=== PATIENT | female | born 1960 | race Caucasian/White ===

== ENCOUNTER 2017-11-18 11:37 | Outpatient (CLI) | payer MEDICARE, MEDICAID, SELFPAY ==
[2017-11-18 13:19] LABS: ALT 25 U/L (12-78); AST 13 U/L (15-37); Albumin 3.6 g/dL (3.4-5.0); Alkaline Phosphatase 91 U/L (46-116); Anion Gap 9.3 mmol/L (3-11); BUN 14 mg/dL (7-18); Bilirubin, Total 0.3 mg/dL (0.2-1.0); CO2 26.7 mmol/L (21.0-32.0); CREATININE 0.57 mg/dL (0.55-1.02); Calcium 8.9 mg/dL (8.5-10.1); Chloride 106 mmol/L (98-107); Cholesterol 186 mg/dL (50-200); Glucose 93 mg/dL (70-100); HDL Cholesterol 36 mg/dL (40-60); LDL CHOLESTEROL 108 mg/dL (<100); Potassium 4.3 mmol/L (3.5-5.1); Sodium 142 mmol/L (136-145); Total Protein 7.2 g/dL (6.4-8.2); Triglyceride 292 mg/dL (30-150)
== END 2017-11-18 11:57 ==
DX: F31.12 Bipolar disorder, current episode manic without psychotic features, moderate (principal); G80.9 Cerebral palsy, unspecified; E78.5 Hyperlipidemia, unspecified
CPT/HCPCS: 36415; 80053; 80061; 83721; 83036

== ENCOUNTER 2018-06-11 08:40 | Outpatient (CLI) | payer MEDICARE, MEDICAID, SELFPAY ==
[2018-06-11 09:16] LABS: Abs Immature Grans 0.03 k/cumm (0.0-0.09); Absolute Basophil Count 0.02 k/cumm (0.0-0.2); Absolute Eosinophil Count 0.04 k/cumm (0.0-0.7); Absolute Monocyte Count 0.27 k/cumm (0.11-0.7); Absolute Neutrophil Count 3.02 k/cumm (1.2-6.7); Basophils % 0.4; Eosinophils % 0.8; HCT 40.2 % (36.0-46.0); HGB 12.8 g/dL (12.0-15.5); Immature Grans % 0.6; Lymphocytes % 30.7; Mean Corp. HGB Concentration 31.8 g/dL (32.0-36.0); Mean Corpuscular Hemoglobin 28.8 pg (27.0-33.0); Mean Corpuscular Volume 90.5 fL (80-95); Mean Platelet Volume 10.3 fL (8.0-11.0); Monocytes % 5.5; Platelet Count 195 x1000/uL (130-400); RBC 4.44 m/cumm (4.00-5.20); RBC Distribution Width 14.7 % (11.7-14.6); White Blood Cell Count 4.88 k/cumm (4.4-10.8)
[2018-06-11 09:32] LABS: Hemoglobin A1C 5.3 % (4.5-6.2)
[2018-06-11 10:21] LABS: ALT 20 U/L (12-78); AST 14 U/L (15-37); Alkaline Phosphatase 64 U/L (46-116); BUN 15 mg/dL (7-18); Bilirubin, Total 0.2 mg/dL (0.2-1.0); Calcium 9.5 mg/dL (8.5-10.1); Chloride 106 mmol/L (98-107); Glucose 98 mg/dL (70-100); Potassium 4.1 mmol/L (3.5-5.1); Sodium 143 mmol/L (136-145); Total Protein 7.7 g/dL (6.4-8.2)
== END 2018-06-11 09:00 ==
PROVIDERS: Family Medicine
DX: R73.9 Hyperglycemia, unspecified (principal); R39.89 Other symptoms and signs involving the genitourinary system
CPT/HCPCS: 36415; 80053; 81003; 83036; 85025

== ENCOUNTER 2018-06-23 12:35 | Emergency (ER) | payer MEDICARE, MEDICAID, SELFPAY ==
[2018-06-23 12:43] VITALS: BP 123/59; PULSE 99; RESP 18; TEMP 36.4; O2SAT 97
--- NOTE | 2018-06-23 12:49 | ED.GENADUL_ITS ---
Discharge Plan Disposition Patient Disposition: HOME Condition: Improving Discharge Details Chief Complaint: Orthopedic Clinical Impression: Cellulitis of great toe, left Primary Care Provider: Loan Pradhan ED Provider: Nain Murphy Home Meds and New Rx's Prescriptions: New cephalexin 500 mg tablet 500 mg PO TID 7 Days Qty: 21 RF: 0 Continued mirtazapine 15 mg tablet,disintegrating 30 mg PO HS RF: 0 trazodone 100 mg tablet 100 mg PO QHS Qty: 90 RF: 0 multivitamin 1 EACH capsule 1 cap AD DAILY Qty: 90 RF: 0 DEPEND 1 EACH EACH 1 ea Miscellaneous PRN RF: 0 divalproex [Depakote] 250 MG tablet,delayed release (DR/EC) 250 mg PO BID RF: 0 olanzapine 2.5 MG tablet 2.5 mg PO HS PRNRF: 0 ADULT DIAPERS 1 ea Miscellaneous 6X/DAY Qty: 300 RF: 11 acetaminophen 500 MG tablet 1,000 mg PO Q6H PRN RF: 0 melatonin 3 MG tablet 0.5 tab PO HS RF: 0 alprazolam [Xanax] 0.5 MG tablet 0.5 mg PO as directed Qty: 10 RF: 0 olanzapine 10 MG tablet 10 mg PO HS RF: 0 Citracal 1 tab PO DAILY RF: 0 polyethylene glycol 3350(bulk) 1 GM granules 17 gm PO DAILY PRNQty: 527 RF: 6 docusate sodium 100 MG capsule 1 - 2 cap PO BID PRNQty: 100 RF: 11 olanzapine 5 MG tablet 1 tab PO DAILY Qty: 90 RF: 3 simvastatin 40 MG tablet 40 mg PO DAILY Qty: 90 RF: 3 prazosin 2 MG capsule 2 mg PO DAILY RF: 0 Dexilant 30 mg capsule,biphase delayed releas 30 mg PO DAILY Qty: 30 RF: 11 betamethasone dipropionate 0.05 % cream 1 applic TP BID PRN (Reason: skin irritation) Qty: 45 RF: 3 L-Carnitine 500 mg tablet 500 mg PO BID Qty: 180 RF: 3 erythromycin 5 mg/gram (0.5 %) ointment 0.5 inch OP BID Qty: 1 RF: 0 Discontinued amoxicillin-pot clavulanate [Augmentin] 875-125 mg tablet 1 tab PO Q12H Qty: 14 RF: 0 Discharge Instructions Instructions: Cellulitis (ED) Additional Instructions: Continue warm, salt water soaks 3-4 times a day. Take antibiotics as prescribed Please follow-up with Loan Callaway for recheck if not improving in 3-5 days time. Return for any acute concerns. Continue all regular medications. Medical Decision Making 57-year-old female presents with her caregiver HPI General Mode of arrival: ambulatory . Date/Time Provider Initiated Documentation: 06/23/18 12:44 . Limitations to Documentation: no limitations . Information obtained by: patient . History of Present Illness 57 year old F presents to the emergency department with the chief complaint of Left great toe erythema, described as mild, Quality is described as constant, and is localized to the left and lower extremity. Patient reports no radiation. Patient started experiencing this hour(s) and it has been constant. No relieving factors improve symptom(s), No exacerbating factors reported . Patient notes no other symptoms.; denies fever/chills. Related Data Home Medications Medication Instructions Recorded Confirmed Depend 1 ea MISCELLANEOUS PRN ea 05/28/12 06/03/18 multivitamin 1 cap AD DAILY #90 05/28/12 06/03/18 divalproex [Depakote] 250 mg PO BID tab-cap 09/17/13 06/03/18 olanzapine 2.5 mg PO HS PRN 11/25/13 06/03/18 acetaminophen 1,000 mg PO Q6H PRN tab-cap 10/04/15 06/03/18 melatonin 0.5 tab PO HS 11/07/15 06/03/18 alprazolam [Xanax] 0.5 mg PO as directed #10 tab 06/10/16 06/03/18 Citracal 1 tab PO DAILY 10/14/16 06/03/18 olanzapine 10 mg PO HS 10/14/16 06/03/18 polyethylene glycol 3350(bulk) 17 gm PO DAILY PRN #527 gm 04/07/17 06/03/18 docusate sodium 1 - 2 cap PO BID PRN #100 tab-cap 05/06/17 06/03/18 olanzapine 1 tab PO DAILY #90 tab 06/25/17 06/03/18 simvastatin 40 mg PO DAILY #90 tab-cap 06/25/17 06/03/18 prazosin 2 mg PO DAILY 08/20/18 03/20/19 dexlansoprazole 30 mg 30 mg PO DAILY #30 tab-cap 01/15/18 06/03/18 capsule,biphase delayed release betamethasone dipropionate 0.05 % 1 applic TP BID PRN #45 gm 02/03/18 06/03/18 topical cream levocarnitine 500 mg tablet 500 mg PO BID #180 tab-cap 04/20/18 06/03/18 mirtazapine 15 mg disintegrating 30 mg PO HS tab-cap 05/24/18 06/03/18 tablet trazodone 100 mg tablet 100 mg PO QHS #90 tab 05/24/18 06/03/18 erythromycin 5 mg/gram (0.5 %) eye 0.5 inch OP BID #1 gm 05/27/18 06/03/18 ointment cephalexin 500 mg PO TID 7 Days #21 tab 06/23/18 Previous Rx's Medication Instructions Recorded olanzapine 1 tab PO DAILY #90 tab 06/25/17 simvastatin 40 mg PO DAILY #90 tab-cap 06/25/17 dexlansoprazole 30 mg 30 mg PO DAILY #30 tab-cap 01/15/18 capsule,biphase delayed release betamethasone dipropionate 0.05 % 1 applic TP BID PRN #45 gm 02/03/18 topical cream levocarnitine 500 mg tablet 500 mg PO BID #180 tab-cap 04/20/18 trazodone 100 mg tablet 100 mg PO QHS #90 tab 05/24/18 erythromycin 5 mg/gram (0.5 %) eye 0.5 inch OP BID #1 gm 05/27/18 ointment cephalexin 500 mg PO TID 7 Days #21 tab 06/23/18 Allergies Allergy/AdvReac Type Severity Reaction Status Date / Time No Known Allergies Allergy Verified 06/23/18 12:46 General Stated Complaint: Orthopedic ISRA[place]: 4 Review of Systems Review of Systems 6 systems reviewed and otherwise neg [facility] Medical History Abnormal weight gain (Acute 10/04/15) Abnormal weight loss (Acute 03/03/15) Bipolar affective disorder, current episode hypomanic (Chronic 03/03/15) Bipolar affective disorder, currently manic, moderate (Chronic 10/04/15) Cerebral palsy (Chronic 09/11/12) Constipation (Chronic) Hyperlipidemia (Chronic 09/11/12) Idiopathic scoliosis (Chronic) Osteopenia (Chronic) Pain (Chronic 10/04/15) Urine discoloration (Chronic 10/04/15) Surgical History Spinal Fusion Family History Father Heart disease Social History Smoking/Tobacco Use Status: Never Drug use: Never Exam Narrative Exam Narrative: GEN: awake, alert, Pleasant, well groomed, interactive. HEAD: Normocephalic, atraumatic ENT: Mucous membranes moist, oropharynx unremarkable, External ear exam unremarkable EYES: PERRL, EOMI NECK: Full ROM, no AP, no menigismus CHEST/RESP: Nontender, clear to auscultation bilateral, no wheeze/rhonchi/rales CARDIOVASCULAR: RRR, no murmur, rub maggie. 2+ Rad pulse bilateral EXT: Full ROM, no edema, left great toe with erythema proximal to the nailbed. No evidence of ingrown toenail there is some dried skin present. Neuro: Grossly normal neurologic exam, patient not verbal at baseline Course Vital Signs Temperature 36.4 C L 06/23/18 12:43 Pulse 99 H 06/23/18 12:43 Respiratory Rate 18 06/23/18 12:43 Blood Pressure 123/59 L 06/23/18 12:43 Pulse Oximetry 97 06/23/18 12:43 Temperature 36.4 C L 06/23/18 12:43 Pulse 99 H 06/23/18 12:43 Respiratory Rate 18 06/23/18 12:43 Blood Pressure 123/59 L 06/23/18 12:43 Pulse Oximetry 97 06/23/18 12:43 Oxygen Delivery Method Room Air 06/23/18 12:43 Oxygen Flow Rate 0 06/23/18 12:43 Pain Level 0 06/23/18 12:43 Comment 06/23/18 12:43
== END 2018-06-23 13:08 | disposition home or self-care (01) ==
LOC: ER 12:54
PROVIDERS: Emergency Provider Emergency Medicine
DX: L03.032 Cellulitis of left toe (principal)
CPT/HCPCS: 99283

== ENCOUNTER 2018-06-29 20:43 | Outpatient (REF) | payer MEDICARE, MEDICAID, SELFPAY | END 2018-06-29 21:03 | LOC: LBN 20:43 | DX: L03.032 Cellulitis of left toe (principal) | CPT/HCPCS: 87077; 87070; 87186; 87205 ==

== ENCOUNTER 2018-11-05 02:17 | Outpatient (CLI) | payer MEDICARE, MEDICAID, SELFPAY ==
[2018-11-05 11:10] LABS: Anion Gap 10.9 mmol/L (3-11); BUN 12 mg/dL (7-18); CO2 27.1 mmol/L (21.0-32.0); CREATININE 0.48 mg/dL (0.55-1.02); Calcium 9.2 mg/dL (8.5-10.1); Chloride 109 mmol/L (98-107); Glucose 98 mg/dL (70-100); Potassium 4.7 mmol/L (3.5-5.1); Sodium 147 mmol/L (136-145)
== END 2018-11-05 02:37 ==
DX: G80.9 Cerebral palsy, unspecified (principal); K59.00 Constipation, unspecified; R63.5 Abnormal weight gain
CPT/HCPCS: 36415; 80048

== ENCOUNTER 2018-12-04 15:05 | Outpatient (REF) | payer MEDICARE, MEDICAID, SELFPAY ==
[2018-12-04 16:19] LABS: Bilirubin Negative (Negative); Blood Negative (Negative); Glucose Negative (Negative); Ketones Negative (Negative); Leukocyte Esterase Negative (Negative); Nitrite Negative (Negative); Specific Gravity 1.025 (1.005-1.025); pH 6.5 (5-8)
[2018-12-04 16:20] LABS: Clarity Sl Cloudy (Clear)
== END 2018-12-04 15:25 ==
LOC: LBN 15:05
DX: R39.9 Unspecified symptoms and signs involving the genitourinary system (principal)
CPT/HCPCS: 81003

== ENCOUNTER 2019-01-06 17:09 | Emergency (ER) | payer MEDICARE, MEDICAID, SELFPAY ==
[2019-01-06 17:52] VITALS: TEMP 36.4
--- NOTE | 2019-01-06 17:58 | W.ED.GENAD ---
Discharge Plan Disposition Patient Disposition: HOME Condition: Good Discharge Details Chief Complaint: SutureRem Clinical Impression: Encounter for removal of dm Primary Care Provider: Loan Pradhan ED Provider: Priyanka Lee Home Meds and New Rx's Prescriptions: Continued mirtazapine 15 mg tablet,disintegrating 30 mg PO HS RF: 0 trazodone 100 mg tablet 100 mg PO QHS Qty: 90 RF: 0 multivitamin 1 EACH capsule 1 cap AD DAILY Qty: 90 RF: 0 DEPEND 1 EACH EACH 1 ea Miscellaneous PRN RF: 0 ADULT DIAPERS 1 ea Miscellaneous 6X/DAY Qty: 300 RF: 11 acetaminophen 500 MG tablet 1,000 mg PO Q6H PRN RF: 0 alprazolam [Xanax] 0.5 MG tablet 0.5 mg PO as directed Qty: 10 RF: 0 olanzapine 10 MG tablet 10 mg PO HS RF: 0 Citracal 1 tab PO DAILY RF: 0 polyethylene glycol 3350(bulk) 1 GM granules 17 gm PO DAILY PRNQty: 527 RF: 6 olanzapine 5 MG tablet 1 tab PO DAILY Qty: 90 RF: 3 prazosin 2 MG capsule 2 mg PO DAILY RF: 0 Dexilant 30 mg capsule,biphase delayed releas 30 mg PO DAILY Qty: 30 RF: 11 betamethasone dipropionate 0.05 % cream 1 applic TP BID PRN (Reason: skin irritation) Qty: 45 RF: 3 L-Carnitine 500 mg tablet 500 mg PO BID Qty: 180 RF: 3 docusate sodium 100 mg capsule 100 - 200 mg PO BID PRN (Reason: constipation) Qty: 100 RF: 3 simvastatin 40 mg tablet 40 mg PO DAILY Qty: 90 RF: 3 divalproex [Depakote] 250 mg tablet,delayed release (DR/EC) 500 mg PO BID RF: 0 melatonin 3 mg tablet 3 mg PO HS RF: 0 sulfamethoxazole-trimethoprim [Bactrim DS] 800-160 mg tablet 1 tab PO BID Qty: 6 RF: 0 Discharge Instructions Instructions: Laceration (ED) Additional Instructions: Dm removed today. He may wash normally would. Please allow the scab to come off naturally. Monitor for signs of infection including redness, warmth, drainage, increased pain, fever/chills. If she develops these or the new/worsening symptoms please seek care urgently once again. Otherwise, please follow-up with primary care as needed. Referrals: Loan Pradhan NP [Primary Care Provider] - Discharge Data Discharge Date/Time-TO BE ENTERED AT DEPARTURE: 01/06/19 18:40 Medical Decision Making Patient is a 58-year-old female, brought in by her primary home caregiver, with chief complaint of staple removal. She was seen at [facility] at which time for dm were placed to the posterior aspect of her scalp after the patient fell striking her head 10 days ago. They report that is been healing well, they have not noted signs of infection. Patient does have history of cerebral palsy and is fairly nonverbal on my exam. Wound appears to be healing well. #4 dm were easily removed by myself. She tolerated this well. Wound care was discussed in depth. We discussed signs symptoms of infection when to seek care urgently once again. Advise follow-up with primary care as needed. All the questions and concerns were addressed in agreement this plan. HPI General Mode of arrival: ambulatory. Date/Time Provider Initiated Documentation: 01/06/19 17:27. Limitations to Documentation: physical limitation (patient is nonverbal at baseline). Information obtained by: family (home care provider) and RN notes reviewed. History of Present Illness 58 year old F presents to the emergency department with the chief complaint of staple removal from scalp laceration, Patient started experiencing this day(s) (10) Patient notes denies fever/chills and rash. Related Data Home Medications Medication Instructions Recorded Confirmed Depend 1 ea MISCELLANEOUS PRN ea 05/28/12 06/29/18 multivitamin 1 cap AD DAILY #90 05/28/12 06/29/18 acetaminophen 1,000 mg PO Q6H PRN tab-cap 10/04/15 06/29/18 alprazolam [Xanax] 0.5 mg PO as directed #10 tab 06/10/16 06/29/18 Citracal 1 tab PO DAILY 10/14/16 06/29/18 olanzapine 10 mg PO HS 10/14/16 06/29/18 polyethylene glycol 3350(bulk) 17 gm PO DAILY PRN #527 gm 04/07/17 06/29/18 olanzapine 1 tab PO DAILY #90 tab 06/25/17 06/29/18 prazosin 2 mg PO DAILY 11/03/17 06/29/18 dexlansoprazole 30 mg 30 mg PO DAILY #30 tab-cap 01/15/18 06/29/18 capsule,biphase delayed release betamethasone dipropionate 0.05 % 1 applic TP BID PRN #45 gm 02/03/18 06/29/18 topical cream levocarnitine 500 mg tablet 500 mg PO BID #180 tab-cap 04/20/18 06/29/18 mirtazapine 15 mg disintegrating 30 mg PO HS tab-cap 05/24/18 06/29/18 tablet trazodone 100 mg tablet 100 mg PO QHS #90 tab 05/24/18 06/29/18 docusate sodium 100 mg capsule 100 - 200 mg PO BID PRN #100 07/01/18 tab-cap simvastatin 40 mg tablet 40 mg PO DAILY #90 tab-cap 07/01/18 divalproex 250 mg tablet,delayed 500 mg PO BID tab-cap 11/11/18 release melatonin 3 mg tablet 3 mg PO HS tab 11/11/18 sulfamethoxazole 800 1 tab PO BID #6 tab 12/03/18 mg-trimethoprim 160 mg tablet Previous Rx's Medication Instructions Recorded olanzapine 1 tab PO DAILY #90 tab 06/25/17 dexlansoprazole 30 mg 30 mg PO DAILY #30 tab-cap 01/15/18 capsule,biphase delayed release betamethasone dipropionate 0.05 % 1 applic TP BID PRN #45 gm 02/03/18 topical cream levocarnitine 500 mg tablet 500 mg PO BID #180 tab-cap 04/20/18 trazodone 100 mg tablet 100 mg PO QHS #90 tab 05/24/18 docusate sodium 100 mg capsule 100 - 200 mg PO BID PRN #100 07/01/18 tab-cap simvastatin 40 mg tablet 40 mg PO DAILY #90 tab-cap 07/01/18 sulfamethoxazole 800 1 tab PO BID #6 tab 12/03/18 mg-trimethoprim 160 mg tablet Allergies Allergy/AdvReac Type Severity Reaction Status Date / Time No Known Allergies Allergy Verified 11/11/18 14:33 General Stated Complaint: SutureRem ISRAEL: 4 Review of Systems Review of Systems ROS Unobtainable: Unobtainable due to mental condition [facility] Medical History Abnormal weight gain (Acute 10/04/15) Abnormal weight loss (Acute 03/03/15) Bipolar affective disorder, current episode hypomanic (Chronic 03/03/15) Bipolar affective disorder, currently manic, moderate (Chronic 10/04/15) Cerebral palsy (Chronic 09/11/12) developmental delay Constipation (Chronic) Hyperlipidemia (Chronic 09/11/12) Idiopathic scoliosis (Chronic) s/p Albarran rohini Osteopenia (Chronic) Pain (Chronic 10/04/15) Urine discoloration (Chronic 10/04/15) Surgical History Spinal Fusion Albarran rohini Social History Smoking/Tobacco Use Status: Never Alcohol Intake: never Drug use: Never Substance use type: does not use Do you feel safe at home: Yes Do you feel safe in your relationship?: Yes Exam Const General: cooperative, healthy appearing, comfortable, no acute distress and well developed Nutritional Appearance: average body habitus and well nourished Orientation: alert and awake [facility] Head images: 1. area of laceration with #4 dm placed. Scabbed over. No erythema, warmth, drainage, fluctuance or swelling. Face and sinus: normal facial exam Mouth: oral mucosae normal Resp Effort & Inspection: normal respiratory effort, able to speak in complete sentences and no respiratory distress Cardio Rate: regular rate Rhythm: regular rhythm Neuro General: alert and awake Gait: normal gait Course Vital Signs Vital signs: Vital Signs Temperature 36.4 C L 01/06/19 17:52 Temperature 36.4 C L 01/06/19 17:52 Temperature Source Temporal Artery Scan 01/06/19 17:52 Respiratory Effort 01/06/19 17:51
== END 2019-01-06 18:40 | disposition home or self-care (01) ==
PROVIDERS: Emergency Provider Physician Assistant
DX: S01.01XA Laceration without foreign body of scalp, initial encounter (principal); W19.XXXA Unspecified fall, initial encounter; Z48.02 Encounter for removal of sutures
CPT/HCPCS: 99282

== ENCOUNTER 2019-03-25 07:00 | Outpatient (CLI) | payer MEDICARE, MEDICAID, SELFPAY ==
[2019-03-25 12:52] LABS: Abs Immature Grans 0.12 k/cumm (0.0-0.09); Absolute Basophil Count 0.02 k/cumm (0.0-0.2); Absolute Eosinophil Count 0.01 k/cumm (0.0-0.7); Absolute Lymphocyte Count 1.12 k/cumm (1.2-3.4); Absolute Monocyte Count 0.61 k/cumm (0.11-0.7); Basophils % 0.2; Eosinophils % 0.1; HCT 25.8 % (36.0-46.0); HGB 7.8 g/dL (12.0-15.5); Immature Grans % 1.1 %; Lymphocytes % 9.9; Mean Corp. HGB Concentration 30.2 g/dL (32.0-36.0); Mean Corpuscular Hemoglobin 27.8 pg (27.0-33.0); Mean Corpuscular Volume 91.8 fL (80-95); Mean Platelet Volume 9.3 fL (8.0-11.0); Monocytes % 5.4; Neutrophils % 83.3; Platelet Count 465 x1000/uL (130-400); RBC 2.81 m/cumm (4.00-5.20); RBC Distribution Width 14.1 % (11.7-14.6); White Blood Cell Count 11.32 k/cumm (4.4-10.8)
[2019-03-25 13:00] LABS: Absolute Neutrophil Count 9.43 k/cumm (1.2-6.7)
[2019-03-25 13:48] LABS: ALT 76 U/L (14-59); AST 83 U/L (15-37); Albumin 2.4 g/dL (3.4-5.0); Alkaline Phosphatase 206 U/L (46-116); BUN 13 mg/dL (7-18); Bilirubin, Total 0.2 mg/dL (0.2-1.0); CREATININE 0.58 mg/dL (0.55-1.02); Calcium 9.6 mg/dL (8.5-10.1); Chloride 101 mmol/L (98-107); Glucose 155 mg/dL (74-106); Potassium 5.2 mmol/L (3.5-5.1); Sodium 141 mmol/L (136-145); Total Protein 7.4 g/dL (6.4-8.2)
[2019-03-25 14:21] LABS: Diff Comment RBC Morph Reviewed
[2019-03-25 14:22] LABS: Hypochromasia 1+; Microcytosis 1+; Polychromasia Present
== END 2019-03-25 07:20 ==
DX: R53.1 Weakness (principal); R53.83 Other fatigue; R63.4 Abnormal weight loss
CPT/HCPCS: 36415; 80053; 85025

== ENCOUNTER 2019-03-25 11:56 | Outpatient (REF) | payer MEDICARE, MEDICAID, SELFPAY ==
[2019-03-25 13:42] LABS: Bilirubin Negative (Negative); Blood Moderate (Negative); Clarity Cloudy (Clear); Glucose Negative (Negative); Ketones Trace mg/dL (Negative); Leukocyte Esterase Negative (Negative); Nitrite Negative (Negative); Specific Gravity >= 1.030 (1.005-1.025)
[2019-03-25 14:23] LABS: Bacteria Many HPF (Negative); C & S Indicated? Yes
[2019-03-25 14:25] LABS: Crystals Many Amorphous HPF (Negative)
== END 2019-03-25 12:16 ==
LOC: LBN 11:56
DX: R31.9 Hematuria, unspecified (principal)
CPT/HCPCS: 87077; 81003; 81015; 87086

== ENCOUNTER 2019-03-25 18:45 | Inpatient (IN) | payer MEDICARE, MEDICAID, SELFPAY ==
[2019-03-25] VITALS (33 sets, daily range): BP systolic 121–147; BP diastolic 60–81; PULSE 108–129; RESP 16–32; TEMP 36.6–36.8; O2SAT 92–97
--- NOTE | 2019-03-25 19:28 | ED.GENADUL_ITS ---
Discharge Plan Disposition Patient Disposition: [facility] INPATIENT Condition: Stable Discharge Details Chief Complaint: GenMedical Clinical Impression: Anemia, Elevated LFTs, Lesion of colon, Lower obstructive uropathy, Kidney stone, Acute UTI, Pneumonia Primary Care Provider: Loan Pradhan ED Provider: Jonn Collins Home Meds and New Rx's Prescriptions: No Action mirtazapine 15 mg tablet,disintegrating 30 mg PO HS RF: 0 trazodone 100 mg tablet 100 mg PO QHS Qty: 90 RF: 0 multivitamin 1 EACH capsule 1 cap AD DAILY Qty: 90 RF: 0 DEPEND 1 EACH EACH 1 ea Miscellaneous PRN RF: 0 ADULT DIAPERS 1 ea Miscellaneous 6X/DAY Qty: 300 RF: 11 acetaminophen 500 MG tablet 1,000 mg PO Q6H PRN RF: 0 alprazolam [Xanax] 0.5 MG tablet 0.5 mg PO as directed Qty: 10 RF: 0 olanzapine 10 MG tablet 10 mg PO HS RF: 0 Citracal 1 tab PO DAILY RF: 0 polyethylene glycol 3350(bulk) 1 GM granules 17 gm PO DAILY PRNQty: 527 RF: 6 olanzapine 5 MG tablet 1 tab PO DAILY Qty: 90 RF: 3 prazosin 2 MG capsule 2 mg PO DAILY RF: 0 betamethasone dipropionate 0.05 % cream 1 applic TP BID PRN (Reason: skin irritation) Qty: 45 RF: 3 L-Carnitine 500 mg tablet 500 mg PO BID Qty: 180 RF: 3 docusate sodium 100 mg capsule 100 - 200 mg PO BID PRN (Reason: constipation) Qty: 100 RF: 3 simvastatin 40 mg tablet 40 mg PO DAILY Qty: 90 RF: 3 divalproex [Depakote] 250 mg tablet,delayed release (DR/EC) 500 mg PO BID RF: 0 melatonin 3 mg tablet 3 mg PO HS RF: 0 Dexilant 30 mg capsule,biphase delayed releas 30 mg PO DAILY Qty: 30 RF: 11 Medical Decision Making <Marcos Merritt MD - Last Filed: 03/25/19 19:34> 58 yo female who is nonverbal due to cerbral palsy, hld, who comes in with worsening general weakness, not eating over the course of several months and had labs done by pcp today which showed new anemia of 7.8 and her lfts were elevated so she was sent here. She apparently had a fall down stairs in december and had shirley placed at [facility] and no CT was done per care takers. They feel her decline has been since then and saw pcp today who noticed significant decrease in functional status and palor so ordered labs and was referred here when they came back negative. No reported fevers, vomit, rashes, dark stools. She is in no distress on exam, seems to have mild upper abdominal discomfort on exam without guarding or rebound. She has brown guiac negative stool on exam so unlikely gi bleed. Given her decline from the fall in december will obtain ct head to eval for sdh. will also ct her abdomen/pelvis given anemia and lft elevation and monitor. pt will be signed out to oncoming provider pending results Differential Diagnosis Differential Diagnosis: gi bleed, sdh, cancer <Jonn Collins DO - Last Filed: 03/25/19 23:34> Case was signed out to me by my colleague Dr. Marcos Merritt. Please refer to his initial documentation, physical exam and assessment. Pending laboratory work-up and reassessment. As well as imaging. At time of transition of care. Laboratory and imaging work-up is returned. Multiple areas of concern. Regards to her labs patient's white count is slightly elevated at 12, platelets stable. Renal function stable. VBG stable. Lactate 1.8. Transaminases slightly elevated with an elevated alk phos at 212. Urinalysis shows evidence of infection with greater than 50 WBCs, moderate leuk esterase. This was a straight cath specimen. Depakote level normal. Imaging reveals a few different notable concerns. Chest x-ray shows evidence of infiltrate versus worsening compressive atelectasis on the left. Suspect pneumonia. CT scan of the abdomen and pelvis demonstrates a 1 cm obstructing stone on the left with hydroureter and hydronephrosis. In conjunction with an apple core lesion in the distal sigmoid. Certainly concerning for malignancy or cancer. Patient stool guaiac is negative, I do suspect that the reason for hemoglobin of 7.8 which seems to be stable today is secondary to suspected malignancy. With stable renal function I did contact Dr. Membreno discussed the case with him. Currently the patient does not appear to be in septic shock at all as there is only mild tachycardia but no fever, or hypotension. She is not tachypneic either. Oxygen saturations are stable. With the evidence of the large obstructing stone in conjunction with the evidence of infection there is certainly need for removal of the stone. Dr. Membreno agrees and will remove it tomorrow. We will start broad-spectrum antibiotics of vancomycin and Zosyn, for both the UTI and suspected pneumonia. With a hemoglobin of 7.8 being stable I see no indication for active blood transfusion at this time. I did discuss the case with the hospitalist Dr. Dubois, patient will be admitted for further management including expected surgical consult for colon lesion. I do suspect cancer and malignancy. I discussed all of this in depth with the family and caregiver and medical power of transactional attorney. I have extensively reviewed the treatment plan with the patient. I have addressed all patient concerns at this time. I have also discussed the plan with the admitting physician and they agree with the current assessment and plan and have agreed to assume responsibility for the patient. All parties demonstrate verbal understanding and agreement with our assessment and plan at this time. FINDINGS: Brain: No evidence for acute transcortical infarct. No mass effect or midline shift. No extra-axial collection. No acute intracranial hemorrhage. Basal cisterns are patent. Ventricles: Normal. No ventriculomegaly. Bones/joints: Unremarkable. No acute fracture. Sinuses: Visualized sinuses are unremarkable. No fluid levels. Mastoid air cells: Visualized mastoid air cells are well aerated. Soft tissues: Unremarkable. IMPRESSION: No hydrocephalus, acute intracranial hemorrhage, or mass effect. Thank you for allowing us to participate in the care of your patient. Dictated and Authenticated by: Ulices Campbell MD FINDINGS: Lungs: There is increased prominence of patchy left basilar airspace opacity. There is diffusely increased opacity of the pulmonary parenchyma suggestive for hypoventilatory change. There are patchy perihilar opacities with bronchovascular crowding. Pleural space: No pleural effusion. No pneumothorax. Heart/Mediastinum: Cardiac silhouette is partially obscured, appears within normal limits for size. Diaphragm: Persistent moderate to severe asymmetric elevation of the left hemidiaphragm. Bones/joints: Single spinal fixation rohini is partially visualized. No acute osseous finding. Soft tissues: No focal soft tissue abnormailty. Other findings: Diffuse nonfocal gaseous distention of the bowel. IMPRESSION: 1. Increased patchy left basilar opacity. Differential considerations include infectious infiltrate versus worsening compressive atelectasis secondary to moderate to severe asymmetric elevation of the left hemidiaphragm. Correlate clinically. 2. Hypoventilatory changes as discussed. Thank you for allowing us to participate in the care of your patient. Dictated and Authenticated by: Get Gold MD 03/25/2019 9:08 PM Eastern Time ([place] & [place]) FINDINGS: Lungs: There is subpleural atelectasis of the dependent portions of the lungs. The visualized portions of the lung bases demonstrate no acute disease. Diaphragm: There is elevation of the left hemidiaphragm. Liver: There is a diffuse decrease in hepatic parenchymal density, consistent with fatty infiltration. 8mm hypodense lesion in the left hepatic lobe on image 307 series 5 is too small to characterize but most probably benign. No acute liver pathology. Gallbladder and bile ducts: Normal. No calcified stones. No ductal dilation. Pancreas: Normal. No ductal dilation. Spleen: Normal. No splenomegaly. Adrenals: Normal. No mass. Kidneys and ureters: 1.1 cm right renal simple cyst is appreciated. No acute right renal findings. No right obstructive uropathy. There is moderate to severe left hydroureteronephrosis. There is a 1 cm x 9 mm stone impacted in the proximal left ureter. Mild left perirenal stranding. Stomach and bowel: There is a focal area of circumferential wall thickening at the distal sigmoid, on image 687 series 5 and image 49 series 6. This could be related to an area of focal peristalsis, however an apple core colonic neoplasm is also within the differential diagnosis. No other segmental bowel thickening is appreciated. No evidence of bowel obstruction. Appendix: No evidence of appendicitis. Intraperitoneal space: Trace free fluid in the cul-de-sac is nonspecific. Vasculature: The vasculature demonstrates diffuse mild atherosclerotic calcification. Lymph nodes: Unremarkable. No enlarged lymph nodes. Bladder: There is a small amount of intraluminal bladder gas consistent with instrumentation. The bladder appears otherwise unremarkable. Reproductive: Unremarkable as visualized. Bones/joints: Prior scoliosis surgery without acute complications. No acute abnormality or aggressive osseous lesion. Soft tissues: Unremarkable. IMPRESSION: 1. Moderate to severe left obstructive uropathy. 2. Findings at the distal sigmoid are concerning for either a focal segment of peristalsis versus a true apple core colonic neoplasm. Correlation with colonoscopy is recommended when clinically feasible. 3. Other chronic/incidental findings as detailed above. Thank you for allowing us to participate in the care of your patient. Dictated and Authenticated by: Rosendo Manriquez MD 03/25/2019 9:03 PM Eastern Time ([place] & [place]) HPI <Marcos Merritt MD - Last Filed: 03/25/19 19:34> General Mode of arrival: wheelchair . Date/Time Provider Initiated Documentation: 03/25/19 18:49 . Information obtained by: family (care takers) . History of Present Illness 58 year old F presents to the emergency department with the chief complaint of weakness, described as moderate, Patient started experiencing this month(s) (3) and it has been constant. No relieving factors improve symptom(s), No exacerbating factors reported . Patient did receive the following treatments prior to arrival, none Related Data Home Medications Medication Instructions Recorded Confirmed Depend 1 ea MISCELLANEOUS PRN ea 05/28/12 06/29/18 multivitamin 1 cap AD DAILY #90 05/28/12 06/29/18 acetaminophen 1,000 mg PO Q6H PRN tab-cap 10/04/15 06/29/18 alprazolam [Xanax] 0.5 mg PO as directed #10 tab 06/10/16 06/29/18 Citracal 1 tab PO DAILY 10/14/16 06/29/18 olanzapine 10 mg PO HS 10/14/16 06/29/18 polyethylene glycol 3350(bulk) 17 gm PO DAILY PRN #527 gm 04/07/17 06/29/18 olanzapine 1 tab PO DAILY #90 tab 06/25/17 06/29/18 prazosin 2 mg PO DAILY 11/03/17 06/29/18 betamethasone dipropionate 0.05 % 1 applic TP BID PRN #45 gm 02/03/18 06/29/18 topical cream levocarnitine 500 mg tablet 500 mg PO BID #180 tab-cap 04/20/18 06/29/18 mirtazapine 15 mg disintegrating 30 mg PO HS tab-cap 05/24/18 06/29/18 tablet trazodone 100 mg tablet 100 mg PO QHS #90 tab 05/24/18 06/29/18 docusate sodium 100 mg capsule 100 - 200 mg PO BID PRN #100 07/01/18 tab-cap simvastatin 40 mg tablet 40 mg PO DAILY #90 tab-cap 07/01/18 divalproex 250 mg tablet,delayed 500 mg PO BID tab-cap 11/11/18 release melatonin 3 mg tablet 3 mg PO HS tab 11/11/18 dexlansoprazole 30 mg 30 mg PO DAILY #30 tab-cap 02/19/19 capsule,biphase delayed release Previous Rx's Medication Instructions Recorded olanzapine 1 tab PO DAILY #90 tab 06/25/17 betamethasone dipropionate 0.05 % 1 applic TP BID PRN #45 gm 02/03/18 topical cream levocarnitine 500 mg tablet 500 mg PO BID #180 tab-cap 04/20/18 trazodone 100 mg tablet 100 mg PO QHS #90 tab 05/24/18 docusate sodium 100 mg capsule 100 - 200 mg PO BID PRN #100 07/01/18 tab-cap simvastatin 40 mg tablet 40 mg PO DAILY #90 tab-cap 07/01/18 dexlansoprazole 30 mg 30 mg PO DAILY #30 tab-cap 02/19/19 capsule,biphase delayed release Allergies Allergy/AdvReac Type Severity Reaction Status Date / Time No Known Allergies Allergy Verified 03/25/19 19:08 General Stated Complaint: GenMedical [place]: 3 Review of Systems <Marcos Merritt MD - Last Filed: 03/25/19 19:34> All systems reviewed & are unremarkable except as noted in HPI and below Constitutional Constitutional: Denies fever(s) Cardiovascular Cardiovascular: Denies dyspnea Respiratory Respiratory: Denies cough and Denies dyspnea Gastrointestinal Gastrointestinal: Denies vomiting Integumentary/Breasts Skin/Breast: Denies rash PFSH <Marcos Merritt MD - Last Filed: 03/25/19 19:34> Social History Smoking/Tobacco Use Status: Never Alcohol Intake: never Drug use: Never Substance use type: does not use Do you feel safe at home: Yes Do you feel safe in your relationship?: Yes Exam <Marcos Merritt MD - Last Filed: 03/25/19 19:34> Const General: no acute distress Orientation: alert HENCA Head: normal to inspection Ears: external ears normal General nose exam: external nose normal Mouth: moist mucous membranes Eyes General: appearance normal, both eyes and all related structures Neck Neck: normal visual inspection Resp Effort & Inspection: normal respiratory effort Cardio Rate: regular rate Skin General skin exam: no rashes or lesions noted Neuro General: alert Extrem General: normal to inspection Psych Mental Status: mental status grossly normal Course <Marcos Merritt MD - Last Filed: 03/25/19 19:34> Vital Signs Vital signs: Vital Signs Temperature 36.8 C 03/25/19 19:02 Pulse 129 H 03/25/19 19:02 Respiratory Rate 22 03/25/19 19:02 Blood Pressure 122/76 03/25/19 19:02 Pulse Oximetry 96 03/25/19 19:02 Temperature 36.8 C 03/25/19 19:02 Temperature Source Skin 03/25/19 19:02 Pulse 129 H 03/25/19 19:02 Respiratory Rate 22 03/25/19 19:02 Respiratory Effort Non-Labored 03/25/19 19:07 Blood Pressure 122/76 03/25/19 19:02 Blood Pressure Position Sitting 03/25/19 19:02 Pulse Oximetry 96 03/25/19 19:02 Oxygen Delivery Method Room Air 03/25/19 19:02 Oxygen Flow Rate 0 03/25/19 19:02 Sign Out <Marcos Merritt MD - Last Filed: 03/25/19 19:34> Sign Out Data: Sign Out Comment: follow up on labs in [facility], and imaging Last updated by Marcos Merritt MD at 03/25/19 19:56
[2019-03-25] MEDS: Normal Saline 1,000 ML 500 ML IV (19:30)
[2019-03-25 19:52] LABS: BE (Venous) 2.9 mmol/L (-3-3); HCO3 (Venous) 28 mmol/L (22-28); O2 Sat (Venous) 59 % (70-80); TCO2 (Venous) 27 mmol/L (22-29); pCO2 (Venous) 44 mm/Hg (34-47); pO2 (Venous) 33 mm/Hg (28-44)
[2019-03-25 19:53] LABS: Lactate 1.8 mmol/L (0.6-1.4)
[2019-03-25 19:55] LABS: Absolute Basophil Count 0.02 k/cumm (0.0-0.2); Absolute Eosinophil Count 0.05 k/cumm (0.0-0.7); Absolute Lymphocyte Count 1.28 k/cumm (1.2-3.4); Absolute Monocyte Count 0.87 k/cumm (0.11-0.7); Absolute Neutrophil Count 9.87 k/cumm (1.2-6.7); Basophils % 0.2; Eosinophils % 0.4; HCT 25.6 % (36.0-46.0); HGB 7.8 g/dL (12.0-15.5); Immature Grans % 0.8 %; Lymphocytes % 10.5; Mean Corp. HGB Concentration 30.5 g/dL (32.0-36.0); Mean Corpuscular Hemoglobin 27.9 pg (27.0-33.0); Mean Corpuscular Volume 91.4 fL (80-95); Monocytes % 7.1; Platelet Count 468 x1000/uL (130-400); RBC Distribution Width 14.4 % (11.7-14.6); White Blood Cell Count 12.19 k/cumm (4.4-10.8)
[2019-03-25 20:08] LABS: INR 1.1 (0.9-1.1); PTT Activated 24.3 sec (21.0-31.4); Prothrombin Time 10.8 sec (9.3-11.0)
[2019-03-25] MEDS: Omnipaque 350 MG/ML 100 ML BTL IJ (20:13)
[2019-03-25 20:14] LABS: ALT 73 U/L (14-59); AST 90 U/L (15-37); Albumin 2.4 g/dL (3.4-5.0); Alkaline Phosphatase 212 U/L (46-116); Anion Gap 10.5 mmol/L (3-11); BUN 14 mg/dL (7-18); Bilirubin, Direct 0.13 mg/dL (0.00-0.20); Bilirubin, Total 0.3 mg/dL (0.2-1.0); CO2 27.5 mmol/L (21.0-32.0); CREATININE 0.64 mg/dL (0.55-1.02); Calcium 9.8 mg/dL (8.5-10.1); Chloride 99 mmol/L (98-107); Glucose 112 mg/dL (74-106); Lipase 287 U/L (73-393); Potassium 4.4 mmol/L (3.5-5.1); Sodium 137 mmol/L (136-145); Total Protein 8.1 g/dL (6.4-8.2)
--- NOTE | 2019-03-25 20:14 | DI.CT_ITS ---
EXAM: CT HEAD WO CLINICAL HISTORY: headpain s/p fall 2 months ago TECHNIQUE: COMPARISON: No exams were available for comparison FINDINGS: Noncontrast cranial CT was performed. There is marked motion artifact which limits interpretation. No calvarial fracture. Paranasal sinuses and mastoid air cells well aerated. Orbital and temporal b one structures appear intact as visualized. Possible right temporal lobe atrophy, no gross intracran ial hemorrhage, mass effect, or midline shift. IMPRESSION: Limited scan. No gross acute abnormality.
[2019-03-25 20:25] LABS: VALPROIC ACID 75.5 ug/mL (50-100)
--- NOTE | 2019-03-25 20:25 | DI.CT_ITS ---
EXAM: CT ABDOMEN PELVIS W CLINICAL HISTORY: anemia, elevated lfts, abdominal pain TECHNIQUE:: Examination is limited by patient motion. Examination was performed with intravenous inf usion of 74 cc of Omnipaque 350 COMPARISON: No exams were available for comparison FINDINGS: Diaphragm is elevated on the left. Probable mild left lower lobe atelectasis. Visualized portions of mediastinum including portions of pulmonary arterial circulation appear unremarkable. No pleural effusion. There may be mild hepatic steatosis. Low-attenuation left hepatic lobe lesion, less than 1 cm in lissett meter, too small to characterize but probably benign. Spleen is unremarkable. Pancreas grossly unre markable. Abdominal aorta is of normal diameter and no major vascular abnormality is seen. Adrenals are unremarkable. Right kidney unremarkable. There is left hydronephrosis and hydroureter to mid u reteral level where there is an obstructing 10 millimeter in diameter stone. No significant abdominal wall hernia. No significant abdominal or pelvic adenopathy. There is moderate stool burden. There is an area of focal wall thickening of the distal sigmoid, per istalsis versus circumferential mass. Another area of questionable peristalsis versus circumferentia l mass also noted in mid sigmoid. Colonoscopic correlation requested. IMPRESSION: 1. Left hydronephrosis and hydroureter to mid ureteral level secondary to obstructing 10 millimeter i n diameter stone. 2. Small quantity of gas in urinary bladder, nonspecific. 3. Question sigmoid lesions, neoplastic disease not excluded, correlation with colonoscopy recommend ed when clinically feasible.
--- NOTE | 2019-03-25 20:28 | DI.VRAD_ITS ---
PROCEDURE INFORMATION: Exam: CT Head Without Contrast Exam date and time: 03/25/2019 8:11 PM Age: 58 years old Clinical indication: Headache not specified; Patient HX: Head pain, S/P fall in care 2 months ago. Patient not able to communicate verbally. TECHNIQUE: Imaging protocol: Computed tomography of the head without contrast. Radiation optimization: All CT scans at this facility use at least one of these dose optimization techniques: automated exposure control; mA and/or kV adjustment per patient size (includes targeted exams where dose is matched to clinical indication); or iterative reconstruction. COMPARISON: No relevant prior studies available. FINDINGS: Brain: No evidence for acute transcortical infarct. No mass effect or midline shift. No extra-axial collection. No acute intracranial hemorrhage. Basal cisterns are patent. Ventricles: Normal. No ventriculomegaly. Bones/joints: Unremarkable. No acute fracture. Sinuses: Visualized sinuses are unremarkable. No fluid levels. Mastoid air cells: Visualized mastoid air cells are well aerated. Soft tissues: Unremarkable. IMPRESSION: No hydrocephalus, acute intracranial hemorrhage, or mass effect. Dictated and Authenticated by: Ulices Campbell MD. Ordering:AYSHA Rodríguez MD
--- NOTE | 2019-03-25 20:35 | DI.RAD_ITS ---
EXAM: XR CHEST 2V PA LATERAL CLINICAL HISTORY: weakness TECHNIQUE: COMPARISON: ABD FLAT UPRIGHT PA CHEST from 10/24/2015 FINDINGS: Albarran rohini noted in position in the thoracolumbar region. Left diaphragmatic elevation noted. P robable areas of atelectasis in left lung base. No gross pleural effusion. No gross consolidation. Please see accompanying CT report. IMPRESSION:
--- NOTE | 2019-03-25 21:04 | DI.VRAD_ITS ---
PROCEDURE INFORMATION: Exam: CT Abdomen And Pelvis With Contrast Exam date and time: 03/25/2019 8:15 PM Age: 58 years old Clinical indication: Generalized; Patient HX: Anemia, elevated lfts, abdominal pain. Patient unable to communicate verbally. TECHNIQUE: Imaging protocol: Computed tomography of the abdomen and pelvis with intravenous contrast. Radiation optimization: All CT scans at this facility use at least one of these dose optimization techniques: automated exposure control; mA and/or kV adjustment per patient size (includes targeted exams where dose is matched to clinical indication); or iterative reconstruction. Contrast material: OMNIPAQUE 350; Contrast volume: 78 ml; Contrast route: IV; COMPARISON: No relevant prior studies available. FINDINGS: Lungs: There is subpleural atelectasis of the dependent portions of the lungs. The visualized portions of the lung bases demonstrate no acute disease. Diaphragm: There is elevation of the left hemidiaphragm. Liver: There is a diffuse decrease in hepatic parenchymal density, consistent with fatty infiltration. 8mm hypodense lesion in the left hepatic lobe on image 307 series 5 is too small to characterize but most probably benign. No acute liver pathology. Gallbladder and bile ducts: Normal. No calcified stones. No ductal dilation. Pancreas: Normal. No ductal dilation. Spleen: Normal. No splenomegaly. Adrenals: Normal. No mass. Kidneys and ureters: 1.1 cm right renal simple cyst is appreciated. No acute right renal findings. No right obstructive uropathy. There is moderate to severe left hydroureteronephrosis. There is a 1 cm x 9 mm stone impacted in the proximal left ureter. Mild left perirenal stranding. Stomach and bowel: There is a focal area of circumferential wall thickening at the distal sigmoid, on image 687 series 5 and image 49 series 6. This could be related to an area of focal peristalsis, however an apple core colonic neoplasm is also within the differential diagnosis. No other segmental bowel thickening is appreciated. No evidence of bowel obstruction. Appendix: No evidence of appendicitis. Intraperitoneal space: Trace free fluid in the cul-de-sac is nonspecific. Vasculature: The vasculature demonstrates diffuse mild atherosclerotic calcification. Lymph nodes: Unremarkable. No enlarged lymph nodes. Bladder: There is a small amount of intraluminal bladder gas consistent with instrumentation. The bladder appears otherwise unremarkable. Reproductive: Unremarkable as visualized. Bones/joints: Prior scoliosis surgery without acute complications. No acute abnormality or aggressive osseous lesion. Soft tissues: Unremarkable. IMPRESSION: 1. Moderate to severe left obstructive uropathy. 2. Findings at the distal sigmoid are concerning for either a focal segment of peristalsis versus a true apple core colonic neoplasm. Correlation with colonoscopy is recommended when clinically feasible. 3. Other chronic/incidental findings as detailed above. Dictated and Authenticated by: Rosendo Cronin MD. Ordering:AYSHA Rodríguez MD
--- NOTE | 2019-03-25 21:09 | DI.VRAD_ITS ---
PROCEDURE INFORMATION: Exam: XR Chest, 2 Views Exam date and time: 03/25/2019 8:28 PM Age: 58 years old Clinical indication: Other: Weakness TECHNIQUE: Imaging protocol: XR of the chest Views: 2 views. COMPARISON: CR ABD FLAT UPRIGHT PA CHEST 10/24/2015 10:04 AM FINDINGS: Lungs: There is increased prominence of patchy left basilar airspace opacity. There is diffusely increased opacity of the pulmonary parenchyma suggestive for hypoventilatory change. There are patchy perihilar opacities with bronchovascular crowding. Pleural space: No pleural effusion. No pneumothorax. Heart/Mediastinum: Cardiac silhouette is partially obscured, appears within normal limits for size. Diaphragm: Persistent moderate to severe asymmetric elevation of the left hemidiaphragm. Bones/joints: Single spinal fixation rohini is partially visualized. No acute osseous finding. Soft tissues: No focal soft tissue abnormailty. Other findings: Diffuse nonfocal gaseous distention of the bowel. IMPRESSION: 1. Increased patchy left basilar opacity. Differential considerations include infectious infiltrate versus worsening compressive atelectasis secondary to moderate to severe asymmetric elevation of the left hemidiaphragm. Correlate clinically. 2. Hypoventilatory changes as discussed. Dictated and Authenticated by: Get Gold MD. Ordering:AYSHA Rodríguez MD
--- NOTE | 2019-03-25 21:34 | W.ED.GENAD ---
Discharge Plan Disposition Patient Disposition: [facility] INPATIENT Condition: Stable Discharge Details Chief Complaint: GenMedical Clinical Impression: Anemia, Elevated LFTs, Lesion of colon, Lower obstructive uropathy, Kidney stone, Acute UTI, Pneumonia Admit Date/Time: 03/25/19 21:40 Admit Provider: Dusty Dubois Attending Provider: Tung Jones Primary Care Provider: Loan Pradhan ED Provider: Jonn Collins Hospital Course Hospital Course: 58-year-old female with history of cerebral palsy and intellectual disability requiring home care who has been suffering with worsening generalized weakness and poor appetite over the last few months. Labs at her primary care office showed a new anemia with hemoglobin of 7.8 and elevated liver function tests. She also reported a fall in December. CT of the head showed no new findings, but CT of the abdomen pelvis showed severe left obstructive uropathy with 1 cm x 9 mm impacted kidney stone. Lactate was elevated to 1.8 and hemoglobin got as low as 6.3 g/dL. Patient was treated with Zosyn and vancomycin and monitored in the ICU. On the second day of admission, Dr. Membreno performed a cystoscopy and placed a stent. He was able to dislodge the large stone by pushed it back into the renal pelvis and copious purulent drainage was noted. Dr. Membreno plans to repeat cystoscopy after the infection is cleared and break up and remove the stone, which he described as a infected struvite stone. Patient was transfused 2 units of packed red blood cells with the hemoglobin rising to 10.2, then remained stable at 9.0-9.2 on March 27 and , respectively. Her overall level of energy and responsiveness improved significantly after her procedure and transfusion. She continued to improve and remained stable on the floor on antibiotics for 2 days prior to discharge. Cultures grew pansensitive E. coli and her antibiotics were narrowed to cefazolin the day prior to discharge. She was discharged with 7 more days of oral cephalexin. 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 Given some chronic GI distress and anemia, celiac was considered. Serologies were sent and are pending at the time of discharge. Dr. Angelo was consulted as initial CT of the abdomen and pelvis suggested possible sigmoid colon mass. Colonoscopy was performed on March 27 and showed only edema and no sigmoid mass. Dr. Landa plan to do a endoscopy to assess for possible ulcers and for duodenal biopsies to rule out celiac disease. Given the patient's need for general anesthesia and the risk associated with this, plan was to do the stone removal and endoscopy at the same time 1 to 2 weeks after discharge. Elevated liver enzymes improved somewhat during admission. CT of the abdomen showed fatty liver, but not other pathology. Should be followed as outpatient. Celiac disease could explain this. Interestingly, initial iron studies showed a decrease transferrin saturation, but repeat levels on day of discharge showed a transferrin saturation above 20%, which was normal. This in combination with very low TIBC strongly suggest anemia of chronic disease, likely related to inflammation from chronically impacted stone. Low reticulocyte count is also consistent with this. Given these results, iron was stopped prior to discharge. This is less suggestive of celiac. Given history of ulcers, patient was continued on PPI therapy. Plan to retest for H. pylori via endoscopy on follow-up as above. Thrush was noted at time of discharge, nystatin swish and swallow prescribed. Discharge Instructions Instructions: Kidney Stones (DC), Anemia (DC) Additional Instructions: finish oral antibiotics. Plan to repeat blood tests in 3 days or so (by Friday). This is to check the anemia, signs of infection, kidneys, and liver function. You will need 2 additional procedures: One by Dr. Membreno to break up and remove the kidney stone and another endoscopy by Dr. Angelo to look into the stomach for signs of bleeding and test for ulcers and celiac disease. I would not recommend changing your diet for now. Celiac disease blood tests are pending Forms: Nursing Discharge Form Referrals: Loan Pradhan NP [Primary Care Provider] - 04/01/19 9:00 am Discharge Data Discharge Date/Time-TO BE ENTERED AT DEPARTURE: 03/25/19 23:30 HPI General Mode of arrival: wheelchair. Date/Time Provider Initiated Documentation: 03/25/19 18:49. Information obtained by: family (care takers). History of Present Illness No relieving factors improve symptom(s), No exacerbating factors reported . Patient did receive the following treatments prior to arrival, none Related Data Home Medications Medication Instructions Recorded Confirmed multivitamin 1 cap AD DAILY #90 05/28/12 04/08/19 olanzapine 10 mg PO HS 10/14/16 04/08/19 polyethylene glycol 3350(bulk) 17 gm PO DAILY PRN #527 gm 04/07/17 04/08/19 olanzapine 1 tab PO DAILY #90 tab 06/25/17 04/08/19 prazosin 2 mg PO DAILY 11/03/17 04/08/19 mirtazapine 15 mg disintegrating 30 mg PO HS tab-cap 05/24/18 04/08/19 tablet trazodone 100 mg tablet 100 mg PO QHS #90 tab 05/24/18 04/08/19 divalproex 250 mg tablet,delayed 500 mg PO BID tab-cap 11/11/18 04/08/19 release melatonin 3 mg tablet 10 mg PO HS tab 11/11/18 04/08/19 dexlansoprazole 30 mg 30 mg PO DAILY #30 tab-cap 02/19/19 04/08/19 capsule,biphase delayed release L-Carnitine 250 mg PO BID 03/25/19 04/08/19 acetaminophen 500 mg tablet 500 mg PO QID tab-cap 05/12/19 docusate sodium 100 mg capsule 100 - 200 mg PO BID PRN #100 08/10/19 tab-cap simvastatin 40 mg tablet 40 mg PO DAILY #90 tab-cap 08/19/19 Previous Rx's Medication Instructions Recorded olanzapine 1 tab PO DAILY #90 tab 06/25/17 trazodone 100 mg tablet 100 mg PO QHS #90 tab 05/24/18 dexlansoprazole 30 mg 30 mg PO DAILY #30 tab-cap 02/19/19 capsule,biphase delayed release docusate sodium 100 mg capsule 100 - 200 mg PO BID PRN #100 08/10/19 tab-cap simvastatin 40 mg tablet 40 mg PO DAILY #90 tab-cap 08/19/19 Allergies Allergy/AdvReac Type Severity Reaction Status Date / Time No Known Allergies Allergy Verified 04/19/19 11:10 General Stated Complaint: GenMedical [place]: [facility] Medical History Abnormal weight gain (Acute 10/04/15) Abnormal weight loss (Acute 03/03/15) Abrasion hip/leg (Acute) Anorexia (Acute) Refuses to chew solids - spits food out Bipolar affective disorder, current episode hypomanic (Chronic 03/03/15) Bipolar affective disorder, currently manic, moderate (Chronic 10/04/15) Cerebral palsy (Chronic 09/11/12) developmental delay Constipation (Chronic) Contusion of head (Acute) Dec. 13 - required sutures. No imaging done. Start of changes per care provider Hyperlipidemia (Chronic 09/11/12) Idiopathic scoliosis (Chronic) s/p Albarran rohini Multiple falls (Acute) Osteopenia (Chronic) Pain (Chronic 10/04/15) Urine discoloration (Chronic 10/04/15) Weakness generalized (Acute) Surgical History Spinal Fusion Albarran rohini Family History Father Heart disease Social History Smoking/Tobacco Use Status: Never Alcohol Intake: never Drug use: Never Substance use type: does not use Additional Social history: History provided by adult care provider Leeanne Kim, unable to assess pt. Pt. has limited understanding, unable to answer for herself, caregiver answers for pt. Course Vital Signs Vital signs: Vital Signs Temperature 36.8 C 03/25/19 19:02 Pulse 129 H 03/25/19 19:02 Respiratory Rate 22 03/25/19 19:02 Blood Pressure 122/76 03/25/19 19:02 Pulse Oximetry 96 03/25/19 19:02 Temperature 36.8 C 03/25/19 19:02 Temperature Source Skin 03/25/19 19:02 Pulse 129 H 03/25/19 19:02 Respiratory Rate 22 03/25/19 19:02 Respiratory Effort Non-Labored 03/25/19 19:07 Blood Pressure 122/76 03/25/19 19:02 Blood Pressure Position Sitting 03/25/19 19:02 Pulse Oximetry 96 03/25/19 19:02 Oxygen Delivery Method Room Air 03/25/19 19:02 Oxygen Flow Rate 0 03/25/19 19:02 Lab/Test Results Lab/Test Results: Laboratory Tests Range/Units 03/25/19 03/25/19 03/25/19 19:40 19:40 19:40 WBC (4.4-10.8) k/cumm RBC (4.00-5.20) m/cumm Hgb (12.0-15.5) g/dL Hct (36.0-46.0) % MCV (80-95) fL MCH (27.0-33.0) pg MCHC (32.0-36.0) g/dL RDW (11.7-14.6) % Plt Count (130-400) x1000/uL MPV (8.0-11.0) fL Immature Gran % % Neutrophils % Lymphocytes % Monocytes % Eosinophils % Basophils % Absolute Neutrophils (1.2-6.7) k/cumm Absolute Lymphocytes (1.2-3.4) k/cumm Absolute Monocytes (0.11-0.7) k/cumm Absolute Eosinophils (0.0-0.7) k/cumm Absolute Basophils (0.0-0.2) k/cumm PT (9.3-11.0) sec INR (0.9-1.1) APTT (21.0-31.4) sec VBG pH (7.35-7.45) 7.40 VBG pCO2 (34-47) mm/Hg 44 VBG pO2 (28-44) mm/Hg 33 VBG HCO3 (22-28) mmol/L 28 VBG Total CO2 (22-29) mmol/L 27 VBG O2 Saturation (70-80) % 59 L VBG Base Excess (-3-3) mmol/L 2.9 Sodium (136-145) mmol/L 137 Potassium (3.5-5.1) mmol/L 4.4 Chloride (98-107) mmol/L 99 Carbon Dioxide (21.0-32.0) mmol/L 27.5 Anion Gap (3-11) mmol/L 10.5 BUN (7-18) mg/dL 14 Creatinine (0.55-1.02) mg/dL 0.64 Estimated GFR/1.73 m2 (mL/min/1.73m2) >= 60.00 Glucose (74-106) mg/dL 112 H Lactate (0.6-1.4) mmol/L Calcium (8.5-10.1) mg/dL 9.8 Magnesium (1.8-2.4) mg/dL 2.0 Total Bilirubin (0.2-1.0) mg/dL 0.3 0.3 Conjugated Bilirubin (0.00-0.20) mg/dL 0.13 AST (15-37) U/L 90 H ALT (14-59) U/L 73 H Alkaline Phosphatase (46-116) U/L 212 H Total Protein (6.4-8.2) g/dL 8.1 Albumin (3.4-5.0) g/dL 2.4 L Lipase (73-393) U/L 287 Total Valproic Acid (50-100) ug/mL Patient ABO/Rh Antibody Screen Range/Units 03/25/19 03/25/19 03/25/19 19:40 19:40 19:40 WBC (4.4-10.8) k/cumm 12.19 H RBC (4.00-5.20) m/cumm 2.80 L Hgb (12.0-15.5) g/dL 7.8 L Hct (36.0-46.0) % 25.6 L MCV (80-95) fL 91.4 MCH (27.0-33.0) pg 27.9 MCHC (32.0-36.0) g/dL 30.5 L RDW (11.7-14.6) % 14.4 Plt Count (130-400) x1000/uL 468 H MPV (8.0-11.0) fL 9.0 Immature Gran % % 0.8 Neutrophils % 81.0 Lymphocytes % 10.5 Monocytes % 7.1 Eosinophils % 0.4 Basophils % 0.2 Absolute Neutrophils (1.2-6.7) k/cumm 9.87 H Absolute Lymphocytes (1.2-3.4) k/cumm 1.28 Absolute Monocytes (0.11-0.7) k/cumm 0.87 H Absolute Eosinophils (0.0-0.7) k/cumm 0.05 Absolute Basophils (0.0-0.2) k/cumm 0.02 PT (9.3-11.0) sec 10.8 INR (0.9-1.1) 1.1 APTT (21.0-31.4) sec 24.3 VBG pH (7.35-7.45) VBG pCO2 (34-47) mm/Hg VBG pO2 (28-44) mm/Hg VBG HCO3 (22-28) mmol/L VBG Total CO2 (22-29) mmol/L VBG O2 Saturation (70-80) % VBG Base Excess (-3-3) mmol/L Sodium (136-145) mmol/L Potassium (3.5-5.1) mmol/L Chloride (98-107) mmol/L Carbon Dioxide (21.0-32.0) mmol/L Anion Gap (3-11) mmol/L BUN (7-18) mg/dL Creatinine (0.55-1.02) mg/dL Estimated GFR/1.73 m2 (mL/min/1.73m2) Glucose (74-106) mg/dL Lactate (0.6-1.4) mmol/L 1.8 H Calcium (8.5-10.1) mg/dL Magnesium (1.8-2.4) mg/dL Total Bilirubin (0.2-1.0) mg/dL Conjugated Bilirubin (0.00-0.20) mg/dL AST (15-37) U/L ALT (14-59) U/L Alkaline Phosphatase (46-116) U/L Total Protein (6.4-8.2) g/dL Albumin (3.4-5.0) g/dL Lipase (73-393) U/L Total Valproic Acid (50-100) ug/mL Patient ABO/Rh Antibody Screen Range/Units 03/25/19 03/25/19 19:40 19:40 WBC (4.4-10.8) k/cumm RBC (4.00-5.20) m/cumm Hgb (12.0-15.5) g/dL Hct (36.0-46.0) % MCV (80-95) fL MCH (27.0-33.0) pg MCHC (32.0-36.0) g/dL RDW (11.7-14.6) % Plt Count (130-400) x1000/uL MPV (8.0-11.0) fL Immature Gran % % Neutrophils % Lymphocytes % Monocytes % Eosinophils % Basophils % Absolute Neutrophils (1.2-6.7) k/cumm Absolute Lymphocytes (1.2-3.4) k/cumm Absolute Monocytes (0.11-0.7) k/cumm Absolute Eosinophils (0.0-0.7) k/cumm Absolute Basophils (0.0-0.2) k/cumm PT (9.3-11.0) sec INR (0.9-1.1) APTT (21.0-31.4) sec VBG pH (7.35-7.45) VBG pCO2 (34-47) mm/Hg VBG pO2 (28-44) mm/Hg VBG HCO3 (22-28) mmol/L VBG Total CO2 (22-29) mmol/L VBG O2 Saturation (70-80) % VBG Base Excess (-3-3) mmol/L Sodium (136-145) mmol/L Potassium (3.5-5.1) mmol/L Chloride (98-107) mmol/L Carbon Dioxide (21.0-32.0) mmol/L Anion Gap (3-11) mmol/L BUN (7-18) mg/dL Creatinine (0.55-1.02) mg/dL Estimated GFR/1.73 m2 (mL/min/1.73m2) Glucose (74-106) mg/dL Lactate (0.6-1.4) mmol/L Calcium (8.5-10.1) mg/dL Magnesium (1.8-2.4) mg/dL Total Bilirubin (0.2-1.0) mg/dL Conjugated Bilirubin (0.00-0.20) mg/dL AST (15-37) U/L ALT (14-59) U/L Alkaline Phosphatase (46-116) U/L Total Protein (6.4-8.2) g/dL Albumin (3.4-5.0) g/dL Lipase (73-393) U/L Total Valproic Acid (50-100) ug/mL 75.5 Patient ABO/Rh A Positive Antibody Screen Negative Sign Out Sign Out Data: Sign Out Comment: follow up on labs in new anemia, and imaging Last updated by Marcos Merritt MD at 03/25/19 19:56
[2019-03-25] MEDS: Normal Saline 500 ML IV (21:58)
[2019-03-25 21:59] LABS: Bilirubin Negative (Negative); Blood Moderate (Negative); Clarity Cloudy (Clear); Glucose Negative (Negative); Ketones Trace mg/dL (Negative); Leukocyte Esterase Trace (Negative); Nitrite Negative (Negative); Specific Gravity 1.015 (1.005-1.025); Urobilinogen 0.2 EU/dL (Up TO 0.2)
[2019-03-25 22:18] LABS: Bacteria Packed HPF (Negative); C & S Indicated? Yes; Crystals Negative HPF (Negative); Epithelial Cells Negative HPF (Negative); Mucus Negative (Negative); RBC 0-2 HPF (0-2); WBC >50 HPF (0-5)
[2019-03-25] MEDS: PIPERACILLIN/TAZO 4.5 GM in Normal Saline 100 ML IVPB (23:04)
[2019-03-26] VITALS (94 sets, daily range): BP systolic 83–145; BP diastolic 38–110; PULSE 61–123; RESP 15–29; TEMP 36–37.4; O2SAT 89–100
--- NOTE | 2019-03-26 00:04 | HPE_ITS ---
Date of service: 03/26/19 Time of Service: 00:05 Assessment and Plan Assessment and plan (1) Complicated UTI (urinary tract infection): Status: Acute Assessment and plan: Continue IV fluids and broad-spectrum IV antibiotics (Zosyn), consult with urology for definitive treatment of her ureterolithiasis And hydronephrosis (2) Hydronephrosis, left: Status: Acute Assessment and plan: As above (3) Ureterolithiasis: Status: Acute Assessment and plan: Urology consultation as above (4) Compressive atelectasis: Status: Acute Assessment and plan: Incentive spirometer and as needed albuterol aerosol treatments (5) Neoplasm of sigmoid colon: Status: Acute Assessment and plan: Will need Consult with general surgery to arrange outpatient colonoscopy (6) Elevated levels of transaminase & lactic acid dehydrogenase: Status: Acute Assessment and plan: 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 Stool was negative for occult blood per ER physician. Will check serum iron, TIBC and ferritin and reticulocyte count in the morning with her a.m. labs. History of Present Illness History of Present Illness Chief Complaint: Fatigue, weakness, decreased appetite, anemia Narrative: 58-year-old female with a history of cerebral palsy who presents with worsening generalized weakness and poor appetite over the last few months. She was seen by her primary care provider who performed labs today demonstrating a new anemia of 7.8 g as well as elevated liver function tests. Patient reportedly had a fall down some stairs in December for which she had been evaluated at [facility] and had sutures placed but no CT scan was ordered of her head. Her ER provider ordered a CT scan of her head to rule out a subdural hemorrhage given her progressive lethargy and weakness. She also underwent a CT scan of her abdomen pelvis because of the anemia and decreased appetite. Noncontrast CT scan of the head showed no hydrocephalus and no acute intracranial hemorrhage or mass-effect. CT scan of the abdomen and pelvis with contrast demonstrated moderate to severe left obstructive uropathy with a 1 cm x 9 mm stone impacted in the proximal left ureter along with mild left perirenal stranding. Also was found an area in the distal sigmoid colon concerning for either a focal segment of peristalsis versus an apple core colonic neoplasm. And her chest x-ray demonstrated patchy left basilar opacity for which radiologist include differential of infectious infiltrate versus compressive ate lectasis due to his severe asymmetric elevation of her left hemidiaphragm. Of note her left hemidiaphragm is been chronically elevated and was noted on prior chest x-ray from 10/24/2015. Patient was seen and evaluated emergency department by both Dr. Marcos Merritt as well as Dr. Jonn Collins. Dr. Joesph Membreno, urologist was consulted regarding the left hydronephrosis and nephrolithiasis. He agreed that he would see her in the morning for cystoscopy and removal of the ureterolithiasis. Patient had evidence of acute infection with elevated white count of 12,000 with leftward shift and elevated blood lactate of 1.8 and a urinalysis that demonstrated cloudy yellow urine with moderate amount of blood trace of leukocyte esterase and greater than 50 white cells and packed with bacteria. Patient is being admitted to the hospital for treatment of complicated UTI with left hydronephrosis and left ureterolithiasis. Clinically she does not appear to have a pneumonia and I suspect that the left basilar infiltrate is on the basis of compressive atelectasis. Patient was started on broad-spectrum antibiotics in the emergency department including vancomycin, Zosyn, doxycycline. She has not been hospitalized or institutionalized recently therefore she is not at high risk for MRSA. I will keep her on Zosyn but withhold vancomycin and doxycycline at this point. She will eventually need a general surgery consult regarding the apple core lesion of her sigmoid colon. She likely has colorectal cancer. Review of Systems Unobtainable due to mental condition [facility] Medical History Abnormal weight gain (Acute 10/04/15) Abnormal weight loss (Acute 03/03/15) Abrasion hip/leg (Acute) Anorexia (Acute) Refuses to chew solids - spits food out Bipolar affective disorder, current episode hypomanic (Chronic 03/03/15) Bipolar affective disorder, currently manic, moderate (Chronic 10/04/15) Cerebral palsy (Chronic 09/11/12) developmental delay Constipation (Chronic) Contusion of head (Acute) - required sutures. No imaging done. Start of changes per care provider Hyperlipidemia (Chronic 09/11/12) Idiopathic scoliosis (Chronic) s/p Albarran rohini Multiple falls (Acute) Osteopenia (Chronic) Pain (Chronic 10/04/15) Urine discoloration (Chronic 10/04/15) Weakness generalized (Acute) Surgical History Spinal Fusion Albarran rohini Family History Father Heart disease Social History Smoking/Tobacco Use Status: Never Alcohol Intake: never Drug use: Never Substance use type: does not use Do you feel safe at home: Yes Do you feel safe in your relationship?: Yes Meds Home Medications and Allergies Home Medications Medication Instructions Recorded Confirmed Type multivitamin 1 cap AD DAILY #90 05/28/12 03/26/19 History Adult Diapers 1 ea MISCELLANEOUS 6X/DAY #300 ea 09/22/14 06/29/18 Clinic acetaminophen 1,000 mg PO Q6H PRN tab-cap 10/04/15 06/29/18 History olanzapine 10 mg PO HS 10/14/16 03/26/19 History polyethylene glycol 3350(bulk) 17 gm PO DAILY PRN #527 gm 04/07/17 03/26/19 History olanzapine 1 tab PO DAILY #90 tab 06/25/17 03/26/19 Rx prazosin 2 mg PO DAILY 11/03/17 03/26/19 History mirtazapine 15 mg disintegrating 30 mg PO HS tab-cap 05/24/18 03/26/19 History tablet trazodone 100 mg tablet 100 mg PO QHS #90 tab 05/24/18 03/26/19 Rx docusate sodium 100 mg capsule 100 - 200 mg PO BID PRN #100 07/01/18 03/26/19 Rx tab-cap simvastatin 40 mg tablet 40 mg PO DAILY #90 tab-cap 07/01/18 03/26/19 Rx divalproex 250 mg tablet,delayed 500 mg PO BID tab-cap 11/11/18 03/26/19 History release melatonin 3 mg tablet 3 mg PO HS tab 11/11/18 03/26/19 History dexlansoprazole 30 mg 30 mg PO DAILY #30 tab-cap 02/19/19 03/26/19 Rx capsule,biphase delayed release levocarnitine [L-Carnitine] 250 mg PO DAILY 03/25/19 03/26/19 History olanzapine 5 mg PO DAILY 03/25/19 03/26/19 History olanzapine 5 mg PO DAILY PRN 03/25/19 03/26/19 History Allergies Allergy/AdvReac Type Severity Reaction Status Date / Time No Known Allergies Allergy Verified 03/25/19 19:08 Exam Narrative Exam Narrative: Middle-age female who appears to be in no acute distress. She is verbalizing but not able to carry a coherent conversation with me. HEENT is unremarkable. Neck is supple nontender without JVD thyromegaly or lymphadenopathy. Lungs are clear to auscultation anteriorly and posteriorly with the exception of the left lung base which has diminished breath sounds at the lung base. No rhonchi rales or wheezes are heard. Heart is regular but tachycardic without audible murmur rub or gallop. Abdomen is distended but soft and nontender without guarding or rebound tenderness. She has audible bowel sounds. Left flank is somewhat tender to palpation. Lower extremities reveal 1+ pitting edema over the pretibial surfaces of both legs. This also involves her ankles. She has no peripheral cyanosis. Skin is warm and dry. Neurologically she does not appear to have any focal motor deficits she is alert but unable to assess her orientation due to lack of communication skills secondary to her cerebral palsy. I do not appreciate a focal cranial nerve deficits or motor or sensory deficits. Rectal exam was performed in the emergency room by the ER attending and stool was negative for occult blood. Results Labs Result diagrams: 03/25/19 19:40 03/25/19 19:40 Labs: Laboratory Results - last 24 hr 03/25/19 03/25/19 03/25/19 19:40 19:40 19:40 WBC RBC Hgb Hct MCV MCH MCHC RDW Plt Count MPV Immature Gran % Neutrophils % Lymphocytes % Monocytes % Eosinophils % Basophils % Absolute Neutrophils Absolute Lymphocytes Absolute Monocytes Absolute Eosinophils Absolute Basophils PT INR APTT VBG pH 7.40 VBG pCO2 44 VBG pO2 33 VBG HCO3 28 VBG Total CO2 27 VBG O2 Saturation 59 L VBG Base Excess 2.9 Sodium 137 Potassium 4.4 Chloride 99 Carbon Dioxide 27.5 Anion Gap 10.5 BUN 14 Creatinine 0.64 Estimated GFR/1.73 m2 >= 60.00 Glucose 112 H Lactate Calcium 9.8 Magnesium 2.0 Total Bilirubin 0.3 0.3 Conjugated Bilirubin 0.13 AST 90 H ALT 73 H Alkaline Phosphatase 212 H Total Protein 8.1 Albumin 2.4 L Lipase 287 Urine Color Urine Clarity Urine pH Ur Specific [place] Urine Protein Urine Ketones Urine Blood Urine Nitrite Urine Bilirubin Urine Urobilinogen Ur Leukocyte Esterase Urine RBC Urine WBC Ur Epithelial Cells Urine Crystals Urine Bacteria Urine Mucus Ur Culture Indicated? Urine Glucose Total Valproic Acid Patient ABO/Rh Antibody Screen 03/25/19 03/25/19 03/25/19 19:40 19:40 19:40 WBC 12.19 H RBC 2.80 L Hgb 7.8 L Hct 25.6 L MCV 91.4 MCH 27.9 MCHC 30.5 L RDW 14.4 Plt Count 468 H MPV 9.0 Immature Gran % 0.8 Neutrophils % 81.0 Lymphocytes % 10.5 Monocytes % 7.1 Eosinophils % 0.4 Basophils % 0.2 Absolute Neutrophils 9.87 H Absolute Lymphocytes 1.28 Absolute Monocytes 0.87 H Absolute Eosinophils 0.05 Absolute Basophils 0.02 PT 10.8 INR 1.1 APTT 24.3 VBG pH VBG pCO2 VBG pO2 VBG HCO3 VBG Total CO2 VBG O2 Saturation VBG Base Excess Sodium Potassium Chloride Carbon Dioxide Anion Gap BUN Creatinine Estimated GFR/1.73 m2 Glucose Lactate 1.8 H Calcium Magnesium Total Bilirubin Conjugated Bilirubin AST ALT Alkaline Phosphatase Total Protein Albumin Lipase Urine Color Urine Clarity Urine pH Ur Specific [place] Urine Protein Urine Ketones Urine Blood Urine Nitrite Urine Bilirubin Urine Urobilinogen Ur Leukocyte Esterase Urine RBC Urine WBC Ur Epithelial Cells Urine Crystals Urine Bacteria Urine Mucus Ur Culture Indicated? Urine Glucose Total Valproic Acid Patient ABO/Rh Antibody Screen 03/25/19 03/25/19 03/25/19 19:40 19:40 21:52 WBC RBC Hgb Hct MCV MCH MCHC RDW Plt Count MPV Immature Gran % Neutrophils % Lymphocytes % Monocytes % Eosinophils % Basophils % Absolute Neutrophils Absolute Lymphocytes Absolute Monocytes Absolute Eosinophils Absolute Basophils PT INR APTT VBG pH VBG pCO2 VBG pO2 VBG HCO3 VBG Total CO2 VBG O2 Saturation VBG Base Excess Sodium Potassium Chloride Carbon Dioxide Anion Gap BUN Creatinine Estimated GFR/1.73 m2 Glucose Lactate Calcium Magnesium Total Bilirubin Conjugated Bilirubin AST ALT Alkaline Phosphatase Total Protein Albumin Lipase Urine Color Yellow Urine Clarity Cloudy Urine pH 6.0 Ur Specific [place] 1.015 Urine Protein 100 H Urine Ketones Trace H Urine Blood Moderate H Urine Nitrite Negative Urine Bilirubin Negative Urine Urobilinogen 0.2 Ur Leukocyte Esterase Trace H Urine RBC 0-2 Urine WBC >50 H Ur Epithelial Cells Negative Urine Crystals Negative Urine Bacteria Packed Urine Mucus Negative Ur Culture Indicated? Yes Urine Glucose Negative Total Valproic Acid 75.5 Patient ABO/Rh A Positive Antibody Screen Negative 03/25/19 22:02 WBC RBC Hgb Hct MCV MCH MCHC RDW Plt Count MPV Immature Gran % Neutrophils % Lymphocytes % Monocytes % Eosinophils % Basophils % Absolute Neutrophils Absolute Lymphocytes Absolute Monocytes Absolute Eosinophils Absolute Basophils PT INR APTT VBG pH VBG pCO2 VBG pO2 VBG HCO3 VBG Total CO2 VBG O2 Saturation VBG Base Excess Sodium Potassium Chloride Carbon Dioxide Anion Gap BUN Creatinine Estimated GFR/1.73 m2 Glucose Lactate Calcium Magnesium Total Bilirubin Conjugated Bilirubin AST ALT Alkaline Phosphatase Total Protein Albumin Lipase Urine Color Urine Clarity Urine pH Ur Specific [place] Urine Protein Urine Ketones Urine Blood Urine Nitrite Urine Bilirubin Urine Urobilinogen Ur Leukocyte Esterase Urine RBC Urine WBC Ur Epithelial Cells Urine Crystals Urine Bacteria Urine Mucus Ur Culture Indicated? Urine Glucose Total Valproic Acid Patient ABO/Rh Cancelled Antibody Screen Last Vital Signs Temp 36.8 C 03/25/19 19:02 Pulse 115 H 03/25/19 23:51 Resp 30 H 03/25/19 23:51 BP 122/60 03/25/19 23:51 Pulse Ox 93 L 03/25/19 23:51
[2019-03-26] MEDS: Normal Saline 1,000 ML 150 ML IV (01:31)
[2019-03-26] MEDS: Mirtazapine 15 MG TAB 30 MG PO ×2 (01:31→22:12)
[2019-03-26] MEDS: traZODone 100 MG TAB PO ×2 (01:32→22:12)
[2019-03-26] MEDS: Melatonin 3 MG TAB PO ×2 (01:32→22:12)
[2019-03-26] MEDS: PIPERACILLIN/TAZO 4.5 GM in Normal Saline 100 ML IVPB ×3 (02:49→18:20)
[2019-03-26] MEDS: Normal Saline 100 ML 25 ML (03:43)
[2019-03-26 07:03] LABS: Lactate 0.6 mmol/L (0.6-1.4)
[2019-03-26 07:04] LABS: Abs Immature Grans 0.11 k/cumm (0.0-0.09); Absolute Basophil Count 0.01 k/cumm (0.0-0.2); Absolute Lymphocyte Count 0.96 k/cumm (1.2-3.4); Absolute Monocyte Count 0.97 k/cumm (0.11-0.7); Absolute Neutrophil Count 9.35 k/cumm (1.2-6.7); Basophils % 0.1; Eosinophils % 0.3; Lymphocytes % 8.4; Mean Corp. HGB Concentration 30.6 g/dL (32.0-36.0); Mean Corpuscular Volume 91.6 fL (80-95); Mean Platelet Volume 9.1 fL (8.0-11.0); Monocytes % 8.5; Neutrophils % 81.7; Platelet Count 416 x1000/uL (130-400); RBC 2.25 m/cumm (4.00-5.20); RBC Distribution Width 14.5 % (11.7-14.6); White Blood Cell Count 11.44 k/cumm (4.4-10.8)
[2019-03-26 07:17] LABS: Anion Gap 10.2 mmol/L (3-11); BUN 11 mg/dL (7-18); CO2 25.8 mmol/L (21.0-32.0); CREATININE 0.56 mg/dL (0.55-1.02); Calcium 8.2 mg/dL (8.5-10.1); Chloride 104 mmol/L (98-107); Glucose 111 mg/dL (74-106); Potassium 4.2 mmol/L (3.5-5.1); Sodium 140 mmol/L (136-145)
[2019-03-26 07:29] LABS: Absolute Eosinophil Count 0.03 k/cumm (0.0-0.7)
[2019-03-26 07:31] LABS: HCT 20.6 % (36.0-46.0); HGB 6.3 g/dL (12.0-15.5)
[2019-03-26 07:32] LABS: Anisocytosis 1+; Diff Comment RBC Morph Reviewed; Hypochromasia 2+; Polychromasia Present
[2019-03-26 07:33] LABS: Poikilocytes 1+
[2019-03-26 07:47] LABS: Procalcitonin 0.6 ng/mL
[2019-03-26 08:08] LABS: Reticulocyte 1.6 % (0.5-2.4)
[2019-03-26 08:18] LABS: Iron 17 ug/dL (50-170); Total Iron Binding Capacity 228 ug/dL (250-450)
[2019-03-26 08:20] LABS: LDH 323 U/L (81-234)
[2019-03-26 08:32] LABS: Ferritin 513 ng/mL (8-252)
--- NOTE | 2019-03-26 08:43 | INITIAL_ITS ---
- If Service Date Differs Date of service: 03/26/19 Time of Service: 08:44 Care Management Initial Assess REASON FOR HOSPITALIZATION:: Complicated UTI PAST MEDICAL HISTORY/PAST SURGICAL HISTORY:: Medical History : Abnormal weight gain (Acute 10/04/15). Abnormal weight loss (Acute 03/03/15). Abrasion hip/leg (Acute). Anorexia (Acute). Refuses to chew solids - spits food out. Bipolar affective disorder, current episode hypomanic (Chronic 03/03/15). Bipolar affective disorder, currently manic, moderate (Chronic 10/04/15). Cerebral palsy (Chronic 09/11/12). developmental delay. Constipation (Chronic). Contusion of head (Acute). - required sutures. No imaging done. Start of changes per care provider. Hyperlipidemia (Chronic 09/11/12). Idiopathic scoliosis (Chronic). s/p Albarran rohini. Multiple falls (Acute). Osteopenia (Chronic). Pain (Chronic 10/04/15). Urine discoloration (Chronic 10/04/15). Weakness generalized (Acute). Surgical History: Spinal Fusion. Albarran rohini PREVIOUS FUNCTIONAL STATUS/SOCIAL/FAMILY SUPPORTS:: Elvia has been living with a private caregiver, Leeanneaddy Kim, in [place], [place] for the past 3 years. Leeanne's son also lives in the home.Elvia has cerebral palsy and requires total care. She is able to talk some but tends to talk in repetitive phrases and occasionally can get agitated and use foul language. Elvia is able to ambulate but requires assistance (contact guarding), especiall when on uneven surfaces. CURRENT FUNCTIONAL STATUS:: Elvia was sleeping when CM came to meet with her. Her caregiver Leeanne and guardian Sofi Panda were with her as well as her case management social worker. They shared the information about Elvia's abilities and limitations and stated that she really enjoys it when someone sings to her. They also shared that her biological family does not have any contact with her. ADVANCE DIRECTIVES:: none on file Has patient been provided with information about the portal?: No Did the patient sign up for the portal?: No CODE STATUS:: Full Code INSURANCE COVERAGE / FINANCIAL ISSUES:: Medicare. Medicaid CURRENT HOME/COMMUNITY SERVICES/EQUIPMENT:: Lives with private caregiver. PRIMARY CARE PHYSICIAN:: Loan Pradhan POTENTIAL DISCHARGE NEEDS:: Follow up with PCP and discharge plan of care PATIENT/FAMILY EDUCATION NEEDS:: Discharge plan, limitations, follow up plan and Ask Me Three. ANTICIPATED BARRIERS TO DISCHARGE:: none TRANSPORTATION:: private vehicle with caregiver PLAN:: Elvia will return to her home with her caregiver when medically stable. She will follow up with her PCP and discharge plan of care. CM will continue to support patient and care team and discharge planning needs.
--- NOTE | 2019-03-26 08:50 | PGE_ITS ---
Date of Service Date of service: 03/26/19 Time of Service: 13:51 Assessment and Plan Assessment and plan (1) Anemia: Status: Acute Assessment and plan: Receiving transfusion of 2 units of pRBCs. Etiology unclear - ruling out colon cancer with endoscopy today; need to consider celiac disease. (2) Complicated UTI (urinary tract infection): Status: Acute Assessment and plan: Present on admission. Complicated by nephrolithiasis/obstructive uropathy. Continue vancomycin/zosyn day 2. Planned for cystoscopy later today. (3) Hydronephrosis, left: Status: Acute Assessment and plan: As above (4) Ureterolithiasis: Status: Acute Assessment and plan: As above (5) Compressive atelectasis: Status: Acute Assessment and plan: If patient is able to cooperate with IS, would certainly encourage it. (6) Neoplasm of sigmoid colon: Status: Acute Assessment and plan: For endoscopy on the same trip to [place] as cystoscopy (7) Elevated levels of transaminase & lactic acid dehydrogenase: Status: Acute Assessment and plan: Evidence of hepatic steatosis on CT. Only 1 lesion was seen in left hepatic lobe, felt to be benign by radiology based on appearance. Will monitor. (8) Dermatitis herpetiformis: Status: Suspected Assessment and plan: MO. Will need to see outpatient dermatology, but my clinical suspicion is high. If so, the patient should be ruled out for celiac disease. She does have chronic diarrhea. Would also explain anemia in absence of bleeding. (9) DVT prophylaxis: Status: Acute Assessment and plan: TEDs/SCDs (10) Discharge planning issues: Status: Acute Assessment and plan: Full code Keep in the ICU, but may be a candidate for transfer to the floor post-op Total Critical Care Time 45 minutes. Subjective Subjective Interval history since last seen: Patient was asleep during my exam and information was obtained collaterally via her derrick engineer and her guardian. No bleeding reported. Getting blood transfusion with consent of her guardian Sofi. Planned for cystoscopy and flex sigmoidoscopy later today. 96% on room air. HR low 100's - sinus. Skin scratches on L post fall several days ago. Digital Computer Systems Analyst reports L AC fossa lesion that has been there for years. It has not been evaluated by dermatology. Reports diarrhea. Exam Narrative Exam Narrative: General: Middle-aged female, pale, asleep in bed HEENT: eyes closed, lips pink Heart: RRR, no m/r/g Lungs: CTAB Abdomen: soft, nondistended Extremities: +1 BLE edema Objective Objective Clinical Data: Abnormal lab results 03/25/19 03/25/19 03/25/19 Range/Units 11:40 11:40 19:40 WBC (4.4-10.8) k/cumm RBC (4.00-5.20) m/cumm Hgb (12.0-15.5) g/dL Hct (36.0-46.0) % MCHC (32.0-36.0) g/dL Plt Count (130-400) x1000/uL Absolute Neutrophils (1.2-6.7) k/cumm Absolute Lymphocytes (1.2-3.4) k/cumm Absolute Monocytes (0.11-0.7) k/cumm VBG O2 Saturation (70-80) % Glucose 112 H (74-106) mg/dL Lactate (0.6-1.4) mmol/L Calcium (8.5-10.1) mg/dL Iron 17 L (50-170) ug/dL TIBC 228 L (250-450) ug/dL Ferritin 513 H (8-252) ng/mL AST 90 H (15-37) U/L ALT 73 H (14-59) U/L Alkaline Phosphatase 212 H (46-116) U/L Lactate Dehydrogenase (81-234) U/L Albumin 2.4 L (3.4-5.0) g/dL Urine Protein (Negative) mg/dL Urine Ketones (Negative) mg/dL Urine Blood (Negative) Ur Leukocyte Esterase (Negative) Urine WBC (0-5) HPF Crossmatch 03/25/19 03/25/19 03/25/19 Range/Units 19:40 19:40 19:40 WBC 12.19 H (4.4-10.8) k/cumm RBC 2.80 L (4.00-5.20) m/cumm Hgb 7.8 L (12.0-15.5) g/dL Hct 25.6 L (36.0-46.0) % MCHC 30.5 L (32.0-36.0) g/dL Plt Count 468 H (130-400) x1000/uL Absolute Neutrophils 9.87 H (1.2-6.7) k/cumm Absolute Lymphocytes (1.2-3.4) k/cumm Absolute Monocytes 0.87 H (0.11-0.7) k/cumm VBG O2 Saturation 59 L (70-80) % Glucose (74-106) mg/dL Lactate 1.8 H (0.6-1.4) mmol/L Calcium (8.5-10.1) mg/dL Iron (50-170) ug/dL TIBC (250-450) ug/dL Ferritin (8-252) ng/mL AST (15-37) U/L ALT (14-59) U/L Alkaline Phosphatase (46-116) U/L Lactate Dehydrogenase (81-234) U/L Albumin (3.4-5.0) g/dL Urine Protein (Negative) mg/dL Urine Ketones (Negative) mg/dL Urine Blood (Negative) Ur Leukocyte Esterase (Negative) Urine WBC (0-5) HPF Crossmatch 03/25/19 03/25/19 03/26/19 Range/Units 19:40 21:52 06:35 WBC (4.4-10.8) k/cumm RBC (4.00-5.20) m/cumm Hgb (12.0-15.5) g/dL Hct (36.0-46.0) % MCHC (32.0-36.0) g/dL Plt Count (130-400) x1000/uL Absolute Neutrophils (1.2-6.7) k/cumm Absolute Lymphocytes (1.2-3.4) k/cumm Absolute Monocytes (0.11-0.7) k/cumm VBG O2 Saturation (70-80) % Glucose 111 H (74-106) mg/dL Lactate (0.6-1.4) mmol/L Calcium 8.2 L (8.5-10.1) mg/dL Iron (50-170) ug/dL TIBC (250-450) ug/dL Ferritin (8-252) ng/mL AST (15-37) U/L ALT (14-59) U/L Alkaline Phosphatase (46-116) U/L Lactate Dehydrogenase (81-234) U/L Albumin (3.4-5.0) g/dL Urine Protein 100 H (Negative) mg/dL Urine Ketones Trace H (Negative) mg/dL Urine Blood Moderate H (Negative) Ur Leukocyte Esterase Trace H (Negative) Urine WBC >50 H (0-5) HPF Crossmatch See Detail 03/26/19 03/26/19 Range/Units 06:35 06:35 WBC 11.44 H (4.4-10.8) k/cumm RBC 2.25 L (4.00-5.20) m/cumm Hgb 6.3 L* (12.0-15.5) g/dL Hct 20.6 L* (36.0-46.0) % MCHC 30.6 L (32.0-36.0) g/dL Plt Count 416 H (130-400) x1000/uL Absolute Neutrophils 9.35 H (1.2-6.7) k/cumm Absolute Lymphocytes 0.96 L (1.2-3.4) k/cumm Absolute Monocytes 0.97 H (0.11-0.7) k/cumm VBG O2 Saturation (70-80) % Glucose (74-106) mg/dL Lactate (0.6-1.4) mmol/L Calcium (8.5-10.1) mg/dL Iron (50-170) ug/dL TIBC (250-450) ug/dL Ferritin (8-252) ng/mL AST (15-37) U/L ALT (14-59) U/L Alkaline Phosphatase (46-116) U/L Lactate Dehydrogenase 323 H (81-234) U/L Albumin (3.4-5.0) g/dL Urine Protein (Negative) mg/dL Urine Ketones (Negative) mg/dL Urine Blood (Negative) Ur Leukocyte Esterase (Negative) Urine WBC (0-5) HPF Crossmatch Vital Signs Temperature 36.7 C 03/26/19 03:44 Temperature Source Temporal Artery Scan 03/26/19 03:44 Pulse 122 H 03/26/19 01:45 Pulse 123 H 03/26/19 01:45 Respiratory Rate 19 03/26/19 03:44 Respiratory Effort Non-Labored 03/26/19 03:44 Respiratory Depth Normal 03/26/19 03:44 Respiratory Pattern Normal 03/26/19 03:44 Blood Pressure 100/62 03/26/19 01:45 Blood Pressure Mean 71 03/26/19 01:45 Blood Pressure Position Supine 03/26/19 03:44 Pulse Oximetry 94 L 03/26/19 03:44 Oxygen Delivery Method Room Air 03/26/19 03:44 Oxygen Flow Rate 0 03/26/19 03:44 Intake & Output 03/25/19 03/25/19 03/26/19 11:59 23:59 11:59 Intake Total 1500 / 1500 250 / 250 Balance 1500 / 1500 250 / 250 Weight 52.571 kg 52.6 kg Intake: IV 1500 / 1500 100 / 100 Oral 150 / 150 Laboratory Results WBC 11.44 k/cumm (4.4-10.8) H 03/26/19 06:35 RBC 2.25 m/cumm (4.00-5.20) L 03/26/19 06:35 Hgb 6.3 g/dL (12.0-15.5) L* 03/26/19 06:35 Hct 20.6 % (36.0-46.0) L* 03/26/19 06:35 MCV 91.6 fL (80-95) 03/26/19 06:35 MCH 28.0 pg (27.0-33.0) 03/26/19 06:35 MCHC 30.6 g/dL (32.0-36.0) L 03/26/19 06:35 RDW 14.5 % (11.7-14.6) 03/26/19 06:35 Plt Count 416 x1000/uL (130-400) H 03/26/19 06:35 MPV 9.1 fL (8.0-11.0) 03/26/19 06:35 Immature Gran % 1.0 % 03/26/19 06:35 Neutrophils % 81.7 03/26/19 06:35 Lymphocytes % 8.4 03/26/19 06:35 Monocytes % 8.5 03/26/19 06:35 Eosinophils % 0.3 03/26/19 06:35 Basophils % 0.1 03/26/19 06:35 Absolute Neutrophils 9.35 k/cumm (1.2-6.7) H 03/26/19 06:35 Absolute Lymphocytes 0.96 k/cumm (1.2-3.4) L 03/26/19 06:35 Absolute Monocytes 0.97 k/cumm (0.11-0.7) H 03/26/19 06:35 Absolute Eosinophils 0.03 k/cumm (0.0-0.7) 03/26/19 06:35 Absolute Basophils 0.01 k/cumm (0.0-0.2) 03/26/19 06:35 Differential Comment Rbc morph reviewed 03/26/19 06:35 RBC Morphology See below 03/26/19 06:35 Polychromasia Present 03/26/19 06:35 Hypochromasia 2+ 03/26/19 06:35 Poikilocytosis 1+ 03/26/19 06:35 Anisocytosis 1+ 03/26/19 06:35 Retic Count 1.6 % (0.5-2.4) 03/26/19 06:35 PT 10.8 sec (9.3-11.0) 03/25/19 19:40 INR 1.1 (0.9-1.1) 03/25/19 19:40 APTT 24.3 sec (21.0-31.4) 03/25/19 19:40 VBG pH 7.40 (7.35-7.45) 03/25/19 19:40 VBG pCO2 44 mm/Hg (34-47) 03/25/19 19:40 VBG pO2 33 mm/Hg (28-44) 03/25/19 19:40 VBG HCO3 28 mmol/L (22-28) 03/25/19 19:40 VBG Total CO2 27 mmol/L (22-29) 03/25/19 19:40 VBG O2 Saturation 59 % (70-80) L 03/25/19 19:40 VBG Base Excess 2.9 mmol/L (-3-3) 03/25/19 19:40 Sodium 140 mmol/L (136-145) 03/26/19 06:35 Potassium 4.2 mmol/L (3.5-5.1) 03/26/19 06:35 Chloride 104 mmol/L (98-107) 03/26/19 06:35 Carbon Dioxide 25.8 mmol/L (21.0-32.0) 03/26/19 06:35 Anion Gap 10.2 mmol/L (3-11) 03/26/19 06:35 BUN 11 mg/dL (7-18) 03/26/19 06:35 Creatinine 0.56 mg/dL (0.55-1.02) 03/26/19 06:35 Estimated GFR/1.73 m2 >= 60.00 (mL/min/1.73m2) 03/26/19 06:35 Glucose 111 mg/dL (74-106) H 03/26/19 06:35 Lactate 0.6 mmol/L (0.6-1.4) 03/26/19 06:35 Calcium 8.2 mg/dL (8.5-10.1) L 03/26/19 06:35 Magnesium 2.0 mg/dL (1.8-2.4) 03/25/19 19:40 Iron 17 ug/dL (50-170) L 03/25/19 11:40 TIBC 228 ug/dL (250-450) L 03/25/19 11:40 Ferritin 513 ng/mL (8-252) H 03/25/19 11:40 Total Bilirubin 0.3 mg/dL (0.2-1.0) 03/25/19 19:40 Total Bilirubin 0.3 mg/dL (0.2-1.0) 03/25/19 19:40 Conjugated Bilirubin 0.13 mg/dL (0.00-0.20) 03/25/19 19:40 AST 90 U/L (15-37) H 03/25/19 19:40 ALT 73 U/L (14-59) H 03/25/19 19:40 Alkaline Phosphatase 212 U/L (46-116) H 03/25/19 19:40 Lactate Dehydrogenase 323 U/L (81-234) H 03/26/19 06:35 Total Protein 8.1 g/dL (6.4-8.2) 03/25/19 19:40 Albumin 2.4 g/dL (3.4-5.0) L 03/25/19 19:40 Lipase 287 U/L (73-393) 03/25/19 19:40 Procalcitonin 0.6 ng/mL 03/26/19 06:35 Urine Color Yellow (Yellow) 03/25/19 21:52 Urine Clarity Cloudy (Clear) 03/25/19 21:52 Urine pH 6.0 (5-8) 03/25/19 21:52 Ur Specific [place] 1.015 (1.005-1.025) 03/25/19 21:52 Urine Protein 100 mg/dL (Negative) H 03/25/19 21:52 Urine Ketones Trace mg/dL (Negative) H 03/25/19 21:52 Urine Blood Moderate (Negative) H 03/25/19 21:52 Urine Nitrite Negative (Negative) 03/25/19 21:52 Urine Bilirubin Negative (Negative) 03/25/19 21:52 Urine Urobilinogen 0.2 EU/dL (Up TO 0.2) 03/25/19 21:52 Ur Leukocyte Esterase Trace (Negative) H 03/25/19 21:52 Urine RBC 0-2 HPF (0-2) 03/25/19 21:52 Urine WBC >50 HPF (0-5) H 03/25/19 21:52 Ur Epithelial Cells Negative HPF (Negative) 03/25/19 21:52 Urine Crystals Negative HPF (Negative) 03/25/19 21:52 Urine Bacteria Packed HPF (Negative) 03/25/19 21:52 Urine Mucus Negative (Negative) 03/25/19 21:52 Ur Culture Indicated? Yes 03/25/19 21:52 Urine Glucose Negative mg/dL (Negative) 03/25/19 21:52 Total Valproic Acid 75.5 ug/mL (50-100) 03/25/19 19:40 Patient ABO/Rh Cancelled 03/25/19 22:02 Antibody Screen Negative 03/25/19 19:40 Crossmatch See Detail 03/25/19 19:40
[2019-03-26] MEDS: Acetaminophen Solution 650 MG/20.3 ML CUP PO (09:46)
[2019-03-26] MEDS: Pantoprazole 40 MG VIAL IVP ×2 (09:55→20:38)
--- NOTE | 2019-03-26 10:01 | W.UROLOGYCON ---
Date of service: 03/26/19 Time of Service: 07:01 Assessment and Plan Assessment and plan (1) Ureterolithiasis: Status: Acute Assessment and plan: Being unable to obtain a history from this patient, I can really tell how symptomatic she feels from her stone. With her lab work findings however, I think we need to make the assumption that she is at very high risk for sepsis related to her stone. I think the wisest move would be to place a ureteral stent. I would have no intention of doing a definitive surgery on the stone today. There would need to be a lot of discussion with her guardians regarding how aggressive we would need or want to be with subsequent treatments. To place a stent, we could get by with monitored anesthesia care and proceed very quickly once her hemoglobin is back up. (2) Hydronephrosis, left: Status: Acute History of Present Illness History of Present Illness Chief Complaint: Left hydronephrosis Narrative: This is a 58-year-old woman who has a history of cerebral palsy. She is unable to provide history, but from what I can piece together, she was identified as being anemic. The finding prompted a visit to the emergency room which then prompted lab work and imaging studies. From a urologic standpoint, the concerning findings include left hydronephrosis with a proximal left ureteral stone. Her urinalysis is concerning for infection. Her lactate level is elevated. Her white blood count level is elevated and there is a left shift. I am unable to find any prior history of kidney stones or urologic surgery. She does have a recent finding of a sigmoid lesion which is concerning for malignancy. She also has elevated transaminases. She has not had any type of tissue diagnosis from the bowel. Since her admission, she is received broad-spectrum antibiotics. She has not required pressors but has remained tachycardic. Her hemoglobin and hematocrit have been monitored. She has had a significant drop in her hemoglobin as of this morning and is receiving blood product Review of Systems Unobtainable due to mental status [facility] Medical History Abnormal weight gain (Acute 10/04/15) Abnormal weight loss (Acute 03/03/15) Abrasion hip/leg (Acute) Anorexia (Acute) Refuses to chew solids - spits food out Bipolar affective disorder, current episode hypomanic (Chronic 03/03/15) Bipolar affective disorder, currently manic, moderate (Chronic 10/04/15) Cerebral palsy (Chronic 09/11/12) developmental delay Constipation (Chronic) Contusion of head (Acute) - required sutures. No imaging done. Start of changes per care provider Hyperlipidemia (Chronic 09/11/12) Idiopathic scoliosis (Chronic) s/p Albarran rohini Multiple falls (Acute) Osteopenia (Chronic) Pain (Chronic 10/04/15) Urine discoloration (Chronic 10/04/15) Weakness generalized (Acute) Surgical History Spinal Fusion Albarran rohini Family History Father Heart disease Social History Smoking/Tobacco Use Status: Never Alcohol Intake: never Drug use: Never Substance use type: does not use Do you feel safe at home: Yes Do you feel safe in your relationship?: Yes Exam Narrative Exam Narrative: She does not appear flushed or septic. Her vital signs are documented elsewhere Her abdomen is soft with no guarding or rebound tenderness She is awake and alert. I reviewed her CT scan. She has a large left proximal ureteral stone with hydronephrosis. Results Last Vital Signs Temp 36.7 C 03/26/19 03:44 Pulse 122 H 03/26/19 01:45 Resp 19 03/26/19 03:44 BP 100/62 03/26/19 01:45 Pulse Ox 94 L 03/26/19 03:44 Labs Result diagrams: 03/27/19 06:20 03/27/19 06:20 Labs: Laboratory Results - last 24 hr 03/25/19 03/25/19 03/25/19 11:40 11:40 19:40 WBC RBC Hgb Hct MCV MCH MCHC RDW Plt Count MPV Immature Gran % Neutrophils % Lymphocytes % Monocytes % Eosinophils % Basophils % Absolute Neutrophils Absolute Lymphocytes Absolute Monocytes Absolute Eosinophils Absolute Basophils Differential Comment RBC Morphology Polychromasia Hypochromasia Poikilocytosis Anisocytosis Retic Count PT INR APTT VBG pH VBG pCO2 VBG pO2 VBG HCO3 VBG Total CO2 VBG O2 Saturation VBG Base Excess Sodium 137 Potassium 4.4 Chloride 99 Carbon Dioxide 27.5 Anion Gap 10.5 BUN 14 Creatinine 0.64 Estimated GFR/1.73 m2 >= 60.00 Glucose 112 H Lactate Calcium 9.8 Magnesium Iron 17 L TIBC 228 L Ferritin 513 H Total Bilirubin 0.3 Conjugated Bilirubin 0.13 AST 90 H ALT 73 H Alkaline Phosphatase 212 H Lactate Dehydrogenase Total Protein 8.1 Albumin 2.4 L Lipase Procalcitonin Urine Color Urine Clarity Urine pH Ur Specific [place] Urine Protein Urine Ketones Urine Blood Urine Nitrite Urine Bilirubin Urine Urobilinogen Ur Leukocyte Esterase Urine RBC Urine WBC Ur Epithelial Cells Urine Crystals Urine Bacteria Urine Mucus Ur Culture Indicated? Urine Glucose Total Valproic Acid Patient ABO/Rh Antibody Screen Crossmatch 03/25/19 03/25/19 03/25/19 19:40 19:40 19:40 WBC RBC Hgb Hct MCV MCH MCHC RDW Plt Count MPV Immature Gran % Neutrophils % Lymphocytes % Monocytes % Eosinophils % Basophils % Absolute Neutrophils Absolute Lymphocytes Absolute Monocytes Absolute Eosinophils Absolute Basophils Differential Comment RBC Morphology Polychromasia Hypochromasia Poikilocytosis Anisocytosis Retic Count PT INR APTT VBG pH 7.40 VBG pCO2 44 VBG pO2 33 VBG HCO3 28 VBG Total CO2 27 VBG O2 Saturation 59 L VBG Base Excess 2.9 Sodium Potassium Chloride Carbon Dioxide Anion Gap BUN Creatinine Estimated GFR/1.73 m2 Glucose Lactate 1.8 H Calcium Magnesium 2.0 Iron TIBC Ferritin Total Bilirubin 0.3 Conjugated Bilirubin AST ALT Alkaline Phosphatase Lactate Dehydrogenase Total Protein Albumin Lipase 287 Procalcitonin Urine Color Urine Clarity Urine pH Ur Specific [place] Urine Protein Urine Ketones Urine Blood Urine Nitrite Urine Bilirubin Urine Urobilinogen Ur Leukocyte Esterase Urine RBC Urine WBC Ur Epithelial Cells Urine Crystals Urine Bacteria Urine Mucus Ur Culture Indicated? Urine Glucose Total Valproic Acid Patient ABO/Rh Antibody Screen Crossmatch 03/25/19 03/25/19 03/25/19 19:40 19:40 19:40 WBC 12.19 H RBC 2.80 L Hgb 7.8 L Hct 25.6 L MCV 91.4 MCH 27.9 MCHC 30.5 L RDW 14.4 Plt Count 468 H MPV 9.0 Immature Gran % 0.8 Neutrophils % 81.0 Lymphocytes % 10.5 Monocytes % 7.1 Eosinophils % 0.4 Basophils % 0.2 Absolute Neutrophils 9.87 H Absolute Lymphocytes 1.28 Absolute Monocytes 0.87 H Absolute Eosinophils 0.05 Absolute Basophils 0.02 Differential Comment RBC Morphology Polychromasia Hypochromasia Poikilocytosis Anisocytosis Retic Count PT 10.8 INR 1.1 APTT 24.3 VBG pH VBG pCO2 VBG pO2 VBG HCO3 VBG Total CO2 VBG O2 Saturation VBG Base Excess Sodium Potassium Chloride Carbon Dioxide Anion Gap BUN Creatinine Estimated GFR/1.73 m2 Glucose Lactate Calcium Magnesium Iron TIBC Ferritin Total Bilirubin Conjugated Bilirubin AST ALT Alkaline Phosphatase Lactate Dehydrogenase Total Protein Albumin Lipase Procalcitonin Urine Color Urine Clarity Urine pH Ur Specific [place] Urine Protein Urine Ketones Urine Blood Urine Nitrite Urine Bilirubin Urine Urobilinogen Ur Leukocyte Esterase Urine RBC Urine WBC Ur Epithelial Cells Urine Crystals Urine Bacteria Urine Mucus Ur Culture Indicated? Urine Glucose Total Valproic Acid Patient ABO/Rh A Positive Antibody Screen Negative Crossmatch See Detail 03/25/19 03/25/19 03/25/19 19:40 21:52 22:02 WBC RBC Hgb Hct MCV MCH MCHC RDW Plt Count MPV Immature Gran % Neutrophils % Lymphocytes % Monocytes % Eosinophils % Basophils % Absolute Neutrophils Absolute Lymphocytes Absolute Monocytes Absolute Eosinophils Absolute Basophils Differential Comment RBC Morphology Polychromasia Hypochromasia Poikilocytosis Anisocytosis Retic Count PT INR APTT VBG pH VBG pCO2 VBG pO2 VBG HCO3 VBG Total CO2 VBG O2 Saturation VBG Base Excess Sodium Potassium Chloride Carbon Dioxide Anion Gap BUN Creatinine Estimated GFR/1.73 m2 Glucose Lactate Calcium Magnesium Iron TIBC Ferritin Total Bilirubin Conjugated Bilirubin AST ALT Alkaline Phosphatase Lactate Dehydrogenase Total Protein Albumin Lipase Procalcitonin Urine Color Yellow Urine Clarity Cloudy Urine pH 6.0 Ur Specific [place] 1.015 Urine Protein 100 H Urine Ketones Trace H Urine Blood Moderate H Urine Nitrite Negative Urine Bilirubin Negative Urine Urobilinogen 0.2 Ur Leukocyte Esterase Trace H Urine RBC 0-2 Urine WBC >50 H Ur Epithelial Cells Negative Urine Crystals Negative Urine Bacteria Packed Urine Mucus Negative Ur Culture Indicated? Yes Urine Glucose Negative Total Valproic Acid 75.5 Patient ABO/Rh Cancelled Antibody Screen Crossmatch 03/26/19 03/26/19 03/26/19 06:35 06:35 06:35 WBC 11.44 H RBC 2.25 L Hgb 6.3 L* Hct 20.6 L* MCV 91.6 MCH 28.0 MCHC 30.6 L RDW 14.5 Plt Count 416 H MPV 9.1 Immature Gran % 1.0 Neutrophils % 81.7 Lymphocytes % 8.4 Monocytes % 8.5 Eosinophils % 0.3 Basophils % 0.1 Absolute Neutrophils 9.35 H Absolute Lymphocytes 0.96 L Absolute Monocytes 0.97 H Absolute Eosinophils 0.03 Absolute Basophils 0.01 Differential Comment Rbc morph reviewed RBC Morphology See below Polychromasia Present Hypochromasia 2+ Poikilocytosis 1+ Anisocytosis 1+ Retic Count PT INR APTT VBG pH VBG pCO2 VBG pO2 VBG HCO3 VBG Total CO2 VBG O2 Saturation VBG Base Excess Sodium 140 Potassium 4.2 Chloride 104 Carbon Dioxide 25.8 Anion Gap 10.2 BUN 11 Creatinine 0.56 Estimated GFR/1.73 m2 >= 60.00 Glucose 111 H Lactate 0.6 Calcium 8.2 L Magnesium Iron TIBC Ferritin Total Bilirubin Conjugated Bilirubin AST ALT Alkaline Phosphatase Lactate Dehydrogenase Total Protein Albumin Lipase Procalcitonin Urine Color Urine Clarity Urine pH Ur Specific [place] Urine Protein Urine Ketones Urine Blood Urine Nitrite Urine Bilirubin Urine Urobilinogen Ur Leukocyte Esterase Urine RBC Urine WBC Ur Epithelial Cells Urine Crystals Urine Bacteria Urine Mucus Ur Culture Indicated? Urine Glucose Total Valproic Acid Patient ABO/Rh Antibody Screen Crossmatch 03/26/19 03/26/19 03/26/19 06:35 06:35 06:35 WBC RBC Hgb Hct MCV MCH MCHC RDW Plt Count MPV Immature Gran % Neutrophils % Lymphocytes % Monocytes % Eosinophils % Basophils % Absolute Neutrophils Absolute Lymphocytes Absolute Monocytes Absolute Eosinophils Absolute Basophils Differential Comment RBC Morphology Polychromasia Hypochromasia Poikilocytosis Anisocytosis Retic Count 1.6 PT INR APTT VBG pH VBG pCO2 VBG pO2 VBG HCO3 VBG Total CO2 VBG O2 Saturation VBG Base Excess Sodium Potassium Chloride Carbon Dioxide Anion Gap BUN Creatinine Estimated GFR/1.73 m2 Glucose Lactate Calcium Magnesium Iron TIBC Ferritin Total Bilirubin Conjugated Bilirubin AST ALT Alkaline Phosphatase Lactate Dehydrogenase 323 H Total Protein Albumin Lipase Procalcitonin 0.6 Urine Color Urine Clarity Urine pH Ur Specific [place] Urine Protein Urine Ketones Urine Blood Urine Nitrite Urine Bilirubin Urine Urobilinogen Ur Leukocyte Esterase Urine RBC Urine WBC Ur Epithelial Cells Urine Crystals Urine Bacteria Urine Mucus Ur Culture Indicated? Urine Glucose Total Valproic Acid Patient ABO/Rh Antibody Screen Crossmatch
[2019-03-26] MEDS: Normal Saline 1,000 ML 100 ML IV ×2 (10:50→22:14)
--- NOTE | 2019-03-26 11:33 | W.NUTCONSULT ---
Date of service: 03/26/19 Time of Service: 11:34 Nutritional Consult ASSESSMENT: 58 year old female admitted with UTI, kidney stones requiring stenting. PMH: cerebral palsy, anemia, anorexia. Elvia was asleep when I visited and spoke to siri. She repors Elvia has had poor po intake x 3-4 months, spitting out food. reports 20 lbs weight loss in last 90 days. Currently NPO. BMI wnl for age. Appears well nourished. At high nutritional risk. estimated needs: [id number] kcal, 50-60 g protein, 1600 ml fluid NUTRITIONAL DIAGNOSIS: significant weight loss spitting out food, decreased appetite INTERVENTION: Provided siir with my contact information for outpatient nutritional counseling if poor appetite, weight loss continues. MONITORING AND EVALUATION: po intake, weight trends Time Spent in Nutritional Counseling and Treatment: 10 min spent face to face
--- NOTE | 2019-03-26 13:34 | SCONE_ITS ---
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 She has been started on IV proton pump inhibitors. (3) Neoplasm of sigmoid colon: Status: Acute (4) Ureterolithiasis: Status: Acute Assessment and plan: She is going to be having a stent placed today to drain her hydronephrosis and obstruction from a kidney stone. She is also septic from urinary tract infection. She will be having anesthesia for this. It does appear that she has a partially obstructing colon cancer. She is on prep. She is not a great candidate for surgery while she is under anesthesia today we will plan on doing an unprepped colon to look at this area of the bowel and see if there is any signs of neoplasm. Biopsies will be taken. Informed consent is obtained from the guardian. With the understanding that given that this is looking for a large gross tumor. Any small lesions less than 5 mm may be missed because this is unprepped bowel. Further recommendations to follow based on results of the colonoscopy. Continue with fluid resuscitation and antibiotics and supportive care. 1 hour spent doing consultation today (5) Complicated UTI (urinary tract infection): Status: Acute (6) Anorexia: Status: Acute (7) Weakness generalized: Status: Acute (8) Abnormal weight loss: Status: Acute History of Present Illness Narrative: From H & P Chief Complaint: Fatigue, weakness, decreased appetite, anemia Narrative: 58-year-old female with a history of cerebral palsy who presents with worsening generalized weakness and poor appetite over the last few months. She was seen by her primary care provider who performed labs today demonstrating a new anemia of 7.8 g as well as elevated liver function tests. Patient reportedly had a fall down some stairs in December for which she had been evaluated at [facility] and had sutures placed but no CT scan was ordered of her head. Her ER provider ordered a CT scan of her head to rule out a subdural hemorrhage given her progressive lethargy and weakness. She also underwent a CT scan of her abdomen pelvis because of the anemia and decreased appetite. Noncontrast CT scan of the head showed no hydrocephalus and no acute intracranial hemorrhage or mass-effect. CT scan of the abdomen and pelvis with contrast demonstrated moderate to severe left obstructive uropathy with a 1 cm x 9 mm stone impacted in the proximal left ureter along with mild left perirenal stranding. Also was found an area in the distal sigmoid colon concerning for either a focal segment of peristalsis versus an apple core colonic neoplasm. And her chest x-ray demonstrated patchy left basilar opacity for which radiologist include differential of infectious infiltrate versus compressive atelectasis due to his severe asymmetric elevation of her left hemidiaphragm. Of note her left hemidiaphragm is been chronically elevated and was noted on prior chest x-ray from 10/24/2015. Pt is non verbal adn cannot give any hx. Info is taken from her guardians. The last few weeks she has not been eating well. She has been having quite a bit of diarrhea. There has been no black tarry stools or grossly bloody stool. She does have a hx of gastric ulcer/reflux adn is on dexilant. She has a hx of a remote EGD. She has not been vomiting or vomiting blood. She has been stooling regularly and no signs of obstipation. Again, the pt csannot give us any information. The pt is normally ambulatory adn does eat a regular diet. She is non verbal. She doesn't have a hx of anemia or urinary problems. I did review her CT w/ Dr. Lombardo. She defn has a thickening in the distal sigmoid that is highly susipicous for malig. She also has a region neat the R flexure- skye tis suspicious for hardik as well. It does appear to look outside the bowel wall or that there are any enlarged nodes. She defn does need to have direct visualization. She does have an unprepped colon. Although she has not eaten in the past 48 hrs. She is a fragile pt and is going to be having an esthesia today- so rather than prep her and bring her back for another anesthesia event- I think we will go ahead and take a look- with the understanding that small lesions <5mm . may be missed. However we are looking for lg cancers/masses,etc, She has been adequately fluid resuscitated and is starting on her 2nd unit of blood. CE today consent obtained from guardian Informed consent is obtained for the procedural (explained in simple layman's terms that the pt and/or family could understand) explaining risks vs benefits and alternatives to the procedure and consequences if we do not do the procedure and need/rational for the procedure. Risks include but are not limited to: bleeding, infection, perforation of esophagus, stomach, colon, small intestines, bronchus or trachea, or PTX. This would necessitate emergency surgery to repair the damage w/ possible ostomy; and other associated complications w/ the required surgery. Also complications of anesthesia including aspiration, DC/CVA/. Consults Consult date: 03/26/19 Requesting physician: Jackie Jerez [facility] Medical History Abnormal weight gain (Acute 10/04/15) Abnormal weight loss (Acute 03/03/15) Abrasion hip/leg (Acute) Anorexia (Acute) Refuses to chew solids - spits food out Bipolar affective disorder, current episode hypomanic (Chronic 03/03/15) Bipolar affective disorder, currently manic, moderate (Chronic 10/04/15) Cerebral palsy (Chronic 09/11/12) developmental delay Constipation (Chronic) Contusion of head (Acute) - required sutures. No imaging done. Start of changes per care provider Hyperlipidemia (Chronic 09/11/12) Idiopathic scoliosis (Chronic) s/p Albarran rohini Multiple falls (Acute) Osteopenia (Chronic) Pain (Chronic 10/04/15) Urine discoloration (Chronic 10/04/15) Weakness generalized (Acute) Surgical History Spinal Fusion Albarran rohini Family History Father Heart disease Social History Smoking/Tobacco Use Status: Never Alcohol Intake: never Drug use: Never Substance use type: does not use Do you feel safe at home: Yes Do you feel safe in your relationship?: Yes Exam Const Other: Patient cannot give any information. Patient cannot cooperate to give exam. [facility] Head: normal to inspection and no palpable skull fracture General nose exam: external nose normal Face and sinus: face symmetric Mouth: other (Patient will not open her mouth to do neuro exam. Patient has longstanding) Teeth and gingiva: other (Longstanding history of excessive forceful bruxism) Other: Unable to evaluate Eyes Other: Patient is unable to cooperate for exam Chest Chest: normal inspection of the chest Other: Clinical breast exam is not performed Resp Effort & Inspection: normal respiratory effort Auscultation: clear to auscultation bilaterally Cardio Rate: regular rate Rhythm: regular rhythm GI Inspection: normal to inspection Other: Soft and nontender with no organomegaly. No surgical incisions Neuro General: alert Cognition: abnormal cognition Speech: expressive aphasia Gait: shuffling and staggering Other: Patient does not cooperate for exam Extrem General: normal to inspection and no clubbing, cyanosis or edema Other: Patient is able to move all extremities independently. Patient is not able to cooperate for full exam Psych Appearance: grossly normal and well kempt Mental Status: other Mood: other Other: Patient does not cooperate for exam Results Last Vital Signs Temp 36.1 C L 03/26/19 13:15 Pulse 81 03/26/19 13:15 Resp 21 03/26/19 13:15 BP 104/59 L 03/26/19 13:15 Pulse Ox 96 03/26/19 13:15 Labs Result diagrams: 03/27/19 06:20 03/27/19 06:20 Labs: Laboratory Results - last 24 hr 03/25/19 03/25/19 03/25/19 11:40 11:40 19:40 WBC RBC Hgb Hct MCV MCH MCHC RDW Plt Count MPV Immature Gran % Neutrophils % Lymphocytes % Monocytes % Eosinophils % Basophils % Absolute Neutrophils Absolute Lymphocytes Absolute Monocytes Absolute Eosinophils Absolute Basophils Differential Comment RBC Morphology Polychromasia Hypochromasia Poikilocytosis Anisocytosis Retic Count PT INR APTT VBG pH VBG pCO2 VBG pO2 VBG HCO3 VBG Total CO2 VBG O2 Saturation VBG Base Excess Sodium 137 Potassium 4.4 Chloride 99 Carbon Dioxide 27.5 Anion Gap 10.5 BUN 14 Creatinine 0.64 Estimated GFR/1.73 m2 >= 60.00 Glucose 112 H Lactate Calcium 9.8 Magnesium Iron 17 L TIBC 228 L Ferritin 513 H Total Bilirubin 0.3 Conjugated Bilirubin 0.13 AST 90 H ALT 73 H Alkaline Phosphatase 212 H Lactate Dehydrogenase Total Protein 8.1 Albumin 2.4 L Lipase Procalcitonin Urine Color Urine Clarity Urine pH Ur Specific [place] Urine Protein Urine Ketones Urine Blood Urine Nitrite Urine Bilirubin Urine Urobilinogen Ur Leukocyte Esterase Urine RBC Urine WBC Ur Epithelial Cells Urine Crystals Urine Bacteria Urine Mucus Ur Culture Indicated? Urine Glucose Total Valproic Acid Patient ABO/Rh Antibody Screen Crossmatch 03/25/19 03/25/19 03/25/19 19:40 19:40 19:40 WBC RBC Hgb Hct MCV MCH MCHC RDW Plt Count MPV Immature Gran % Neutrophils % Lymphocytes % Monocytes % Eosinophils % Basophils % Absolute Neutrophils Absolute Lymphocytes Absolute Monocytes Absolute Eosinophils Absolute Basophils Differential Comment RBC Morphology Polychromasia Hypochromasia Poikilocytosis Anisocytosis Retic Count PT INR APTT VBG pH 7.40 VBG pCO2 44 VBG pO2 33 VBG HCO3 28 VBG Total CO2 27 VBG O2 Saturation 59 L VBG Base Excess 2.9 Sodium Potassium Chloride Carbon Dioxide Anion Gap BUN Creatinine Estimated GFR/1.73 m2 Glucose Lactate 1.8 H Calcium Magnesium 2.0 Iron TIBC Ferritin Total Bilirubin 0.3 Conjugated Bilirubin AST ALT Alkaline Phosphatase Lactate Dehydrogenase Total Protein Albumin Lipase 287 Procalcitonin Urine Color Urine Clarity Urine pH Ur Specific [place] Urine Protein Urine Ketones Urine Blood Urine Nitrite Urine Bilirubin Urine Urobilinogen Ur Leukocyte Esterase Urine RBC Urine WBC Ur Epithelial Cells Urine Crystals Urine Bacteria Urine Mucus Ur Culture Indicated? Urine Glucose Total Valproic Acid Patient ABO/Rh Antibody Screen Crossmatch 03/25/19 03/25/19 03/25/19 19:40 19:40 19:40 WBC 12.19 H RBC 2.80 L Hgb 7.8 L Hct 25.6 L MCV 91.4 MCH 27.9 MCHC 30.5 L RDW 14.4 Plt Count 468 H MPV 9.0 Immature Gran % 0.8 Neutrophils % 81.0 Lymphocytes % 10.5 Monocytes % 7.1 Eosinophils % 0.4 Basophils % 0.2 Absolute Neutrophils 9.87 H Absolute Lymphocytes 1.28 Absolute Monocytes 0.87 H Absolute Eosinophils 0.05 Absolute Basophils 0.02 Differential Comment RBC Morphology Polychromasia Hypochromasia Poikilocytosis Anisocytosis Retic Count PT 10.8 INR 1.1 APTT 24.3 VBG pH VBG pCO2 VBG pO2 VBG HCO3 VBG Total CO2 VBG O2 Saturation VBG Base Excess Sodium Potassium Chloride Carbon Dioxide Anion Gap BUN Creatinine Estimated GFR/1.73 m2 Glucose Lactate Calcium Magnesium Iron TIBC Ferritin Total Bilirubin Conjugated Bilirubin AST ALT Alkaline Phosphatase Lactate Dehydrogenase Total Protein Albumin Lipase Procalcitonin Urine Color Urine Clarity Urine pH Ur Specific [place] Urine Protein Urine Ketones Urine Blood Urine Nitrite Urine Bilirubin Urine Urobilinogen Ur Leukocyte Esterase Urine RBC Urine WBC Ur Epithelial Cells Urine Crystals Urine Bacteria Urine Mucus Ur Culture Indicated? Urine Glucose Total Valproic Acid Patient ABO/Rh A Positive Antibody Screen Negative Crossmatch See Detail 03/25/19 03/25/19 03/25/19 19:40 21:52 22:02 WBC RBC Hgb Hct MCV MCH MCHC RDW Plt Count MPV Immature Gran % Neutrophils % Lymphocytes % Monocytes % Eosinophils % Basophils % Absolute Neutrophils Absolute Lymphocytes Absolute Monocytes Absolute Eosinophils Absolute Basophils Differential Comment RBC Morphology Polychromasia Hypochromasia Poikilocytosis Anisocytosis Retic Count PT INR APTT VBG pH VBG pCO2 VBG pO2 VBG HCO3 VBG Total CO2 VBG O2 Saturation VBG Base Excess Sodium Potassium Chloride Carbon Dioxide Anion Gap BUN Creatinine Estimated GFR/1.73 m2 Glucose Lactate Calcium Magnesium Iron TIBC Ferritin Total Bilirubin Conjugated Bilirubin AST ALT Alkaline Phosphatase Lactate Dehydrogenase Total Protein Albumin Lipase Procalcitonin Urine Color Yellow Urine Clarity Cloudy Urine pH 6.0 Ur Specific [place] 1.015 Urine Protein 100 H Urine Ketones Trace H Urine Blood Moderate H Urine Nitrite Negative Urine Bilirubin Negative Urine Urobilinogen 0.2 Ur Leukocyte Esterase Trace H Urine RBC 0-2 Urine WBC >50 H Ur Epithelial Cells Negative Urine Crystals Negative Urine Bacteria Packed Urine Mucus Negative Ur Culture Indicated? Yes Urine Glucose Negative Total Valproic Acid 75.5 Patient ABO/Rh Cancelled Antibody Screen Crossmatch 03/26/19 03/26/19 03/26/19 06:35 06:35 06:35 WBC 11.44 H RBC 2.25 L Hgb 6.3 L* Hct 20.6 L* MCV 91.6 MCH 28.0 MCHC 30.6 L RDW 14.5 Plt Count 416 H MPV 9.1 Immature Gran % 1.0 Neutrophils % 81.7 Lymphocytes % 8.4 Monocytes % 8.5 Eosinophils % 0.3 Basophils % 0.1 Absolute Neutrophils 9.35 H Absolute Lymphocytes 0.96 L Absolute Monocytes 0.97 H Absolute Eosinophils 0.03 Absolute Basophils 0.01 Differential Comment Rbc morph reviewed RBC Morphology See below Polychromasia Present Hypochromasia 2+ Poikilocytosis 1+ Anisocytosis 1+ Retic Count PT INR APTT VBG pH VBG pCO2 VBG pO2 VBG HCO3 VBG Total CO2 VBG O2 Saturation VBG Base Excess Sodium 140 Potassium 4.2 Chloride 104 Carbon Dioxide 25.8 Anion Gap 10.2 BUN 11 Creatinine 0.56 Estimated GFR/1.73 m2 >= 60.00 Glucose 111 H Lactate 0.6 Calcium 8.2 L Magnesium Iron TIBC Ferritin Total Bilirubin Conjugated Bilirubin AST ALT Alkaline Phosphatase Lactate Dehydrogenase Total Protein Albumin Lipase Procalcitonin Urine Color Urine Clarity Urine pH Ur Specific [place] Urine Protein Urine Ketones Urine Blood Urine Nitrite Urine Bilirubin Urine Urobilinogen Ur Leukocyte Esterase Urine RBC Urine WBC Ur Epithelial Cells Urine Crystals Urine Bacteria Urine Mucus Ur Culture Indicated? Urine Glucose Total Valproic Acid Patient ABO/Rh Antibody Screen Crossmatch 03/26/19 03/26/19 03/26/19 06:35 06:35 06:35 WBC RBC Hgb Hct MCV MCH MCHC RDW Plt Count MPV Immature Gran % Neutrophils % Lymphocytes % Monocytes % Eosinophils % Basophils % Absolute Neutrophils Absolute Lymphocytes Absolute Monocytes Absolute Eosinophils Absolute Basophils Differential Comment RBC Morphology Polychromasia Hypochromasia Poikilocytosis Anisocytosis Retic Count 1.6 PT INR APTT VBG pH VBG pCO2 VBG pO2 VBG HCO3 VBG Total CO2 VBG O2 Saturation VBG Base Excess Sodium Potassium Chloride Carbon Dioxide Anion Gap BUN Creatinine Estimated GFR/1.73 m2 Glucose Lactate Calcium Magnesium Iron TIBC Ferritin Total Bilirubin Conjugated Bilirubin AST ALT Alkaline Phosphatase Lactate Dehydrogenase 323 H Total Protein Albumin Lipase Procalcitonin 0.6 Urine Color Urine Clarity Urine pH Ur Specific [place] Urine Protein Urine Ketones Urine Blood Urine Nitrite Urine Bilirubin Urine Urobilinogen Ur Leukocyte Esterase Urine RBC Urine WBC Ur Epithelial Cells Urine Crystals Urine Bacteria Urine Mucus Ur Culture Indicated? Urine Glucose Total Valproic Acid Patient ABO/Rh Antibody Screen Crossmatch 03/26/19 14:00 WBC RBC Hgb Cancelled Hct Cancelled MCV MCH MCHC RDW Plt Count MPV Immature Gran % Neutrophils % Lymphocytes % Monocytes % Eosinophils % Basophils % Absolute Neutrophils Absolute Lymphocytes Absolute Monocytes Absolute Eosinophils Absolute Basophils Differential Comment RBC Morphology Polychromasia Hypochromasia Poikilocytosis Anisocytosis Retic Count PT INR APTT VBG pH VBG pCO2 VBG pO2 VBG HCO3 VBG Total CO2 VBG O2 Saturation VBG Base Excess Sodium Potassium Chloride Carbon Dioxide Anion Gap BUN Creatinine Estimated GFR/1.73 m2 Glucose Lactate Calcium Magnesium Iron TIBC Ferritin Total Bilirubin Conjugated Bilirubin AST ALT Alkaline Phosphatase Lactate Dehydrogenase Total Protein Albumin Lipase Procalcitonin Urine Color Urine Clarity Urine pH Ur Specific [place] Urine Protein Urine Ketones Urine Blood Urine Nitrite Urine Bilirubin Urine Urobilinogen Ur Leukocyte Esterase Urine RBC Urine WBC Ur Epithelial Cells Urine Crystals Urine Bacteria Urine Mucus Ur Culture Indicated? Urine Glucose Total Valproic Acid Patient ABO/Rh Antibody Screen Crossmatch
[2019-03-26] MEDS: Lidocaine 2% Jelly 6 ML SYR (14:02)
[2019-03-26] MEDS: Omnipaque 300 MG/ML 50 ML BTL (14:04)
--- NOTE | 2019-03-26 14:44 | BOWEL_PTH ---
PATIENT: Elvia Kenney LOC: [facility]#:[id number] AGE/SX: 58/F ROOM: RE03/25/[address]: Tung Jones : 1960 BED: A DIS: 03/29/2019 SPEC #: [id number] RECD: 03/26/19 17:49 STATUS: EMILY REQ #: [id number] GLADYS: 03/26/19 14:[address]: Dusty Dubois DEPT: Surgical Specimen RECD BY: Lois Henson ENTERED: 03/26/19 17:51 SP TYPE: Bowel OTHR DR: ALMAS Malhotra MD Stoiber, Laura M Tissues: 1 - BIOPSY BOWEL 2 - BIOPSY BOWEL Procedures: GROSS AND MICRO LEVEL 4 Comments: [id number]
--- NOTE | 2019-03-26 14:47 | DI.RAD_ITS ---
EXAM: XR RETROGRADE IN OR INDICATION: HYDRONEPHROSIS LEFT, URETEROLITHIASIS. COMPARISON: No exams were available for comparison TECHNIQUE: 2D digital imaging was performed. C-arm fluoroscopy was utilized by Dr. Membreno during ret rograde ureterography. FINDINGS: Hard copy shows placement of left ureteral catheter with moderate left hydronephrosis noted. Fluoro time: 19.0 seconds
--- NOTE | 2019-03-26 15:03 | W.COLOREPORT ---
Date of service: 03/26/19 Time of Service: 15:03 Colonoscopy Report Date of procedure: 03/26/19 Pre-op diagnosis general: anemia/abnl ct suggestive of sigmoid CRC Post-op diagnosis procedure note: other Procedure: unprepped CE Surgeon: Lashae Angelo Anesthesia proc note operative: GETA Estimated blood loss (mL): 0 Pathology: other Disposition: PACU Prep: Other Retraction Time: 15 mins Procedure Description: .dic
[2019-03-26] MEDS: MORPHine 2 MG/ML SYR IVP ×2 (15:34→23:58)
--- NOTE | 2019-03-26 15:48 | PHARADMIT ---
Addendum entered by Kirk Serrano III 03/27/19 12:00: Pharmacy Note Subjective To receive transfusion. (2 units pRBCs). Stent placed yesterday to relieve obstruction. Objective VS-OK K+3.3. WBC, H&H,Plts-Down slightly) Assessment Vancomycin DC'd, Zosyn continues Plan Surgery for stone when patient is stable. Awaiting blood culture results, [id number] Original Note: Admission Pharmacy Clinical Review Impacted kidney stone, UTI , pneumonia, colon cancer Code Status Full Code Current Weight 52.6 kg Renally Cleared and Narrow Therapeutic Index Meds CrCl ~55.72ml/min QTc Value / Action Taken BP Control, Fever BP 98/46,, afebrile Electrolytes reviewed Na 140, K+ 4.2, Mag 2 DVT Prophylaxis Opiate Usage / Scheduled Bowel Regimen Ordered Plt/SCr for Heparin / Enoxaparin Plt 416, Scr 0.56 INR for Warfarin H/H stable, WBC/Bands H/H 6.3/20.6 (7.8 in ED) -- transfused w 2u this AM Antibiotic appropriateness Zosyn + Vanco (complicated UTI) Cultures and Sensitivities Urine: gram negative rods; blood: gram negative rods Surgical ABX d/c within 24 hr DM control / Insulin Dosing Heart Failure (Check EF%) (KALEB's, B-Block, Diuretics) IV to PO Switch Home Meds Reviewed Yes Home Meds Not Ordered alprazolam, dexilant (alternatives for both ordered) Comments Low hemaglobin secondary to suspected malignancy, possibly celiac's disease
--- NOTE | 2019-03-26 16:36 | COLE_ITS ---
DATE OF PROCEDURE: March 26, 2019 PREOPERATIVE DIAGNOSIS: Anemia and CT scan suggestive of colon mass in the sigmoid colon. POSTOPERATIVE DIAGNOSIS: Same. PROCEDURE: Unprepped colonoscopy with biopsies. SURGEON: Lashae Angelo D.O. ANESTHESIA: General. ESTIMATED BLOOD LOSS: 0 CONDITION: The patient tolerated the procedure well without complication. HISTORY: Ms. Kenney is a 58-year-old female who presented to the hospital with anemia and urosepsis. She has an obstructing stone and is being taken to the OR for stent placement. She also has a severe anemia and a questionable mass on the CT scan, so we are attempting to do a flex sig on an unprepped colon. Consent was obtained from her guardian. She is a [place] [facility] [place] Risks include, but not limited to, bleeding, infection, perforation, pneumonia, complications from anesthesia, including but not limited to MT, aspiration, CVA and . Guardian does give consent. PROCEDURE: The patient is brought to the operative suite and placed on the urology table in stirrups. Dr. Membreno does complete his portion of the procedure. Please see his dictation. All the urology equipment is removed. The patient is left in stirrups. She is given a soapsuds enema and a tap water enema prior to beginning the procedure. A large amount of hard stool is removed. A time-out is done. Digital rectal exam was done prior to being procedure. This shows no internal or external hemorrhoids, fissures, masses, or other abnormalities. She is currently on paralytics. A previously-lubricated Olympus scope was inserted in the rectum and insufflation is begun. The scope is maneuvered up past multiple solid pieces of stool. I believe I did make it all the way up to the cecum. Again, this is an unprepped colon, so any small lesions would be missed. However I did not visualize any large tumors from all the way down at 30-40 cm in the sigmoid colon. The mucosa appears to be healthy and there are no signs of any abnormalities. Once we do get to about 30 cm at the sigmoid colon and in the rectum, there is definitely edema present in the tissues, but there is no redness, there is no inflammation. There are no signs of infection. But there is definitely a significant amount of edema in the tissues-that I do not have an explanation for. Biopsies are taken at 30 cm and in the rectum. I don't have a good explanation for the edema. It appears to be acute. It does not appear to be longstanding in nature. And again there are no signs of acute infection or other pathology. I do not feel this is an ischemic process. The scope is then withdrawn. The patient tolerated the procedure well without complication and is taken to PACU to recover.
--- NOTE | 2019-03-26 16:50 | ROE_ITS ---
DATE OF PROCEDURE: March 26, 2019 PREOPERATIVE DIAGNOSIS: Left hydronephrosis due to left proximal ureteral stone. POSTOPERATIVE DIAGNOSIS: Same. PROCEDURE: Cystoscopy; left retrograde pyelogram; insert left ureteral stent. SURGEON: Joesph Membreno M.D. ANESTHESIA: General. COMPLICATIONS: None. ESTIMATED BLOOD LOSS: Minimal. HISTORY: This is a 58-year-old woman who presented to the Emergency Room last evening with anemia an d clinical symptoms suspicious for sepsis. She was evaluated with a CT scan which demonstrated left hydronephrosis and a large left proximal ureteral stone. She was also identified as having a colon m ass. We were suspicious that her sepsis was associated with the hydronephrosis and an infected collecting system. She presents now for stent placement. OPERATIVE REPORT: The patient was brought to the operating room on 03/26/2019. She was given general anesthesia and placed in the dorsal lithotomy position. Her genitalia was prepped and draped. A 22 Argentine rigid cystoscope was passed through the urethra and into the bladder. The bladder was in spected and the left ureteral orifice was identified. The orifice was cannulated with a 6 Argentine acc ess catheter and a retrograde film was obtained by injecting Omnipaque through the access catheter un margaret fluoroscopic guidance. A filling defect was seen in the proximal ureter, and during the retrogra de we were able to maneuver the filling defect back up into the collecting system. I was then able to pass a Glidewire through the access catheter and maneuver the wire up to the upper pole calyx. Once the wire was placed, purulent-appearing fluid was seen coming down the left ureter . I then passed a 7 Argentine variable-length stent over the wire. The proximal end of the stent was seen in the upper pole calyx and the distal end was seen within the bladder. A Brown catheter was then p laced and purulent urine was collected. The patient tolerated this portion of the procedure well. A colonoscopy was then planned by Dr. Misael headley.
[2019-03-26 17:41] LABS: HCT 31.8 % (36.0-46.0); HGB 10.2 g/dL (12.0-15.5)
[2019-03-26] MEDS: Normal Saline Flush 10 ML SYR IVP (20:44)
[2019-03-26] MEDS: Divalproex 250 MG TABEC 500 MG PO (20:45)
[2019-03-26] MEDS: Simvastatin 40 MG TAB PO (20:45)
[2019-03-26] MEDS: OLANZapine 10 MG TAB PO (22:12)
[2019-03-27] VITALS (20 sets, daily range): BP systolic 98–144; BP diastolic 54–80; PULSE 85–110; RESP 17–18; TEMP 36.2–37.2; O2SAT 84–96
[2019-03-27] MEDS: PIPERACILLIN/TAZO 4.5 GM in Normal Saline 100 ML IVPB ×3 (01:43→17:51)
[2019-03-27] MEDS: MORPHine 2 MG/ML SYR IVP (05:11)
[2019-03-27] MEDS: VANCOMYCIN 750 MG in Normal Saline 250 ML 250 MG IV (05:45)
[2019-03-27 07:21] LABS: Abs Immature Grans 0.17 k/cumm (0.0-0.09); Absolute Basophil Count 0.02 k/cumm (0.0-0.2); Absolute Eosinophil Count 0.24 k/cumm (0.0-0.7); Absolute Lymphocyte Count 1.53 k/cumm (1.2-3.4); Absolute Monocyte Count 0.96 k/cumm (0.11-0.7); Absolute Neutrophil Count 7.81 k/cumm (1.2-6.7); Basophils % 0.2; Eosinophils % 2.2; HCT 29.3 % (36.0-46.0); Immature Grans % 1.6 %; Lymphocytes % 14.3; Mean Corp. HGB Concentration 30.7 g/dL (32.0-36.0); Mean Corpuscular Hemoglobin 27.4 pg (27.0-33.0); Mean Corpuscular Volume 89.1 fL (80-95); Mean Platelet Volume 9.3 fL (8.0-11.0); Monocytes % 8.9; Neutrophils % 72.8; Platelet Count 390 x1000/uL (130-400); RBC 3.29 m/cumm (4.00-5.20); RBC Distribution Width 15.9 % (11.7-14.6); White Blood Cell Count 10.73 k/cumm (4.4-10.8)
[2019-03-27 07:33] LABS: Anion Gap 10.8 mmol/L (3-11); BUN 8 mg/dL (7-18); CO2 22.2 mmol/L (21.0-32.0); CREATININE 0.65 mg/dL (0.55-1.02); Calcium 7.6 mg/dL (8.5-10.1); Chloride 109 mmol/L (98-107); Glucose 138 mg/dL (74-106); Magnesium 1.8 mg/dL (1.8-2.4); Potassium 3.3 mmol/L (3.5-5.1); Sodium 142 mmol/L (136-145)
[2019-03-27 07:53] LABS: Procalcitonin 0.3 ng/mL
[2019-03-27] MEDS: Prazosin 1 MG CAP 2 MG PO (09:08)
[2019-03-27] MEDS: Divalproex 250 MG TABEC 500 MG PO ×2 (09:08→20:55)
[2019-03-27] MEDS: Multivitamin TAB 1 TAB PO (09:09)
[2019-03-27] MEDS: Pantoprazole 40 MG VIAL IVP ×2 (09:09→20:55)
[2019-03-27] MEDS: OLANZapine 5 MG TAB PO (09:09)
[2019-03-27] MEDS: Normal Saline Flush 10 ML SYR IVP ×4 (09:10→17:00)
--- NOTE | 2019-03-27 09:31 | PDOC.CMPRO ---
Care Management Progress Note S/O: Elvia remains in the ICU, she has cerebral palsy and requires total care. CM continues to follow. A: 58 year old female admitted to ICU 03/25/19 with impacted kidney stone, UTI, Pneumonia, colon cancer P: Elvia will return to her home with her caregiver when medically stable. She will follow up with her PCP and discharge plan of care. CM will continue to support patient and care team and discharge planning needs.
--- NOTE | 2019-03-27 10:22 | W.PM.PROGNOT ---
Date of Service Date of service: 03/27/19 Time of Service: 10:22 Assessment and Plan Assessment and plan (1) Ureterolithiasis: Status: Acute Assessment and plan: Clinically, she is responding dramatically to stent placement and antibiotics. Her stone is still present (bumped back up into her renal pelvis at the time of surgery), so it will need to be addressed at some point, but that procedure can be done electively after her antibiotics are completed and her medical condition has been optimized. She tolerated anesthesia better than expected yesterday. i will double check with our anesthesia providers to make sure they are comfortable with a longer anesthesia time for this patient in the future. Otherwise, her next procedure may need to be done at a larger facility. (2) Hydronephrosis, left: Status: Acute Subjective Subjective Interval history since last seen: Has required several dose of analgesic for pain Exam Narrative Exam Narrative: She is much more active and engaged today Her vital signs are documented elsewhere - her HR and BP seem to have improved since her stent placement Her urine is more clear this AM compared to the purulence seen yesterday Objective Objective Clinical Data: Abnormal lab results 03/25/19 03/26/19 03/27/19 Range/Units 19:40 17:30 06:20 RBC (4.00-5.20) m/cumm Hgb 10.2 L D (12.0-15.5) g/dL Hct 31.8 L D (36.0-46.0) % MCHC (32.0-36.0) g/dL RDW (11.7-14.6) % Absolute Neutrophils (1.2-6.7) k/cumm Absolute Monocytes (0.11-0.7) k/cumm Potassium 3.3 L (3.5-5.1) mmol/L Chloride 109 H (98-107) mmol/L Glucose 138 H (74-106) mg/dL Calcium 7.6 L (8.5-10.1) mg/dL Crossmatch See Detail 03/27/19 Range/Units 06:20 RBC 3.29 L (4.00-5.20) m/cumm Hgb 9.0 L (12.0-15.5) g/dL Hct 29.3 L (36.0-46.0) % MCHC 30.7 L (32.0-36.0) g/dL RDW 15.9 H (11.7-14.6) % Absolute Neutrophils 7.81 H (1.2-6.7) k/cumm Absolute Monocytes 0.96 H (0.11-0.7) k/cumm Potassium (3.5-5.1) mmol/L Chloride (98-107) mmol/L Glucose (74-106) mg/dL Calcium (8.5-10.1) mg/dL Crossmatch Vital Signs Temperature 37.2 C 03/27/19 07:49 Temperature Source Temporal Artery Scan 03/27/19 07:49 Pulse 89 03/27/19 07:49 Pulse Rhythm Regular 03/27/19 07:38 Pulse 91 H 03/26/19 23:00 Respiratory Rate 20 03/26/19 23:00 Respiratory Effort 03/27/19 07:38 Respiratory Depth Shallow 03/27/19 07:38 Respiratory Pattern Normal 03/27/19 07:38 Blood Pressure 103/57 L 03/27/19 07:00 Blood Pressure Mean 68 03/27/19 07:00 Blood Pressure Position Supine 03/27/19 03:20 Pulse Oximetry 92 L 03/27/19 07:49 Oxygen Delivery Method Room Air 03/27/19 07:49 Oxygen Flow Rate 0 03/27/19 07:49 Pain Level 0 03/27/19 03:20 Intake & Output 03/26/19 03/26/19 03/27/19 11:59 23:59 11:59 Intake Total 1410 / 3790 2380 / 3790 300 / 300 Output Total 260 / 260 200 / 200 Balance 1410 / 3530 2120 / 3530 100 / 100 Weight 52.6 kg 54.8 kg Intake: IV 1200 / 2800 1600 / 2800 100 / 100 Oral 210 / 340 130 / 340 200 / 200 Blood Product 600 / 600 Rbc Leuko Reduced Unit 300 / 300 [id number] Rbc Leuko Reduced Unit 300 / 300 [id number] Other 50 / 50 Rbc Leuko Reduced Unit 50 / 50 [id number] Output: Urine 260 / 260 200 / 200 Other: Urine Color Yellow Dark Becki Urine Appearance Cloudy Clear Comment Wearing a diaper which is dry at this time. 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 Laboratory Results WBC 10.73 k/cumm (4.4-10.8) 03/27/19 06:20 RBC 3.29 m/cumm (4.00-5.20) L 03/27/19 06:20 Hgb 9.0 g/dL (12.0-15.5) L 03/27/19 06:20 Hct 29.3 % (36.0-46.0) L 03/27/19 06:20 MCV 89.1 fL (80-95) 03/27/19 06:20 MCH 27.4 pg (27.0-33.0) 03/27/19 06:20 MCHC 30.7 g/dL (32.0-36.0) L 03/27/19 06:20 RDW 15.9 % (11.7-14.6) H 03/27/19 06:20 Plt Count 390 x1000/uL (130-400) 03/27/19 06:20 MPV 9.3 fL (8.0-11.0) 03/27/19 06:20 Immature Gran % 1.6 % 03/27/19 06:20 Neutrophils % 72.8 03/27/19 06:20 Lymphocytes % 14.3 03/27/19 06:20 Monocytes % 8.9 03/27/19 06:20 Eosinophils % 2.2 03/27/19 06:20 Basophils % 0.2 03/27/19 06:20 Absolute Neutrophils 7.81 k/cumm (1.2-6.7) H 03/27/19 06:20 Absolute Lymphocytes 1.53 k/cumm (1.2-3.4) 03/27/19 06:20 Absolute Monocytes 0.96 k/cumm (0.11-0.7) H 03/27/19 06:20 Absolute Eosinophils 0.24 k/cumm (0.0-0.7) 03/27/19 06:20 Absolute Basophils 0.02 k/cumm (0.0-0.2) 03/27/19 06:20 Differential Comment Rbc morph reviewed 03/26/19 06:35 RBC Morphology See below 03/26/19 06:35 Polychromasia Present 03/26/19 06:35 Hypochromasia 2+ 03/26/19 06:35 Poikilocytosis 1+ 03/26/19 06:35 Anisocytosis 1+ 03/26/19 06:35 Retic Count 1.6 % (0.5-2.4) 03/26/19 06:35 PT 10.8 sec (9.3-11.0) 03/25/19 19:40 INR 1.1 (0.9-1.1) 03/25/19 19:40 APTT 24.3 sec (21.0-31.4) 03/25/19 19:40 VBG pH 7.40 (7.35-7.45) 03/25/19 19:40 VBG pCO2 44 mm/Hg (34-47) 03/25/19 19:40 VBG pO2 33 mm/Hg (28-44) 03/25/19 19:40 VBG HCO3 28 mmol/L (22-28) 03/25/19 19:40 VBG Total CO2 27 mmol/L (22-29) 03/25/19 19:40 VBG O2 Saturation 59 % (70-80) L 03/25/19 19:40 VBG Base Excess 2.9 mmol/L (-3-3) 03/25/19 19:40 Sodium 142 mmol/L (136-145) 03/27/19 06:20 Potassium 3.3 mmol/L (3.5-5.1) L 03/27/19 06:20 Chloride 109 mmol/L (98-107) H 03/27/19 06:20 Carbon Dioxide 22.2 mmol/L (21.0-32.0) 03/27/19 06:20 Anion Gap 10.8 mmol/L (3-11) 03/27/19 06:20 BUN 8 mg/dL (7-18) 03/27/19 06:20 Creatinine 0.65 mg/dL (0.55-1.02) 03/27/19 06:20 Estimated GFR/1.73 m2 >= 60.00 (mL/min/1.73m2) 03/27/19 06:20 Glucose 138 mg/dL (74-106) H 03/27/19 06:20 Lactate 0.6 mmol/L (0.6-1.4) 03/26/19 06:35 Calcium 7.6 mg/dL (8.5-10.1) L 03/27/19 06:20 Magnesium 1.8 mg/dL (1.8-2.4) 03/27/19 06:20 Iron 17 ug/dL (50-170) L 03/25/19 11:40 TIBC 228 ug/dL (250-450) L 03/25/19 11:40 Ferritin 513 ng/mL (8-252) H 03/25/19 11:40 Total Bilirubin 0.3 mg/dL (0.2-1.0) 03/25/19 19:40 Total Bilirubin 0.3 mg/dL (0.2-1.0) 03/25/19 19:40 Conjugated Bilirubin 0.13 mg/dL (0.00-0.20) 03/25/19 19:40 AST 90 U/L (15-37) H 03/25/19 19:40 ALT 73 U/L (14-59) H 03/25/19 19:40 Alkaline Phosphatase 212 U/L (46-116) H 03/25/19 19:40 Lactate Dehydrogenase 323 U/L (81-234) H 03/26/19 06:35 Total Protein 8.1 g/dL (6.4-8.2) 03/25/19 19:40 Albumin 2.4 g/dL (3.4-5.0) L 03/25/19 19:40 Lipase 287 U/L (73-393) 03/25/19 19:40 Procalcitonin 0.3 ng/mL 03/27/19 06:20 Urine Color Yellow (Yellow) 03/25/19 21:52 Urine Clarity Cloudy (Clear) 03/25/19 21:52 Urine pH 6.0 (5-8) 03/25/19 21:52 Ur Specific [place] 1.015 (1.005-1.025) 03/25/19 21:52 Urine Protein 100 mg/dL (Negative) H 03/25/19 21:52 Urine Ketones Trace mg/dL (Negative) H 03/25/19 21:52 Urine Blood Moderate (Negative) H 03/25/19 21:52 Urine Nitrite Negative (Negative) 03/25/19 21:52 Urine Bilirubin Negative (Negative) 03/25/19 21:52 Urine Urobilinogen 0.2 EU/dL (Up TO 0.2) 03/25/19 21:52 Ur Leukocyte Esterase Trace (Negative) H 03/25/19 21:52 Urine RBC 0-2 HPF (0-2) 03/25/19 21:52 Urine WBC >50 HPF (0-5) H 03/25/19 21:52 Ur Epithelial Cells Negative HPF (Negative) 03/25/19 21:52 Urine Crystals Negative HPF (Negative) 03/25/19 21:52 Urine Bacteria Packed HPF (Negative) 03/25/19 21:52 Urine Mucus Negative (Negative) 03/25/19 21:52 Ur Culture Indicated? Yes 03/25/19 21:52 Urine Glucose Negative mg/dL (Negative) 03/25/19 21:52 Total Valproic Acid 75.5 ug/mL (50-100) 03/25/19 19:40 Patient ABO/Rh Cancelled 03/25/19 22:02 Antibody Screen Negative 03/25/19 19:40 Crossmatch See Detail 03/25/19 19:40
--- NOTE | 2019-03-27 11:18 | W.PM.PROGNOT ---
Date of Service Date of service: 03/27/19 Time of Service: 09:48 Assessment and Plan Assessment and plan (1) Anemia: Status: Acute Assessment and plan: Status post transfusion of 2 units of pRBCs. Soft and appropriate bump in her hemoglobin, and there is no sign of active bleed. It appears that the anemia is subacute. Colonoscopy did not show clear cancer or other cause of bleeding. celiac serologies pending, and patient should likely have endoscopy when she is stable. She is iron deficient with a transferrin saturation well below 10%. This is consistent with possible celiac. We will start her on oral iron when she is taking food well. Given stability, follow hemoglobin in the morning. (2) Complicated UTI (urinary tract infection): Status: Acute Assessment and plan: Present on admission, growing 2 strains of E. coli I will stop the vancomycin and further narrow after the culture is back. Complicated by nephrolithiasis/obstructive uropathy, which was relieved yesterday with a stent placed by Dr. Membreno. I talked to Dr. Membreno and reviewed the plan of surgical procedure to remove stone when the patient is stable, either here or at a tertiary care center. (3) Ureterolithiasis: Status: Acute Assessment and plan: As above (4) Compressive atelectasis: Status: Acute Assessment and plan: If patient is able to cooperate with IS, would certainly encourage it. Morphine does seem to be effective for relieving pain and allowing her to breathe, but I decreased the dose to avoid oversedation (5) Neoplasm of sigmoid colon: Status: Acute Assessment and plan: Colonoscopy not consistent with a neoplasm in the colon, but rather simple edema. Biopsies are pending. (6) Elevated levels of transaminase & lactic acid dehydrogenase: Status: Acute Assessment and plan: This is likely related to the acute illness. I will repeat labs tomorrow. 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 Will need to see outpatient dermatology versus biopsy, but my clinical suspicion is high. If so, the patient should be ruled out for celiac disease. She does have chronic diarrhea. Would also explain anemia in absence of bleeding. serology pending as above. (8) Hypokalemia: Status: Acute Assessment and plan: Replete IV given she is still acutely ill and she started to take fluids and food again. Magnesium is okay. Follow. (9) DVT prophylaxis: Status: Acute Assessment and plan: TEDs/SCDs (10) Discharge planning issues: Status: Acute Assessment and plan: Full code If continues stable can likely transfer to [facility] status this afternoon. Subjective Subjective Patient reports: denies diarrhea, blood in stool, vomiting and fever Interval history since last seen: 24 hr: Ureteral stent placed by Dr. Membreno, drained purulent fluid. Stone pushed into renal pelvis Patient appeared in pain this morning, per RN appeared to be splinting and oxygen levels dropped. Oxygen saturation normalized after 2 mg morphine, but patient was quite sedated for an hour or 2 after that. Medicated with 2 mg of morphine and was subsequently. When I evaluated her, patient was again alert, and was indicating she was hungry. She was drinking juice out of her bottle on her own. Exam Narrative Exam Narrative: General: Middle-aged female, pale. Alert and vocalizes deliberately but not verbal. Appears comfortable and drinking fluids out of bottle. HEENT: Conjunctive are clear, no icterus. Mucous membranes moist with no oropharyngeal lesion. Heart: RRR, no m/r/g Lungs: CTAB, though diminished bilaterally at the bases. No rales or wheezes. Abdomen: soft, highly active bowel sounds. Mild distention Extremities: Trace BLE edema, does not appear to be tender. Objective Objective Clinical Data: Abnormal lab results 03/25/19 03/26/19 03/27/19 Range/Units 19:40 17:30 06:20 RBC (4.00-5.20) m/cumm Hgb 10.2 L D (12.0-15.5) g/dL Hct 31.8 L D (36.0-46.0) % MCHC (32.0-36.0) g/dL RDW (11.7-14.6) % Absolute Neutrophils (1.2-6.7) k/cumm Absolute Monocytes (0.11-0.7) k/cumm Potassium 3.3 L (3.5-5.1) mmol/L Chloride 109 H (98-107) mmol/L Glucose 138 H (74-106) mg/dL Calcium 7.6 L (8.5-10.1) mg/dL Crossmatch See Detail 03/27/19 Range/Units 06:20 RBC 3.29 L (4.00-5.20) m/cumm Hgb 9.0 L (12.0-15.5) g/dL Hct 29.3 L (36.0-46.0) % MCHC 30.7 L (32.0-36.0) g/dL RDW 15.9 H (11.7-14.6) % Absolute Neutrophils 7.81 H (1.2-6.7) k/cumm Absolute Monocytes 0.96 H (0.11-0.7) k/cumm Potassium (3.5-5.1) mmol/L Chloride (98-107) mmol/L Glucose (74-106) mg/dL Calcium (8.5-10.1) mg/dL Crossmatch Vital Signs Temperature 37.2 C 03/27/19 07:49 Temperature Source Temporal Artery Scan 03/27/19 07:49 Pulse 88 03/27/19 09:00 Pulse Rhythm Regular 03/27/19 07:38 Pulse 91 H 03/26/19 23:00 Respiratory Rate 20 03/26/19 23:00 Respiratory Effort 03/27/19 07:38 Respiratory Depth Shallow 03/27/19 07:38 Respiratory Pattern Normal 03/27/19 07:38 Blood Pressure 104/56 L 03/27/19 09:00 Blood Pressure Mean 68 03/27/19 09:00 Blood Pressure Position Supine 03/27/19 03:20 Pulse Oximetry 92 L 03/27/19 09:00 Oxygen Delivery Method Room Air 03/27/19 07:49 Oxygen Flow Rate 0 03/27/19 07:49 Pain Level 0 03/27/19 03:20 Intake & Output 03/26/19 03/26/19 03/27/19 11:59 23:59 11:59 Intake Total 1410 / 3790 2380 / 3790 700 / 700 Output Total 260 / 260 200 / 200 Balance 1410 / 3530 2120 / 3530 500 / 500 Weight 52.6 kg 54.8 kg Intake: IV 1200 / 2800 1600 / 2800 100 / 100 Oral 210 / 340 130 / 340 600 / 600 Blood Product 600 / 600 Rbc Leuko Reduced Unit 300 / 300 [id number] Rbc Leuko Reduced Unit 300 / 300 [id number] Other 50 / 50 Rbc Leuko Reduced Unit 50 / 50 [id number] Output: Urine 260 / 260 200 / 200 Other: Urine Color Yellow Dark Becki Urine Appearance Cloudy Clear Comment Wearing a diaper which is dry at this time. 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 Stool Size Smear Stool Characteristics Soft Laboratory Results WBC 10.73 k/cumm (4.4-10.8) 03/27/19 06:20 RBC 3.29 m/cumm (4.00-5.20) L 03/27/19 06:20 Hgb 9.0 g/dL (12.0-15.5) L 03/27/19 06:20 Hct 29.3 % (36.0-46.0) L 03/27/19 06:20 MCV 89.1 fL (80-95) 03/27/19 06:20 MCH 27.4 pg (27.0-33.0) 03/27/19 06:20 MCHC 30.7 g/dL (32.0-36.0) L 03/27/19 06:20 RDW 15.9 % (11.7-14.6) H 03/27/19 06:20 Plt Count 390 x1000/uL (130-400) 03/27/19 06:20 MPV 9.3 fL (8.0-11.0) 03/27/19 06:20 Immature Gran % 1.6 % 03/27/19 06:20 Neutrophils % 72.8 03/27/19 06:20 Lymphocytes % 14.3 03/27/19 06:20 Monocytes % 8.9 03/27/19 06:20 Eosinophils % 2.2 03/27/19 06:20 Basophils % 0.2 03/27/19 06:20 Absolute Neutrophils 7.81 k/cumm (1.2-6.7) H 03/27/19 06:20 Absolute Lymphocytes 1.53 k/cumm (1.2-3.4) 03/27/19 06:20 Absolute Monocytes 0.96 k/cumm (0.11-0.7) H 03/27/19 06:20 Absolute Eosinophils 0.24 k/cumm (0.0-0.7) 03/27/19 06:20 Absolute Basophils 0.02 k/cumm (0.0-0.2) 03/27/19 06:20 Differential Comment Rbc morph reviewed 03/26/19 06:35 RBC Morphology See below 03/26/19 06:35 Polychromasia Present 03/26/19 06:35 Hypochromasia 2+ 03/26/19 06:35 Poikilocytosis 1+ 03/26/19 06:35 Anisocytosis 1+ 03/26/19 06:35 Retic Count 1.6 % (0.5-2.4) 03/26/19 06:35 PT 10.8 sec (9.3-11.0) 03/25/19 19:40 INR 1.1 (0.9-1.1) 03/25/19 19:40 APTT 24.3 sec (21.0-31.4) 03/25/19 19:40 VBG pH 7.40 (7.35-7.45) 03/25/19 19:40 VBG pCO2 44 mm/Hg (34-47) 03/25/19 19:40 VBG pO2 33 mm/Hg (28-44) 03/25/19 19:40 VBG HCO3 28 mmol/L (22-28) 03/25/19 19:40 VBG Total CO2 27 mmol/L (22-29) 03/25/19 19:40 VBG O2 Saturation 59 % (70-80) L 03/25/19 19:40 VBG Base Excess 2.9 mmol/L (-3-3) 03/25/19 19:40 Sodium 142 mmol/L (136-145) 03/27/19 06:20 Potassium 3.3 mmol/L (3.5-5.1) L 03/27/19 06:20 Chloride 109 mmol/L (98-107) H 03/27/19 06:20 Carbon Dioxide 22.2 mmol/L (21.0-32.0) 03/27/19 06:20 Anion Gap 10.8 mmol/L (3-11) 03/27/19 06:20 BUN 8 mg/dL (7-18) 03/27/19 06:20 Creatinine 0.65 mg/dL (0.55-1.02) 03/27/19 06:20 Estimated GFR/1.73 m2 >= 60.00 (mL/min/1.73m2) 01/11/20 06:20 Glucose 138 mg/dL (74-106) H 03/27/19 06:20 Lactate 0.6 mmol/L (0.6-1.4) 03/26/19 06:35 Calcium 7.6 mg/dL (8.5-10.1) L 03/27/19 06:20 Magnesium 1.8 mg/dL (1.8-2.4) 03/27/19 06:20 Iron 17 ug/dL (50-170) L 03/25/19 11:40 TIBC 228 ug/dL (250-450) L 03/25/19 11:40 Ferritin 513 ng/mL (8-252) H 03/25/19 11:40 Total Bilirubin 0.3 mg/dL (0.2-1.0) 03/25/19 19:40 Total Bilirubin 0.3 mg/dL (0.2-1.0) 03/25/19 19:40 Conjugated Bilirubin 0.13 mg/dL (0.00-0.20) 03/25/19 19:40 AST 90 U/L (15-37) H 03/25/19 19:40 ALT 73 U/L (14-59) H 03/25/19 19:40 Alkaline Phosphatase 212 U/L (46-116) H 03/25/19 19:40 Lactate Dehydrogenase 323 U/L (81-234) H 03/26/19 06:35 Total Protein 8.1 g/dL (6.4-8.2) 03/25/19 19:40 Albumin 2.4 g/dL (3.4-5.0) L 03/25/19 19:40 Lipase 287 U/L (73-393) 03/25/19 19:40 Procalcitonin 0.3 ng/mL 03/27/19 06:20 Urine Color Yellow (Yellow) 03/25/19 21:52 Urine Clarity Cloudy (Clear) 03/25/19 21:52 Urine pH 6.0 (5-8) 03/25/19 21:52 Ur Specific [place] 1.015 (1.005-1.025) 03/25/19 21:52 Urine Protein 100 mg/dL (Negative) H 03/25/19 21:52 Urine Ketones Trace mg/dL (Negative) H 03/25/19 21:52 Urine Blood Moderate (Negative) H 03/25/19 21:52 Urine Nitrite Negative (Negative) 03/25/19 21:52 Urine Bilirubin Negative (Negative) 03/25/19 21:52 Urine Urobilinogen 0.2 EU/dL (Up TO 0.2) 03/25/19 21:52 Ur Leukocyte Esterase Trace (Negative) H 03/25/19 21:52 Urine RBC 0-2 HPF (0-2) 03/25/19 21:52 Urine WBC >50 HPF (0-5) H 03/25/19 21:52 Ur Epithelial Cells Negative HPF (Negative) 03/25/19 21:52 Urine Crystals Negative HPF (Negative) 03/25/19 21:52 Urine Bacteria Packed HPF (Negative) 03/25/19 21:52 Urine Mucus Negative (Negative) 03/25/19 21:52 Ur Culture Indicated? Yes 03/25/19 21:52 Urine Glucose Negative mg/dL (Negative) 03/25/19 21:52 Total Valproic Acid 75.5 ug/mL (50-100) 03/25/19 19:40 Patient ABO/Rh Cancelled 03/25/19 22:02 Antibody Screen Negative 03/25/19 19:40 Crossmatch See Detail 03/25/19 19:40
[2019-03-27] MEDS: POTASSIUM CHLORIDE 10 MEQ/100 ML BAG 100 MEQ IVPB ×3 (13:04→16:10)
[2019-03-27] MEDS: Normal Saline 1,000 ML 100 ML IV (14:53)
--- NOTE | 2019-03-27 15:14 | W.PM.PROGNOT ---
Date of Service Date of service: 03/27/19 Time of Service: 15:14 Subjective Subjective Interval history since last seen: pt going better after drainage of urine from kidney and treating infection w/ abx. no signs of active bleeding or need for acute sx intervention cont w/ iron replacement CE-essentialy neg. edema of the bowel wall- ? of clinical signif. bx taken but won't be sent until Friday. Results will not be available until at least Friday Hx of GERD nad other stomach issues. No signs of acute blood loss. Will plan EGD prior to d/c or in conjunction w/ next anesthetic event. However, I don't feel that this is the etiology of the blood loss. I'm not sure that she could have been this ill for such a long standing period that the anemia is a production problem? And not acute blood loss. Will give her time for abx to work and kidney to drain to any more anesthetic events, and cont to treat medically. I will continue to follow her progress. No acute surgical interventions at this time Objective Objective Clinical Data: Abnormal lab results 03/25/19 03/26/19 03/27/19 Range/Units 19:40 17:30 06:20 RBC (4.00-5.20) m/cumm Hgb 10.2 L D (12.0-15.5) g/dL Hct 31.8 L D (36.0-46.0) % MCHC (32.0-36.0) g/dL RDW (11.7-14.6) % Absolute Neutrophils (1.2-6.7) k/cumm Absolute Monocytes (0.11-0.7) k/cumm Potassium 3.3 L (3.5-5.1) mmol/L Chloride 109 H (98-107) mmol/L Glucose 138 H (74-106) mg/dL Calcium 7.6 L (8.5-10.1) mg/dL Crossmatch See Detail 03/27/19 Range/Units 06:20 RBC 3.29 L (4.00-5.20) m/cumm Hgb 9.0 L (12.0-15.5) g/dL Hct 29.3 L (36.0-46.0) % MCHC 30.7 L (32.0-36.0) g/dL RDW 15.9 H (11.7-14.6) % Absolute Neutrophils 7.81 H (1.2-6.7) k/cumm Absolute Monocytes 0.96 H (0.11-0.7) k/cumm Potassium (3.5-5.1) mmol/L Chloride (98-107) mmol/L Glucose (74-106) mg/dL Calcium (8.5-10.1) mg/dL Crossmatch Vital Signs Temperature 37.2 C 03/27/19 07:49 Temperature Source Temporal Artery Scan 03/27/19 07:49 Pulse 108 H 03/27/19 12:14 Pulse Rhythm Regular 03/27/19 07:38 Pulse 91 H 03/26/19 23:00 Respiratory Rate 20 03/26/19 23:00 Respiratory Effort 03/27/19 07:38 Respiratory Depth Shallow 03/27/19 07:38 Respiratory Pattern Normal 03/27/19 07:38 Blood Pressure 144/80 H 03/27/19 12:14 Blood Pressure Mean 94 03/27/19 12:14 Blood Pressure Position Supine 03/27/19 03:20 Pulse Oximetry 92 L 03/27/19 09:00 Oxygen Delivery Method Room Air 03/27/19 07:49 Oxygen Flow Rate 0 03/27/19 07:49 Pain Level 0 03/27/19 03:20 Intake & Output 03/26/19 03/27/19 03/27/19 23:59 11:59 23:59 Intake Total 2380 / 3790 1700 / 2200 500 / 2200 Output Total 260 / 260 200 / 200 Balance 2120 / 3530 1500 / 2000 500 / 2000 Weight 54.8 kg Intake: IV 1600 / 2800 1100 / 1200 100 / 1200 Oral 130 / 340 600 / 1000 400 / 1000 Blood Product 600 / 600 Rbc Leuko Reduced Unit 300 / 300 [id number] Rbc Leuko Reduced Unit 300 / 300 [id number] Other 50 / 50 Rbc Leuko Reduced Unit 50 / 50 [id number] Output: Urine 260 / 260 200 / 200 Other: Urine Color Yellow Dark Becki Urine 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 Stool Size Smear Stool Characteristics Soft Laboratory Results WBC 10.73 k/cumm (4.4-10.8) 03/27/19 06:20 RBC 3.29 m/cumm (4.00-5.20) L 03/27/19 06:20 Hgb 9.0 g/dL (12.0-15.5) L 03/27/19 06:20 Hct 29.3 % (36.0-46.0) L 03/27/19 06:20 MCV 89.1 fL (80-95) 03/27/19 06:20 MCH 27.4 pg (27.0-33.0) 03/27/19 06:20 MCHC 30.7 g/dL (32.0-36.0) L 03/27/19 06:20 RDW 15.9 % (11.7-14.6) H 03/27/19 06:20 Plt Count 390 x1000/uL (130-400) 03/27/19 06:20 MPV 9.3 fL (8.0-11.0) 03/27/19 06:20 Immature Gran % 1.6 % 03/27/19 06:20 Neutrophils % 72.8 03/27/19 06:20 Lymphocytes % 14.3 03/27/19 06:20 Monocytes % 8.9 03/27/19 06:20 Eosinophils % 2.2 03/27/19 06:20 Basophils % 0.2 03/27/19 06:20 Absolute Neutrophils 7.81 k/cumm (1.2-6.7) H 03/27/19 06:20 Absolute Lymphocytes 1.53 k/cumm (1.2-3.4) 03/27/19 06:20 Absolute Monocytes 0.96 k/cumm (0.11-0.7) H 03/27/19 06:20 Absolute Eosinophils 0.24 k/cumm (0.0-0.7) 03/27/19 06:20 Absolute Basophils 0.02 k/cumm (0.0-0.2) 03/27/19 06:20 Differential Comment Rbc morph reviewed 03/26/19 06:35 RBC Morphology See below 03/26/19 06:35 Polychromasia Present 03/26/19 06:35 Hypochromasia 2+ 03/26/19 06:35 Poikilocytosis 1+ 03/26/19 06:35 Anisocytosis 1+ 01/10/20 06:35 Retic Count 1.6 % (0.5-2.4) 03/26/19 06:35 PT 10.8 sec (9.3-11.0) 03/25/19 19:40 INR 1.1 (0.9-1.1) 03/25/19 19:40 APTT 24.3 sec (21.0-31.4) 03/25/19 19:40 VBG pH 7.40 (7.35-7.45) 03/25/19 19:40 VBG pCO2 44 mm/Hg (34-47) 03/25/19 19:40 VBG pO2 33 mm/Hg (28-44) 03/25/19 19:40 VBG HCO3 28 mmol/L (22-28) 03/25/19 19:40 VBG Total CO2 27 mmol/L (22-29) 03/25/19 19:40 VBG O2 Saturation 59 % (70-80) L 03/25/19 19:40 VBG Base Excess 2.9 mmol/L (-3-3) 03/25/19 19:40 Sodium 142 mmol/L (136-145) 03/27/19 06:20 Potassium 3.3 mmol/L (3.5-5.1) L 03/27/19 06:20 Chloride 109 mmol/L (98-107) H 03/27/19 06:20 Carbon Dioxide 22.2 mmol/L (21.0-32.0) 03/27/19 06:20 Anion Gap 10.8 mmol/L (3-11) 03/27/19 06:20 BUN 8 mg/dL (7-18) 03/27/19 06:20 Creatinine 0.65 mg/dL (0.55-1.02) 03/27/19 06:20 Estimated GFR/1.73 m2 >= 60.00 (mL/min/1.73m2) 03/27/19 06:20 Glucose 138 mg/dL (74-106) H 03/27/19 06:20 Lactate 0.6 mmol/L (0.6-1.4) 03/26/19 06:35 Calcium 7.6 mg/dL (8.5-10.1) L 03/27/19 06:20 Magnesium 1.8 mg/dL (1.8-2.4) 03/27/19 06:20 Iron 17 ug/dL (50-170) L 03/25/19 11:40 TIBC 228 ug/dL (250-450) L 03/25/19 11:40 Ferritin 513 ng/mL (8-252) H 03/25/19 11:40 Total Bilirubin 0.3 mg/dL (0.2-1.0) 03/25/19 19:40 Total Bilirubin 0.3 mg/dL (0.2-1.0) 03/25/19 19:40 Conjugated Bilirubin 0.13 mg/dL (0.00-0.20) 03/25/19 19:40 AST 90 U/L (15-37) H 03/25/19 19:40 ALT 73 U/L (14-59) H 03/25/19 19:40 Alkaline Phosphatase 212 U/L (46-116) H 03/25/19 19:40 Lactate Dehydrogenase 323 U/L (81-234) H 03/26/19 06:35 Total Protein 8.1 g/dL (6.4-8.2) 03/25/19 19:40 Albumin 2.4 g/dL (3.4-5.0) L 03/25/19 19:40 Lipase 287 U/L (73-393) 03/25/19 19:40 Procalcitonin 0.3 ng/mL 03/27/19 06:20 Urine Color Yellow (Yellow) 03/25/19 21:52 Urine Clarity Cloudy (Clear) 03/25/19 21:52 Urine pH 6.0 (5-8) 03/25/19 21:52 Ur Specific [place] 1.015 (1.005-1.025) 03/25/19 21:52 Urine Protein 100 mg/dL (Negative) H 03/25/19 21:52 Urine Ketones Trace mg/dL (Negative) H 03/25/19 21:52 Urine Blood Moderate (Negative) H 03/25/19 21:52 Urine Nitrite Negative (Negative) 03/25/19 21:52 Urine Bilirubin Negative (Negative) 03/25/19 21:52 Urine Urobilinogen 0.2 EU/dL (Up TO 0.2) 03/25/19 21:52 Ur Leukocyte Esterase Trace (Negative) H 03/25/19 21:52 Urine RBC 0-2 HPF (0-2) 03/25/19 21:52 Urine WBC >50 HPF (0-5) H 03/25/19 21:52 Ur Epithelial Cells Negative HPF (Negative) 03/25/19 21:52 Urine Crystals Negative HPF (Negative) 03/25/19 21:52 Urine Bacteria Packed HPF (Negative) 03/25/19 21:52 Urine Mucus Negative (Negative) 03/25/19 21:52 Ur Culture Indicated? Yes 03/25/19 21:52 Urine Glucose Negative mg/dL (Negative) 03/25/19 21:52 Total Valproic Acid 75.5 ug/mL (50-100) 03/25/19 19:40 Patient ABO/Rh Cancelled 03/25/19 22:02 Antibody Screen Negative 03/25/19 19:40 Crossmatch See Detail 03/25/19 19:40
[2019-03-27] MEDS: IRON SUCROSE COMPLEX 200 MG in Normal Saline 100 ML 400 MG IVPB (16:04)
--- NOTE | 2019-03-27 16:38 | NUR.NOTE ---
Nursing Note: Patient transferred out of unit around 1400. Patient alert to self. Developmental delay and cerebral palsy in history. Patient able to express a few words with limited comprehension. Brown in place draining dark yousuf urine. Two 20G IV sites with arm board and wrap in place on right AC and right hand. Generalized edema noted. VSS. HR tachy at 108 apically. positive pedal and radial pulses bilaterally. Lungs clear and diminished posteriorly. Patient had ureteral stent placed 03/26/19 on left kidney to help drain impacted kidney stone. Active bowel sounds in all quadrants. Brief on. Patient incontinent of bowel. Takes pills one at a time whole in pudding. Will reassess as appropriate. Caregiver Leeanne reports patient able to ambulate with assist at home. Inquires about making sure patient doesn't physically decondition.
[2019-03-27] MEDS: Docusate Sodium 100 MG CAP PO (16:59)
[2019-03-27] MEDS: traZODone 100 MG TAB PO (20:50)
[2019-03-27] MEDS: OLANZapine 10 MG TAB PO (20:55)
[2019-03-27] MEDS: Melatonin 3 MG TAB PO (20:55)
[2019-03-27] MEDS: Mirtazapine 15 MG TAB 30 MG PO (20:55)
[2019-03-27] MEDS: Simvastatin 40 MG TAB PO (20:55)
[2019-03-28] MEDS: PIPERACILLIN/TAZO 4.5 GM in Normal Saline 100 ML IVPB ×2 (01:22→10:01)
[2019-03-28] MEDS: Normal Saline Flush 10 ML SYR IVP ×5 (01:23→21:34)
[2019-03-28 03:06] VITALS: BP 150/71; PULSE 110; RESP 20; TEMP 36.9; O2SAT 94
[2019-03-28 07:00] VITALS: BP 119/53; PULSE 111; RESP 18; TEMP 36.8; O2SAT 93
[2019-03-28 07:16] LABS: Abs Immature Grans 0.37 k/cumm (0.0-0.09); Absolute Monocyte Count 1.08 k/cumm (0.11-0.7); Basophils % 0.4; Eosinophils % 2.8; HGB 9.2 g/dL (12.0-15.5); Immature Grans % 3.3 %; Lymphocytes % 16.9; Mean Corp. HGB Concentration 30.7 g/dL (32.0-36.0); Mean Corpuscular Hemoglobin 27.5 pg (27.0-33.0); Mean Corpuscular Volume 89.8 fL (80-95); Mean Platelet Volume 9.1 fL (8.0-11.0); Monocytes % 9.6; Platelet Count 412 x1000/uL (130-400); RBC 3.34 m/cumm (4.00-5.20); RBC Distribution Width 15.8 % (11.7-14.6); Reticulocyte 1.5 % (0.5-2.4); White Blood Cell Count 11.27 k/cumm (4.4-10.8)
[2019-03-28 07:25] LABS: Absolute Basophil Count 0.05 k/cumm (0.0-0.2); Absolute Eosinophil Count 0.32 k/cumm (0.0-0.7); Absolute Neutrophil Count 7.55 k/cumm (1.2-6.7)
[2019-03-28 07:32] LABS: ALT 48 U/L (14-59); AST 52 U/L (15-37); Albumin 1.4 g/dL (3.4-5.0); Alkaline Phosphatase 118 U/L (46-116); Anion Gap 9.9 mmol/L (3-11); BUN 5 mg/dL (7-18); Bilirubin, Total 0.2 mg/dL (0.2-1.0); C-Reactive Protein 3.25 mg/dL (0.0-0.3); CO2 25.1 mmol/L (21.0-32.0); CREATININE 0.57 mg/dL (0.55-1.02); Calcium 8.1 mg/dL (8.5-10.1); Chloride 111 mmol/L (98-107); Glucose 90 mg/dL (74-106); Potassium 4.1 mmol/L (3.5-5.1); Sodium 146 mmol/L (136-145); Total Protein 5.6 g/dL (6.4-8.2)
--- NOTE | 2019-03-28 08:24 | PDOC.CMPRO ---
Care Management Progress Note S/O: Elvia transitioned to M/S floor. She also had a surgical consult due to ongoing hemodynamic instability. Elvia has cerebral palsy and requires total care. CM spoke with Sofi, Guardian who requested Celiac testing and upper endoscopy. CM agreed to notify of request and transferred Sofi to [facility] for medical status update. CM continues to follow. A: 58 year old female admitted to ICU 03/25/19 with impacted kidney stone, UTI, Pneumonia, colon cancer P: Elvia will return to her home with her caregiver Leeanne, when medically stable. She will follow up with her PCP and discharge plan of care. CM will continue to support patient and care team and discharge planning needs.
[2019-03-28] MEDS: OLANZapine 5 MG TAB PO (08:55)
[2019-03-28] MEDS: Prazosin 1 MG CAP 2 MG PO (08:56)
[2019-03-28] MEDS: Pantoprazole 40 MG VIAL IVP (08:56)
[2019-03-28] MEDS: Multivitamin TAB 1 TAB PO (08:56)
[2019-03-28] MEDS: Divalproex 250 MG TABEC 500 MG PO ×2 (08:56→20:55)
[2019-03-28] MEDS: MORPHine 2 MG/ML SYR 1 MG IVP (09:42)
[2019-03-28 11:05] VITALS: BP 107/68; PULSE 105; RESP 18; TEMP 36.6; O2SAT 94
--- NOTE | 2019-03-28 12:15 | IN_ITS ---
Date of service: 03/28/19 Time of Service: 12:15 PT Notes Visit Reasons: IMPACTED KIDNEY STONE,UTI,PNEUMONIA,COLON CANCER Inpatient Physical Therapy Evaluation Date: 03/28/2019 Referring Doctor: Tung Jones MD PT Orders: PT CONSULT: Evaluate Precautions: Falls Patient Profile/Admitting Diagnosis: 58-year-old female with CP recent admitted with an impacted kidney stones, UTI, pneumonia and colon cancer. She underwent resection of the kidney stones postop day #2 PMHX: Hydronephrosis, CP, UTI, pneumonia, colon cancer, atelectasis, anemia Social History/Home Situation: Lives with a motor equipment lieutenant Current Functional Limitations: Requires assistance with all ADLs including dressing, personal hygiene, meals, etc. She does walk short distances with contact guarding, and is able to get in and out of car with assistance. She required assistance getting out of bed. Equipment Owned/DME: Commendation shower tub with grab bars and flexible shower hose. She has a bedside commode but also uses the bathroom toilet. She has a small ramp into the house and does not generally use the railing, just contact guarding with the motor equipment lieutenant. Subjective: Follow simple commands according to her motor equipment lieutenant, such as re questing food/drink, need to go the bathroom, etc. but is inconsistent. Objective: [] General Observation: Patient is resting comfortably in bed and into the room. Her motor equipment lieutenant is present, and she educates me in patient's home social situation. Mental Status: Alert, but does not answer any questions Pain: Does not appear to have discomfort ROM: She sits with her elbows flexed and tucked into her side, and when passively attempting to lift her arms overhead, she resists. Her motor equipment lieutenant is able to eventually convince her to reach overhead but her shoulder is not exceed an 80 degree angle of flexion, with elbow extension to minus 45 degrees and flexion at 135 degrees. Unable to assess her forearm wrist movements. Her passive lower extremity motion: Hip flexion 90 degrees, and rotation at 30 degrees. Knee motion is 0 to 125 degrees, and her talocrural, subtalar midtarsal movements are hypomobile but nonpainful Strength: She did not comprehend strength testing but she has motor control throughout and of lower extremity strength to ambulate short distances Neuro: Not tested Bed Mobility/Transfers: Requires moderate assistance with assuming the supine to sitting and sitting to standing positions. Gait: Ambulate approximately 20 feet while holding onto her caretakers hands and minimal contact guarding by myself. Her gait was characterized by short shuffling steps, anterior flexed posture but stable Balance: [] Static Sitting: Fair Dynamic Sitting: fair [] Static Standing: Fair Dynamic Standing: Fair Special Tests: Mobility Limitations Standardized Measure [facility] AM-PAC 6 clicks Basic Mobility Inpatient Short Form: Raw Score: 18 standardized Score: 43.63 CMS Score: 46.58% CMS Modifier: CK Informed Consent/Education: Patient instructed in purpose of PT consult and plan of care. Assessment: Patient is a 58 year old female referred to physical therapy services with the diagnosis of CP, UTI, impacted kidney stone, pneumonia, and colon cancer. Patient presents with clinical signs and symptoms consistent with this diagnosis , as demonstrated by the following impairment level findings: Assistance with all bed mobility activities, ambulation, etc. Impairments are contributing to the following functional limitation listed above. AMPAC score. Patient is assessed as a High 21931 complexity based on the following: History: See comorbidities and social history Examination: See above for functional limitations impairments Presentation: Unstable Decision Making: High complexity based on her clinical findings and problem list Goals: Goals X1 week Ambulation contact guarding for 50 feet with a stable gait, and minimal assistance with bed mobility activities. Prevent flexion contractures of her extremities Plan of Care/Treatment Plan: 1-2x/day, 7 days/week x 1 week. Plan of care has been reviewed with the DOOR TO DOOR SELLING DISTRIBUTOR providing the service under Physical Therapy direction. Initiate Physical Therapy intervention for strengthening, bed mobility, transfers, gait, stairs, balance training, range of motion exercises to the extremities, etc. DISCHARGE RECOMMENDATIONS: Home TREATMENT CODE/TIME: 9716 3/45 minutes
[2019-03-28 15:57] VITALS: BP 119/70; PULSE 111; RESP 20; TEMP 36.7; O2SAT 95
--- NOTE | 2019-03-28 15:58 | PGE_ITS ---
Date of Service Date of service: 03/28/19 Time of Service: 13:58 Assessment and Plan Assessment and plan (1) Anemia: Status: Acute Assessment and plan: Status post transfusion of 2 units of pRBCs 03/27/19. Soft and appropriate bump in her hemoglobin, there is no sign of active bleed, and hemoglobin has been stable since then. It appears that the anemia is subacute. Colonoscopy did not show clear cancer or other cause of bleeding. celiac serologies pending, and patient should likely have endoscopy when she is stable. She is iron deficient with a transferrin saturation well below 10%. This is consistent with possible celiac. We will start her on oral iron. (2) Complicated UTI (urinary tract infection): Status: Acute Assessment and plan: Present on admission, culture growing pansensitive E. coli. I will narrow antibiotics to cefazolin, which will I will transition to cephalexin orally upon discharge. Complicated by nephrolithiasis/obstructive uropathy, which was relieved 03/27/19 with a stent placed by Dr. Membreno. Dr. Membreno plans of surgical procedure to remove stone when the patient is stable in a few weeks, either here or at a tertiary care center. (3) Ureterolithiasis: Status: Acute Assessment and plan: As above (4) Compressive atelectasis: Status: Acute Assessment and plan: Much improved with improved mobilization now that she is on the floor. (5) Elevated levels of transaminase & lactic acid dehydrogenase: Status: Acute Assessment and plan: This is likely related to the acute illness. Levels are improving. Celiac may also cause some mild elevation. 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 Consider dermatology or biopsy as outpatient. Serology pending as above. (7) DVT prophylaxis: Status: Acute Assessment and plan: TEDs/SCDs (8) Discharge planning issues: Status: Acute Assessment and plan: Full code May be able to discharge tomorrow on oral antibiotics if continues to improve. Subjective Subjective Patient reports: tolerating liquids well and tolerating a regular diet; denies diarrhea, vomiting, shortness of breath and fever Interval history since last seen: 24hr: Transferred from ICU to floor. Elvia seen today with visiting friend. She is unable to communicate, but her friend states that she looks much better than she has previously in hospitalization, she sitting up in a chair and interacting. She had eaten some food from her lunch tray and was drinking fluids. No bleeding. Exam Narrative Exam Narrative: General: alert and vocalizes deliberately but not verbal. Appears comfortable. HEENT: Conjunctive are clear, no icterus. Mucous membranes moist. Heart: RRR, no m/r/g Lungs: CTAB, No rales or wheezes. Abdomen: soft, highly active bowel sounds. Mild distention. no CVAT Extremities: Trace BLE edema, does not appear to be tender. Objective Objective Clinical Data: Abnormal lab results 03/28/19 03/28/19 Range/Units 06:30 06:30 WBC 11.27 H (4.4-10.8) k/cumm RBC 3.34 L (4.00-5.20) m/cumm Hgb 9.2 L (12.0-15.5) g/dL Hct 30.0 L (36.0-46.0) % MCHC 30.7 L (32.0-36.0) g/dL RDW 15.8 H (11.7-14.6) % Plt Count 412 H (130-400) x1000/uL Absolute Neutrophils 7.55 H (1.2-6.7) k/cumm Absolute Monocytes 1.08 H (0.11-0.7) k/cumm Sodium 146 H (136-145) mmol/L Chloride 111 H (98-107) mmol/L BUN 5 L (7-18) mg/dL Calcium 8.1 L (8.5-10.1) mg/dL AST 52 H (15-37) U/L Alkaline Phosphatase 118 H (46-116) U/L C-Reactive Protein 3.25 H (0.0-0.3) mg/dL Total Protein 5.6 L (6.4-8.2) g/dL Albumin 1.4 L (3.4-5.0) g/dL Vital Signs Temperature 36.7 C 03/28/19 15:57 Temperature Source Tympanic 03/28/19 15:57 Pulse 111 H 03/28/19 15:57 Pulse Rhythm Regular 03/28/19 15:20 Pulse 91 H 03/26/19 23:00 Respiratory Rate 20 03/28/19 15:57 Respiratory Effort 01/12/20 15:20 Respiratory Depth Normal 03/28/19 15:20 Respiratory Pattern Normal 03/28/19 15:20 Blood Pressure 119/70 03/28/19 15:57 Blood Pressure Mean 94 03/27/19 12:14 Blood Pressure Position Supine 03/27/19 03:20 Pulse Oximetry 95 03/28/19 15:57 Oxygen Delivery Method Room Air 03/28/19 15:57 Oxygen Flow Rate 0 03/28/19 15:57 Pain Level 0 03/28/19 11:05 Comment 03/27/19 15:15 Intake & Output 03/27/19 03/28/19 03/28/19 23:59 11:59 23:59 Intake Total 1820 / 3520 1560 / 1910 350 / 1910 Output Total 500 / 700 1200 / 1850 650 / 1850 Balance 1320 / 2820 360 / 60 -300 / 60 Intake: IV 1180 / 2280 780 / 880 100 / 880 Oral 640 / 1240 780 / 1030 250 / 1030 Output: Urine 500 / 700 1200 / 1850 650 / 1850 Other: Urine Color Dark Becki Yellow Dark Becki Light Becki Urine Appearance Hematuria Clear Clear Clots Comment some urinary incontinence noted to brief with pierce in. Stool Size Small Large Stool Characteristics Soft Soft Brown Brown Voiding Methods Diaper Indwelling Catheter Laboratory Results WBC 11.27 k/cumm (4.4-10.8) H 03/28/19 06:30 RBC 3.34 m/cumm (4.00-5.20) L 03/28/19 06:30 Hgb 9.2 g/dL (12.0-15.5) L 03/28/19 06:30 Hct 30.0 % (36.0-46.0) L 03/28/19 06:30 MCV 89.8 fL (80-95) 03/28/19 06:30 MCH 27.5 pg (27.0-33.0) 03/28/19 06:30 MCHC 30.7 g/dL (32.0-36.0) L 03/28/19 06:30 RDW 15.8 % (11.7-14.6) H 03/28/19 06:30 Plt Count 412 x1000/uL (130-400) H 03/28/19 06:30 MPV 9.1 fL (8.0-11.0) 03/28/19 06:30 Immature Gran % 3.3 % 03/28/19 06:30 Neutrophils % 67.0 03/28/19 06:30 Lymphocytes % 16.9 03/28/19 06:30 Monocytes % 9.6 03/28/19 06:30 Eosinophils % 2.8 03/28/19 06:30 Basophils % 0.4 03/28/19 06:30 Absolute Neutrophils 7.55 k/cumm (1.2-6.7) H 03/28/19 06:30 Absolute Lymphocytes 1.90 k/cumm (1.2-3.4) 03/28/19 06:30 Absolute Monocytes 1.08 k/cumm (0.11-0.7) H 03/28/19 06:30 Absolute Eosinophils 0.32 k/cumm (0.0-0.7) 03/28/19 06:30 Absolute Basophils 0.05 k/cumm (0.0-0.2) 03/28/19 06:30 Differential Comment Rbc morph reviewed 03/26/19 06:35 RBC Morphology See below 03/26/19 06:35 Polychromasia Present 03/26/19 06:35 Hypochromasia 2+ 03/26/19 06:35 Poikilocytosis 1+ 03/26/19 06:35 Anisocytosis 1+ 03/26/19 06:35 Retic Count 1.5 % (0.5-2.4) 03/28/19 06:30 PT 10.8 sec (9.3-11.0) 03/25/19 19:40 INR 1.1 (0.9-1.1) 03/25/19 19:40 APTT 24.3 sec (21.0-31.4) 03/25/19 19:40 VBG pH 7.40 (7.35-7.45) 03/25/19 19:40 VBG pCO2 44 mm/Hg (34-47) 03/25/19 19:40 VBG pO2 33 mm/Hg (28-44) 03/25/19 19:40 VBG HCO3 28 mmol/L (22-28) 03/25/19 19:40 VBG Total CO2 27 mmol/L (22-29) 03/25/19 19:40 VBG O2 Saturation 59 % (70-80) L 03/25/19 19:40 VBG Base Excess 2.9 mmol/L (-3-3) 03/25/19 19:40 Sodium 146 mmol/L (136-145) H 03/28/19 06:30 Potassium 4.1 mmol/L (3.5-5.1) D 03/28/19 06:30 Chloride 111 mmol/L (98-107) H 03/28/19 06:30 Carbon Dioxide 25.1 mmol/L (21.0-32.0) 03/28/19 06:30 Anion Gap 9.9 mmol/L (3-11) 03/28/19 06:30 BUN 5 mg/dL (7-18) L 03/28/19 06:30 Creatinine 0.57 mg/dL (0.55-1.02) 03/28/19 06:30 Estimated GFR/1.73 m2 >= 60.00 (mL/min/1.73m2) 03/28/19 06:30 Glucose 90 mg/dL (74-106) 03/28/19 06:30 Lactate 0.6 mmol/L (0.6-1.4) 03/26/19 06:35 Calcium 8.1 mg/dL (8.5-10.1) L 03/28/19 06:30 Magnesium 1.8 mg/dL (1.8-2.4) 03/27/19 06:20 Iron 17 ug/dL (50-170) L 03/25/19 11:40 TIBC 228 ug/dL (250-450) L 03/25/19 11:40 Ferritin 513 ng/mL (8-252) H 03/25/19 11:40 Total Bilirubin 0.2 mg/dL (0.2-1.0) 03/28/19 06:30 Conjugated Bilirubin 0.13 mg/dL (0.00-0.20) 03/25/19 19:40 AST 52 U/L (15-37) H 03/28/19 06:30 ALT 48 U/L (14-59) 03/28/19 06:30 Alkaline Phosphatase 118 U/L (46-116) H 03/28/19 06:30 Lactate Dehydrogenase 323 U/L (81-234) H 03/26/19 06:35 C-Reactive Protein 3.25 mg/dL (0.0-0.3) H 03/28/19 06:30 Total Protein 5.6 g/dL (6.4-8.2) L 03/28/19 06:30 Albumin 1.4 g/dL (3.4-5.0) L 03/28/19 06:30 Lipase 287 U/L (73-393) 03/25/19 19:40 Procalcitonin 0.3 ng/mL 03/27/19 06:20 Urine Color Yellow (Yellow) 03/25/19 21:52 Urine Clarity Cloudy (Clear) 03/25/19 21:52 Urine pH 6.0 (5-8) 03/25/19 21:52 Ur Specific [place] 1.015 (1.005-1.025) 03/25/19 21:52 Urine Protein 100 mg/dL (Negative) H 03/25/19 21:52 Urine Ketones Trace mg/dL (Negative) H 03/25/19 21:52 Urine Blood Moderate (Negative) H 03/25/19 21:52 Urine Nitrite Negative (Negative) 03/25/19 21:52 Urine Bilirubin Negative (Negative) 03/25/19 21:52 Urine Urobilinogen 0.2 EU/dL (Up TO 0.2) 03/25/19 21:52 Ur Leukocyte Esterase Trace (Negative) H 03/25/19 21:52 Urine RBC 0-2 HPF (0-2) 03/25/19 21:52 Urine WBC >50 HPF (0-5) H 03/25/19 21:52 Ur Epithelial Cells Negative HPF (Negative) 03/25/19 21:52 Urine Crystals Negative HPF (Negative) 03/25/19 21:52 Urine Bacteria Packed HPF (Negative) 03/25/19 21:52 Urine Mucus Negative (Negative) 03/25/19 21:52 Ur Culture Indicated? Yes 03/25/19 21:52 Urine Glucose Negative mg/dL (Negative) 03/25/19 21:52 Total Valproic Acid 75.5 ug/mL (50-100) 03/25/19 19:40 Patient ABO/Rh Cancelled 03/25/19 22:02 Antibody Screen Negative 03/25/19 19:40 Crossmatch See Detail 03/25/19 19:40
[2019-03-28] MEDS: ceFAZolin 1 GM/50 ML BAG IVPB (17:40)
[2019-03-28 18:56] VITALS: BP 110/70; PULSE 114; RESP 18; TEMP 36.7; O2SAT 95
[2019-03-28] MEDS: Mirtazapine 15 MG TAB 30 MG PO (20:55)
[2019-03-28] MEDS: OLANZapine 10 MG TAB PO (20:55)
[2019-03-28] MEDS: Melatonin 3 MG TAB PO (20:56)
[2019-03-28] MEDS: traZODone 100 MG TAB PO (20:56)
[2019-03-28] MEDS: Simvastatin 40 MG TAB PO (20:56)
[2019-03-28 23:57] VITALS: BP 122/76; PULSE 112; RESP 18; TEMP 36.5; O2SAT 95
[2019-03-29] MEDS: Normal Saline Flush 10 ML SYR IVP ×2 (02:37→08:46)
[2019-03-29] MEDS: ceFAZolin 1 GM/50 ML BAG IVPB ×2 (02:37→10:07)
[2019-03-29 03:57] VITALS: BP 99/58; PULSE 84; RESP 16; TEMP 37.1; O2SAT 94
[2019-03-29 07:30] VITALS: BP 121/63; PULSE 91; RESP 20; TEMP 37.2; O2SAT 92
[2019-03-29 07:46] LABS: Iron 31 ug/dL (50-170)
[2019-03-29 08:41] LABS: Total Iron Binding Capacity 149 ug/dL (250-450); Transferrin Sat 21 % (15-50)
[2019-03-29] MEDS: Pantoprazole 40 MG VIAL IVP (08:46)
[2019-03-29] MEDS: Prazosin 1 MG CAP 2 MG PO (08:52)
[2019-03-29] MEDS: OLANZapine 5 MG TAB PO (08:52)
[2019-03-29] MEDS: Multivitamin TAB 1 TAB PO (08:52)
[2019-03-29] MEDS: Ferrous Gluconate 324 MG TAB PO (08:52)
[2019-03-29] MEDS: Divalproex 250 MG TABEC 500 MG PO (08:52)
[2019-03-29 10:12] VITALS: O2SAT 93
[2019-03-29 11:55] VITALS: BP 101/62; PULSE 83; RESP 18; TEMP 37.3; O2SAT 93
--- NOTE | 2019-03-29 16:09 | PDOC.CMDIS ---
- If Service Date Differs Date of service: 03/29/19 Time of Service: 16:09 LACE Index Scoring Tool - Questions: Length of Stay (in days): 4 - 6 Acuity (Admit via E.D.?): Yes E.D. Visits: 3 - Answers: Total Score: 10 Risk of Readmission: High Risk Care Management Discharge Reason for Hospitalization: Complicated UTI Discharge Plan: Elvia is being discharged home with her care providers. CM provided education related to follow up plan. and will coordinate procedure for the same day to remove the stone and EGD. Elvia's prescriptions will be filled at the local [facility] in [facility], CM contacted pharmacy and requested medicaitons be transfered due to distance or travel and pharmacy hours. Guardian and Caregiver states they have a better understanding of follow up plan and patients status after meeting with CM. Elvia is scheduled for a provider visit on 04/01/2019 which CM reviewed with caregiver. CM will send a message to [facility] to request follow up with specility services and ensure coordination. Elvia will transport home with caregiver at time of discharge. Patient/Family Education Needs: Education r/t illness, acute care and transition to outpatient follow up. Discharge education, limitations and follow up plan of care including ask me three and self management.
--- NOTE | 2019-03-29 16:33 | W.PM.DS.N ---
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 (7) DVT prophylaxis: Status: Acute (8) Discharge planning issues: Status: Acute Discharge Plan Disposition Patient Disposition: HOME W/HOME HEALTH SERVICE Condition: Stable Discharge Details Chief Complaint: GenMedical Clinical Impression: Anemia, Elevated LFTs, Lesion of colon, Lower obstructive uropathy, Kidney stone, Acute UTI, Pneumonia Reason For Visit: IMPACTED KIDNEY STONE,UTI,PNEUMONIA,COLON CANCER Admit Date/Time: 03/25/19 21:40 Admit Provider: Dusty Dubois Attending Provider: Dusty Dubois Primary Care Provider: Loan Pradhan ED Provider: Jonn Collins Hospital Course Hospital Course: 58-year-old female with history of cerebral palsy and intellectual disability requiring home care who has been suffering with worsening generalized weakness and poor appetite over the last few months. Labs at her primary care office showed a new anemia with hemoglobin of 7.8 and elevated liver function tests. She also reported a fall in December. CT of the head showed no new findings, but CT of the abdomen pelvis showed severe left obstructive uropathy with 1 cm x 9 mm impacted kidney stone. Lactate was elevated to 1.8 and hemoglobin got as low as 6.3 g/dL. Patient was treated with Zosyn and vancomycin and monitored in the ICU. On the second day of admission, Dr. Membreno performed a cystoscopy and placed a stent. He was able to dislodge the large stone by pushed it back into the renal pelvis and copious purulent drainage was noted. Dr. Membreno plans to repeat cystoscopy after the infection is cleared and break up and remove the stone, which he described as a infected struvite stone. Patient was transfused 2 units of packed red blood cells with the hemoglobin rising to 10.2, then remained stable at 9.0-9.2 on March 27 and , respectively. Her overall level of energy and responsiveness improved significantly after her procedure and transfusion. She continued to improve and remained stable on the floor on antibiotics for 2 days prior to discharge. Cultures grew pansensitive E. coli and her antibiotics were narrowed to cefazolin the day prior to discharge. She was discharged with 7 more days of oral cephalexin. 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 Given some chronic GI distress and anemia, celiac was considered. Serologies were sent and are pending at the time of discharge. Dr. Angelo was consulted as initial CT of the abdomen and pelvis suggested possible sigmoid colon mass. Colonoscopy was performed on March 27 and showed only edema and no sigmoid mass. Dr. Landa plan to do a endoscopy to assess for possible ulcers and for duodenal biopsies to rule out celiac disease. Given the patient's need for general anesthesia and the risk associated with this, plan was to do the stone removal and endoscopy at the same time 1 to 2 weeks after discharge. Elevated liver enzymes improved somewhat during admission. CT of the abdomen showed fatty liver, but not other pathology. Should be followed as outpatient. Celiac disease could explain this. Interestingly, initial iron studies showed a decrease transferrin saturation, but repeat levels on day of discharge showed a transferrin saturation above 20%, which was normal. This in combination with very low TIBC strongly suggest anemia of chronic disease, likely related to inflammation from chronically impacted stone. Low reticulocyte count is also consistent with this. Given these results, iron was stopped prior to discharge. This is less suggestive of celiac. Given history of ulcers, patient was continued on PPI therapy. Plan to retest for H. pylori via endoscopy on follow-up as above. Home Meds and New Rx's Prescriptions: New cephalexin 750 mg capsule 750 mg PO TID Qty: 20 RF: 0 nystatin 100,000 unit/mL suspension 500,000 unit BC QID Qty: 140 RF: 0 cephalexin 750 mg capsule 750 mg PO TID Qty: 20 RF: 0 nystatin 100,000 unit/mL suspension 5 ml PO QID Qty: 140 RF: 0 Continued mirtazapine 15 mg tablet,disintegrating 30 mg PO HS RF: 0 trazodone 100 mg tablet 100 mg PO QHS Qty: 90 RF: 0 multivitamin 1 EACH capsule 1 cap AD DAILY Qty: 90 RF: 0 ADULT DIAPERS 1 ea Miscellaneous 6X/DAY Qty: 300 RF: 11 acetaminophen 500 MG tablet 1,000 mg PO Q6H PRN RF: 0 olanzapine 10 MG tablet 10 mg PO HS RF: 0 polyethylene glycol 3350(bulk) 1 GM granules 17 gm PO DAILY PRNQty: 527 RF: 6 olanzapine 5 MG tablet 1 tab PO DAILY Qty: 90 RF: 3 prazosin 2 MG capsule 2 mg PO DAILY RF: 0 docusate sodium 100 mg capsule 100 - 200 mg PO BID PRN (Reason: constipation) Qty: 100 RF: 3 simvastatin 40 mg tablet 40 mg PO DAILY Qty: 90 RF: 3 divalproex [Depakote] 250 mg tablet,delayed release (DR/EC) 500 mg PO BID RF: 0 melatonin 3 mg tablet 3 mg PO HS RF: 0 Dexilant 30 mg capsule,biphase delayed releas 30 mg PO DAILY Qty: 30 RF: 11 olanzapine 5 mg Tablet 5 mg PO DAILY PRNRF: 0 olanzapine 5 mg Tablet 5 mg PO DAILY RF: 0 L-Carnitine 500 mg Tablet 250 mg PO DAILY RF: 0 Discharge Instructions Instructions: Kidney Stones (DC), Anemia (DC) Additional Instructions: finish oral antibiotics. Plan to repeat blood tests in 3 days or so (by Friday). This is to check the anemia, signs of infection, kidneys, and liver function. You will need 2 additional procedures: One by Dr. Membreno to break up and remove the kidney stone and another endoscopy by Dr. Angelo to look into the stomach for signs of bleeding and test for ulcers and celiac disease. I would not recommend changing your diet for now. Celiac disease blood tests are pending Stand Alone Forms: Nursing Discharge Form Referrals: Loan Pradhan NP [Primary Care Provider] - 04/01/19 9:00 am Activity:: Activity as Tolerated Equipment/Supplies:: No Equipment Needed Diet:: As Tolerated Discharge Orders Discharge Orders: Discharge Order (Routine); Ordered 03/29/19 Ordered By: Tung Jones Other Ambulatory Orders: Complete Blood Count w/Diff (Routine) Location: None Selected Ordered By: Tung Jones Comprehensive Metabolic Panel (Routine) Location: None Selected Ordered By: Tung Jones DS: Summary Status at Discharge Functional status at discharge: independent ambulation (moves with help of caretakers) Overall status at discharge: patient is back to baseline Mental Status: other (chronic cognitive imparement, alert and interactive) Speech and Movement: other (cerebral palsey, normal for patient) Mood: congruent mood and other (chronic cognitive imparement, alert and interactive) Affect: normal affect Exam Narrative Exam Narrative: General: alert and vocalizes deliberately but not verbal. Appears comfortable. HEENT: Conjunctive are clear, no icterus. Mucous membranes moist. Heart: RRR, no m/r/g Lungs: CTAB, No rales or wheezes. Abdomen: soft, highly active bowel sounds. Extremities: Trace BLE edema, does not appear to be tender. Psych Mental Status: other (chronic cognitive imparement, alert and interactive) Speech and Movement: other (cerebral palsey, normal for patient) Mood: congruent mood and other (chronic cognitive imparement, alert and interactive) Affect: normal affect DS: Data Vitals/I&O Vitals and I&O: Vital Signs Temperature 37.3 C 03/29/19 11:55 Temperature Source Tympanic 03/29/19 11:55 Pulse 83 03/29/19 11:55 Pulse Rhythm Regular 03/29/19 07:45 Pulse 91 H 03/26/19 23:00 Respiratory Rate 18 03/29/19 11:55 Respiratory Effort 03/29/19 07:45 Respiratory Depth Normal 03/29/19 07:45 Respiratory Pattern Normal 03/29/19 07:45 Blood Pressure 101/62 03/29/19 11:55 Blood Pressure Mean 94 03/27/19 12:14 Blood Pressure Position Supine 03/27/19 03:20 Pulse Oximetry 93 L 03/29/19 11:55 Oxygen Delivery Method Room Air 03/29/19 11:55 Oxygen Flow Rate 0 03/29/19 11:55 Pain Level 0 03/29/19 11:55 Comment 03/29/19 07:30 Intake & Output 03/28/19 03/29/19 03/29/19 23:59 11:59 23:59 Intake Total 640 / 2200 910 / 1160 250 / 1160 Output Total 1450 / 2650 1350 / 1500 150 / 1500 Balance -810 / -450 -440 / -340 100 / -340 Weight 54.2 kg Intake: IV 150 / 930 70 / 80 10 / 80 Oral 490 / 1270 840 / 1080 240 / 1080 Output: Urine 1450 / 2650 1350 / 1500 150 / 1500 Other: Urine Color Dark Becki Yellow Yellow Urine Appearance Sediment Clear Clear Comment urine in brief Stool Size Small Stool Characteristics Soft Liquid Voiding Methods Incontinent Toilet Data Completed and Pending Labs on day of discharge: Labs from last 24 hours 03/29/19 03/25/19 07:10 19:40 Iron 31 L TIBC 149 L Transferrin % Sat 21 Patient ABO/Rh A Positive Preliminary micro results at discharge 03/25/19 22:15 Blood Culture - Preliminary Blood NO GROWTH 72 HOURS PFSH Medical History Abnormal weight gain (Acute 10/04/15) Abnormal weight loss (Acute 03/03/15) Abrasion hip/leg (Acute) Anorexia (Acute) Refuses to chew solids - spits food out Bipolar affective disorder, current episode hypomanic (Chronic 03/03/15) Bipolar affective disorder, currently manic, moderate (Chronic 10/04/15) Cerebral palsy (Chronic 09/11/12) developmental delay Constipation (Chronic) Contusion of head (Acute) Dec. 13 - required sutures. No imaging done. Start of changes per care provider Hyperlipidemia (Chronic 09/11/12) Idiopathic scoliosis (Chronic) s/p Albarran rohini Multiple falls (Acute) Osteopenia (Chronic) Pain (Chronic 10/04/15) Urine discoloration (Chronic 10/04/15) Weakness generalized (Acute) Surgical History Spinal Fusion Albarran rohini Family History Father Heart disease Social History Smoking/Tobacco Use Status: Never Alcohol Intake: never Drug use: Never Substance use type: does not use Do you feel safe at home: Yes Do you feel safe in your relationship?: Yes
--- NOTE | 2019-03-30 12:49 | PTTR_ITS ---
Date of service: 03/29/19 Time of Service: 12:49 PT Notes Visit Reasons: IMPACTED KIDNEY STONE,UTI,PNEUMONIA,COLON CANCER Inpatient Physical Therapy Treatment Note [facility] Date: 03/29/2019 PRECAUTIONS: Fall SUBJECTIVE: Elvia is responsive with one or two-word answers. She indicates that she is agreeable to participating in PT. OBJECTIVE: PAIN: No c/o pain BED MOBILITY/TRANSFERS Supine-sit: Mod A x2 in a.m.; Mod A x1 in p.m. Sit-supine: Max A x2 Sit-stand: Min A in a.m.; CGA in p.m. Stand-sit: Min A in a.m.; CGA in p.m. 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 Distance: 50' in a.m.; 100' in p.m. TOILETING: Patient toileted with Max A ASSESSMENT: Patient tolerated session well. She requires moderate to maximal cueing for all activities. PLAN: As per primary PT TREATMENT CODE/TIME: Session 1: 20 minutes; 99382 Session 2: 25 minutes; 15251 x2
[2019-03-30 14:02] LABS: Gliadin (Deamidated) Ab, IgA <10.0 U
[2019-03-30 14:23] LABS: Gliadin (Deamidated) Ab, IgG <10.0 U
[2019-03-30 19:17] LABS: Tissue Transglutaminase Ab IgA <1.2 U/mL; Tissue Transglutaminase Ab IgG <1.2 U/mL
== END 2019-03-29 16:35 | disposition home health service (06) | DRG 660 ==
LOC: ER 23:34 → ICU 03-26 08:13 → MS 03-29 14:51 → ICU 04-01 12:59
PROVIDERS: Emergency Medicine; Internal Medicine; Surgery; Urology; Admitting Provider Internal Medicine; Emergency Provider Student in an Organized Health Care Education/Training Program; Visit Provider Family Medicine
PROC: 0T778DZ Dilation of Left Ureter with Intraluminal Device, Via Natural or Artificial Opening Endoscopic (ICD-10-PCS; CPT 52332; principal; 2019-03-26 11:45)
PROC: 0DJD8ZZ Inspection of Lower Intestinal Tract, Via Natural or Artificial Opening Endoscopic (ICD-10-PCS; CPT 45378; 2019-03-26 11:45)
DX: N13.6 Pyonephrosis (principal); J98.11 Atelectasis; K63.89 Other specified diseases of intestine; B96.20 Unspecified Escherichia coli [E. coli] as the cause of diseases classified elsewhere; D63.8 Anemia in other chronic diseases classified elsewhere; R94.5 Abnormal results of liver function studies; R93.3 Abnormal findings on diagnostic imaging of other parts of digestive tract; L13.0 Dermatitis herpetiformis; G80.9 Cerebral palsy, unspecified; K76.0 Fatty (change of) liver, not elsewhere classified; Z91.81 History of falling; E78.5 Hyperlipidemia, unspecified; K21.9 Gastro-esophageal reflux disease without esophagitis
CPT/HCPCS: 52332; 52005; 45380; 36415; 51701; 80048; 80053; 82805; 83516; 83690; 84145; 86850; 86900; 86901; 86920; 87040; 87077; 88305; 96361; 96365; 96366; 97163; 97530; 99222; 99223; 99231; 99232; 99233; 99239; 99253; 99254; 99285; 99291; NC; 70450; 71046; 74177; 74420; 80164; 81003; 81015; 82247; 82248; 82728; 83540; 83550; 83605; 83615; 83735; 85014; 85018; 85025; 85045; 85610; 85730; 86140; 86255; 87086; 87186; J0690; J1756; J2270; J2543; J2704; J3480; J3490; P9016; Q9967

== ENCOUNTER 2019-04-01 16:47 | Outpatient (CLI) | payer MEDICARE, MEDICAID, SELFPAY ==
[2019-04-01 17:23] LABS: Abs Immature Grans 0.13 k/cumm (0.0-0.09); Absolute Basophil Count 0.05 k/cumm (0.0-0.2); Absolute Eosinophil Count 0.12 k/cumm (0.0-0.7); Absolute Lymphocyte Count 2.15 k/cumm (1.2-3.4); Absolute Neutrophil Count 8.81 k/cumm (1.2-6.7); Basophils % 0.4; HCT 36.3 % (36.0-46.0); HGB 11.2 g/dL (12.0-15.5); Immature Grans % 1.1 %; Lymphocytes % 17.7; Mean Corp. HGB Concentration 30.9 g/dL (32.0-36.0); Mean Corpuscular Hemoglobin 27.9 pg (27.0-33.0); Mean Corpuscular Volume 90.5 fL (80-95); Mean Platelet Volume 8.7 fL (8.0-11.0); Monocytes % 7.2; Neutrophils % 72.6; Platelet Count 480 x1000/uL (130-400); RBC 4.01 m/cumm (4.00-5.20); RBC Distribution Width 15.7 % (11.7-14.6); White Blood Cell Count 12.14 k/cumm (4.4-10.8)
[2019-04-01 17:24] LABS: Absolute Monocyte Count 0.87 k/cumm (0.11-0.7)
[2019-04-01 18:28] LABS: ALT 36 U/L (14-59); AST 27 U/L (15-37); Albumin 2.4 g/dL (3.4-5.0); Alkaline Phosphatase 97 U/L (46-116); Anion Gap 8.4 mmol/L (3-11); BUN 11 mg/dL (7-18); Bilirubin, Total 0.2 mg/dL (0.2-1.0); CO2 29.6 mmol/L (21.0-32.0); CREATININE 0.58 mg/dL (0.55-1.02); Calcium 9.6 mg/dL (8.5-10.1); Chloride 103 mmol/L (98-107); Glucose 106 mg/dL (74-106); Potassium 4.1 mmol/L (3.5-5.1); Sodium 141 mmol/L (136-145); Total Protein 6.9 g/dL (6.4-8.2)
== END 2019-04-01 17:07 ==
DX: D50.9 Iron deficiency anemia, unspecified (principal); D64.9 Anemia, unspecified; J98.11 Atelectasis; N39.0 Urinary tract infection, site not specified; E03.9 Hypothyroidism, unspecified
CPT/HCPCS: 36415; 80053; 85025

== ENCOUNTER 2019-04-06 14:57 | Outpatient (CLI) | payer MEDICARE, MEDICAID, SELFPAY ==
[2019-04-06 15:57] LABS: Abs Immature Grans 0.03 k/cumm (0.0-0.09); Absolute Basophil Count 0.04 k/cumm (0.0-0.2); Absolute Eosinophil Count 0.12 k/cumm (0.0-0.7); Absolute Lymphocyte Count 1.86 k/cumm (1.2-3.4); Absolute Monocyte Count 0.63 k/cumm (0.11-0.7); Absolute Neutrophil Count 5.42 k/cumm (1.2-6.7); Basophils % 0.5; Eosinophils % 1.5; HCT 36.8 % (36.0-46.0); HGB 11.2 g/dL (12.0-15.5); Immature Grans % 0.4 %; Mean Corp. HGB Concentration 30.4 g/dL (32.0-36.0); Mean Corpuscular Hemoglobin 27.5 pg (27.0-33.0); Mean Corpuscular Volume 90.2 fL (80-95); Mean Platelet Volume 9.6 fL (8.0-11.0); Monocytes % 7.8; Neutrophils % 66.8; Platelet Count 290 x1000/uL (130-400); RBC 4.08 m/cumm (4.00-5.20); RBC Distribution Width 15.3 % (11.7-14.6)
[2019-04-06 16:29] LABS: Anion Gap 10.8 mmol/L (3-11); BUN 15 mg/dL (7-18); CO2 27.2 mmol/L (21.0-32.0); CREATININE 0.56 mg/dL (0.55-1.02); Calcium 9.5 mg/dL (8.5-10.1); Chloride 104 mmol/L (98-107); Glucose 120 mg/dL (74-106); Sodium 142 mmol/L (136-145)
== END 2019-04-06 15:17 ==
DX: D64.9 Anemia, unspecified (principal); R19.7 Diarrhea, unspecified; N39.0 Urinary tract infection, site not specified; N20.1 Calculus of ureter
CPT/HCPCS: 36415; 80048; 85025

== ENCOUNTER 2019-04-08 09:33 | Day surgery (SDC) | payer MEDICARE, MEDICAID, SELFPAY ==
[2019-04-08] VITALS (8 sets, daily range): BP systolic 103–152; BP diastolic 52–101; PULSE 92–127; RESP 12–23; TEMP 36.2–36.5; O2SAT 94–100
--- NOTE | 2019-04-08 12:16 | W.PM.HP.N ---
Date of service: 04/08/19 Time of Service: 12:17 Assessment and Plan Assessment and plan (1) Hydronephrosis, left: Status: Acute Assessment and plan: We will plan on doing cystoscopy, remove left ureteral stent, left flexible ureteroscopy with holmium laser lithotripsy and stone evacuation. Given her history of sepsis, there is a chance that she may have a struvite based stone (although this type of stone is more associated with Proteus infections). Based on her clinical response to the surgery, we may choose to hospitalize her overnight for IV antibiotics and to monitor for sepsis. History of Present Illness History of Present Illness Chief Complaint: Left kidney stone Narrative: This is a 58-year-old woman who was initially seen while she was hospitalized with sepsis and anemia. She was found to have left-sided hydronephrosis due to a large left proximal ureteral stone. We placed a ureteral stent and used culture specific antibiotics. Clinically, her sepsis has cleared. Her urine has cleared as well. She presents now for ureteroscopy, holmium laser lithotripsy of the stone and stone extraction. While hospitalized, there was some concern that she had a colon lesion (at least by CT scan). She underwent sigmoidoscopy and biopsy which showed no malignancy. She is also consented for gastroscopy to rule out an upper GI source of her severe anemia. (1) Anemia: (2) Ureterolithiasis: (3) Complicated UTI (urinary tract infection): (4) Anorexia: (5) Weakness generalized: (6) Compressive atelectasis: (7) S/P cystoscopy with ureteral stent placement: (8) Diarrhea: ASSESSMENT & PLAN 1. Anemia Most likely related to kidney stone. Hgb. low was 6.3: improved after 2 units PRBC - 10.2, then stabilized 9.0-9.2 on 03/27 & 03/28. Will recheck today. No active bleeding noted in either stool or urine by care provider. Skin color has greatly improved, as well as her energy. 2. Ureterolithiasis 3. S/P Cystoscopy w/ureteral stent placement (left) 4. Complicated UTI Per oil field caser: plan is for repeat cystoscopy on 04/08/19 (to remove stone) by Dr. Membreno. My nurse validated this was scheduled and that anesthesia is comfortable doing at [facility]. Care provider does not think Lucio is having pain but difficult to evaluate. Voiding clear urine, no blood, no odor noted. Taking Keflex tid. Taking fluids well. Afebrile. 5. Anorexia Resolved. Back to her baseline eating 100% of meals & snacks offered. Weight up 4lbs since last OV. 6. Weakness generalized Much improved but Lucio continues to refuse to ambulate without care-provider holding her hands. Discharge note states Home Health ordered. They have not been in yet but care-provider does not want at this time. She knows to call if she feels HH and/or PT would be helpful. Will re-evaluate in 2 weeks after next procedure, sooner if concerns. 7. Compressive atelectasis LCTA with slightly diminished breath sounds in bilateral bases. Afebrile. 8. Diarrhea With history of bouts of constipation and large fluctuation in weight, both up and down. Celiac disease is a possibility. Serum screening negative. EGD planned to be done by Dr. Gomez at same time of cystoscopy. Assume duodenal biopsies will be performed at that time. Current diarrhea seems to be slowing over the last several days. None today so far. Antibiotics may also be contributing to loose stools. F/U in 2 weeks, after EGD. Prepped colonoscopy will also need to be done after patient has had a chance to recover. CMP will be repeated today. Disclaimer: This note was created using [employer] voice recognition software. It was reviewed for major content. However, there may be multiple small discrepancies and errors due to the voice recognition aspects of the software. Orders: Comprehensive Metabolic Panel Today D64.9, N39.0, J98.11 Complete Blood Count w/Diff Today D64.9, N39.0, J98.11 Patient Instructions: Get blood drawn today. Will decide when she needs repeat based on results. Will cancel CT cervical spine and neurology consult. Avoid anything that could feed into loose stools. Continue Keflex. Encourage fluids to stay hydrated in light of loose stools. Make sure to plan for procedure 04/08 (EGD and stone removal). Call for any concerns. F/U in 2 weeks. Plan Detail Orders: Comprehensive Metabolic Panel Today E03.9 Complete Blood Count w/Diff Today D50.9 Follow Up: 2 Weeks (f/u anemia & procedures. ) HPI 58 y.o. female with cerebral palsy presents for f/u after hospital discharge on 03/29/19. She is accompanied by her care provider (Leeanne) as well as her case workers. Leeanne states that her energy is close to baseline. She is eating 100% of her meals/snacks, sleeping at her baseline. She has noticed a decrease in her teeth grinding. She states that she had several loose/watery stools on 03/29, 2 each day on 03/30/ & 03/31, none yet today. She states her urine is much clearer and without odor. She has not yet had her blood drawn since discharge (had orders but did not realize when to get done). Case-worker states that a combination procedure is scheduled for 04/08/19 for EGD and cystoscopy to remove renal stone (Dr. Membreno and Dr. Gomez). Leeanne states she is back to her pre-hospital medications with the addition of Cephalexan TID and she is holding stool softener and Mirilax. Imaging done as an inpatient: 1) CT of the head without new findings 2) CT of the abd/pelvis showed severe left obstructive kidney stone & question of sigmoid lesions with neoplastic disease not excluded, & mild hepatic steatosis. Subpleural atelectasis of dependent portions of the lungs; no acute disease. Elevation of left hemidiaphragm 3) similar increased patchy left basilar opacity on CXR. Review of Systems Const: other (HPI per caregiver) Reports as per HPI, daytime sleepiness, fatigue (but much improved), weakness (improving) and weight gain (since prior to hospital stay); Denies anorexia, chills, fever(s), frequent falls (no falls since discharge) or poor appetite (back to her normal - eating 100% of meals and snacks) Eyes: Reports as per HPI and no additional complaints ENT: Reports no additional complaints; Denies dysphagia Details: Refusing to chew food-spits it out. Sometimes will take puddings. Will take liquids well. Has not noticed any choking on liquids. Card: Reports pedal edema (mild); Denies chest pain, dyspnea or dyspnea on exertion Resp: Reports as per HPI; Denies cough, dyspnea or dyspnea on exertion GI: Reports as per HPI and diarrhea (improving); Denies abdominal pain (does not seem to be in any pain), dysphagia or vomiting Details: Holding stool softener : Reports as per HPI, urinary incontinence and other (urine without odor, denies blood); Denies hematuria Musc: Reports as per HPI, abnormal gait (From her baseline-only will walk with assistance, previously independent) and muscle weakness (improving) Skin/Breast: Reports as per HPI; Denies new lesions Details: denies diaphoresis Neuro: Reports as per HPI, abnormal gait (From her baseline-only will walk with assistance, previously independent) and weakness (improving); Denies behavioral changes (back to her most recent baseline) or frequent falls (no falls since discharge) Psych: Reports as per HPI, abnormal sleep pattern (back to her baseline with usual medications) and other (Developmentally delayed); Denies behavioral changes (back to her most recent baseline) Endo: Reports fatigue (but much improved) Cholo/Lymph: Denies easy bleeding or easy bruising Exam Const General: cooperative, no acute distress, well groomed, not lethargic and other (VS reviewed: 97.3-P132(repeat 94)-18 110/64 96%) Nutritional Appearance: other (BMI 26.7 (119 lbs) - up 4 lbs from prior to hospital stay.) Orientation: alert, awake, oriented to person, not oriented to place and not oriented to time Limitations: altered mental status and behavioral limitations HENMT Head: normal to inspection, signs of trauma and no scalp tenderness Ears: hearing grossly normal bilaterally (as far as I can tell) Nose: external nose normal Face and sinus: normal facial exam (her baseline) and no sinus tenderness Mouth: oral mucosae normal (? unable to view) and no drooling Throat: other (unable to evaluate oropharynx) Eyes Eyelids: eyelids normal Conjunctivae: conjunctivae normal Sclera: sclerae normal Neck Neck: normal visual inspection, supple and nontender Lymphatic: lymphadenopathy not noted Resp Effort & Inspection: normal respiratory effort Auscultation: clear to auscultation bilaterally, diminished lung sounds (mildly decreased in bilateral bases), no rales, no rhonchi and no wheezes Cardio Rate: tachycardic (initially 132 by nurse, 94 later in the visit by me) Rhythm: regular rhythm Heart Sounds: S1 normal and S2 normal GI Inspection: normal to inspection Palpation: soft, no hepatosplenomegaly and nontender Auscultation: normal bowel sounds General: other (not examined ) Musc Cervical Spine: no cervical spinal tenderness Other: Strength and tone improved compared to 03/25/19; continues to only ambulate with assistance from careprovider Skin General: pallor (improved - almost back to her baseline) Lesions: no lesions noted Neuro General: alert, awake, oriented (person) and moves all extremities Gait: gait assisted (with care provider - previously independent) Pupils: Normal pupillary reactivity/response: bilateral Extrem General: pedal edema (trace) bilaterally Psych Appearance: grossly normal and well kempt Mental Status: mental status grossly abnormal Speech and Movement: speech and movement abnormal Mood: expansive Affect: animated (at her baseline) Attitude: cooperative Insight: poor Judgment: poor Vital Signs 04/01/19 14:55 Height 4 ft 8 in Weight 119 lb 4 oz BMI 26.7 BP 110/64 Blood Pressure Location Lt brachial Position Sitting Pulse 132 H Pulse Source Palpation Temp 97.3 F L Temp Source Tympanic Pulse Oximetry (%) 96 Oxygen Delivery Method room air Supplemental Info RUN DATE: 04/01/19 [facility] [address] [facility] RUN TIME: [id number] RUN USER: [place] [address] DARREN WATERS MD PATIENT REPORT PATIENT: LUCIO FRANCO LOC: U #: [id number] /SX: 1960 F ROOM: MS.215 RE03/25/[address]: DIEUDONNE URENA MD STATUS: DIS IN BED: A DIS: 03/29/19 SPEC #: [id number] GLADYS: 03/27/19 STATUS: COMP REQ #: [id number] RECD: [birth year][address]: MEAGHAN MURRAY MD ENTERED: 03/27/19-[address]: DOM HOUSTON,SHAUNNA MEMBRENO MD,MARK GOMEZ DO,MERCEDES MCCONNELL MD, DARIEL FAX #: ORDERED: Gliadin Ab, IgA, Gliadin Ab, IgG, TIS TRANS PANEL, Endomysial Ab Test Result Flag Reference Verified Gliadin (Deamidated) Ab, IgA <10.0 U 03/30/19-1545 REFERENCE VALUE <20.0 (Negative) Test Performed by: [facility] [place] [address] Technical Operator: Breezy Bailey M.D. Ph.D.; CLIA# [id number] Gliadin (Deamidated) Ab, IgG <10.0 U 03/30/19-1545 REFERENCE VALUE <20.0 (Negative) Test Performed by: [facility] [place] [address] Technical Operator: Breezy Bailey M.D. Ph.D.; CLIA# [id number] Tissue Transglutaminase Panel Tissue Transglutaminase Ab IgA <1.2 U/mL 03/31/1949 REFERENCE VALUE <4.0 (Negative) Tissue Transglutaminase Ab IgG <1.2 U/mL [birth year]/1950 REFERENCE VALUE <6.0 (Negative) Test Performed by: [facility] [place] [address] Technical Operator: Breezy Bailey M.D. Ph.D.; CLIA# [id number] Endomysial Antibodies Negative Negative 04/01/19 A negative serum IgA endomysial antibody is usually seen in normal individuals, however a diagnosis of celiac disease, dermatitis herpetiformis and other gluten sensitive disorders cannot be completely excluded, as this test may be negative in a subset of individuals with these disorders. If the clinical suspicion for one of these disorders is high, recommend further testing for gluten sensitivity as indicated by the Celiac Disease Comprehensive [place] ([facility] Test [facility] Code CDCOM). In addition serum IgA endomysial antibody may also be negative in gluten-sensitive patients (with celiac disease, dermatitis herpetiformis or other gluten-sensitive disorders), who adhere to a strict gluten-free diet. ADDITIONAL INFORMATION This test has been modified from the casino slot supervisor's instructions. Its performance characteristics were determined by [facility] in a manner consistent with CLIA requirements. This test has not been cleared or approved by the U.S. Food and Drug Administration. Test Performed by: [place] [address] Technical Operator: Breezy Bailey M.D. Ph.D.; CLIA# [id number] [facility] Medical History Abnormal weight gain (Chronic 10/04/15) Fluctuates with abnormal weight losses Abnormal weight loss (Chronic 03/03/15) fluctuates with abnormal weight gains Abrasion hip/leg (Acute) Anorexia (Acute) Refuses to chew solids - spits food out Bipolar affective disorder, current episode hypomanic (Chronic 03/03/15) Bipolar affective disorder, currently manic, moderate (Chronic 10/04/15) Cerebral palsy (Chronic 09/11/12) developmental delay Constipation (Chronic) Contusion of head (Acute) - required sutures. No imaging done. Start of changes per care provider Diarrhea (Acute) Hyperlipidemia (Chronic 09/11/12) Idiopathic scoliosis (Chronic) s/p Albarran rohini Multiple falls (Acute) Osteopenia (Chronic) Pain (Chronic 10/04/15) Urine discoloration (Chronic 10/04/15) Weakness generalized (Acute) Surgical History (Updated 04/08/19 @ 10:15 by Tamela Briggs RN) History of colonoscopy (Chronic) 03/26/19 (unprepped) with negative biopsies. History of esophagogastroduodenoscopy (EGD) (Chronic) [facility] [place] 2016 S/P cystoscopy with ureteral stent placement (Acute) 03/26/19 Spinal Fusion Albarran rohini Social History Smoking/Tobacco Use Status: Never Alcohol Intake: never Drug use: Never Substance use type: does not use Additional Social history: History provided by childcare aide Leeanne Kim, unable to assess pt. Pt. has limited understanding, unable to answer for herself, caregiver answers for pt. Meds Home Medications and Allergies Home Medications Medication Instructions Recorded Confirmed Type multivitamin 1 cap AD DAILY #90 05/28/12 04/08/19 History Adult Diapers 1 ea MISCELLANEOUS 6X/DAY #300 ea 09/22/14 04/08/19 Clinic acetaminophen 500 mg PO Q6H PRN tab-cap 10/04/15 04/08/19 History olanzapine 10 mg PO HS 10/14/16 04/08/19 History polyethylene glycol 3350(bulk) 17 gm PO DAILY PRN #527 gm 04/07/17 04/08/19 History olanzapine 1 tab PO DAILY #90 tab 06/25/17 04/08/19 Rx prazosin 2 mg PO DAILY 11/03/17 04/08/19 History mirtazapine 15 mg disintegrating 30 mg PO HS tab-cap 05/24/18 04/08/19 History tablet trazodone 100 mg tablet 100 mg PO QHS #90 tab 05/24/18 04/08/19 Rx docusate sodium 100 mg capsule 100 - 200 mg PO BID PRN #100 07/01/18 04/08/19 Rx tab-cap simvastatin 40 mg tablet 40 mg PO DAILY #90 tab-cap 07/01/18 04/08/19 Rx divalproex 250 mg tablet,delayed 500 mg PO BID tab-cap 11/11/18 04/08/19 History release melatonin 3 mg tablet 10 mg PO HS tab 11/11/18 04/08/19 History dexlansoprazole 30 mg 30 mg PO DAILY #30 tab-cap 02/19/19 04/08/19 Rx capsule,biphase delayed release L-Carnitine 250 mg PO BID 03/25/19 04/08/19 History cephalexin 750 mg PO TID #20 cap 03/29/19 04/08/19 Rx nystatin 500,000 unit BC QID #140 ml 03/29/19 04/08/19 Rx Allergies Allergy/AdvReac Type Severity Reaction Status Date / Time No Known Allergies Allergy Verified 04/08/19 10:15 Exam Resp Effort & Inspection: normal respiratory effort Auscultation: diminished lung sounds Cardio Rate: regular rate Rhythm: regular rhythm Results Last Vital Signs Temp 36.3 C L 04/08/19 10:00 Pulse 127 H 04/08/19 10:00 Resp 18 04/08/19 10:00 BP 128/81 04/08/19 10:00 Pulse Ox 98 04/08/19 10:00
[2019-04-08] MEDS: Lactated Ringers 1,000 ML 100 ML IV ×2 (12:55→14:46)
[2019-04-08] MEDS: ceFAZolin 1 GM/50 ML BAG IVPB (12:58)
[2019-04-08] MEDS: Lidocaine 2% Jelly 6 ML SYR (13:17)
--- NOTE | 2019-04-08 14:19 | DI.RAD_ITS ---
EXAM: XR RETROGRADE IN OR CLINICAL HISTORY: LEFT KIDNEY STONE. TECHNIQUE: 2D and realtime digital imaging was performed. Fluoroscopy was utilized by Dr. Haseeb conroy ing the retrograde evaluation of the left renal collecting system. CONTRAST MATERIAL: Oral barium Oral water soluble contrast was administered. COMPARISON: No exams were available for comparison FINDINGS: Please refer to the procedure report for complete details. Fluoro Time: 46.5 seconds
--- NOTE | 2019-04-08 14:24 | W.PM.DSUDISC ---
Discharge Plan Disposition Patient Disposition: HOME Condition: Stable Discharge Details Reason For Visit: (L) RENAL STONE Attending Provider: Joesph Membreno Primary Care Provider: Loan Pradhan Home Meds and New Rx's Prescriptions: No Action mirtazapine 15 mg tablet,disintegrating 30 mg PO HS RF: 0 trazodone 100 mg tablet 100 mg PO QHS Qty: 90 RF: 0 multivitamin 1 EACH capsule 1 cap AD DAILY Qty: 90 RF: 0 ADULT DIAPERS 1 ea Miscellaneous 6X/DAY Qty: 300 RF: 11 acetaminophen 500 MG tablet 500 mg PO Q6H PRN RF: 0 olanzapine 10 MG tablet 10 mg PO HS RF: 0 polyethylene glycol 3350(bulk) 1 GM granules 17 gm PO DAILY PRNQty: 527 RF: 6 olanzapine 5 MG tablet 1 tab PO DAILY Qty: 90 RF: 3 prazosin 2 MG capsule 2 mg PO DAILY RF: 0 docusate sodium 100 mg capsule 100 - 200 mg PO BID PRN (Reason: constipation) Qty: 100 RF: 3 simvastatin 40 mg tablet 40 mg PO DAILY Qty: 90 RF: 3 divalproex [Depakote] 250 mg tablet,delayed release (DR/EC) 500 mg PO BID RF: 0 melatonin 3 mg tablet 10 mg PO HS RF: 0 Dexilant 30 mg capsule,biphase delayed releas 30 mg PO DAILY Qty: 30 RF: 11 L-Carnitine 500 mg Tablet 250 mg PO BID RF: 0 cephalexin 750 mg capsule 750 mg PO TID Qty: 20 RF: 0 nystatin 100,000 unit/mL suspension 500,000 unit BC QID Qty: 140 RF: 0 Discharge Instructions Additional Instructions: No need to strain urine Pt has stent with string - please let my office know that pt will need to have her stent removed in @ 5 days F/U appt with me in 4 to 6 weeks with renal ultrasound Activity:: Activity as Tolerated Shower/Bathe:: 24 hours Diet:: As Tolerated Discharge Orders Discharge Orders: Discharge Order (Routine); Ordered 04/08/19 Ordered By: Joesph Membreno DS: Diagnosis Discharge Diagnosis (1) Hydronephrosis, left: Status: Acute (2) Ureterolithiasis: Status: Acute
--- NOTE | 2019-04-08 14:35 | STOM_PTH ---
PATIENT: Elvia Kenney LOC: [facility] U#:[id number] AGE/SX: 58/F ROOM: RE04/08/[address]: Joesph Membreno MD : 1960 BED: DIS: 04/08/2019 SPEC #: [id number] RECD: 04/08/19 18:00 STATUS: EMILY REAbigail #: [id number] GLADYS: 04/08/19 14:[address]: Joesph Membreno DEPT: Surgical Specimen RECD BY: Lois Henson ENTERED: 04/08/19 18:01 SP TYPE: STOMACH OTHR DR: Loan Pradhan APRN Tissues: 1 - BIOPSY BOWEL 2 - STOMACH BIOPSY 3 - STOMACH BIOPSY 4 - ESOPHAGUS BIOPSY 5 - ESOPHAGUS BIOPSY Procedures: GROSS AND MICRO LEVEL 4 Comments: [id number]
[2019-04-08] MEDS: Omnipaque 300 MG/ML 50 ML BTL (14:40)
--- NOTE | 2019-04-08 14:44 | ENDO_ITS ---
Date of service: 04/08/19 Time of Service: 14:44 Endoscopy Report DATE OF PROCEDURE: 04/08/19 PRE-OP DIAGNOSIS: anemia/gerd/hx of h. pylori POST-OP DIAGNOSIS: other (appears grossly nl ) PROCEDURE: EGD and Bx SURGEON: Lashae Angelo ANESTHESIA: GETA ESTIMATED BLOOD LOSS: 1 PATHOLOGY: other COMPLICATIONS: None DISPOSITION: same day PROCEDURE DESCRIPTION: The pt had GETA for a previous urology procedure. After informed consent was obtained the patient was take to the procedure room and placed in a supine position. Monitors were applied and a time out was done. The patients name, date of , procedure type, allergies to medications and metal in their body was reviewed. A bite block was placed. the gastroscope was advanced through the oropharynx which was grossly normal into the esophagus. The proximal and mid-esophagus were nl. In the distal esophagus there was noted to be nl. The scope was advanced into the stomach and through the pylorus into the 3rd portion of the duodenum. The duodenum was noted to be nl. Biopsies were done -all specimens are retrieved and no bleeding is noted.. The scope was retracted back into the stomach and biopsies were done to rule out H. pylori. There were no ulcers. The scope was retroflexed. The cardia and fundus were noted to be normal. There no hiatal hernia noted. The scope was retracted back into the esophagus and biopsies were done of the GE junction to rule out Douglass's. The Z line was regular. The GE junction was at 35 cm. The scope was removed and the patient was woken up and taken back to [facility] in stable condition. Follow up: as needed
[2019-04-08] MEDS: Phenazopyridine 200 MG TAB PO (15:54)
--- NOTE | 2019-04-09 09:50 | ROE_ITS ---
DATE OF PROCEDURE: April 08, 2019 PREOPERATIVE DIAGNOSIS: Left kidney stone. POSTOPERATIVE DIAGNOSIS: Same. PROCEDURE: Cystoscopy; remove left ureteral stent; left flexible ureteroscopy; holmium laser lithotr ipsy of left lower pole stone; basket extraction of multiple stone fragments; left retrograde pyelogr am; insert left ureteral stent. SURGEON: Joesph Membreno M.D. ANESTHESIA: General. COMPLICATIONS: None. HISTORY: This is a 58-year-old woman who initially presented to our institution with severe anemia, as well as sepsis. She was found to have a large proximal left ureteral stone and hydronephrosis. W e placed a left ureteral stent and treated her positive blood and urine cultures with antibiotics. Now that her sepsis has cleared, she presents back to our institution for ureteroscopic treatment of her stones. OPERATIVE REPORT: The patient was brought to the operating room on 04/08/2019. After successful higinio ction of general anesthesia, she was placed in the dorsal lithotomy position. Her genitalia was prep ped and draped sterilely. 2% Xylocaine jelly was instilled into the urethra to act as a local anesthetic. A 22 Thai rigid cy stoscope was passed through the urethra into the bladder. The bladder was inspected with a 30-degree lens. The left ureteral stent could be seen protruding from the orifice. The stent was grasped with alliga tor forceps and brought out to the level of the urethral meatus. A Glidewire was then advanced through the lumen of the stent. The stent was removed, leaving the wir e in place. A dual-lumen catheter was advanced over the wire and a second wire was positioned. We chose one of t he wires as a working wire and the other as a safety wire. A ureteral access sheath was passed over the working wire and the sheath was positioned with its tip visible radiographically in the upper ureter. We then advanced the flexible ureteroscope through the access sheath and up the remainder of the uret er. The stone could be visualized in the lower pole calyx. We treated the stone in situ initially using a 200 micron holmium laser fiber. We fractured the ston e into multiple pieces and removed the fragments using a Zero Tip stone basket. The largest fragment was then brought to the upper ureter, where it was released. We then retreated t he largest fragment using the 272 micron holmium laser fiber. Where we initially used a setting of 8 00 with a rate of 8, when we treated the stone in the lower pole calyx we used dusting settings of 20 0 and a rate of 8 once the stone was maneuvered into the proximal ureter. Again any significant sized fragments were evacuated using the Zero Tip stone basket. All extracted stones were sent to pathology for permanent section. A retrograde pyelogram was then performed by injecting Omnipaque through the ureteroscope under fluor oscopic guidance. No extravasation was seen, but there did appear to be blood clot present within th e ureter and collecting system. We elected to replace her ureteral stent. This time we chose a 4.8 Thai variable-length stent and advanced the stent over the safety wire. The proximal end was curle d within the renal pelvis and the distal end was curled within the bladder. The safety string was le ft in place and was brought through the patient's urethra. The end of the string was tucked into the patient's vaginal cavity. We should be able to remove the stent in approximately five days. The patient tolerated this procedure well with no complications. cc: Loan Pradhan N.P.
[2019-04-15 00:11] LABS: Source: Left Kidney
== END 2019-04-08 16:46 | disposition home or self-care (01) ==
PROVIDERS: Surgery; Visit Provider Urology
PROC: (CPT 52356; principal; 2019-04-08 11:00)
PROC: 0DJ68ZZ Inspection of Stomach, Via Natural or Artificial Opening Endoscopic (ICD-10-PCS; CPT 43235; 2019-04-08 11:00)
DX: N20.1 Calculus of ureter (principal); Z96.0 Presence of urogenital implants; K22.719 Barrett's esophagus with dysplasia, unspecified; D64.9 Anemia, unspecified; K21.9 Gastro-esophageal reflux disease without esophagitis; Z87.19 Personal history of other diseases of the digestive system; G80.9 Cerebral palsy, unspecified
CPT/HCPCS: 52356; 43239; 88305; NC; 74420; 82365; J0690; J1100; J2001; J2405; J2704; Q9967

== ENCOUNTER 2019-05-07 02:28 | Outpatient (CLI) | payer MEDICARE, MEDICAID, SELFPAY ==
--- NOTE | 2019-05-07 06:15 | DI.US_ITS ---
EXAM: US RENAL CLINICAL HISTORY: CALCULUS OF URETER,N20.1,N13.30,? HYDRONEPHROSIS AFTER URETEROSCOPY TECHNIQUE: Ultrasound performed using standard protocol. COMPARISON: CT ABDOMEN PELVIS W from 03/25/2019 XR CHEST 2V PA LATERAL from 03/25/2019 XR RETROGRADE IN OR from 04/08/2019 FINDINGS: The exam is somewhat limited due to patient inability to breath hold. The right kidney measures 10 cm in length and shows normal parenchymal thickness and echogenicity. No stones or hydronephrosis i s seen. The left kidney measures 9.3 cm in length and shows normal parenchymal thickness. No hydron ephrosis is visible. Is no perinephric collection. The bladder was empty. IMPRESSION: No evidence of hydronephrosis. DATA REPOSITORY:
== END 2019-05-07 02:48 ==
PROVIDERS: Visit Provider Urology
DX: N20.1 Calculus of ureter; Z98.890 Other specified postprocedural states; R26.89 Other abnormalities of gait and mobility; R29.6 Repeated falls; R53.83 Other fatigue; M51.16 Intervertebral disc disorders with radiculopathy, lumbar region; M51.17 Intervertebral disc disorders with radiculopathy, lumbosacral region; M16.0 Bilateral primary osteoarthritis of hip
CPT/HCPCS: 76770; 99213

== ENCOUNTER 2019-05-07 02:46 | Outpatient (CLI) | payer MEDICARE, MEDICAID, SELFPAY ==
--- NOTE | 2019-05-07 06:15 | DI.RAD_ITS ---
EXAM: XR HIP PELVIS ADULT BL INDICATION: Significant decrease in ambulatory status,MULTIPLE FALLS,R29.6,WEAKNESS,R53. COMPARISON: No exams were available for comparison TECHNIQUE: 2D digital imaging was performed. FINDINGS: A rohini is seen in the lower lumbar spine. There are severe degenerative disc changes at L4-5. The hi p joint spaces show mild narrowing and mild periarticular spurring. There is no evidence of fracture or dislocation. There are mild degenerative changes of the SI joints. IMPRESSION: No acute abnormality. DATA REPOSITORY: RADIATION DOSE DELIVERED:
== END 2019-05-07 03:06 ==
DX: R53.1 Weakness (principal); R26.89 Other abnormalities of gait and mobility; R29.6 Repeated falls; M51.36 Other intervertebral disc degeneration, lumbar region; M53.3 Sacrococcygeal disorders, not elsewhere classified; M16.0 Bilateral primary osteoarthritis of hip; Z74.09 Other reduced mobility; G80.9 Cerebral palsy, unspecified
CPT/HCPCS: 73521; 76770; 99213

== ENCOUNTER 2019-11-18 03:58 | Outpatient (CLI) | payer MEDICARE, MEDICAID, SELFPAY ==
[2019-11-18 11:30] LABS: Iron 53 ug/dL (50-170)
[2019-11-18 11:31] LABS: ALT 18 U/L (14-59); AST 13 U/L (15-37); Albumin 3.7 g/dL (3.4-5.0); Alkaline Phosphatase 65 U/L (46-116); Anion Gap 7.7 mmol/L (3-11); BUN 15 mg/dL (7-18); Bilirubin, Total 0.3 mg/dL (0.2-1.0); CO2 27.3 mmol/L (21.0-32.0); CREATININE 0.39 mg/dL (0.55-1.02); Calcium 9.1 mg/dL (8.5-10.1); Calculated LDL 94 mg/dL (<100); Chloride 106 mmol/L (98-107); Cholesterol 159 mg/dL (<200); Glucose 84 mg/dL (74-106); HDL Cholesterol 40 mg/dL (40-60); Potassium 4.3 mmol/L (3.5-5.1); Sodium 141 mmol/L (136-145); Total Protein 7.2 g/dL (6.4-8.2); Triglyceride 129 mg/dL (<150)
== END 2019-11-18 04:18 ==
DX: D64.9 Anemia, unspecified (principal); E78.5 Hyperlipidemia, unspecified
CPT/HCPCS: 36415; 80053; 80061; 83540; 85014; 85018; 85025

== ENCOUNTER 2019-12-13 10:08 | Outpatient (CLI) | payer MEDICARE, MEDICAID, SELFPAY ==
[2019-12-13 10:50] LABS: HCT 35.6 % (36.0-46.0); HGB 11.7 g/dL (11.2-15.7)
== END 2019-12-13 10:28 ==
DX: D64.9 Anemia, unspecified (principal)
CPT/HCPCS: 36415; 85014; 85018

== ENCOUNTER 2020-02-01 20:56 | Outpatient (CLI) | payer MEDICARE, MEDICAID, SELFPAY ==
--- NOTE | 2020-02-01 13:00 | DI.US_ITS ---
EXAM: US RENAL CLINICAL HISTORY: monitor for stones,. TECHNIQUE: Gonzalez scale, color and spectral Doppler were used. COMPARISON: US US RENAL from 05/07/2019 FINDINGS: Renal size in cm: Right: 10.2. Left: 9.3. Echogenicity: Normal. Hydronephrosis: No. Cyst or mass: No. Nephrolithiasis: No. Other findings: None. Bladder:Normal. Ureteral jets: Right: Visualized and unremarkable. Left: Visualized and unremarkable. Prevoid vol:26.5 cc Renal color flow: Symmetric and within normal limits. IMPRESSION: No evidence of nephrolithiasis or hydronephrosis. DATA REPOSITORY:
== END 2020-02-01 21:16 ==
PROVIDERS: Visit Provider Urology
DX: Z87.448 Personal history of other diseases of urinary system (principal)
CPT/HCPCS: 76770

== ENCOUNTER → 2020-04-21 14:08 | Outpatient (BNVA) | payer MEDICARE, MEDICAID, SELFPAY | PROVIDERS: PCP Nurse Practitioner Adult Health; Visit Provider Urology | DX: N20.1 Calculus of ureter (principal) | CPT/HCPCS: 99213; 99443 ==

== ENCOUNTER 2020-05-17 04:04 | Outpatient (CLI) | payer MEDICARE, MEDICAID, SELFPAY ==
[2020-05-17 08:01] LABS: HCT 34.4 % (36.0-46.0); HGB 11.1 g/dL (11.2-15.7); MCH 31.2 pg (27.0-33.0); MCHC 32.3 % (32.0-36.0); MCV 96.6 fL (80-95); Platelet Count 156 10^3/uL (130-400); RBC 3.56 10^6/uL (3.93-5.22); RDW 12.9 % (11.7-14.6); RDW-SD 46.1 fL; WBC 4.22 10^3/uL (4.4-10.8)
[2020-05-17 09:35] LABS: ALT 23 U/L (14-59); AST 12 U/L (15-37); Albumin 3.9 g/dL (3.4-5.0); Alkaline Phosphatase 57 U/L (46-116); Anion Gap 8.9 mmol/L (3-11); BUN 22 mg/dL (7-18); Bilirubin, Total 0.2 mg/dL (0.2-1.0); CO2 27.1 mmol/L (21.0-32.0); CREATININE 0.5 mg/dL (0.55-1.02); Calcium 9.3 mg/dL (8.5-10.1); Calculated LDL 97 mg/dL (<100); Chloride 110 mmol/L (98-107); Cholesterol 181 mg/dL (<200); Glucose 93 mg/dL (74-106); HDL Cholesterol 56 mg/dL (40-60); Potassium 4.2 mmol/L (3.5-5.1); Sodium 146 mmol/L (136-145); TSH (W/Ref FT4) 3.19 uIU/mL (0.36-3.74); Total Protein 7.2 g/dL (6.4-8.2); Triglyceride 144 mg/dL (<150)
[2020-05-18 05:05] LABS: Vitamin D 25 Total 54.4 ng/ml (30-100)
[2020-05-18 09:32] LABS: Prealbumin 38 mg/dL (20-40)
[2020-05-18 09:53] LABS: Hepatitis C Ab w Rflx HCV PCR Negative (Negative)
[2020-05-18 10:16] LABS: HIV-1/2 Ag & Ab Screen Negative (Negative)
== END 2020-05-17 04:05 | disposition home or self-care (01) ==
LOC: LBO 04:04
PROVIDERS: PCP Nurse Practitioner Adult Health; Visit Provider Nurse Practitioner Adult Health
DX: E78.5 Hyperlipidemia, unspecified (principal); K21.00 Gastro-esophageal reflux disease with esophagitis, without bleeding; M85.80 Other specified disorders of bone density and structure, unspecified site; Z11.4 Encounter for screening for human immunodeficiency virus [HIV]; Z11.59 Encounter for screening for other viral diseases; Z86.2 Personal history of diseases of the blood and blood-forming organs and certain disorders involving the immune mechanism
CPT/HCPCS: 36415; 80053; 80061; 82306; 85027; 86803; 87389; 84134; 84443

== ENCOUNTER 2020-06-22 11:00 | Outpatient (REF) | payer MEDICARE, MEDICAID, SELFPAY ==
[2020-06-22 11:27] LABS: Bilirubin Negative (Negative); Blood Trace-intact (Negative); Clarity Sl Cloudy (Clear); Glucose Negative (Negative); Ketones Negative (Negative); Leukocyte Esterase Trace (Negative); Nitrite Positive (Negative); Specific Gravity >= 1.030 (1.005-1.025); Urobilinogen 0.2 EU/dL (Up TO 0.2)
[2020-06-22 11:49] LABS: Bacteria Many HPF (Negative); C & S Indicated? Yes; Casts Negative LPF (Negative); Crystals Negative HPF (Negative); Epithelial Cells Few HPF (Negative); Mucus Negative (Negative)
== END 2020-06-22 11:01 | disposition home or self-care (01) ==
LOC: NCHCN 11:00
PROVIDERS: PCP Nurse Practitioner Adult Health; Visit Provider Nurse Practitioner Adult Health
DX: R39.198 Other difficulties with micturition (principal)
CPT/HCPCS: 81003; 81015; 87086

== ENCOUNTER 2021-03-05 16:03 | Outpatient (REF) | payer MEDICARE, MEDICAID, SELFPAY ==
[2021-03-07 11:37] LABS: COVID-19 RT-PCR UVMMC Result Negative (Negative)
== END 2021-03-05 16:04 | disposition home or self-care (01) ==
LOC: LBN 16:03
PROVIDERS: Nurse Practitioner; PCP Nurse Practitioner Adult Health; Visit Provider Nurse Practitioner Adult Health
DX: Z20.822 Contact with and (suspected) exposure to COVID-19 (principal); R06.09 Other forms of dyspnea
CPT/HCPCS: U0003; U0005

== ENCOUNTER 2021-03-06 10:13 | Outpatient (CLI) | payer MEDICARE, MEDICAID, SELFPAY ==
--- NOTE | 2021-03-06 11:03 | DI.RAD_ITS ---
Exam(s) XR CHEST 2V PA LATERAL EXAM: XR CHEST 2V PA LATERAL CLINICAL HISTORY: COLLINS, R06.00 TECHNIQUE: 2D digital imaging was performed of the chest. Three images were obtained. PA and later al views were obtained. COMPARISON: CR,XR XR CHEST 2V PA LATERAL from 03/25/2019 FINDINGS: Low lung volumes. MEDIASTINUM: Normal. HEART: Within normal limits. PULMONARY VASCULATURE: Normal. LUNGS: Clear. PLEURAL SPACE: No pleural effusion or pneumothorax. BONE:Within normal limits for the patient's age. There is again seen an orthopedic rohini. Scoliosis o f the thoracic spine is noted. OTHER FINDINGS:There is again seen elevation of the left hemidiaphragm. IMPRESSION: No acute pulmonary findings. DATA REPOSITORY: RADIATION DOSE DELIVERED:
== END 2021-03-06 10:33 ==
PROVIDERS: PCP Nurse Practitioner Adult Health; Visit Provider Nurse Practitioner
DX: R06.09 Other forms of dyspnea (principal)
CPT/HCPCS: 71046

== ENCOUNTER 2021-06-19 04:34 | Outpatient (CLI) | payer MEDICARE, MEDICAID, SELFPAY ==
[2021-06-19 09:34] LABS: HCT 37.9 % (36.0-46.0); HGB 11.7 g/dL (11.2-15.7); MCH 28.3 pg (27.0-33.0); MCHC 30.9 % (32.0-36.0); MCV 91.8 fL (80-95); MPV 9.7 fL (8.0-11.0); Platelet Count 175 10^3/uL (130-400); RBC 4.13 10^6/uL (3.93-5.22); RDW 14.8 % (11.7-14.6); WBC 5.73 10^3/uL (4.4-10.8)
[2021-06-19 10:55] LABS: ALT 21 U/L (14-59); AST 14 U/L (15-37); Albumin 3.9 g/dL (3.4-5.0); Alkaline Phosphatase 72 U/L (46-116); Anion Gap 11.2 mmol/L (3-11); BUN 16 mg/dL (7-18); Bilirubin, Total 0.3 mg/dL (0.2-1.0); CO2 25.8 mmol/L (21.0-32.0); CREATININE 0.6 mg/dL (0.55-1.02); Calcium 9.3 mg/dL (8.5-10.1); Calculated LDL 114 mg/dL (<100); Chloride 104 mmol/L (98-107); Cholesterol 223 mg/dL (<200); Glucose 99 mg/dL (74-106); HDL Cholesterol 46 mg/dL (40-60); Potassium 4.3 mmol/L (3.5-5.1); Sodium 141 mmol/L (136-145); TSH (W/Ref FT4) 1.91 uIU/mL (0.36-3.74); Total Protein 7.6 g/dL (6.4-8.2); Triglyceride 319 mg/dL (<150); Vitamin B12 1092 pg/mL (193-986)
[2021-06-21 05:35] LABS: Vitamin D 25 Total 45.3 ng/mL (30-100)
== END 2021-06-19 04:35 | disposition home or self-care (01) ==
LOC: LBO 04:34
PROVIDERS: PCP Nurse Practitioner Adult Health; Visit Provider Nurse Practitioner Adult Health
DX: E78.5 Hyperlipidemia, unspecified (principal); K21.00 Gastro-esophageal reflux disease with esophagitis, without bleeding; M85.88 Other specified disorders of bone density and structure, other site; R63.5 Abnormal weight gain; Z86.2 Personal history of diseases of the blood and blood-forming organs and certain disorders involving the immune mechanism; Z91.89 Other specified personal risk factors, not elsewhere classified
CPT/HCPCS: 36415; 80053; 80061; 82306; 85027; 82607; 84443

== ENCOUNTER 2022-09-18 02:42 | Outpatient (CLI) | payer MEDICARE, MEDICAID, SELFPAY ==
[2022-09-18 11:27] LABS: ALT 23 U/L (14-59); AST 14 U/L (15-37); Albumin 3.5 g/dL (3.4-5.0); Alkaline Phosphatase 74 U/L (46-116); Anion Gap 9.9 mmol/L (3-11); BUN 15 mg/dL (7-18); Bilirubin, Total 0.4 mg/dL (0.2-1.0); CO2 27.1 mmol/L (21.0-32.0); CREATININE 0.5 mg/dL (0.55-1.02); Calcium 9.2 mg/dL (8.5-10.1); Calculated LDL 92 mg/dL (<100); Chloride 105 mmol/L (98-107); Cholesterol 177 mg/dL (<200); Estimated GFR 107.31 (mL/min/1.73m2); Glucose 95 mg/dL (74-106); HDL Cholesterol 43 mg/dL (40-60); Potassium 4.3 mmol/L (3.5-5.1); Sodium 142 mmol/L (136-145); TSH (W/Ref FT4) 1.68 uIU/mL (0.36-3.74); Total Protein 7.9 g/dL (6.4-8.2); Triglyceride 212 mg/dL (<150)
== END 2022-09-18 02:43 | disposition home or self-care (01) ==
LOC: LBO 02:43
PROVIDERS: PCP Nurse Practitioner Adult Health; Visit Provider Nurse Practitioner Adult Health
DX: E78.5 Hyperlipidemia, unspecified (principal); R63.5 Abnormal weight gain; Z13.1 Encounter for screening for diabetes mellitus
CPT/HCPCS: 36415; 80053; 80061; 84443

== ENCOUNTER 2023-01-28 13:01 | Emergency (ER) | payer MEDICARE, MEDICAID, SELFPAY ==
[2023-01-28 13:20] VITALS: BP 118/87; PULSE 115; RESP 18; TEMP 36.4; O2SAT 98
--- NOTE | 2023-01-28 13:30 | DI.RAD_ITS ---
Exam(s) XR ANKLE RT COMPLETE XR FOOT RT COMPLETE EXAM: XR ANKLE RT COMPLETE CLINICAL HISTORY: injury. TECHNIQUE: 2D digital imaging was performed. Three views of the ankle. Three views of the foot.. COMPARISON: CR XR FOOT RT COMPLETE from 01/28/2023 FINDINGS: BONES: No acute fracture is present. No bony destructive lesion is seen. JOINTS: The ankle mortise is normally aligned. Severe hammertoe deformities. SOFT TISSUE: Swelling around malleoli. Swelling of at dorsum of foot. IMPRESSION: No acute abnormality. DATA REPOSITORY: RADIATION DOSE DELIVERED:
--- NOTE | 2023-01-28 14:17 | ED.GENADUL_ITS ---
Discharge Plan Disposition Patient Disposition: Home Condition: Stable Discharge Details Clinical Impression: Contusion of foot, Contusion of face, Head injury Primary Care Provider: Jeny Levy ED Provider: Dayami Aponte Home Meds and New Rx's Prescriptions: No Action mirtazapine 15 mg tablet,disintegrating 30 mg PO HS Patient Comments: 04/16/17 takes 30mg HS. DL Rx Instructions: rx by GEOFF betamethasone valerate 0.1 % ointment 1 applic topical BID PRN (Reason: skin irritation) Qty: 45 0RF L-Carnitine 500 mg tablet See Rx Instructions PO BID Rx Instructions: 330mg (2 tabs) PO twice a day; psyllium husk [Daily Fiber] 0.4 gram capsule 0.4 g PO DAILY nystatin 100,000 unit/gram powder 1 applic topical TID Qty: 60 1RF Rx Instructions: apply liberally to rash in armpits & abd fold until resolved olanzapine 5 mg tablet See Rx Instructions PO DAILY Rx Instructions: 5mg am 5 mg prn PO, pt has rx for 10 mg tab as well to take at hs. cgc mupirocin 2 % ointment 1 applic topical BID-TID Qty: 15 0RF Rx Instructions: May substitute with cream if less expensive; apply thin layer until area/lesion resolved alprazolam [Xanax] 0.5 mg tablet See Rx Instructions PO as directed Qty: 10 0RF Rx Instructions: For use prior to dentist or medical procedure: Take 1 tab with breakfast, then may repeat x1, an hour prior to appointment. PO as directed; multivitamin 1 EACH capsule 1 cap AD DAILY Qty: 90 ADULT DIAPERS 1 ea Miscellaneous 6X/DAY Qty: 300 11RF Rx Instructions: DX: 780.40, URINARY INCONTINENCE olanzapine 10 MG tablet 10 mg PO HS polyethylene glycol 3350(bulk) 1 GM granules 17 gm PO DAILY PRNQty: 527 prazosin 2 MG capsule 2 mg PO DAILY divalproex [Depakote] 250 mg tablet,delayed release (DR/EC) 500 mg PO BID Patient Comments: 11/11/18 managed by GEOFF. AQUILES melatonin 3 mg tablet 10 mg PO HS Patient Comments: 11/11/18 takes 10mg at HS. DL acetaminophen 500 mg tablet 500 mg PO QID Rx Instructions: Take 500mg 4x per day, regular schedule docusate sodium 100 mg capsule 100 - 200 mg PO BID PRN (Reason: constipation) Qty: 100 3RF clotrimazole 1 % cream 1 applic topical BID Qty: 30 0RF Rx Instructions: Apply liberally to affected area (groin, axilla) until rash resolved. Keep area dry & clean, otherwise. trazodone 100 mg tablet 100 mg PO QHS Qty: 90 3RF pantoprazole 40 mg tablet,delayed release (DR/EC) 40 mg PO DAILY Qty: 90 3RF Rx Instructions: Take in AM on an empty stomach for heartburn simvastatin 40 mg tablet See Rx Instructions .ROUTE .COMPLEX Qty: 90 3RF Dose Instruction: TAKE 1 TABLET BY MOUTH DAILY Rx Instructions: TAKE 1 TABLET BY MOUTH DAILY Discharge Instructions Instructions: Head Injury (ED), Contusion in Adults (ED), Foot Contusion (ED) Additional Instructions: Continue to monitor for signs of head injury. Patient develops vomiting please return for reevaluation. Discharge Data Discharge Date/Time-TO BE ENTERED AT DEPARTURE: 01/28/23 14:15 Discharge Physician: Dayami Aponte Medical Decision Making 62-year-old female with developmental delay to presents for evaluation of bruising. At time my evaluation patient is at baseline according to caregiver. She appears to be neurologically intact. She is not on any blood thinners. She is eating without any vomiting. She is ambulating. Did check x-ray of right foot and ankle which were negative for fracture. We discussed the possibility of head, neck, and facial CT. Unfortunately patient does not stay still baseline and would not be able to complete these evaluations without sedation. Discussed signs and symptoms to monitor for. Given that the bruising appears old shared decision making was used and we decided to hold on CT at this time. Caregiver understands indications to return. HPI General Date/Time Provider Initiated Documentation: 01/28/23 13:32 . HPI Narrative: 62-year-old female presents for evaluation of right facial bruising and right ankle bruising. Patient was in respite care over the weekend. Her primary caregiver picked her up today and noticed some bruising to her face as well as her foot. Patient has a high threshold for pain and does not often complain. She has been ambulating without any significant difficulty. Caregiver would like her evaluated for injuries. She is not on any blood thinners. She is tolerating normal p.o. Has not had any vomiting. Related Data Home Medications Medication Instructions Recorded Confirmed multivitamin 1 cap AD DAILY ##90 05/28/12 01/28/23 olanzapine 10 mg tablet 10 mg PO HS 10/14/16 01/28/23 polyethylene glycol 3350(bulk) 17 gm PO DAILY PRN #527 grams 04/07/17 01/28/23 prazosin 2 mg capsule 2 mg PO DAILY 11/03/17 01/28/23 mirtazapine 15 mg disintegrating 30 mg PO HS Rx by [facility] 05/24/18 01/28/23 tablet divalproex 250 mg tablet,delayed 500 mg PO BID 11/11/18 01/28/23 release (Depakote) melatonin 3 mg tablet 10 mg PO HS 11/11/18 01/28/23 acetaminophen 500 mg tablet 500 mg PO QID pain 05/12/19 01/28/23 betamethasone valerate 0.1 % 1 applic topical BID PRN skin 02/07/20 01/28/23 topical ointment irritation #45 grams levocarnitine 500 mg tablet See Rx Instructions PO BID 05/10/20 01/28/23 (L-Carnitine) psyllium husk 0.4 gram capsule 0.4 g PO DAILY 05/10/20 01/28/23 (Daily Fiber) docusate sodium 100 mg capsule 100 - 200 mg (1 - 2 x 100 mg) PO 05/31/20 01/28/23 BID PRN constipation #100 tab-caps nystatin 100,000 unit/gram topical 1 applic topical TID #60 grams 11/27/20 01/28/23 powder clotrimazole 1 % topical cream 1 applic topical BID #30 grams 01/05/21 01/28/23 trazodone 100 mg tablet 100 mg PO QHS #90 tabs 01/26/21 01/28/23 olanzapine 5 mg tablet See Rx Instructions PO DAILY 06/25/21 01/28/23 pantoprazole 40 mg tablet,delayed 40 mg PO DAILY #90 tabs 04/17/22 01/28/23 release mupirocin 2 % topical ointment 1 applic topical BID-TID #15 grams 05/31/22 01/28/23 simvastatin 40 mg tablet See Rx Instructions .Route 11/25/22 01/28/23 .COMPLEX #90 tabs alprazolam 0.5 mg tablet (Xanax) See Rx Instructions PO as directed 12/30/22 01/28/23 #10 tabs Previous Rx's Medication Instructions Recorded betamethasone valerate 0.1 % 1 applic topical BID PRN skin 02/07/20 topical ointment irritation #45 grams docusate sodium 100 mg capsule 100 - 200 mg (1 - 2 x 100 mg) PO 05/31/20 BID PRN constipation #100 tab-caps nystatin 100,000 unit/gram topical 1 applic topical TID #60 grams 11/27/20 powder clotrimazole 1 % topical cream 1 applic topical BID #30 grams 01/05/21 trazodone 100 mg tablet 100 mg PO QHS #90 tabs 01/26/21 pantoprazole 40 mg tablet,delayed 40 mg PO DAILY #90 tabs 04/17/22 release mupirocin 2 % topical ointment 1 applic topical BID-TID #15 grams 05/31/22 simvastatin 40 mg tablet See Rx Instructions .Route 11/25/22 .COMPLEX #90 tabs alprazolam 0.5 mg tablet (Xanax) See Rx Instructions PO as directed 12/30/22 #10 tabs Allergies Allergy/AdvReac Type Severity Reaction Status Date / Time No Known Allergies Allergy Verified 01/28/23 13:26 General Stated Complaint: Fall/Non TraumaCriteria [place]RA[place]: 4 Review of Systems Narrative: Remainder of review of symptoms otherwise unobtainable due to patient's baseline mental status. PFSH All Active Problems Head injury (Acute) Contusion of face (Acute) Contusion of foot (Acute) Anxiety due to invasive procedure (Acute) Pre-dental visits & medical procedures (U/S); low-dose Xanax PRN; palliative & may call Sessile colonic polyp (Acute ~01/2021) 01/2021 [facility] [place] colonoscopy (7y recall) Bowel and bladder incontinence (Chronic) L-T; uses incont briefs [facility] Speech abnormality (Chronic) CP, developmental disability Legal guardianship (Chronic) Sofi Ortiz (see summary sheet for contact info) Impaired functional mobility, balance, gait, and endurance (Chronic) related to CP History of weight change (Chronic) Increase and decrease over time GERD with esophagitis (Chronic) Upper endoscopy 03/2019 on PPI Developmental disorder (Chronic) Probably autism; legal guardian Sofi Ortiz Psoriasis (Chronic) Bipolar affective disorder, current episode hypomanic (Chronic 03/03/15) [facility] psychiatry Cerebral palsy (Chronic 09/11/12) Hyperlipidemia (Chronic 09/11/12) triglyceridemia Osteopenia (Chronic) Cannot tolerate DEXA Medical History Thoracic scoliosis Tello (seen on imaging--CXR 02/2021) Weight gain Abnormal CT of the abdomen 03/2019 distal & mid sigmoid mass vs. peristalsis; s/p normal colonoscopy (without prep); repeat colonoscopy 01/2021 [facility] [place] [facility]--> sessile polyp (path pending with F/U?) Conjunctivitis Intermittent - responds to erythromycin ointment Hypokalemia Anemia Elevated levels of transaminase & lactic acid dehydrogenase Ureterolithiasis Hydronephrosis, left Abrasion hip/leg Contusion of head - required sutures. No imaging done. Start of changes per care provider Anorexia Refuses to chew solids - spits food out Idiopathic scoliosis s/p Albarran tello Urine discoloration (10/04/15) Surgical History H/O tooth extraction (~08/2021) History of esophagogastroduodenoscopy (EGD) (~03/2019) [facility] [place] 2016 03/2019 chronic reflux S/P cystoscopy with ureteral stent placement 03/26/19 History of colonoscopy (~03/2019) 03/26/19 (unprepped) with negative biopsies. Spinal Fusion Albarran tello Family History Father Heart disease Brother No problems noted. Social History Smoking/Tobacco Use Status: Never Smoking risk assessment performed?: Yes Alcohol Intake: never Drug use: Never Substance use type: does not use Adopted: No Caregiver/Support person: Yes (Shared Living - Lives with Home Care Provider) Foster care: No Household members: caregiver Housing: house Number of Children: 0 Communication Needs: Language Barriers Do you need help understanding health information?: Always current occupation: disabled Pets and animals: Yes (3 dogs, 2 cats) Pets and animals: cat(s) and dog(s) Sexually active: No Current gender identity: female How often do you talk on the phone with friends or family?: never How often do you get together with friends or relatives?: never How often do you attend religion or orthodox services?: decline to answer Do you belong to any clubs or organized social groups?: no Panel score (0-1 are the most socially isolated patients): 0 What type of physical activity do you participate in: walking Duration: 15-30 minutes/day Frequency: daily Seatbelt use: always Helmet use: Yes (Doesn't have a reason to use one--) Helmet use: never Drive intox or ride w/intox 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 Pt. has limited understanding, unable to answer for herself, caregiver answers for pt. Exam Narrative Exam Narrative: General: non-toxic, no respiratory distress, comfortable HEENT: normocephalic, bruising to left cheek, no orbital wall crepitus, lids and lashes normal, PERRL, EOMI, anicteric sclera, no conjunctival injection, moist oral mucosa Neck: No vertebral tenderness Card: regular rate and rhythm, S1S2, no murmurs, rubs, or gallops Lungs: good air entry, clear to auscultation bilaterally. no wheezes, rales, rhonchi, or retractions Abd: soft, non-tender, non-distended, normal bowel sounds, no rebound or guarding, no peritoneal signs Musculoskeletal: No vertebral tenderness, bruising noted to right foot and ankle, no pain to palpation, Achilles intact, 2+ dorsal pedal pulses, otherwise full range of motion of arms and legs, no tenderness to palpation. no clubbing, cyanosis, or edema Neurologic: Behaving as baseline according to caregiver, strength normal Psych: alert and oriented Skin: As above, otherwise no petechiae, no lesions, warm and dry Course Vital Signs Vital signs: Vital Signs Temperature 36.4 C L 01/28/23 13:20 Pulse 115 H 01/28/23 13:20 Respiratory Rate 18 01/28/23 13:20 Blood Pressure 118/87 01/28/23 13:20 Pulse Oximetry 98 01/28/23 13:20 Temperature 36.4 C L 01/28/23 13:20 Temperature Source Skin 01/28/23 13:20 Pulse 115 H 01/28/23 13:20 Respiratory Rate 18 01/28/23 13:20 Blood Pressure 118/87 01/28/23 13:20 Blood Pressure Position Sitting 01/28/23 13:20 Pulse Oximetry 98 01/28/23 13:20 Oxygen Delivery Method Room Air 01/28/23 13:20 Oxygen Flow Rate 0 01/28/23 13:20
== END 2023-01-28 14:26 | disposition home or self-care (01) ==
LOC: ER 13:24
PROVIDERS: Emergency Provider Emergency Medicine Emergency Medical Services; PCP Nurse Practitioner Adult Health
DX: S00.11XA Contusion of right eyelid and periocular area, initial encounter (principal); S90.31XA Contusion of right foot, initial encounter; R62.50 Unspecified lack of expected normal physiological development in childhood; X58.XXXA Exposure to other specified factors, initial encounter
CPT/HCPCS: 99283; 73610; 73630

== ENCOUNTER 2023-04-03 04:16 | Outpatient (CLI) | payer MEDICARE, MEDICAID, SELFPAY ==
[2023-04-03 09:31] LABS: HCT 37.9 % (36.0-46.0); HGB 11.7 g/dL (11.2-15.7); MCH 27.8 pg (27.0-33.0); MCHC 30.9 % (32.0-36.0); MCV 90 fL (80-95); MPV 9.8 fL (8.0-11.0); Platelet Count 195 10^3/uL (130-400); RBC 4.21 10^6/uL (3.93-5.22); RDW 14.5 % (11.7-14.6); RDW-SD 47.8 fL; WBC 4.26 10^3/uL (4.4-10.8)
[2023-04-03 09:40] LABS: ALT 25 U/L (14-59); AST 14 U/L (15-37); Albumin 3.6 g/dL (3.4-5.0); Alkaline Phosphatase 73 U/L (46-116); Bilirubin, Direct 0.1 mg/dL (0.0-0.2); Bilirubin, Total 0.3 mg/dL (0.2-1.0); Total Protein 7.5 g/dL (6.4-8.2)
== END 2023-04-03 04:17 | disposition home or self-care (01) ==
LOC: LBO 04:16
PROVIDERS: PCP Nurse Practitioner Adult Health; Visit Provider Nurse Practitioner Adult Health
DX: S05.11XA Contusion of eyeball and orbital tissues, right eye, initial encounter; S09.90XA Unspecified injury of head, initial encounter; X58.XXXA Exposure to other specified factors, initial encounter
CPT/HCPCS: 36415; 80076; 85027

== ENCOUNTER 2023-04-23 14:56 | Outpatient (REF) | payer MEDICARE, MEDICAID, SELFPAY ==
--- NOTE | 2023-04-23 14:00 | PAPFT_PTH ---
PATIENT: Elvia Kenney LOC: N U#:[id number] AGE/SX: 62/F ROOM: RE04/23/[address]: Jeny Levy APRN : 1960 BED: DIS: 04/23/2023 SPEC #: [id number] RECD: 04/24/23 12:51 STATUS: EMILY PENA #: [id number] GLADYS: 04/23/23 14:[address]: Jeny Levy DEPT: REPLACED BY [facility] Cytology RECD BY: Lois Henson Tissues: 1 - CX/ENDOCX FOR PAP SMEARS Procedures: PAP THIN PREP/UVM Screening HPV DNA PROBE Comments: [id number]
== END 2023-04-23 14:57 | disposition home or self-care (01) ==
LOC: LBN 14:56
PROVIDERS: PCP Nurse Practitioner Adult Health; Referring Provider Nurse Practitioner Adult Health; Visit Provider Nurse Practitioner Adult Health
DX: Z11.51 Encounter for screening for human papillomavirus (HPV); Z01.419 Encounter for gynecological examination (general) (routine) without abnormal findings
CPT/HCPCS: 88142; 87624

== ENCOUNTER 2024-02-13 01:33 | Outpatient (CLI) | payer MEDICARE, MEDICAID, SELFPAY ==
--- OUTSIDE RECORDS SUMMARY | 2024-02-13 01:35 | XMS_ITS | Encounter Summary ---
Author Organization [facility] Address [facility] [place] [address] Care Team Providers Care Bike Mechanic Name Role Phone Jeny Levy APRN Primary Care Provider Encounter Details Date Type Department Care Team (Late st Contact Info) Description 01/17/2021 3:10 PM EDT - 01/17/2021 3:55 PM EDT [place] [address] Susy Sparks MD [facility] [place] [address] COLONOSCOPY, POLYPECTOMY, REMOVAL LESION BY SNARE (WRVU 4.57) Social History Tobacco Use Types Packs/Day Years Used Date Smoking Tobacco: Never Smokeless Tobacco: Never Alcohol Use Standard Drinks/Week Comments No 0 (1 standard drink = 0.6 oz pur e alcohol) Sex and Gender Information Value Date Recorded Sex Assigned at Not on file Gender Identity Not on file Sexual Orientation Not on file documented as of this encounter Last Filed Vital Signs Vital Sign Reading Time Taken Comments Blood Pressure 151/91 01/17/2021 12:45 PM EDT Pulse 113 01/17/2021 12:45 PM EDT Temperature 37.1 ??C (98.8 ??F) 01/17/2021 12:45 PM E DT Respiratory Rate 20 01/17/2021 12:45 PM EDT Oxygen Saturation 95% 01/17/2021 12:45 PM EDT Inhaled Oxygen Concentration - - Weight 68.9 kg (152 lb) 01/17/2021 12:45 PM EDT Height - - Body Mass Index 32.89 01/17/2017 9:24 AM EDT documented in this encounter Discharge Instructions * Discharge Instructions* Kerry Prado RN - 01/17/2021 4:28 PM EDT Colonoscopy: What to Expect at Home Your Recovery Your doctor will talk to you about when you will need your next colonoscopy. Your doctor can help you decide how often you need to be checked. This will depend on the results of your test and your risk for colorectal cancer. After the test, you may be bloated or have gas pains. You may need to pass gas. If a biopsy was done or a polyp was removed, you may have streaks of blood in your stool (feces) for a few days. Problems such as heavy rectal bleeding may not occur until several weeks after the test. This isn't common. But it can happen after polyps are removed. This care sheet gives you a general idea about how long it will take for you to recover. But each person recovers at a different pace. Follow the steps below to get better as quickly as possible. How can you care for yourself at home? Activity Rest when you feel tired. ?? You can do your normal activities when it feels okay to do so. Diet ?? Follow your doctor's directions for eating. ?? Unless your doctor has told you not to, drink plenty of fluids. This helps to replace the fluidsthat were lost during the colon prep. ?? Do not drink alcohol. Medicines ?? Your doctor will tell you if and when you can restart your medicines. He or she will also give you instructions about taking any new medicines. ?? If you take blood thinners, such as warfarin (Coumadin), clopidogrel (Plavix), or aspirin, be sure to talk to your doctor. He or she will tell you if and when to start taking those medicines again. Make sure that you understand exactly what your doctor wants you to do. ?? If polyps were removed or a biopsy was done during the test, your doctor may tell you not to take aspirin or other anti-inflammatory medicines for a few days. These include ibuprofen (Advil, Motrin) and naproxen (Aleve). Other instructions ?? For your safety, do not drive or operate machinery until the medicine wears off and you can think clearly. Your doctor may tell you not to drive or operate machinery until the day after your test. ?? Do not sign legal documents or make major decisions until the medicine wears off and you can think clearly. The anesthesia can make it hard for you to fully understand what you are agreeing to. Additional Information for Sedation Patients For patients who received sedation: ?? You may have received medications before and/or during your procedure which effects your judgement and reaction time. ?? Do not drive, operate machinery, drink alcoholic beverages or make important decisions for 24 hours. ?? Be careful on stairs as you may be unsteady on your feet. ?? You may eat a regular diet as tolerated. ?? Do not smoke if you are alone. ?? IV site: Slight redness or tenderness is normal, you can use a warm compress if you would like. If tenderness and/or redness increase or if foul drainage occurs, please contact your Doctor. Please call [phone] before 8pm Mon-Fri with problems, questions or concerns. If you call after 8pm or on weekends, call the Hospital at [phone] and ask to speak to the Time Lock Expert instrumentation designer and the vertical boring mill operator will contact that person for you. When should you call for help? Call 541 anytime you think you may need emergency care. For example, call if: ?? You passed out (lost consciousness). ?? You pass maroon or bloody stools. ?? You have trouble breathing. Call your doctor now or seek immediate medical care if: ?? You have pain that does not get better after you take pain medicine. ?? You are sick to your stomach or cannot drink fluids. ?? You have new or worse belly pain. ?? You have blood in your stools. ?? You have a fever. ?? You cannot pass stools or gas. Watch closely for changes in your health, and be sure to contact your doctor if you have any problems. Where can you learn more? [facility] View your After Visit Summary and more online at [email or web address] If you would like to provide feedback about your hospital experience, please call the Office of Patient and Family Relations at . If you have received this After Visit Summary in error, please immediately return it in person to the department, or notify the [facility] Privacy Office by calling toll free at between the hours of 8AM and 5PM to arrange for our retrieval of the documents at no cost to you. Content Version: 12.2 ?? [id number] [facility], [email or web address]. Care instructions adapted under license by [facility]. If you have questions about a medical condition or this instruction, always ask your healthcare professional. [email or web address] disclaims any warranty or liability for your use of this information. documented in this encounter Medications at Time of Discharge Medication Sig Dispensed Refills Start Date End Date dexlansoprazole (DEXILANT) 30 mg Cap, Delayed Rel., Multiphasic Take 30 mg by mouth daily. OLANZapine (ZYPREXA) 7.5 mg Tablet Take 10 mg by mouth nightly. mirtazapine (REMERON HEMANT-TAB) 15 mg Tablet, Rapid Dissolve Bedtime 05/13/2015 levOCARNitine tartrate (L-CARNITINE, TARTRATE,) 250 mg Capsule Take by mouth 2 times daily. traZODone (DESYREL) 50 mg Tablet 100 mg 0 12/02/2015 omeprazole (PRILOSEC) 20 mg Capsule, Delayed Release(E.C.) take 1 capsule ON AN EMPTY STOMACH by mouth 1 hour before dinner 0 12/05/2015 OLANZapine (ZYPREXA) 2.5 mg Tablet Bedtime 11/25/2013 melatonin 3 mg Tablet Take by mouth as needed. multivitamin Capsule Take 1 capsule by mouth daily. OLANZapine (ZYPREXA) 2.5 mg tablet 10/11/2005 divalproex (DEPAKOTE) 250 mg EC tablet 10/11/2005 docusate sodium (COLACE) 100 mg capsule 10/11/2005 documented as of this encounter H&P Notes * Dedrick Strange MD - 01/17/2021 1:09 PM EDT Procedure: Colonoscopy Indication: screeening History of Present Illness: Elvia Kenney is a 60 y.o. woman here for screening colonoscopy Patient Active Problem List Diagnosis Code ??? Chronic abdominal pain R10.9, G89.29 Medications: Reviewed in EDH No Known Allergies Social History/Family History: Reviewed in EDH. No changes Exam: Patient Vitals for the past 24 hrs: Temp Pulse Resp BP SpO2 O2 Device 01/17/21 1245 37.1 ??C (98.8 ??F) (!) 113 20 (!) 151/91 95 % RA Axox3, nad Anicteric, MMM CTAB RRR, no m/r/g abd soft nt nd +bs Assessment and Plan: Proceed with Colonoscopy: ASA Grade: ASA 3 - Patient with moderate systemic disease with functional limitations Mallampati score:II (soft palate, uvula, fauces visible) Sedation plan: MAC Risks and benefits of the procedure were discussed with the patient. Consent has been signed. Dedrick Strange MD documented in this encounter Plan of Treatment Not on file documented as of this encounter Procedures Procedure Name Priority Date/Time Associated Diagnosis Comments SURGICAL PATHOLOGY REPORT Routine 01/17/2021 4:13 PM EDT SPECIMEN TO PATHOLOGY Routine 01/17/2021 4:13 PM EDT Colonoscopy, Jesús Tillman ([id number]) 01/17/2021 3:00 PM EDT Abnormal findings on diagnostic imaging of other abdominal regions, including retroperitoneum Constipation, unspecified Encounter for screening for malignant neoplasm of colon Encounter for screening for malignant neoplasm of rectum COLONOSCOPY Routine 01/17/2021 12:47 PM EDT documented in this encounter Results * Surgical Pathology Report (01/17/2021 4:13 PM EDT) Final Diagnosis [id number] ? Location: 4T; 06; A The signing pathologist has (i) examined the relevant preparation(s) for the specimen(s) and (ii) rendered or confirmed the diagnosis(es). . ?Surgical Pathology DIAGNOSIS A - Sigmoid colon polyp ??3mm, excision: - ??Tubular adenoma. CR-PX Electronically signed by: ?Juventino Galloway MD Verified: ??01/23/2021 15:22 ??Pathologist Performed at: ??-[facility] Dept. of Pathology, [place], [place] SPECIMEN(S) SUBMITTED A - Sigmoid colon polyp ??3mm, excision (1) CLINICAL INFORMATION 60-year-old female screening SPECIMEN PROCESSING A - Labeled/Fixativ e: Sigmoid colon polyp 3 mm, formalin. Quantity/Size: Single, 0.3 cm. Tissue Description: Soft, vargas-pink tissue. Sections/Proces sing: Submitted en toto ??in 1 cassette labeled A1. ??MLL 01/23/2021 3:22 PM EST [facility] GI Biopsy 01/17/2021 4:13 PM EDT 01/17/2021 4:13 PM EDT L Reese Sparks MD PATHOLOGY/CYTOLOGY O DENIA Performing Organization Address [facility]/ZIP Co de Phone Number [facility] [place] [address] * Specimen to Pathology (01/17/2021 4:13 PM EDT) AP Specimen 01/17/2021 4:13 PM EDT 01/17/2021 4:13 PM EDT Narrative [facility] - 01/17/2021 4:13 PM EDT Specimen requisition ordered. ??Separate Pathology report to follow L Reese Sparks MD PATHOLOGY/CYTOLOGY O DENIA Performing Organization Address City/[facility]/ZIP Co de Phone Number [facility] [place] [address] * COLONOSCOPY (01/17/2021 12:47 PM EDT) COLONOSCOPY [facility] Endoscopy Procedure Date: 01/17/2021 12:47 PM ? Patient Name: Elvia Kenney ? Date of : 1960 ? Age: 60 ? Order #: [id number] ? Instrument Name: [facility]-[id number] ? Procedure: ? Colonoscopy Indications: ? Screening for colorectal malignant ? neoplasm Providers: ? Daryn Smith, ? Yee Sparks MD Referring MD: ?Jeny Levy MD Medicines: ? Monitored Anesthesia Care Complications: ? No immediate complications. Procedure: ? Pre-Anesthesia Assessment: ? - Prior to the procedure, a History ? and Physical was performed, and ? patient medications and allergies ? were reviewed. The patient is unable ? to give consent secondary to the ? patient being legally incompetent to ? consent. The risks and benefits of ? the procedure and the sedation ? options and risks were discussed with ? the patient's guardian. All questions ? were answered and informed consent ? was obtained. Patient identification ? and proposed procedure were verified ? by the physician in the pre-procedure ? area in the endoscopy suite. Mental ? Status Examination: alert but ? confused. Airway Examination: normal ? oropharyngeal airway and neck ? mobility. Respiratory Examination: ? clear to auscultation. CV ? Examination: normal. ASA Grade ? Assessment: III - A patient with ? severe systemic disease. After ? reviewing the risks and benefits, the ? patient was deemed in satisfactory ? condition to undergo the procedure. ? The anesthesia plan was to use ? monitored anesthesia care (MAC). ? Immediately prior to administration ? of medications, the patient was ? re-assessed for adequacy to receive ? sedatives. The heart rate, ? respiratory rate, oxygen saturations, ? blood pressure, adequacy of pulmonary ? ventilation, and response to care ? were monitored throughout the ? procedure. The physical status of the ? patient was re-assessed after the ? procedure. ? The procedure, indications, benefits, ? risks and alternatives were explained ? to the patient. Specifically ? discussed were potential ? complications including, but not ? limited to, bleeding, perforation, ? infection, missing a cancer, and ? adverse medication reactions. The ? patient was placed in the left ? lateral decubitus position, and a ? digital rectal exam was performed. ? The Colonoscope was inserted in the ? anus and under direct visualization, ? advanced to the terminal ileum, with ? identification of the appendiceal ? orifice and IC valve. Careful ? inspection was made as the ? colonoscope was withdrawn. The ? colonoscopy was technically difficult ? and complex due to a redundant colon ? and significant looping. Successful ? completion of the procedure was aided ? by changing the patient to a supine ? position, changing the patient to a ? prone position, using manual ? pressure, withdrawing the scope and ? replacing with the adult colonoscope ? and applying abdominal pressure. The ? quality of the bowel preparation was ? evaluated using the BBPS ([place] ? Bowel Preparation Scale) with scores ? of: Right Colon = 2 (minor amount of ? residual staining, small fragments of ? stool and/or opaque liquid, but ? mucosa seen well), Transverse Colon = ? 3 (entire mucosa seen well with no ? residual staining, small fragments of ? stool or opaque liquid) and Left ? Colon = 3 (entire mucosa seen well ? with no residual staining, small ? fragments of stool or opaque liquid). ? The total BBPS score equals 8. ? Findings: ? The colon (entire examined portion) revealed ? significantly excessive looping. ? A 3 mm polyp was found in the sigmoid colon. The ? polyp was sessile. The polyp was removed with a cold ? snare. Resection and retrieval were complete. ? The terminal ileum appeared normal. ? Moderate Sedation: ? Not applicable - See Anesthesia documentation Impression: ?- There was significant looping of ? the colon. ? - One 3 mm polyp in the sigmoid ? colon, removed with a cold snare. ? Resected and retrieved. ? - The examined portion of the ileum ? was normal. Recommendation: ?- Await pathology results. Pending ? results, consider repeat exam in 7 ? years. ? - Need monitored anesthesia, adult ? colonoscope, and recommend starting ? next exam in the prone position. ? Attending Participation: ? I personally performed the entire procedure. ? __ L. Reese Sparks MD 01/17/2021 4:27:00 PM Number of Addenda: 0 Note Initiated On: 01/17/2021 12:47 PM PROVATION 01/17/2021 12:4 7 PM EDT Jeny Levy APRN GENERAL SURGICAL [facility]ERABLES PROVATION documented in this encounter Visit Diagnoses Not on filedocumented in this encounter Care Teams Bike Mechanic Relationship Specialty Start Date End Date Jeny Levy APRN [address] [place] [address] PCP - General Geriatric Medicine 06/26/20 documented as of this encounter
--- OUTSIDE RECORDS SUMMARY | 2024-02-13 01:35 | XMS_ITS | Clinical Summary ---
Author Organization [facility] Address [facility] [place] [address] Care Team Providers Care Lighting Engineering Technician Name Role Phone Jeny Levy APRN Primary Care Provider Allergies No known active allergies Medications Medication Sig Dispensed Refills Start Date End Date Status OLANZapine (ZYPREXA) 2.5 mg tablet 10/11/2005 Active divalproex (DEPAKOTE) 250 mg EC tablet 10/11/2005 Active docusate sodium (COLACE) 100 mg capsule 10/11/2005 Active OLANZapine (ZYPREXA) 7.5 mg Tablet Take 10 mg by mouth nightly. Active mirtazapine (REMERON HEMANT-TAB) 15 mg Tablet, Rapid Dissolve Bedtime 05/13/2015 Active levOCARNitine tartrate (L-CARNITINE, TARTRATE,) 250 mg Capsule Take by mouth 2 times daily. Active traZODone (DESYREL) 50 mg Tablet 100 mg 0 12/02/2015 Active omeprazole (PRILOSEC) 20 mg Capsule, Delayed Release(E.C.) take 1 capsule ON AN EMPTY STOMACH by mouth 1 hour before dinner 0 12/05/2015 Active OLANZapine (ZYPREXA) 2.5 mg Tablet Bedtime 11/25/2013 Active melatonin 3 mg Tablet Take by mouth as needed. Active multivitamin Capsule Take 1 capsule by mouth daily. Active dexlansoprazole (DEXILANT) 30 mg Cap, Delayed Rel., Multiphasic Take 30 mg by mouth daily. Active Active Problems Problem Noted Date Diagnosed Date Chronic abdominal pain 12/11/2015 Immunizations Name Administration Dates Next Due Influenza Vaccine, Whole 01/03/2006,01/29/2005 Td Adult (not absorbed) 01/16/2004 Family History Medical History Relation Comments Heart Disease Father Relation Status Comments Father Social History Tobacco Use Types Packs/Day Years Used Date Smoking Tobacco: Never Smokeless Tobacco: Never Alcohol Use Standard Drinks/Week Comments No 0 (1 standard drink = 0.6 oz pur e alcohol) Sex and Gender Information Value Date Recorded Sex Assigned at Not on file Gender Identity Not on file Sexual Orientation Not on file Last Filed Vital Signs Vital Sign Reading Time Taken Comments Blood Pressure 139/99 01/17/2021 4:30 PM EDT Pulse 113 01/17/2021 12:45 PM EDT Temperature 37.1 ??C (98.8 ??F) 01/17/2021 12:45 PM E DT Respiratory Rate 20 01/17/2021 4:30 PM EDT Oxygen Saturation 100% 01/17/2021 4:45 PM EDT Inhaled Oxygen Concentration - - Weight 68.9 kg (152 lb) 01/17/2021 12:45 PM EDT Height 144.8 cm (4' 9) 01/17/2017 9:24 AM EDT Body Mass Index 32.89 01/17/2017 9:24 AM EDT Plan of Treatment Health Maintenance Due Date Last Done Comments CT Colonography 1960 FIT DNA 1960 FIT 1960 Sigmoidoscopy 1960 HIV screen 11/08/1979 Hepatitis C Screening 11/08/1979 HPV test 11/08/1991 PAP Smear 11/08/1991 Breast Cancer Share Decision Needed 2001 Breast Cancer screening 2001 Tetanus/Diphtheria/Pertussis Vaccines (1 - Tdap) 01/17/2004 01/16/2004 Zoster vaccine (1 of 2) 11/08/2011 Advance Directive 2016 Covid-19 Vaccine ( - season) 2023 Influenza (Flu) vaccine (1 o f 1 - Influenza standard series) 11/16/2023 01/03/2006, 01/29/2005 Colonoscopy 01/18/2028 01/17/2021, 01/17/2021 Colorectal Cancer Screening 01/18/2028 Sigmoidoscopy (10 year) with FIT yearly 01/17/2031 1 03/19/2020, 01/17/2021 Procedures Procedure Name Priority Date/Time Associated Diagnosis Comments COLONOSCOPY Routine 01/17/2021 12:47 PM EDT from Last 3 Months or Most Recently Relevant to Health Maintenance Results * COLONOSCOPY (01/17/2021 12:47 PM EDT) [facility] Signature COLONOSCOPY [facility] Endoscopy Procedure Date: 01/17/2021 12:47 PM ? Patient Name: Elvia Kenney ? Date of : 1960 ? Age: 60 ? Order #: [id number] ? Instrument Name: [id number] ? Procedure: ? Colonoscopy Indications: ? Screening for colorectal malignant ? neoplasm Providers: ? Daryn Smith, ? Yee Sparks MD Referring : ?Jeny Levy MD Medicines: ? Monitored Anesthesia [...] preparation was ? evaluated using the BBPS ([place] ? Bowel Preparation Scale) with scores ? [...] 01/17/2021 12:4 7 PM EDT Jeny Levy PECAN SHELLER GENERAL SURGICAL OR DERABLES PROVATION from Last 3 Months or Most Recently Relevant to Health Maintenance Care Teams Lighting Engineering Technician Relationship Specialty Start Date End Date Jeny Levy APRN [address] [place] [address] PCP - General Geriatric Medicine 06/26/20
--- OUTSIDE RECORDS SUMMARY | 2024-02-13 01:35 | XMS_ITS | Encounter Summary ---
Author Organization [facility] Address [facility] [place] [address] Care Team Providers Care Retail Sales Teammate Name Role Phone Jeny Levy APRN Primary Care Provider [phone] Encounter Details Date Type Department Care Team (Late st Contact Info) Description 01/17/2021 2:57 PM EDT Anesthesia [place] [address] Dorothy Young MD [facility] [place] [address] Christine Thomas MD [facility] [place] [address] Anesthesia Record Procedure Summary Procedure Name Responsible Anesthesiologist Anesthesia Start Time Anesthesia Stop Time COLONOSCOPY, POLYPECTOMY, REMOVAL LESION BY SNARE (WRVU 4.57) (Trunk) Dorothy Young MD 01/17/21 1457 01/17/21 1625 Events Date Time Event Comment 01/17/2021 1457 1457 Start 1459 AN Verify 1459 An Start Data 1506 An Induction 1508 Anesthesia Ready 1620 an stop data 1623 Recovery or ICU Handoff Isi ent care was transferred to the destination unit staff after review of the patient's medical history, current anesthetic/surgical status and plan, according to the Provider Handoff Checklist. 1625 Stop Meds Name Total Propofol 100 mg Propofol INF 595.99 mg Lactated Ringers 0 mL * Agents Name O2 Air N2O O2 Auxiliary Flowmeter 1 * Blood No blood administrations on file. Lines, Drains, and Airways Type Details Placement Removal (RETIRED) Peripheral IV Line - Single Lumen 01/17/21; 1304; metacarpal vein (top of hand), right; euzb-[id number] catheter system; 24 gauge; Manisha Veras RN; intradermal injection; 1; 01/17/21; 1704 01/17/21 1304 by Sloane Veras RN 01/17/21 1704 by Kerry Prado RN documented in this encounter Social History Tobacco Use Types Packs/Day Years Used Date Smoking Tobacco: Never Smokeless Tobacco: Never Alcohol Use Standard Drinks/Week Comments No 0 (1 standard drink = 0.6 oz pur e alcohol) Sex and Gender Information Value Date Recorded Sex Assigned at Not on file Gender Identity Not on file Sexual Orientation Not on file documented as of this encounter OR Notes * Anesthesia Postprocedure Evaluation - Dorothy Young MD - 01/17/2021 4:53 PM EDT Department of Anesthesiology Post-procedure Note Patient: Elvia Kenney Procedure Summary Date: 01/17/21 Room / Location: [facility] ENDO 3 / [facility] ENDOSCOPY Anesthesia Start: 1457 Anesthesia Stop: 1625 Procedure: COLONOSCOPY, POLYPECTOMY, REMOVAL LESION BY SNARE (WRVU 4.67) (N/A Trunk) Diagnosis: (Abnormal findings on diagnostic imaging of other abdominal regions, including retroperitoneum) ( Constipation, unspecified) ( Encounter for screening for malignant neoplasm of colon) (Encounter for screening for malignant neoplasm of rectum) Surgeons: Susy Sparks MD Responsible Provider: Dorothy Young MD Anesthesia Type: MAC ASA Status: 3 All Anesthesia Providers: Anesthesiologist: Dorothy Young MD BARTACKER: Bart Galaviz CRNA Vitals Value Taken Time BP 139/99 01/17/21 1630 Temp Pulse Resp 20 01/17/21 1630 SpO2 98 % 01/17/21 1646 Pain Level 0 01/17/21 1630 Vitals shown include unvalidated device data. Patient Location: PACU/[facility] Level of Consciousness: Awake and Alert Pain Management: Satisfactory Analgesia PONV: None Cardiovascular Status: At Baseline Respiratory Status: At Baseline Postoperative Fluid Status: Intravascular EUvolemia Possible Anesthetic Complications: NONE apparent at time of evaluation Final Primary Anesthesia Type: MAC (The anesthetic type performed was the same as planned.) Comments: Back to baseline mental status * Anesthesia Preprocedure Evaluation - Dorothy Young MD - 01/17/2021 3:14 PM EDT Pre-Anesthesia Evaluation for: Elvia Kenney a 60 y.o. female. Procedure(s): COLONOSCOPY, DIAGNOSTIC Patient Active Problem List Diagnosis ??? Chronic abdominal pain Past Medical History: Diagnosis Date ??? Cerebral palsy ??? Hyperlipidemia Past Surgical History: Procedure Laterality Date ??? PRO UPPER GI ENDOSCOPY, BIOPSY N/A 01/16/2016 UPPER GASTROINTESTINAL ENDOSCOPY,WITH BIOPSY SINGLE OR MULTIPLE performed by Melani Cee MD at [facility] ENDOSCOPY ??? SPINAL FIXATION SURGERY WITH IMPLANT Social History Tobacco Use ??? Smoking status: Never Smoker ??? Smokeless tobacco: Never Used Substance Use Topics ??? Alcohol use: No Social History Substance and Sexual Activity Drug Use No No Known Allergies Medications: MAR and/or home medications have been reviewed. Physical Exam: Preprocedure Vitals Current as of 01/17/21 1457 BP: 151/91 Pulse: 113 Resp: 20 SpO2: 95 Temp: 37.1 ??C (98.8 ??F) Height: Weight: 68.9 kg (152 lb) (01/17/21) BMI: IBW: 35.6 kg (78 lb 6.6 oz) Last edited 01/17/21 1245 by Airway Assessment: Mallampati: (Unable to Assess) TM distance: >3 FB Neck ROM: full Cardiovascular Assessment: Rhythm: regular Rate: normal Pulmonary Assessment: unlabored breathing Dental Assessment: Comment: No known loose teeth Misc Assessment: IV access: Peripheral line Last Filed Perioperative Cognitive Screening None Anesthesia Plan: ASA 3 MAC, with a(n) intravenous induction 60 y.o. female with a history of HLD, CP and bipolar disorder, and abdominal pain scheduled for: Procedure(s): COLONOSCOPY, DIAGNOSTIC Previous anesthetics without issues- no airway records at Tobacco exposure: no URI: no Plan propofol sedation with routine monitors. Plans and risks discussed with caregiver. Consent obtain by proceduralist from legal guardian includes anesthesia. Questions answered. Region - Other Informed Consent: Anesthetic plan and risks discussed with patient and legal guardian. Plan discussed with BARTACKER and attending. Anesthesia Screening documented in this encounter Plan of Treatment Not on file documented as of this encounter Visit Diagnoses Not on filedocumented in this encounter Administered Medications Inactive Administered Medications - up to 3 most recent administrations Medication Order MAR Action Action Date Dose Rate Site lactated ringers infusion Intravenous, CONTINUOUS PRN, Starting on Fri01/17/21 at 1457, Until Fri01/17/21 at 1625, Anesthesia Intra-op New Bag 01/17/2021 2:57 PM EDT propofoL (Diprivan) 10 mg/mL bolus injection (Anesthesia) Intravenous, PRN, Starting on Fri01/17/21 at 1506, Until Fri01/17/21 at 1625, Anesthesia Intra-op Given 01/17/2021 3:07 PM EDT 50 mg Given 01/17/2021 3:06 PM EDT 50 mg propofoL (Diprivan) infusion Intravenous, CONTINUOUS PRN, Starting on Fri01/17/21 at 1507, Until Fri01/17/21 at 1625, Anesthesia Intra-op, Routine Rate/Dose Change 01/17/2021 3:28 PM EDT 125 mcg/kg/min 51.675 mL/hr New Bag 01/17/2021 3:07 PM EDT 150 mcg/kg/min 62.01 mL/ hr documented in this encounter Care Teams Retail Sales Teammate Relationship Specialty Start Date End Date Jeny Levy APRN [address] [place] [address] PCP - General Geriatric Medicine 06/26/20 documented as of this encounter
--- OUTSIDE RECORDS SUMMARY | 2024-02-13 01:36 | XMS_ITS | Encounter Summary ---
Author Organization [facility] [place] [address] Care Team Providers Care Software Configuration Specialist Name Role Phone Jeny Levy APRN Primary Care Provider Encounter Details Date Type Department Care Team (Late st Contact Info) Description 12/26/2020 Telephone Gastroenterology at [facility] [place] [address] Gaby Krueger Social History Tobacco Use Types Packs/Day Years Used Date Smoking Tobacco: Never Smokeless Tobacco: Never Alcohol Use Standard Drinks/Week Comments No 0 (1 standard drink = 0.6 oz pur e alcohol) Sex and Gender Information Value Date Recorded Sex Assigned at Not on file Gender Identity Not on file Sexual Orientation Not on file documented as of this encounter Plan of Treatment Not on file documented as of this encounter Visit Diagnoses Not on filedocumented in this encounter Care Teams Software Configuration Specialist Relationship Specialty Start Date End Date Jeny Levy APRN [address] [place], [place] [address] PCP - General Geriatric Medicine 06/26/20 documented as of this encounter
--- OUTSIDE RECORDS SUMMARY | 2024-02-13 01:36 | XMS_ITS | Encounter Summary ---
Author Organization [facility] Address [address] [place] [address] Care Team Providers Care Size Tester Name Role Phone Stephanie Little MD Primary Care Provider [phone] Encounter Details Date Type Department Care Team (Late st Contact Info) Description 07/15/2001 Results Only [facility] [address] [place] [address] Andrei Bolivar FNP [address] [place], [place] [id number] Social History Tobacco Use Types Packs/Day Years Used Date Smoking Tobacco: Never Assessed Comments Unknown Sex and Gender Information Value Date Recorded Sex Assigned at Not on file Legal Sex Female 17:40 EST Gender Identity Female 08/17/2021 6:19 EDT Sexual Orientation Not on file documented as of this encounter Plan of Treatment Not on file documented as of this encounter Procedures Procedure Name Priority Date/Time Associated Diagnosis Comments CYTOPATHOLOGY Routine 07/15/2001 0:00 EDT documented in this encounter Results * CYTOPATHOLOGY (07/15/2001 0:00 EDT) Pathology Report: CYTOPATHOLOGY REPORT Reports generated via electronic interface contain original data; however they are lacking the format of the original report. Caution should be taken when reading/interpreti ng unformatted reports. Name: ? LUCIO KENNEY ? Accession #: ? [id number] : ? 1960 (Age: 40) ??F ?Collect Date: ? 07/15/2001 Location: ? [facility] ? Receive Date: ? 07/17/2001 Provider: ?ANDREI BOLIVAR SECURITY PATROL DRIVER Copy to: ? Specimen/Source: ?Conventional Pap Test, Source Not Provided Last Menstrual Period: ? Other: ? Additional clinical information: Blind pap ? SPECIMEN ADEQUACY ? Satisfactory for Evaluation - transformation zone component present GENERAL CATEGORIZATION ? Negative for Intraepithelial Lesion or Malignancy INTERPRETATION ? Fungal organisms present morphologically consistent with Jennifer species. ? Document reviewed and electronically signed by: ? Stephanie Holman, [facility](ASCP) ? Report Date: ??07/22/2001 11:04 End of Report [facility] 07/15/2001 07/17/2001 us Andrei Bolivar SECURITY PATROL DRIVER PATHOLOGY ORDERABLES Final Resul t [facility] [address] [place] [address] documented in this encounter Visit Diagnoses Not on filedocumented in this encounter Care Teams Size Tester Relationship Specialty Start Date End Date Stephanie Little MD [address] [place] [address] [place] [address] PCP - General 02/08/09 12/11/22 documented as of this encounter
--- OUTSIDE RECORDS SUMMARY | 2024-02-13 01:36 | XMS_ITS | Encounter Summary ---
Author Organization [facility] Address [address] [place] [address] Care Team Providers Care Manager Forms Name Role Phone Unavailable Primary Care Provider Unavailabl e Encounter Details Date Type Department Care Team (Latest Contact Info) Description 07/20/2001 10:17 EDT - 07/20/2001 11:59 EDT Hospital Encounter [address] [address] Bruno Zamora, DMD [address] [place] [address] Discharge Disposition: Auto Discharge Social History Tobacco Use Types Packs/Day Years Used Date Smoking Tobacco: Never Assessed Comments Unknown Sex and Gender Information Value Date Recorded Sex Assigned at Not on file Legal Sex Female 17:40 EST Gender Identity Female 08/17/2021 6:19 EDT Sexual Orientation Not on file documented as of this encounter Discharge Disposition Disposition Code Departure Means Destination Auto Discharge documented in this encounter Plan of Treatment Not on file documented as of this encounter Visit Diagnoses Not on filedocumented in this encounter
--- OUTSIDE RECORDS SUMMARY | 2024-02-13 01:36 | XMS_ITS | Encounter Summary ---
Author Organization [facility] Address [address] [place] [address] Care Team Providers Care Construction Technician Name Role Phone Stephanie Little MD Primary Care Provider [phone] Reason for Visit * Reason Onset Date Comments Appointment Related 08/28/2022 Encounter Details Date Type Department Care Team (Late st Contact Info) Description 08/28/2022 Telephone [facility] Breast Imaging Mammography - [address] [address] Lianne Jeong Appointment Related Social History Tobacco Use Types Packs/Day Years Used Date Smoking Tobacco: Never Smokeless Tobacco: Never Alcohol Use Standard Drinks/Week Comments Never 0 (1 standard drink = 0.6 oz pur e alcohol) Interpersonal Safety Answer Date Record ed Physically Hurt Never 10/17/2019 Verbally Threaten Not on file 10/17/2019 Comments Unknown Sex and Gender Information Value Date Recorded Sex Assigned at Not on file Legal Sex Female 17:40 EST Gender Identity Female 08/17/2021 6:19 EDT Sexual Orientation Not on file documented as of this encounter Miscellaneous Notes * Telephone Encounter - Lianne Jeong - 08/28/2022 1123 EDT Spoke with patient and she is now scheduled for breast imaging on 12/12/22 documented in this encounter Plan of Treatment Not on file documented as of this encounter Visit Diagnoses Not on filedocumented in this encounter Care Teams Construction Technician Relationship Specialty Start Date End Date Stephanie Little MD [facility] [facility] [place] [address] PCP - General 02/08/09 12/11/22 documented as of this encounter
--- OUTSIDE RECORDS SUMMARY | 2024-02-13 01:36 | XMS_ITS | Encounter Summary ---
Author Organization [facility] Address [address] [place] [address] Care Team Providers Care Cardiac Cath Lab Manager Name Role Phone Stephanie Little MD Primary Care Provider Jeny Levy APRN Primary Care Provider [phone] Encounter Details Date Type Department Care Team (Late st Contact Info) Description 03/26/2019 Lab Requisition [facility] Pathology & Laboratory Medicine - [facility] [address] [place] [address] Lashae Angelo, DO [address] [place] [address] Encounter for other general examination Social History Tobacco Use Types Packs/Day Years [...] Priority Date/Time Associated Diagnosis Comments SURGICAL PATHOLOGY Today 03/26/2019 14 :44 EST Encounter for other general examination documented in this encounter Results * SURGICAL PATHOLOGY (03/26/2019 14:44 EST) Final Diagnosis A. COLON, 40CM, BIOPSY: - Colonic mucosa with no significant diagnostic abnormality. - Deeper sections x3 examined. B. COLON, RECTUM, BIOPSY: - Colonic mucosa with no significant diagnostic abnormality. - Deeper sections x3 examined. 03/30/2019 9:10 [facility] at 0910 Clinical History Colon mass 03/30/2019 9:10 [facility] Attestation By the signature below, the attending physician certifies that they have personally conducted a gross and/or microscopic examination of the described specimens and rendered or confirmed the above diagnosis. 03/30/2019 9:10 [facility] at 0910 Gross Description A. Received in formalin labelled with proper patient identification (initials K, K) and Bx at 40 cm is an aggregate of soft pale vargas tissue fragments (0.5 x 0.4 x 0.2 cm). Entirely submitted in A1. B. Received in formalin labelled with proper patient identification (initials K, K) and rectal Bx are two pink-vargas tissues (0.4 x 0.3 x 0.2 cm and 0.4 x 0.2 x 0.2 cm). Entirely submitted in B1. Becki José 03/27/2019 08:51 03/30/2019 9:10 [facility] Scanned Images 03/30/2019 9:10 [facility] Tissue SPECIMEN FROM RECTUM / Unknown 03/26/2019 14:44 EST 03/26/2019 22:53 EST Tissue specimen (specimen) SPECIMEN FROM RECTUM / Unknown 03/26/2019 14:44 EST 03/26/2019 22:53 EST us Lashae Angelo DO PATHOLOGY ORDERABLES Final Re sult [facility] [address] [place] [address] documented in this encounter Visit Diagnoses Diagnosis Encounter for other general examination documented in this encounter Care Teams Cardiac Cath Lab Manager Relationship Specialty Start Date End Date Stephanie Little MD [address] [place] [address] [place] [address] PCP - General 02/08/09 12/11/22 Jeny Levy APRN [address] [facility] [place] [address] PCP - General Family Medicine - [facility] 12/12/22 documented as of this encounter
--- OUTSIDE RECORDS SUMMARY | 2024-02-13 01:36 | XMS_ITS | Encounter Summary ---
Author Organization [facility] Address [address] [place] [address] Care Team Providers Care Floor Nurse Name Role Phone Stephanie Little MD Primary Care Provider [phone] Encounter Details Date Type Department Care Team (Late st Contact Info) Description 08/17/2021 7:[address] [facility] Operating Room [address] [place] [id number] Megha Grande MD [address] [place] [phone] Sander Solorzano MD [address] [place] [phone] Anesthesia Record Procedure Summary Procedure Name Responsible Anesthesiologist Anesthesia Start Time Anesthesia Stop Time INTRAORAL - COMPLETE SERIES (INCLUDING BITEWINGS) (Mouth) Megha Grande MD 08/17/21 0734 08/17/21 1408 Events Date Time Event Comment 08/17/2021 0734 An Start The patient was re-evaluated immediately before moderate or deep sedation use, before anesthesia induction, or before the anesthesia procedure. 0734 An Start Data 0742 An Induction The patient was reevaluated immediately before moderate or deep sedation use and before anesthesia induction. 0747 An Intubation 0752 Anesthesia Ready 1329 Throat Pack Out 1354 An Extubation 1358 Juan Patient extubat ed awake in OR, to PACU on 3LNC with HOB elevated. 1358 an stop data 1408 Handoff to RN I completed my handoff to the receiving nurse during which we: 1. Identified the patient 2. Identified the responsible provider 3. Reviewed the pertinent medical history 4. Discussed the surgical course 5. Reviewed intra-op anesthesia management and issues during anesthesia 6. Set expectations for post-procedure period 7. Allowed opportunity for questions and acknowledgement of understanding. 1408 An Stop Meds Name Total dexaMETHasone (DECADRON) injection 4 mg/ mL (for IV doses up to 10mg) 4 mg fentanyl citrate (PF) injection 50 mcg midazolam (versed) 1 mg/mL 2 mL vial 2 m g ondansetron (PF) (ZOFRAN) injection 4 mg lidocaine 2% (PF) injection glass vial 6 0 mg propOFol (DIPRIVAN) injection 200 mg rocuronium 10 mg/mL vial 40 mg sugammadex 100 mg/mL 2 mL vial 150 mg lidocaine (PF) 10 mg/mL (1 %) injection 2 mg 0 mg acetaminophen 10 mg/ml 100 mL infusion 1 ,000 mg ketOROLAC injection 30 mg lactated ringers (LR) infusion 1,300 mL * Agents Name Insp Sevoflurane Exp Sevoflurane O2 N2O Air * Blood No blood administrations on file. Lines, Drains, and Airways Type Details Placement Removal Wound 08/17/21; 0815; Mout h; Surgical site; N 08/17/21 0815 by Tracy Chino RN Peripheral IV 08/17/21; 0651; 22; Left, Posterior; Wrist; Inserted by RN; 1; None; Chlorhexidine; 08/17/21; 1634 08/17/21 0651 by Verona Ro RN 08/17/21 1634 by Mayra Steward RN Non-Surgical Airway 08/17/21; 0823 (robin galeas via procedure documentation); 08/17/21; 1354 08/17/21 0823 by Tung Rios CRNA 08/17/21 1354 by Tung Rios CRNA documented in this encounter Social History Tobacco [...] 6:19 EDT Sexual Orientation Not on file COVID-19 Exposure Response Date Recorded In the last 10 days, have yo u been in contact with someone who was confirmed or suspected to have Coronavirus/COVID-19? No / Unsure 08/15/2021 19:24 EDT documented as of this encounter OR Notes * Anesthesia Postprocedure Evaluation - Tung Rios CRNA - 08/17/2021 1408 EDT Patient: Elvia Kenney Vital signs were reviewed with the recovery nurse. [facility] Vitals Value Taken Time BP 142/64 08/17/21 1405 Temp - 08/17/21 1408 Resp 16 08/17/21 1408 Pulse From Oximetry 92 BPM 08/17/21 1408 SpO2 98 % 08/17/21 1408 Vitals shown include unvalidated device data. Last Pain Score - Numeric Pain Level (Scale 1-10): 0 Type of Anesthesia - general Anesthesia Post Evaluation Level of consciousness: responsive/arousable to verbal stimuli Temperature status: normothermia Respiratory status: airway patent and nasal cannula Cardiovascular status: stable Hydration status: adequate Nausea/Vomiting: none Pain management: adequate Post-Op Assessment: patient tolerated procedure well with no complications Patient participation: unable to participate due to mental status Disposition: outpatient/home Anesthesia Complications: No apparent anesthesia complications * Anesthesia Procedure Notes - Tung Rios CRNA - 08/17/2021 0817 EDTAssociated Order(s): Airway Airway Date/Time: 08/17/2021 7:47 Urgency: elective Airway not difficult General Information and Staff Patient location during procedure: OR Resident/BUTTER MAKER: Tung Rios CRNA Performed: resident/BUTTER MAKER/AA Indications and Patient Condition Indications for airway management: anesthesia Sedation level: GA Preoxygenated: yes Patient position: ramp Ventilation assessment: 1 - Easy Final Airway Details Final airway type: endotracheal airway Successful airway: ETT and STEPHAN tube Cuffed: yes Successful intubation technique: video laryngoscopy Gonzalez Facilitating devices/methods: intubating stylet Endotracheal tube insertion site: left naris Blade: Steven Blade size: #3 ETT size (mm): 6.5 Cormack-Lehane Classification: grade I - full view of glottis Placement verified by: chest auscultation, capnometry and palpation of cuff Cuff volume (mL): 5 Measured from: nares ETT to nares (cm): 25 Number of attempts at approach: 1 Additional Comments Neosynephrine spray topically, red rubber catheter over tip of tube to pass through nasal passage. Tube passed easily. * Anesthesia Preprocedure Evaluation - Tung Rios CRNA - 08/13/2021 0641 EDT Anesthesia Preprocedure Evaluation Patient Medical History, including Anesthesia History reviewed. Chart and Nursing Notes reviewed, including NPO status and Medication History. Additional ROS/History Findings: No current facility-administered medications on file prior to encounter. Current Outpatient Medications on File Prior to Encounter Medication Sig Dispense Refill ??? ascorbic acid (VITAMIN C) 500 mg tablet Take 1,000 mg by mouth 2 times daily. ??? citalopram (CELEXA) 20 mg tablet Take 10 mg by mouth daily. ??? divalproex (DEPAKOTE) 500 mg EC tablet Take 500 mg by mouth daily. In AM and 750mg at HS ??? lorazepam (ATIVAN) 1 mg tablet Take 1 mg by mouth 3 times daily as needed for Anxiety. ??? magnesium oxide (MAG-OX) 400 mg tablet Take 500 mg by mouth daily. ??? mirtazapine (REMERON) 15 mg tablet Take 30 mg by mouth at bedtime. ??? olanzapine (ZYPREXA) 5 mg tablet Take 10 mg by mouth at bedtime. No current facility-administered medications for this encounter. Current Outpatient Medications Medication ??? ascorbic acid (VITAMIN C) 500 mg tablet ??? citalopram (CELEXA) 20 mg tablet ??? divalproex (DEPAKOTE) 500 mg EC tablet ??? lorazepam (ATIVAN) 1 mg tablet ??? magnesium oxide (MAG-OX) 400 mg tablet ??? mirtazapine (REMERON) 15 mg tablet ??? olanzapine (ZYPREXA) 5 mg tablet No Known Allergies Past Medical History: Diagnosis Date ??? Bipolar Affective (CMS-HCC) ??? Constipation ??? Delay in Development ??? Incontinent of Urine ??? Serum Ammonia Increased (CMS-HCC) Relevant Problems No relevant active problems Past Surgical History: Procedure Laterality Date ??? SPINAL FUSION 02/25/79. Past Anesthetics [] No history of complications from anesthesia [] No anesthesia records on file []No family history of allergic reactions to anesthesia Review of Systems Neurological: Developmental delay, Psychiatric/Behavioral: Bipolar SOCIAL HISTORY: Social History Tobacco Use Smoking Status Not on file Social History Substance and Sexual Activity Drug Use Not on file Social History Substance and Sexual Activity Alcohol Use None No results found for: GLUCOSEPOC No results found for: WBC, HGB, HCT, MCV, PLT No results found for: NA, K, KEXT, CL, CLEXT, CO2, CO2EXT No results found for: BUN No results found for: CREATININE, CREATININEEX No results found for: INR, PROTIME No results found for: PTT UPT: [] Patient declines test No results found for: PREGUR COVID: [] None on file Lab Results Component Value Date COVIDUV Negative 03/05/2021 Blood Type: No results found for: ABO, LABRH, LABANTI, SPECEXP EKG: [] N/A ECHO: [] N/A Cardiac Stress: [] N/A There were no vitals taken for this visit. Pulse From Oximetry: -- Physical Exam Airway Mallampati: IV Neck ROM: full Cardiovascular Rhythm: regular Rate: normal Dental Comments: Overbite, not cooperative with oral exam Pulmonary Breath sounds clear to auscultation Abdominal Anesthesia Plan ASA 3 Anesthesia Type - general Anesthesia plan and risks discussed. Informed consent obtained from legal guardian. Specific risks discussed were bleeding and nausea. The preoperative history and physical which was performed within 30 days of this procedure, has been reviewed and the clinically appropriate elements of the physical examination have been repeated. There are no changes to the documented history and physical or, if so, such changes are documented inthis note documented in this encounter Plan of Treatment Not on file documented as of this encounter Procedures Procedure Name Priority Date/Time Associated Diagnosis Comments ANESTHESIA INTUBATION Routine 08/17/2021 7:47 EDT documented in this encounter Results * CA AN ELECTIVE ENDOTRACHEAL AIRWAY (08/17/2021 7:47 EDT) Narrative Tung Rios CRNA - 08/17/2021 7:47 EDT Tung Rios CRNA ? 08/17/2021 ??8:23 Airway Date/Time: 08/17/2021 7:47 Urgency: elective Airway not difficult General Information and Staff Patient location during procedure: OR Resident/BUTTER MAKER: Tung Rios CRNA Performed: resident/BUTTER MAKER/AA Indications and Patient Condition Indications for airway management: anesthesia Sedation level: GA Preoxygenated: yes Patient position: ramp Ventilation assessment: 1 - Easy Final Airway Details Final airway type: endotracheal airway Successful airway: ETT and STEPHAN tube Cuffed: yes Successful intubation technique: video laryngoscopy Gonzalez Facilitating devices/methods: intubating stylet Endotracheal tube insertion site: left naris Blade: Steven Blade size: #3 ETT size (mm): 6.5 Cormack-Lehane Classification: grade I - full view of glottis Placement verified by: chest auscultation, capnometry and palpation of cuff Cuff volume (mL): 5 Measured from: nares ETT to nares (cm): 25 Number of attempts at approach: 1 Additional Comments Neosynephrine spray topically, red rubber catheter over tip of tube to pass through nasal passage. ??Tube passed easily. us Megha Grande MD ANESTHESIA ORDERABLES Minda calderón Result documented in this encounter Visit Diagnoses Not on filedocumented in this encounter Administered Medications Inactive Administered Medications - up to 3 most recent administrations Medication Order MAR Action Action Date Dose Rate Site acetaminophen (OFIRMEV) IV solution intravenous, PRN, Starting on Fri08/17/21 at 0830, Until Fri08/17/21 at 1408, Routine, Anesthesia Intraprocedure Given 08/17/2021 8:30 EDT 1,000 mg dexAMETHasone (DECADRON) injection intravenous, PRN, Starting on Fri08/17/21 at 0812, Until Fri08/17/21 at 1408, Routine, Anesthesia Intraprocedure Given 08/17/2021 8:12 EDT 4 mg fentaNYL citrate (PF) injection intravenous, PRN, Starting on Fri08/17/21 at 1112, Until Fri08/17/21 at 1408, Routine, Anesthesia Intraprocedure Given 08/17/2021 13:53 EDT 25 mcg Given 08/17/2021 11:12 EDT 25 mcg ketOROLAC (TORADOL) injection intravenous, PRN, Starting on Fri08/17/21 at 1324, Until Fri08/17/21 at 1408, Routine, Anesthesia Intraprocedure Given 08/17/2021 13:24 EDT 30 mg lactated ringers (LR) infusion 25 mL/hr, intravenous, CONTINUOUS, Starting on Fri08/17/21 at 0700, Until Fri08/17/21 at 1844, Routine, Preprocedure New Bag 08/17/2021 11:28 EDT 25 mL/hr New Bag 08/17/2021 7:28 EDT 25 mL/hr lidocaine (PF) 20 mg/mL (2 %) injection intravenous, PRN, Starting on Fri08/17/21 at 0743, Until Fri08/17/21 at 1408, Routine, Anesthesia Intraprocedure Given 08/17/2021 7:43 EDT 60 mg midazolam (PF) (VERSED) injection intravenous, PRN, Starting on Fri08/17/21 at 0735, Until Fri08/17/21 at 1408, Routine, Anesthesia Intraprocedure Given 08/17/2021 7:39 EDT 1 mg Given 08/17/2021 7:35 EDT 1 mg ondansetron (PF) (ZOFRAN) injection intravenous, PRN, Starting on Fri08/17/21 at 1323, Until Fri08/17/21 at 1408, Routine, Anesthesia Intraprocedure Given 08/17/2021 13:23 EDT 4 mg propOFol (DIPRIVAN) injection intravenous, PRN, Starting on Fri08/17/21 at 0744, Until Fri08/17/21 at 1408, Routine, Anesthesia Intraprocedure Given 08/17/2021 8:10 EDT 50 mg Given 08/17/2021 7:46 EDT 50 mg Given 08/17/2021 7:44 EDT 100 mg rocuronium (ZEMURON) injection intravenous, PRN, Starting on Fri08/17/21 at 0744, Until Fri08/17/21 at 1408, Routine, Anesthesia Intraprocedure Given 08/17/2021 7:44 EDT 40 mg sugammadex (BRIDION) injection intravenous, PRN, Starting on Fri08/17/21 at 1347, Until Fri08/17/21 at 1408, Routine, Anesthesia Intraprocedure Given 08/17/2021 13:47 EDT 150 mg documented in this encounter Care Teams Floor Nurse Relationship Specialty Start Date End Date Stephanie Little MD [facility] [place] [address] PCP - General 02/08/09 12/11/22 documented as of this encounter
--- OUTSIDE RECORDS SUMMARY | 2024-02-13 01:36 | XMS_ITS | Encounter Summary ---
Author Organization [facility] Address [facility] [place] [address] Care Team Providers Care Huc Ob Name Role Phone Loan Pradhan APRN Primary Care Provider Reason for Visit * Reason Onset Date Comments Medication Refill 01/24/2016 Encounter Details Date Type Department Care Team (Late st Contact Info) Description 01/24/2016 Refill [place] [phone] Melani Cee MD [facility] [place] [address] H. pylori infection Social History Tobacco Use Types Packs/Day Years Used Date Smoking Tobacco: Never Alcohol Use Standard Drinks/Week Comments No 0 (1 standard drink = 0.6 oz pur e alcohol) Sex and Gender Information Value Date Recorded Sex Assigned at Not on file Gender Identity Not on file Sexual Orientation Not on file documented as of this encounter Plan of Treatment Not on file documented as of this encounter Visit Diagnoses Diagnosis H. pylori infection Helicobacter pylori (H. pylori) documented in this encounter Care Teams Huc Ob Relationship Specialty Start Date End Date Loan Pradhan APRN [address] [place], [place] [address] PCP - General Family Medicine 01/16/16 06/25/20 documented as of this encounter
--- OUTSIDE RECORDS SUMMARY | 2024-02-13 01:36 | XMS_ITS | Encounter Summary ---
Author Organization [facility] Address [facility] [place] [address] Care Team Providers Care Shoulder Sawyer Name Role Phone Loan Pradhan APRN Primary Care Provider Reason for Visit * Reason Comments Follow-up Encounter Details Date Type Department Care Team (Late st Contact Info) Description 01/17/2017 9:30 AM EDT Office [place] [phone] Melani Cee MD [facility] [place] [address] Helicobacter pylori (H. pylori) infection (Primary Dx) Social History Tobacco Use Types Packs/Day Years [...] Sign Reading Time Taken Comments Blood Pressure - - Pulse - - Temperature - - Respiratory Rate - - Oxygen Saturation - - Inhaled Oxygen Concentration - - Weight 71.6 kg (157 lb 12.8 oz) 01/17/2017 9:24 AM EDT Height 144.8 cm (4' 9) 01/17/2017 9:24 AM EDT Body Mass Index 34.15 01/17/2017 9:24 AM EDT documented in this encounter Patient Instructions * Patient Instructions* Melani Cee MD - 01/17/2017 9:30 AM EDT Thank you for coming in to see me today. Elvia is doing very well and receiving good care. Here is the plan we developed together: 1) We will check her stool H pylori antigen test to confirm cure. 2) Continue Dexilant once daily in the morning. 3) Continue her bowel regimen with Miralax daily. 4) I am not worried about her drooling at this time. Perhaps she is not swallowing her saliva but Idon't think she has a swallowing problem. documented in this encounter Progress Notes * Melani Cee MD - 01/17/2017 9:30 AM EDT Patient Active Problem List Diagnosis Code ??? Chronic abdominal pain R10.9, G89.29 LAST VISIT: 11/2015 HISTORY OF PRESENT ILLNESS Elvia Kenney is a 56 y.o. female with bipolar disorder and cerebral palsy with dependent ADLs who presents for follow-up visit regarding regarding regurgitation and abnormal BMs.. Please see my previous notes for details of the patient's past history. At her last visit I recommended: GERD - Continue omeprazole once daily. This is now switched to Dexilant once daily in AM. - EGD with anesthesia which showed single gastric erosions otherwise normal, with + H. pylori. I sent prescriptions for triple therapy to her pharmacy. She completed this treatment without difficulty. ?? CONSTIPATION - fiber supplement (citrucel, nenmefoner) - 25 grams per day to bulk stool and given them more form - continue laxative regimen CURRENT HISTORY She is doing better overall. Her regurgitation and burping is better. She is taking Miralax daily and having daily bowel movements. She has had some increased drooling but no signs of trouble swallowing or eating, though she does eat fast. Her behaviors are escalated with some difficult sleeping atnight which is somewhat improved with changing her anti-psychotic meds. Some of her care team wonder if this behavior could be related to there stomach but others believe it is related to mental illness. MEDICATIONS Current Outpatient Prescriptions on File Prior to Visit Medication Sig Dispense Refill ??? OLANZapine (ZYPREXA) 7.5 mg Tablet Take 10 mg by mouth nightly. ??? mirtazapine (REMERON HEMANT-TAB) 15 mg Tablet, Rapid Dissolve Bedtime ??? levOCARNitine tartrate (L-CARNITINE, TARTRATE,) 250 mg Capsule Take by mouth 2 times daily. ??? traZODone (DESYREL) 50 mg Tablet 100 mg 0 ??? OLANZapine (ZYPREXA) 2.5 mg Tablet Bedtime ??? melatonin 3 mg Tablet Take by mouth as needed. ??? multivitamin Capsule Take 1 capsule by mouth daily. ??? OLANZapine (ZYPREXA) 2.5 mg tablet (Patient taking differently: 5 mg) ??? divalproex (DEPAKOTE) 250 mg EC tablet ??? omeprazole (PRILOSEC) 20 mg Capsule, Delayed Release(E.C.) take 1 capsule ON AN EMPTY STOMACH by mouth 1 hour before dinner 0 ??? docusate sodium (COLACE) 100 mg capsule (Patient not taking: No sig reported) No current facility-administered medications on file prior to visit. Medical, surgical, family, and social histories reviewed. Medications and allergies reviewed. PHYSICAL EXAM: Most Recent Vitals: Wt Readings from Last 3 Encounters: 01/17/17 71.6 kg (157 lb 12.8 oz) 12/15/15 61.8 kg (136 lb 4.8 oz) GEN: Alert, repeats I'm hungry, I want toast. Pleasant. Holding hand of caregiver. HEENT: Wearing glasses EXT: Contractures in upper extremities. RECENT LABS No results found for this or any previous visit (from the past 24 hour(s)). ASSESSMENT AND PLAN Elvia Kenney is a 56 y.o. with bipolar disorder and cerebral palsy with dependent ADLs who presents for follow-up visit regarding regarding regurgitation, + h pylori and abnormal BMs. She is doing muchbetter overall. We discussed the following recommendations that were printed out for the patient: GERD: - Once daily dexilant - ok to continue H PYLORI: - Check stool h pylori antigen (they will do at [facility]) - Discussed that some h pylori can be difficult to eradicate due to resistance patterns and in absence of family history of gastric cancer or bleeding ulcers, may not be crucial to eradicate. CONSTIPATION: - Continue Miralax daily. DROOLING: - I looked into her medications and several are known to cause xerostomia. I do not think based on what we know about patient with limited history that this is a primary swallowing problem but we will monitor. DISPO: - I will communicate H pylori stool Ag results once available. All of the patient's care team's questions were answered. Melani Cee MD Nursery Handadmin dir Section of Gastroenterology [place] [address] documented in this encounter Plan of Treatment Not on file documented as of this encounter Visit Diagnoses Diagnosis Helicobacter pylori (H. pylori) infection- Primary Helicobacter pylori (H. pylori) documented in this encounter Care Teams Shoulder Sawyer Relationship Specialty Start Date End Date Loan Pradhan APRN [address] [place] [address] PCP - General Family Medicine 01/16/16 06/25/20 documented as of this encounter
--- OUTSIDE RECORDS SUMMARY | 2024-02-13 01:36 | XMS_ITS | Encounter Summary ---
Author Organization [facility] Address [address] [place] [address] Care Team Providers Care Satellite Dish Technician Name Role Phone Stephanie Little MD Primary Care Provider [phone] Jeny Levy APRN Primary Care Provider [phone] Encounter Details Date Type Department Care Team (Late st Contact Info) Description 04/08/[address] [facility] Pathology & Laboratory Medicine - [facility] [address] [place] [address] Lashae Angelo, DO [address] [place] [address] Encounter for other general examination [...] Date/Time Associated Diagnosis Comments SURGICAL PATHOLOGY Today 04/08/2019 14 :35 EST Encounter for other general examination documented in this encounter Results * SURGICAL PATHOLOGY (04/08/2019 14:35 EST) Final Diagnosis A. DUODENAL, BULB, BIOPSY: - Duodenal mucosa with no significant diagnostic abnormality. B. STOMACH, ANTRUM, BIOPSY: - Gastric antral mucosa with no significant diagnostic abnormality. - Negative for Helicobacter pylori microorganisms on H&E stained sections. C. STOMACH, GREATER CURVATURE, BIOPSY: - Gastric fundic mucosa with no significant diagnostic abnormality. - Negative for Helicobacter pylori microorganisms on H&E stained sections. D. ESOPHAGUS, GE JUNCTION, BIOPSY: - Gastric-type mucosa negative for intestinal metaplasia and dysplasia. E. ESOPHAGUS, DISTAL, BIOPSY: - Squamous epithelium with moderate reflux changes. 04/09/2019 16:16 [facility] at 1616 Clinical History Anemia, HX GERD, H pylori 04/09/2019 16:16 [facility] Attestation By the signature below, the attending physician certifies that they have personally conducted a gross and/or microscopic examination of the described specimens and rendered or confirmed the above diagnosis. 04/09/2019 16:16 [facility] at 1616 Gross Description A. Received in formalin labelled with proper patient identification (initials K, K) and duodenal bulb Bx is a single fragment of vargas-yellow tissue (0.5 x 0.2 x 0.2 cm). The specimen is submitted in toto in A 1. B. Received in formalin labelled with proper patient identification (initials K, K) and antrum Bx is a single fragment of vargas-yellow soft tissue (0.4 x 0.2 x 0.2 cm). The specimen is submitted in toto in B1. C. Received in formalin labelled with proper patient identification (initials K, K) and greater curve Bx is a single fragment of vargas-yellow soft tissue (0.3 x 0.3 x 0.2 cm). The specimen is submitted in toto in C1. D. Received in formalin labelled with proper patient identification (initials K, K) and GE junction Bx is a single fragment of vargas-yellow soft tissue (0.4 x 0.3 x 0.2 cm). The specimen is submitted in toto in D1. E. Received in formalin labelled with proper patient identification (initials K, K) and distal esophagus Bx is a single fragment of vargas-white soft tissue (0.5 x 0.2 x 0.2 cm). The specimen is submitted in toto in E1. Niecy Augustus 04/09/2019 08:05 04/09/2019 16:[address] [facility] Scanned Images 04/09/2019 16:[address] [facility] Tissue ENTIRE ESOPHAGUS / Unknown 04/08/2019 14:35 EST 04/08/2019 21:44 EST Tissue specimen (specimen) STOMACH STRUCTURE / Unknown 04/08/2019 14:35 EST 04/08/2019 21:44 EST Tissue specimen (specimen) STOMACH STRUCTURE / Unknown 04/08/2019 14:35 EST 04/08/2019 21:44 EST Tissue specimen (specimen) ESOPHAGEAL STRUCTURE / Unknown 04/08/2019 14:35 EST 04/08/2019 21:44 EST Tissue specimen (specimen) ESOPHAGEAL STRUCTURE / Unknown 04/08/2019 14:35 EST 04/08/2019 21:44 EST us Lashae Angelo DO PATHOLOGY ORDERABLES Final Re sult Performing Organization Address City/State/[facility] Co de Phone Number [facility] [address] [place] [address] documented in this encounter Visit Diagnoses Diagnosis Encounter for other general examination documented in this encounter Care Teams Satellite Dish Technician Relationship Specialty Start Date End Date Stephanie Little MD [address] [place] [address] [place] [address] PCP - General 02/08/09 12/11/22 Jeny Levy APRN [address] [place] [id number] PCP - General Family Medicine - [facility] Medicine 12/12/22 documented as of this encounter
--- OUTSIDE RECORDS SUMMARY | 2024-02-13 01:36 | XMS_ITS | Encounter Summary ---
Author Organization [facility] Address [address] [place] [address] Care Team Providers Care Lab Associate Name Role Phone Jeny Leyv APRN Primary Care Provider [phone] Encounter Details Date Type Department Care Team (Late st Contact Info) Description 04/25/2023 Lab Requisition [facility] Pathology & Laboratory Medicine - [address] [address] Jeny Levy, NURSE RECRUITER [address] [place], [place] [id number] Encounter for other general examination Social History [...] Procedure Name Priority Date/Time Associated Diagnosis Comments PAP TEST Today 04/23/2023 14:00 EST Encounter for other general examination HPV DNA DETECTION WITH GENOTYPING, PCR Today 04/23/2023 14:00 EST Encounter for other general examination documented in this encounter Results * HUMAN PAPILLOMAVIRUS (HPV) DETECTION-HIGH RISK TYPES (04/23/2023 14:00 EST) HPV other High Risk types, PCR Negative Negative 05/07/2023 16:09 [facility] Comment:No E6 or E7 mRNA is detected from HPV types 16,18,31,33,35,39,45,51,52,56,58,59,66, and 68 by beater lead mediated amplification. Pap Test CERVIX UTERI STRUCTURE / Unknown 04/23/2023 14:00 EST 05/06/2023 11:43 EST us Jeny Levy NURSE RECRUITER MICROBIOLOGY - GENERAL OR DERABLES Final Result [facility] [address] [place] [id number] * PAP TEST (04/23/2023 14:00 EST) Specimens A. Cervix and/or Endocervix , ThinPrep Imaging System with Manual Evaluation 05/07/2023 16:09 [facility] Specimen Adequacy Satisfactory for Evaluation - assessment of transformation zone component not applicable ( e.g. atrophy, vaginal sample, hysterectomy) 05/07/2023 16:09 [facility] General Categorization Negative for intraepithelial lesion or malignancy 05/07/2023 16:09 [facility] Attestation . 05/07/2023 16:09 [facility] at 1609 Clinical History See below 05/07/19 24 16:09 [facility] HPV The result for the Human Papillomavirus (HPV) Detection-High Risk Types is Negative. No E6 or E7 mRNA is detected from HPV types 16,18,31,33,35,39 ,45,51,52,56,58,5 9,66, and 68 by beater lead mediated amplification.Yuly ting was performed on specimen [id number] and was resulted on 05/07/2023 1609 EST by FIGUEROA, LAB INSTRUMENT RESULTS IN 05/07/2023 16:09 EST [facility] Performing Lab [facility] 05/07/2023 16:09 EST [facility] Scanned Images 05/07/2023 16:09 EST [facility] Pap Test CERVIX UTERI STRUCTURE / Unknown 04/23/2023 14:00 EST 04/25/2023 12:17 EST us Jeny Levy NURSE RECRUITER PATHOLOGY ORDERABLES Minda calderón Result [facility] [address] [place] [address] documented in this encounter Visit Diagnoses Diagnosis Encounter for other general examination documented in this encounter Care Teams Lab Associate Relationship Specialty Start Date End Date Jeny Levy, NURSE RECRUITER [address] [place] [address] PCP - General Family Medicine - Hospital Medicine 12/12/22 documented as of this encounter
--- OUTSIDE RECORDS SUMMARY | 2024-02-13 01:36 | XMS_ITS | Encounter Summary ---
Author Organization [facility] Address [facility] [place] [address] Care Team Providers Care Peanut Blancher Name Role Phone Loan Pradhan APRN Primary Care Provider Reason for Visit * Auth/Cert Specialty Diagnoses / Procedures Referred By Carmen zimmerman Referred To Contact Diagnoses gerd/reflux (consult) Procedures PRO UPPER GI ENDOSCOPY, DIAGNOSTIC PRO ANESTH, UGI ENDOSCOPY EGD, UPPER GI ENDOSCOPY Referral ID Status Reason Start Date Expiration Date Visits Re quested Visits Authorized [id number] 1 1 Encounter Details Date Type Department Care Team (Late st Contact Info) Description 01/16/2016 11:45 AM EDT - 01/16/2016 12:15 PM EDT [place] [phone] Melani Cee MD [facility] [place] [address] UPPER GASTROINTESTINAL ENDOSCOPY,WITH BIOPSY SINGLE OR MULTIPLE (WRVU 2.39) Social History Tobacco Use Types Packs/Day Years [...] Pressure - - Pulse - - Temperature 36.6 ??C (97.9 ??F) 01/16/2016 11:37 AM E DT Respiratory Rate - - Oxygen Saturation - - Inhaled Oxygen Concentration - - Weight - - Height - - Body Mass Index - - documented in this encounter Discharge Instructions * Discharge Instructions* Ruth Ann Mejia RN - 01/16/2016 12:53 PM EDT Please call [phone] before 8pm with problems, questions or concerns, after 5pm call the Hospital at [phone] and ask to speak to the Nutrition Services Associate human resources operations director and the automatic casting machine operator will contact that person for you. Discharge instructions reviewed with patient who expresses understanding. You may have received medications before and/or during your procedure which effects your judgement and reaction time. Do not drive, operate machinery, drink alcoholic beverages or make important decisions for 24 hours. Be careful on stairs as you may be unsteady on your feet. You may eat a regular diet as tolerated. Do not smoke if you are alone. IV site: Slight redness or tenderness is normal, you can use a warm compress if you would like. If tenderness and/or redness increase or if foul drainage occurs, please contact your Doctor. * Attachments The following attachments cannot be sent through Care Everywhere. * EGD (UPPER ENDOSCOPY): POST-OP (KAZAKH) documented in this encounter Medications at Time of Discharge Medication Sig Dispensed Refills Start Date End Date OLANZapine (ZYPREXA) 7.5 mg Tablet Take 10 [...] as of this encounter H&P Notes * Melani Cee MD - 01/16/2016 12:20 PM EDT Gastroenterology and Hepatology Pre-Procedure History and Physical Exam Procedure: EGD: Indication: GERD, PROBLEM LIST Patient Active Problem List Diagnosis Code ??? Chronic abdominal pain R10.9, G89.29 HISTORY OF PRESENT ILLNESS Elvia Kenney is a 55 y.o. y/o who presents for EGD to evaluate GERD and abdominal pain. MEDICATIONS No current facility-administered medications on file prior to encounter. Current Outpatient Prescriptions on File Prior to Encounter Medication Sig Dispense Refill ??? OLANZapine (ZYPREXA) 7.5 mg Tablet Take 7.5 mg by mouth nightly. ??? mirtazapine (REMERON HEMANT-TAB) 15 mg Tablet, Rapid Dissolve Bedtime ??? levOCARNitine tartrate (L-CARNITINE, TARTRATE,) 250 mg Capsule Take by mouth 2 times daily. ??? traZODone (DESYREL) 50 mg Tablet take 1/2 tablet by mouth at bedtime 0 ??? OLANZapine (ZYPREXA) 2.5 mg Tablet Bedtime ??? multivitamin Capsule Take 1 capsule by mouth daily. ??? OLANZapine (ZYPREXA) 2.5 mg tablet (Patient taking differently: 5 mg) ??? divalproex (DEPAKOTE) 250 mg EC tablet ??? docusate sodium (COLACE) 100 mg capsule ??? omeprazole (PRILOSEC) 20 mg Capsule, Delayed Release(E.C.) take 1 capsule ON AN EMPTY STOMACH by mouth 1 hour before dinner 0 ??? melatonin 3 mg Tablet Take by mouth as needed. PHYSICAL EXAM: GEN: Alert, uncooperative HEENT: Airway examined, oropharyngeal clear without lesions Mallampati Score: see anesthesia note Neck: Supple, no lymphadenopathy or masses LUNGS: Clear to auscultation HEART: Regular rate and rhythm, normal S1, S2 ABDOMEN: Normal bowel sounds, soft, non tender, non distended EXT: No clubbing, cyanosis or edenoma NEURO: No focal deficits RECENT LABS No results found for this or any previous visit (from the past 24 hour(s)). ASSESSMENT AND PLAN Elvia Kenney is a 55 y.o. y/o who presents for endoscopy. Risks and benefits of the procedure explained to the patient's guardian. We discussed in depth possible risks include reaction to anesthesia, bleeding, infection, perforation, bruising of other organs in the body, and/or other unforseen complication. All of the patients questions were answered. Patient's gaurdian wishes to proceed and consent was signed. Proceed with the planned endoscopic procedure. ASA grade: see anesthesia note Sedation Plan: anesthesia Melani Cee MD Gastroenterology attending Pager [phone] documented in this encounter Plan of Treatment Not on file documented as of this encounter Procedures Procedure Name Priority Date/Time Associated Diagnosis Comments SURGICAL PATHOLOGY REPORT Routine 01/16/2016 12:44 PM EDT SPECIMEN TO PATHOLOGY Routine 01/16/2016 12:44 PM EDT UPPER GASTROINTESTINAL ENDOSCOPY,WITH BIOPSY SINGLE OR MULTIPLE (WRVU 2.39) 01/16/2016 12:21 PM EDT gerd/reflux (consult) UPPER GI ENDOSCOPY Routine 01/16/2016 11 :56 AM EDT documented in this encounter Results * Surgical Pathology Report (01/16/2016 12:44 PM EDT) Final Diagnosis [id number] ?Location: 4; 07; A The signing pathologist has (i) examined the relevant preparation(s) for the specimen(s) and (ii) rendered or confirmed the diagnosis(es). . ?Surgical Pathology DIAGNOSIS Stomach, body, ??biopsy: Chronic active gastritis with ?? numerous H.pylori organisms . Electronically signed by: ??Sonu CASTRO PhD, Nik Batista Verified: ??01/18/2016 ?Pathologist DISCUSSION Whole slide scan: A1 CLINICAL INFORMATION Specimen Submitted: A - Gastric body erosion Clinical History: 55-year-old female with GERD Clinical Diagnosis: Same SPECIMEN PROCESSING A - Labeled/Fixativ e: Gastric body erosion, formalin. Quantity/Size: Two, averaging 0.4 cm. Tissue Description: ??Soft, yellow-vargas tissue ??. Sections/Proces sing: (T1) ??ejr 01/18/2016 8:59 AM EDT [facility] GI Biopsy 01/16/2016 12:4 4 PM EDT 01/16/2016 12:44 PM EDT Melani Cee MD PATHOLOGY/CYTOLOG Y ORDERABLES Performing Organization Address [facility]/[place] [address] * Specimen to Pathology (surgical or derm) (01/16/2016 12:44 PM EDT) AP Specimen 01/16/2016 12:4 4 PM EDT 01/16/2016 12:44 PM EDT Narrative [facility] - 01/16/2016 12:44 PM EDT Specimen requisition ordered. ??Separate Pathology report to follow Melani Cee MD PATHOLOGY/CYTOLOG Y ORDERABLES Performing Organization Address City/[facility]/[place] [address] * UPPER GI ENDOSCOPY (01/16/2016 11:56 AM EDT) UPPER GI ENDOSCOPY [facility] Endoscopy Procedure Date: 01/16/2016 11:56 AM ? Patient Name: Elvia Kenney ? Date of : 1960 ? Age: 55 ? Order #: [id number] ? Instrument Name: [id number] ? Procedure: ? Upper GI endoscopy Indications: ? Suspected gastro-esophageal reflux ? disease, Regurgitation Providers: ? Melani Cee MD, Marcos Ashton ? Jelly, SELENE, Mally Melvin MD: ?Marcos Seaman MD Medicines: ? Monitored Anesthesia Care Complications: ? No immediate complications. Procedure: ? The procedure, indications, benefits, ? risks and alternatives were explained ? to the patient's guardian who ? provided informed consent. ? Specifically discussed were potential ? complications including, but not ? limited to, bleeding, perforation, ? infection, missing a cancer, and ? adverse medication reactions. The ? patient underwent gas induction prior ? to placement of BP cuff, EKG leads, ? and IV. The Endoscope was introduced ? through the mouth, and advanced to ? the second part of duodenum. The ? patient tolerated the procedure well. ? The upper GI endoscopy was ? accomplished without difficulty. The ? patient tolerated the procedure. ? Findings: ? The examined esophagus was normal. ? A single non-bleeding localized erosion was found in ? the gastric body. There were no stigmata of recent ? bleeding. Biopsies were taken with a cold forceps for ? histology. Verification of patient identification for ? the specimen was done by the physician and forklift technician ? using the patient's name and medical record number. ? The examined duodenum was normal. ? Impression: ?- Normal esophagus. ? - Gastric erosion without bleeding. ? Biopsied. ? - Normal examined duodenum. Recommendation: ?- Await pathology results. ? Attending Participation: ? I personally performed the entire procedure. ? ___ Melani Cee MD 01/16/2016 12:47:28 PM Number of Addenda: 0 Note Initiated On: 01/16/2016 11:56 AM PROVATION 01/16/2016 11:5 6 AM EDT Marcos Seaman MD GENERAL SURGICAL ORD ERABLES PROVATION documented in this encounter Visit Diagnoses Not on filedocumented in this encounter Administered Medications Inactive Administered Medications - up to 3 most recent administrations Medication Order MAR Action Action Date Dose Rate Site lactated ringers infusion 100 mL/hr, Intravenous, CONTINUOUS, Starting on Fri01/16/16 at 1200, Until Fri01/16/16 at 1527, Endoscopy (Day of Procedure) New Bag 01/16/2016 12:20 PM EDT documented in this encounter Active and Recently Administered Medications Times are shown in EDT. Continuous Medication Order 01/14/2016 01/15/2016 01/16/2016 lactated ringers infusion 100 mL/hr, Intravenous, CONTINUOUS, Starting on Fri01/16/16 at 1200, Until Fri01/16/16 at 1527, Endoscopy (Day of Procedure) 1220 (New Bag - Prov ider: Belkis Barrios CRNA)1243 (Anesthesia Volume Adjustment - Provider: Belkis Barrios CRNA) documented in this encounter Care Teams Peanut Blancher Relationship Specialty Start Date End Date Loan Pradhan APRN [address] [place] [address] PCP - General Family Medicine 01/16/16 06/25/20 documented as of this encounter
--- OUTSIDE RECORDS SUMMARY | 2024-02-13 01:36 | XMS_ITS | Encounter Summary ---
Author Organization [facility] Address [address] [place] [address] Care Team Providers Care Skip Tracer Name Role Phone Stephanie Little MD Primary Care Provider Encounter Details Date Type Department Care Team (Latest Contact Info) Description 08/15/2021 Travel Social History Tobacco Use Types Packs/Day Years [...] 19:24 EDT documented as of this encounter Plan of Treatment Not on file documented as of this encounter Visit Diagnoses Not on filedocumented in this encounter Care Teams Skip Tracer Relationship Specialty Start Date End Date Stephanie Little MD [address] [place] [address] [place] [address] PCP - General 02/08/09 12/11/22 documented as of this encounter
--- OUTSIDE RECORDS SUMMARY | 2024-02-13 01:36 | XMS_ITS | Encounter Summary ---
Author Organization [facility] [place] [address] Care Team Providers Care Insurance Sales Agent Name Role Phone Jeny Levy APRN Primary Care Provider Encounter Details Date Type Department Care Team (Late st Contact Info) Description 12/21/2020 Telephone [facility]ology at [facility] [place] [phone] Helen Gamez Social History Tobacco Use Types Packs/Day Years [...] encounter Miscellaneous Notes * Telephone Encounter - Helen Gamez - 12/21/2020 9:01 AM EDT Elvia Kenney [id number] Diagnosis/Indication: Abnormal findings on diagnostic imaging of other abdominal regions, includingretroperitoneum Constipation, unspecified Encounter for screening for malignant neoplasm of colon Encounter for screening for malignant neoplasm of rectum 1. Have you ever had a/an Colonoscopy before? Yes: Date unknown If yes, did you have any problems with the procedure? No What type of sedation was used: None 2. Do you take any blood thinners or have you been diagnosed with a bleeding disorder that increases your risk of bleeding with procedures? No 3. Do you have a Pacemaker or Defibrillator device? No 4. Are you a diabetic? No 5. Do you have any Allergies to Eggs, Latex or Medications? No 6. Do you take any Oral Iron Supplements (Including multi-vitamins)? Yes (Multivitamin) 7. Do you have a history of three or more abdominal surgeries? No 8. Have you had a problem with sedation or anesthesia? No 9. Do you use a c-pap machine or oxygen tank? Neither 10. Do you take prescription narcotic pain medications, including suboxone or methodone? No 11. Do you have a preference regarding the gender of your provider? No Preference 12. Is there any other information you would like to us to note for the provider and nursing team who will perform your case? No 13. Say to patient: You must have a responsible constitution party who will drive you to your procedure, stay oncamp[place] for the entire duration of your procedure, and drive you home from your procedure? *Please Verify the height and weight, and adjust if height and/or weight have changed* Estimated body mass index is 34.15 kg/m?? as calculated from the following: Height as of 01/17/17: 144.8 cm (4' 9). Weight as of 01/17/17: 71.6 kg (157 lb 12.8 oz). Age:60 y.o. documented in this encounter Plan of Treatment Not on file documented as of this encounter Visit Diagnoses Not on filedocumented in this encounter Care Teams Insurance Sales Agent Relationship Specialty Start Date End Date Jeny Levy APRN [address] [place] [address] PCP - General Geriatric Medicine 06/26/20 documented as of this encounter
--- OUTSIDE RECORDS SUMMARY | 2024-02-13 01:36 | XMS_ITS | Encounter Summary ---
Author Organization [facility] Address [address] [place] [address] Care Team Providers Care Button Facing Machine Operator Name Role Phone Jeny Levy Susy COBURN Primary Care Provider [phone] Reason for Visit * Reason Onset Date Comments Appointment Related 02/10/2024 Encounter Details Date Type Department Care Team (Late st Contact Info) Description 02/10/2024 Telephone [facility] Breast Imaging Mammography - [facility] [address] [place], [place] [phone] Belkis Vidal Appointment Related Social History Tobacco Use Types [...] encounter Miscellaneous Notes * Telephone Encounter - Belkis Vidal - 02/10/2024 0925 EST Patient called in to schedule her yearly screening us in place of her mammogram due to her disability, I let her know she would need to reach out to her provider for that order. documented in this encounter Plan of Treatment Not on file documented as of this encounter Visit Diagnoses Not on filedocumented in this encounter Care Teams Button Facing Machine Operator Relationship Specialty Start Date End Date Jeny Levy, ALMAS [address] [place] [address] PCP - General Family Medicine - [facility] 12/12/22 documented as of this encounter
--- OUTSIDE RECORDS SUMMARY | 2024-02-13 01:36 | XMS_ITS | Encounter Summary ---
Author Organization [facility] Address [address] [place] [address] Care Team Providers Care Rug Cleaner Name Role Phone Stephanie Little MD Primary Care Provider [phone] Encounter Details Date Type Department Care Team (Latest Contact Info) Description 08/17/2021 6:13 EDT - 08/17/2021 16:44 EDT Hospital Encounter [facility] Operating Room [address] [place] [address] Unknown, Provider, Libra Church, DMD [address] [place] [address] Discharge Disposition: Home-Health Care Svc Social History Tobacco Use Types Packs/Day Years [...] 19:24 EDT documented as of this encounter Last Filed Vital Signs Vital Sign Reading Time Taken Comments Blood Pressure 150/83 08/17/2021 1629 EDT Pulse - - Temperature 36.7 ??C (98 ??F) 08/17/2021 1629 EDT Respiratory Rate 18 08/17/2021 1620 EDT Oxygen Saturation 93% 08/17/2021 1629 EDT Inhaled Oxygen Concentration - - Weight 75.3 kg (166 lb) 08/17/2021 0739 EDT Height 152.4 cm (5') 08/17/2021 0739 EDT Body Mass Index 32.42 08/17/2021 0739 EDT documented in this encounter Discharge Instructions * Discharge Instructions* Beatriz Munson RN - 08/17/2021 14:44 EDT You're heading home! Aftercare instructions for hospital dental treatment In most circumstances, the dental treatment you have received requires very little aftercare consideration as many procedures completed are non-invasive, similar to treatment in a dental office. Below is a brief summary of the procedures completed in the operating room today. ? Local anesthetic - we numbed several areas of the mouth in order to provide the most comfortable dental care and recovery possible. While feeling numb, please avoid eating any foods that require chewing as you run the risk of biting cheeks, lips, and your tongue. If there is a soft tissue injury due to biting, use salt water rinses for 3-5 days following the injury in order to encourage healing. ? A cleaning, which may have included the root surfaces of the teeth. On patients that do not receive routine cleanings and consistent at home oral hygiene care, a cleaning may leave the gums and teeth feeling sore for a few days after your visit. In some instances when heavy tartar is removed, theteeth may feel loose afterwards. This is a normal sensation. We encourage you to continue with a good brushing and flossing routine in order to heal your gum tissue, reduce inflammation, and avoid buildup of plaque and debris. This is the foundation for a healthy mouth and for reducing the risk of bone loss and cavities in the future. ? Today we removed decay and cavities in your teeth and placed 8 fillings. ? Today we extracted 7 teeth. Please review the aftercare instructions for extractions to understand how to best care for healingextraction sites. You will find this information enclosed with your discharge paperwork. ? Pain management - most dental discomfort can be managed with a combination of Ibuprofen and Acetaminophen. For our adult patients with no contraindications to the following, we recommend 600mg Ibuprofen (Advil/Motrin) + 500mg Acetaminophen (Tylenol) to be taken every 6 hours as needed for pain. You can combine the normal dose of Ibuprofen and Acetaminophen in children for most effective pain management. Please remember to drink plenty of fluids. It is truly a pleasure to have you in our care and to be a part of your overall oral health treatment. If you have any questions or concerns regarding your treatment today please don't hesitate to contact us at our office. Libra Martin Dental Medical Artist [facility] CARE OF MOUTH AFTER EXTRACTION ??? DO NOT RINSE MOUTH TODAY, OR WHILE YOU ARE BLEEDING. After the first day, use warm salt water rinse every 4 hours and following meals to flush out particles of food and debris that may lodge in the area. (One half teaspoon of salt in a glass of lukewarm water.) ??? BLEEDING. Following extractions, some bleeding is to be expected. Avoid hot liquids, exercise, and elevate the head. If persistent bleeding occurs, place damp gauze pads over bleeding area and firmly bite down for one-half hour. Repeat if necessary. If bleeding persists, call our office immediately. ??? SWELLING. Use ice packs (externally) on the side of face as the operated area. Your dentist may give you specific instructions on how long and how often to use ice packs. ??? PAIN: Use 3 Ibuprofen (Advil, Motrin) 200mg and 1 Acetaminophen (Tylenol) 500mg every 6 hours, as needed. Do not exceed the recommended dose on the bottles. ??? FOOD: Restrict you diet to liquids and soft foods (yogurt, apple sauce, scrambled eggs, mashed potatoes, ice cream, jello, pudding) As the wounds heal, you will be able to advance your diet. ??? BONY EDGES: Small sharp bone fragments may work up through the gums during the healing. These are not roots, if you have concerns or if annoying, return to office for their simple removal. ??? NO SMOKING FOR 24-48 HOURS. ??? NO DRINKING THROUH A STRAW FOR 24-48 HOURS. ??? NO SPITTING FOR 24-48 HOURS. ??? If any unusual symptoms occur, call our office immediately. Proper care following oral surgical procedures will hasten recovery and prevent complications. [facility] [address], [place] [address] Nursing note: Patient was given Toradol at 1:25 pm in the OR, she can have ibuprofen after 7:25 pm tonight. documented in this encounter Medications at Time of Discharge acetaminophen (TYLENOL) 500 mg tablet Take 500 mg by mouth every 6 hours as needed for Pain. ascorbic acid (VITAMIN C) 500 mg tablet Take 1,000 mg by mouth 2 times daily. citalopram (CELEXA) 20 mg tablet Take 10 mg by mouth daily. dexlansoprazole (KAPIDEX) 30 mg capsule,biphase delayed releas capsule Take 30 mg by mouth daily. divalproex (DEPAKOTE) 500 mg EC tablet Take 500 mg by mouth daily. In AM and 750mg at HS lorazepam (ATIVAN) 1 mg tablet Take 1 mg by mouth 3 times daily as needed for Anxiety. magnesium oxide (MAG-OX) 400 mg tablet Take 500 mg by mouth daily. mirtazapine (REMERON) 15 mg tablet Take 30 mg by mouth at bedtime. olanzapine (ZYPREXA) 5 mg tablet Take 10 mg by mouth at bedtime. documented as of this encounter Discharge Disposition Disposition Code Departure Means Destination Home-Health Care [facility] documented in this encounter H&P Notes * Libra Gustafson DMD - 08/17/2021 0710 EDT The preoperative history and physical which was performed within 30 days of this procedure has been reviewed and the clinically appropriate elements of the physical examination have been repeated. There are no changes to the documented history and physical and no contraindications to today's procedure. Libra Gustafson DMD 08/17/2021 7:10 Source Note - Jeny Levy - 08/17/2021 0:00 EDT documented in this encounter OR Notes * OR Surgeon - Libra Gustafson DMD - 08/17/2021 1302 EDT INTRAORAL - COMPLETE SERIES (INCLUDING BITEWINGS), DENTAL PROPHYLAXIS, ADULT, TOPICAL FLUORIDE VARNISH, MOD TO HIGH CARIES RISK, EXTRACTION, TOOTH, ERUPTED, USING FORCEPS OR ELEVATOR, EXCISION, TOOTH, ERUPTED, WITH MUCOPERIOSTEAL FLAP ELEVATION AND BONE REMOVAL, TOOTH SECTION, OR BOTH, DENTAL, HOSPITAL CALL, GNOSTICISM, TOOTH, POSTERIOR, 2 SURFACES, USING RESIN BASED COMPOSITE, GNOSTICISM, TOOTH, ANTERIOR, 1 SURFACE, USING RESIN BASED COMPOSITE Operative Note Date: 08/17/2021 Location: [facility] OR Name: Elvia Kenney, : 1960, Tx in OR (Hospital case [facility]) [place] NIKKI, FMX, APRO, SF application, Comp Rest's, Ext's CC: we think there are some broken teeth - Neelam care provider Hhx: no CI to dental tx, see EHR Pt presents with Neelam and Sofi Confirmed no changes since last H&P - pt fell, has bruises on upper right shoulder/back, also appears pt scratches at inside left elbow. Reviewed procedure, post-op expectations, answered all questions Reviewed FMX, findings noted within exam below EOE/IOE: No s/s of hard or soft tissue pathology. Exam: #1- root tips #2 - large decay D - non-restorable #3- D decay #4- D decay #5 - root tips #6-DF decay #8-missing #9-missing #12-root tips #13-root tips #14-root tips #15-large decay- non-restorable #16- D decay #18- DOL decay #19-OL decay #21-MDB decay #30-D 31-DB Dx: #3-DO, #4-DO, #6-DF, #18-DO, #19-OL, #21-MDB, #30-DO, #31- smooth surface caries to dentin #16 - D incipient decay #2, 15 - deep decay - non-restorable #1, 5, 12 13, 14, - fractured, Retained roots Caries Risk: High Perio: generalized moderate inflammation, slight plaque, slight calculus Dx: generalized moderate chronic periodontitis Procedure: Placed throat pack 8:50am out @ Isolation: cotton rolls, suction, Bite block Anesthesia: GA provided by [facility] anesthesia team Intubated: Nasal airway 8 carp 2% Xylocaine w/1:100k epi via local infiltration, IANB Hygiene Txt: Scaled/deplaqued all 4 quads with HI and USS, Polished, flossed. Prep and removed primary caries, existing rest and recurrent caries Quick stat 15.5% Ferric sulfateMatrix and wedge placed (Sectional, [place]) Etch, G5, Scotchbond [place] , Beautifil Flow A2,Filtek Shade: A2, placed per manufacture instructions Sealant: Pumice, Etch, Scotchbond [place] , Embrace sealant. Finished and Polished Checked contact, margins and occl Bite block placed # 12, 14, Used 15 blade to create incision area #2, 12, 14,15 Used surgical hand piece to section tooth # 1,5,12 Elevate and deliver tooth with elevators and forceps without complications Surrounding bone smoothed with rongeur forceps Socket curetted Copious irrigation with NSS No sinus communication detected All adjacent teeth intact B/L pressure applied to socket 3-0 CG sutures X3 areas # 2, 12, 14 Good hemostasis achieved Confirmed removal of all dental materials (gauze, matrices, wedges, etc.) Removed throat pack Pt transitioned to PACU where meet with (Neelam & Sofi). Reviewed tx preformed and reviewed POI which was understood. Written POI and written rx's given to (Neelam). Answered all questions. Pain Management: 600mg ibuprofen, 500mg acetaminophen q6h PRN pain Assisted by: Tiffany Barraza [place]: Libra Fabian DMD by MYaehrling (08/17/2021 9:05 AM): Libra Gustafson DMD * Preprocedure Instructions - Faviola Andrew RN - 08/15/2021 193 EDT Pre-procedure instructions reviewed with care provider. Care provider able to verbalize good understanding of information as presented. States that patient may need to be recovered in private setting. * Preprocedure Instructions - Faviola Andrew RN - 08/15/2021 1919 EDT Elvia Kenney has been instructed as follows regarding medication administration for the day of the scheduled procedure. Date of Surgery: 08/17/21 Instructions for Taking Medications Day of Surgery Medication Sig Last Dose Hold DOS Take DOS ascorbic acid (VITAMIN C) 500 mg tablet Take 1,000 mg by mouth 2 times daily. x citalopram (CELEXA) 20 mg tablet Take 10 mg by mouth daily. x divalproex (DEPAKOTE) 500 mg EC tablet Take 500 mg by mouth daily. In AM and 750mg at HS x lorazepam (ATIVAN) 1 mg tablet Take 1 mg by mouth 3 times daily as needed for Anxiety. x magnesium oxide (MAG-OX) 400 mg tablet Take 500 mg by mouth daily. x mirtazapine (REMERON) 15 mg tablet Take 30 mg by mouth at bedtime. olanzapine (ZYPREXA) 5 mg tablet Take 10 mg by mouth at bedtime. documented in this encounter Miscellaneous Notes * Brief Op Note - Libra Gustafson, MARQUES - 08/17/2021 1301 EDT Date: 08/17/2021 Location: [facility] OR Name: Elvia Kenney, : 1960, Tx in OR (Hospital case [facility]) [place] NIKKI, FMX, APRO, SF application, Comp Rest's, Ext's CC: we think there are some broken teeth - Neelam care provider Hhx: no CI to dental tx, see EHR Pt presents with Neelam and Sofi Confirmed no changes since last H&P - pt fell, has bruises on upper right shoulder/back, also appears pt scratches at inside left elbow. Reviewed procedure, post-op expectations, answered all questions Reviewed FMX, findings noted within exam below EOE/IOE: No s/s of hard or soft tissue pathology. Exam: #1- root tips #2 - large decay D - non-restorable #3- D decay #4- D decay #5 - root tips #6-DF decay #8-missing #9-missing #12-root tips #13-root tips #14-root tips #15-large decay- non-restorable #16- D decay #18- DOL decay #19-OL decay #21-MDB decay #30-D 31-DB Dx: #3-DO, #4-DO, #6-DF, #18-DO, #19-OL, #21-MDB, #30-DO, #31- smooth surface caries to dentin #16 - D incipient decay #2, 15 - deep decay - non-restorable #1, 5, 12 13, 14, - fractured, Retained roots Caries Risk: High Perio: generalized moderate inflammation, slight plaque, slight calculus Dx: generalized moderate chronic periodontitis Procedure: Placed throat pack 8:50am out @ Isolation: cotton rolls, suction, Bite block Anesthesia: GA provided by [facility] anesthesia team Intubated: Nasal airway 8 carp 2% Xylocaine w/1:100k epi via local infiltration, IANB Hygiene Txt: Scaled/deplaqued all 4 quads with HI and USS, Polished, flossed. Prep and removed primary caries, existing rest and recurrent caries Quick stat 15.5% Ferric sulfateMatrix and wedge placed (Sectional, [place]) Etch, G5, Scotchbond [place] , Beautifil Flow A2,Filtek Shade: A2, placed per manufacture instructions Sealant: Pumice, Etch, Scotchbond [place] , Embrace sealant. Finished and Polished Checked contact, margins and occl Bite block placed # 12, 14, Used 15 blade to create incision area #2, 12, 14,15 Used surgical hand piece to section tooth # 1,5,12 Elevate and deliver tooth with elevators and forceps without complications Surrounding bone smoothed with rongeur forceps Socket curetted Copious irrigation with NSS No sinus communication detected All adjacent teeth intact B/L pressure applied to socket 3-0 CG sutures X3 areas # 2, 12, 14 Good hemostasis achieved Confirmed removal of all dental materials (gauze, matrices, wedges, etc.) Removed throat pack Pt transitioned to PACU where meet with (Neelam & Sofi). Reviewed tx preformed and reviewed POI which was understood. Written POI and written rx's given to (Neelam). Answered all questions. Pain Management: 600mg ibuprofen, 500mg acetaminophen q6h PRN pain Assisted by: Tiffany Barraza NV: PPR Libra Gustafson DMD by MYaehrling (08/17/2021 9:05 AM): Libra Gustafson DMD documented in this encounter Plan of Treatment Not on file documented as of this encounter Procedures Procedure Name Priority Date/Time Associated Diagnosis Comments ECG REPORT - SCANNED 08/21/2021 8:56 EDT GNOSTICISM, TOOTH, POSTERIOR, 2 SURFACES, USING RESIN BASED COMPOSITE 08/17/2021 7:20 EDT Dental caries, unspecified Special Needs Card picked [facility] DENTAL, HOSPITAL CALL 08/17/2021 7:20 EDT Dental caries, unspecified Special Needs Card picked [facility] EXCISION, TOOTH, ERUPTED, WITH MUCOPERIOSTEAL FLAP ELEVATION AND BONE REMOVAL, TOOTH SECTION, OR BOTH 08/17/2021 7:20 EDT Dental caries, unspecified Special Needs Card picked [facility] EXTRACTION, TOOTH, ERUPTED, USING FORCEPS OR ELEVATOR 08/17/2021 7:20 EDT Dental caries, unspecified Special Needs Card picked [facility] TOPICAL FLUORIDE VARNISH, MOD TO HIGH CARIES RISK 08/17/2021 7:20 EDT Dental caries, unspecified Special Needs Card picked [facility] DENTAL PROPHYLAXIS, ADULT 08/17/2021 7:20 EDT Dental caries, unspecified Special Needs Card picked [facility] INTRAORAL - COMPLETE SERIES (INCLUDING BITEWINGS) 08/17/2021 7:20 EDT Dental caries, unspecified Special Needs Card picked [facility] documented in this encounter Results * ECG REPORT - SCANNED (08/21/2021 8:56 EDT) 08/21/2021 8:56 EDT us Scan 2 Leak Hunter PROCEDURE/MINOR SURGICAL OR DERABLES Final Result documented in this encounter Visit Diagnoses Diagnosis Dental caries, unspecified- Primary documented in this encounter Admitting Diagnoses Diagnosis Dental caries, unspecified documented in this encounter Administered Medications Inactive Administered Medications - up to 3 most recent administrations Medication Order MAR Action Action Date Dose Rate Site acetaminophen (OFIRMEV) IV solution 1,000 mg 1,000 mg, intravenous, NOW X1, 1 dose, On Fri08/17/21 at 1430, Routine, Recovery (only) Given 08/17/2021 14:25 EDT 1,000 mg diphenhydrAMINE (BENADRYL) injection 6.25 mg 6.25 mg, intravenous, ONCE PRN, 1 dose, Starting on Fri08/17/21 at 1400, Until Fri08/17/21 at 1844, Nausea/Vomiting, Routine, Recovery (only) fentaNYL citrate (PF) injection 25 mcg 25 mcg, intravenous, EVERY 5 MIN PRN, Starting on Fri08/17/21 at 1400, Until Fri08/17/21 at 1844, Pain, Moderate-Severe Pain (Scale 4-10), Routine, Recovery (only) glycopyrrolate (ROBINUL) injection 0.2 mg 0.2 mg, intravenous, EVERY 3 MINUTES PRN, Starting on Fri08/17/21 at 1400, Until Fri08/17/21 at 1844, BRADYCARDIA, Routine, Recovery (only) lactated ringers (LR) infusion at 100 mL/hr, 1,000 mL, intravenous, PACU CONTINUOUS, Starting on Fri08/17/21 at 1430, Until Fri08/17/21 at 1844, Routine, Recovery (only) Rate Documented 08/17/2021 14:10 EDT 100 mL/hr lactated ringers (LR) infusion 25 mL/hr, intravenous, CONTINUOUS, Starting on Fri08/17/21 at 0700, Until Fri08/17/21 at 1844, Routine, Preprocedure New Bag 08/17/2021 11:28 EDT 25 mL/hr New Bag 08/17/2021 7:28 EDT 25 mL/hr LORazepam (ATIVAN) injection 1 mg 1 mg, intravenous, ONCE PRN, 1 dose, Starting on Fri08/17/21 at 1400, Until Fri08/17/21 at 1844, Anxiety, Routine, Recovery (only) documented in this encounter Discontinued Medications Medication Sig Discontinue Reason Start Date End Da te OLANZapine (ZYPREXA) 7.5 mg tablet Take 10 mg by mouth. Error 08/17/2021 documented as of this encounter Historical Medications * This list may reflect changes made after this encounter. acetaminophen (TYLENOL) 500 mg tablet Take 500 mg by mouth every 6 hours as needed for Pain. dexlansoprazole (KAPIDEX) 30 mg capsule,biphase delayed releas capsule Take 30 mg by mouth daily. OLANZapine (ZYPREXA) 7.5 mg tablet Take 10 mg by mouth. 08/17/2021 added in this encounter Active and Recently Administered Medications Times are shown in EDT. Scheduled Medication Order 08/15/2021 08/16/2021 08/17/2021 acetaminophen (OFIRMEV) IV solution 1,000 mg (COMPLETED) 1,000 mg, intravenous, NOW X1, 1 dose, On Fri08/17/21 at 1430, Routine, Recovery (only) 1425 (Given - Provid er: Beatriz Munson RN) Continuous Medication Order 08/15/2021 08/16/2021 08/17/2021 lactated ringers (LR) infusion at 100 mL/hr, 1,000 mL, intravenous, PACU CONTINUOUS, Starting on Fri08/17/21 at 1430, Until Fri08/17/21 at 1844, Routine, Recovery (only) 1410 (Rate Documente d - Provider: Beatriz Munson RN) lactated ringers (LR) infusion 25 mL/hr, intravenous, CONTINUOUS, Starting on Fri08/17/21 at 0700, Until Fri08/17/21 at 1844, Routine, Preprocedure 0728 (New Bag - Prov ider: Tung Rios CRNA)1128 (New Bag - Provider: Tung Rios CRNA)1408 (Anesthesia Volume Adjustment - Provider: Tung Rios CRNA) PRN Medication Order 08/15/2021 08/16/2021 08/17/2021 diphenhydrAMINE (BENADRYL) injection 6.25 mg 6.25 mg, intravenous, ONCE PRN, 1 dose, Starting on Fri08/17/21 at 1400, Until Fri08/17/21 at 1844, Nausea/Vomiting, Routine, Recovery (only) fentaNYL citrate (PF) injection 25 mcg 25 mcg, intravenous, EVERY 5 MIN PRN, Starting on Fri08/17/21 at 1400, Until Fri08/17/21 at 1844, Pain, Moderate-Severe Pain (Scale 4-10), Routine, Recovery (only) glycopyrrolate (ROBINUL) injection 0.2 mg 0.2 mg, intravenous, EVERY 3 MINUTES PRN, Starting on Fri08/17/21 at 1400, Until Fri08/17/21 at 1844, BRADYCARDIA, Routine, Recovery (only) lidocaine-Epinephrine Bit 2 %-1:100,000 injection cartridge (CANCELED) PRN, Starting on Fri08/17/21 at 1322, Until Fri08/17/21 at 1358, Routine, Intraprocedure 1322 (Given - Provid er: Libra Gustafson DMD) LORazepam (ATIVAN) injection 1 mg 1 mg, intravenous, ONCE PRN, 1 dose, Starting on Fri08/17/21 at 1400, Until Fri08/17/21 at 1844, Anxiety, Routine, Recovery (only) sterile water (bottle) irrigation (CANCELED) PRN, Starting on Fri08/17/21 at 1323, Until Fri08/17/21 at 1358, Intraprocedure 1323 (Given - Provid er: Libra Gustafson DMD - Comment: Mouth) documented in this encounter Orders Medications Ordered That Raymond ht Not Have Been Administered Count Last Ordered Date First Ordered Date diphenhydrAMINE (BENADRYL) i njection 6.25 mg 1 08/17/2021 fentaNYL citrate (PF) injection 25 mcg 1 glycopyrrolate (ROBINUL) injection 0.2 mg 1 08/17/2021 lactated ringers (LR) infusion 1 08/17/2021 lidocaine (PF) 10 mg/mL (1 % ) injection 2 mg 1 08/17/2021 lidocaine-Epinephrine Bit 2 %-1:100,000 injection cartridge 1 08/17/2021 LORazepam (ATIVAN) injection 1 mg 1 sterile water (bottle) irrigation 1 Discharge Count Last Ordered Date First Orde red Date DISCHARGE PATIENT 1 08/17/2021 documented in this encounter Care Teams Rug Cleaner Relationship Specialty Start Date End Date Stephanie Little MD [facility] [place] [address] PCP - General 02/08/09 12/11/22 documented as of this encounter
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
--- OUTSIDE RECORDS SUMMARY | 2024-02-13 01:36 | XMS_ITS | Encounter Summary ---
Author Organization [facility] Address [facility] [place] [address] Care Team Providers Care President Ceo & Founder Name Role Phone Marcos Seaman MD Primary Care Provider Isidra chamorro Encounter Details Date Type Department Care Team (Latest Contact Info) Description 10/24/2015 - 10/24/2015 11:59 PM EDT Hospital Encounter Radiology Library at [facility] ([address] [place] [address] Chi Hicks MD [facility] [place] [address] Pain Discharge Disposition: Home Social History Tobacco Use Types Packs/Day Years Used Date Smoking Tobacco: Never Assessed Sex and Gender Information Value Date Recorded Sex Assigned at Not on file Gender Identity Not on file Sexual Orientation Not on file documented as of this encounter Medications at Time of Discharge Medication Sig Dispensed Refills Start Date End Date mirtazapine (REMERON HEMANT-TAB) 15 mg Tablet, Rapid Dissolve Bedtime 05/13/2015 OLANZapine (ZYPREXA) 2.5 mg Tablet Bedtime 2013 OLANZapine (ZYPREXA) 2.5 mg tablet 2005 divalproex (DEPAKOTE) 250 mg EC tablet 10/11/2005 docusate sodium (COLACE) 100 mg capsule 10/11/2005 escitalopram (LEXAPRO) 5 mg tablet 200512/15/2015 documented as of this encounter Plan of Treatment Not on file documented as of this encounter Procedures Procedure Name Priority Date/Time Associated Diagnosis Comments FILM LIBRARY STORAGE ONLY DX ABDOMEN Routine 10/24/2015 12:00 AM EDT Pain documented in this encounter Results * Film Library- Storage only DX Abdomen (10/24/2015 12:00 AM EDT) Narrative [facility] - 11/29/2015 6:48 PM EDT This exam is for storage only and is auto-finalizing. Chi Hicks MD IMG FILM LIBRARY OR DERABLES Performing Organization Address City/State/[facility] Co de Phone Number [place], [place] documented in this encounter Visit Diagnoses Diagnosis Pain Generalized pain documented in this encounter Care Teams President Ceo & Founder Relationship Specialty Start Date End Date Marcos Seaman MD [place], [place] PCP - General 02/06/10 01/15/16 documented as of this encounter
--- OUTSIDE RECORDS SUMMARY | 2024-02-13 01:36 | XMS_ITS | Encounter Summary ---
Author Organization [facility] Address [address] [place] [address] Care Team Providers Care Turning Machine Set Up Operator Name Role Phone Jeny Levy APRN Primary Care Provider [phone] Reason for Referral * Radiology Services (Routine/Next Available) - Authorization Not Required Specialty Diagnoses / Procedures Referred By Carmen zimmerman Referred To Contact Diagnoses Encounter for other screening for malignant neoplasm of breast Procedures US BREAST SCREENING ONLY BILATERAL Jeny Levy, [place] [address] [place] [address] Phone: tel: fax: [facility] Referral ID Status Reason Start Date Expiration Date Visits Requested Visits Authorized [id number] Authorization Not Required 07/12/2022 1 1 Reason for Visit * Radiology Services (Routine/Next Available) - Authorization Not Required Specialty Diagnoses / Procedures Referred By Contashlie t Referred To Contact Diagnoses Encounter for other screening for malignant neoplasm of breast Procedures US BREAST SCREENING ONLY BILATERAL Jeny Levy APRN [address] [place] [address] Phone: tel: fax: [facility] Referral ID Status Reason Start Date Expiration Date Visits Requested Visits Authorized [id number] Authorization Not Required 07/12/2022 1 1 Encounter Details Date Type Department Care Team (Latest Contact Info) Description 12/12/2022 13:35 EDT - 12/12/2022 23:59 EDT Hospital Encounter [facility] Breast Imaging Ultrasound - [address] [address] Encounter for other screening for malignant neoplasm of breast Discharge Disposition: Home or Self Care Social History Tobacco Use Types Packs/Day Years [...] Discharge Disposition Disposition Code Departure Means Destination Home or Self Care documented in this encounter Plan of Treatment Not on file documented as of this encounter Procedures Procedure Name Priority Date/Time Associated Diagnosis Comments US BREAST SCREENING ONLY BILATERAL Routine 12/12/2022 14:25 EDT Encounter for other screening for malignant neoplasm of breast documented in this encounter Results * US BREAST SCREENING ONLY BILATERAL (12/12/2022 14:25 EDT) Anatomical Region Laterality Modality Breast Bilateral Ultrasound 12/12/2022 14:3 0 EDT Impressions 12/12/2022 14:30 EDT RIGHT BREAST: BI-RADS 1: Negative IMPRESSION LEFT BREAST: BI-RADS 1: Negative RECOMMENDATIONS: No specific sonographic evidence of malignancy in either breast. Given the patient's clinical history, annual screening ultrasound is recommended and will be due in November 2023. Overall Assessment: BI-RADS 1: Negative The patient will be notified of her breast imaging results via a lay letter from Radiology. ??Radiology will contact the patient directly regarding any findings which require additional imaging. [id number] Narrative 12/12/2022 14:30 EDT US BREAST SCREENING ONLY BILATERAL ??12/12/2022 2:00 PM Clinical History/Comments: screening for breast cancer. patient cannot tolerate mammography-Cerebral Palsy;Z12.39:Encounter for other screening for malignant neoplasm of breast Comparisons: Prior mammography 10/27/2012 and 12/01/2015. Technique: Bilateral whole breast screening ultrasound was performed, including all 4 quadrants and the subareolar region. FINDINGS: Tissue Composition: Heterogeneous background echotexture RIGHT BREAST: No suspicious ultrasound findings are identified. LEFT BREAST: No suspicious ultrasound findings are identified. us Jeny Levy APRN IMG US ORDERABLES Final R esult documented in this encounter Visit Diagnoses Diagnosis Encounter for other screening for malignant neoplasm of breast documented in this encounter Care Teams Turning Machine Set Up Operator Relationship Specialty Start Date End Date Jeny Levy APRN [address] [place] [address] PCP - General Family Medicine - [facility] Medicine 12/12/22 documented as of this encounter
--- OUTSIDE RECORDS SUMMARY | 2024-02-13 01:36 | XMS_ITS | Encounter Summary ---
Author Organization [facility] Address [facility] [place] [address] Care Team Providers Care Otorhinolaryngologist Name Role Phone Jeny Levy APRN Primary Care Provider Encounter Details Date Type Department Care Team (Latest Contact Info) Description 01/17/2021 12:25 PM EDT - 01/17/2021 5:06 PM EDT Hospital Encounter [place] [address] Dedrick Strange MD [facility] [place] [address] Discharge Disposition: Home Social History Tobacco Use [...] occurs, please contact your Doctor. Please call [phone] before 8pm Mon-Fri with problems, questions or concerns. If you call after 8pm or on weekends, call the Hospital at [phone] and ask to speak to the Flooring Helper electronic design engineer and the soaking pit operator will contact that person for you. When should you call for help? Call 911 anytime you think you may need emergency [...] any problems. Where can you learn more? [facility] View your After Visit Summary and more online at [email or web address] If you would like to provide feedback about your hospital experience, please call the Office of Patient and Family Relations at . If you have received this After Visit Summary in error, please immediately return it in person to the department, or notify the [facility] Privacy Office by calling toll free at between the hours of 8AM and 5PM to arrange for our retrieval of the documents at no cost to you. Content Version: 12.2 ?? [id number] [employer]. Care instructions adapted under license by [facility]. If you have questions about a medical condition or this instruction, always ask your healthcare professional. [employer] disclaims any warranty or liability for your [...] 01/17/2021 4:13 PM EDT Colonoscopy, Jesús Tillman ([id number]) 01/17/2021 3:00 PM EDT Abnormal findings on diagnostic imaging of other abdominal regions, including retroperitoneum Constipation, unspecified Encounter for screening for malignant neoplasm of colon Encounter for screening for malignant neoplasm of rectum COLONOSCOPY Routine 01/17/2021 12:47 PM EDT documented in this encounter Results * Surgical Pathology Report (01/17/2021 4:13 PM EDT) Final Diagnosis [id number] ? Location: 4T; EA06; A The signing pathologist has (i) examined the relevant preparation(s) for the specimen(s) and (ii) rendered or confirmed the diagnosis(es). . ?Surgical Pathology DIAGNOSIS A - Sigmoid colon polyp ??3mm, excision: - ??Tubular adenoma. CR-PX Electronically signed by: ?Juventino Galloway MD Verified: ??01/23/2021 15:22 ??Pathologist Performed at: ??-[facility] Dept. of Pathology, [place], [place] SPECIMEN(S) SUBMITTED A - Sigmoid colon [...] MD PATHOLOGY/CYTOLOGY O DENIA Performing Organization Address [facility] Co de Phone Number [facility] [place] [address] * Specimen to Pathology (01/17/2021 4:13 PM EDT) AP Specimen 01/17/2021 4:13 PM EDT 01/17/2021 4:13 PM EDT Narrative [facility] - 01/17/2021 4:13 PM EDT Specimen requisition ordered. ??Separate Pathology report to follow L Reese Sparks MD PATHOLOGY/CYTOLOGY O RDANTONETTE Performing Organization Address City/[facility]/ZIP Co de Phone Number [facility] [place] [address] * COLONOSCOPY (01/17/2021 12:47 PM EDT) COLONOSCOPY [facility] Endoscopy Procedure Date: 01/17/2021 12:47 PM ? Patient Name: Elvia Kenney ? Date of : 1960 ? Age: 60 ? Order #: [id number] ? Instrument Name: [id number] ? Procedure: ? Colonoscopy Indications: ? Screening [...] preparation was ? evaluated using the BBPS (Doyline ? Bowel Preparation Scale) with scores ? [...] on filedocumented in this encounter Care Teams Otorhinolaryngologist Relationship Specialty Start Date End Date Jeny Levy APRN [address] [facility] [place] [address] PCP - General Geriatric Medicine 06/26/20 documented as of this encounter
--- OUTSIDE RECORDS SUMMARY | 2024-02-13 01:36 | XMS_ITS | Encounter Summary ---
Author Organization [facility] Address [address] [place] [address] Care Team Providers Care Donor Recruiter Name Role Phone Taniya Little MD Primary Care Provider [phone] Encounter Details Date Type Department Care Team (Late st Contact Info) Description 05/18/2009 Results Only [facility] Laboratory Services - [facility] ([facility]) [address] [place], [place] [id number] Taniya Little MD [address] [place] [address] [place], [place] [id number] Social History Tobacco Use Types Packs/Day Years [...] Procedure Name Priority Date/Time Associated Diagnosis Comments HPV DETECTION, HIGH RISK TYPES Routine 05/18/2009 16:20 EST CYTOPATHOLOGY Routine 05/18/2009 0:00 EST documented in this encounter Results * HUMAN PAPILLOMA VIRUS DNA TEST (05/18/2009 16:20 EST) Specimen Description Cervix, ThinPrep vial [facility] Result Negative for HPV types 16, 18, 31, 33, 35, 39, 45, 51, 52, 56, 58, 59, and 68. [facility] Report Status Final 05/24/2009 [facility] 05/18/2009 16:2 0 EST 05/22/2009 16:20 EST Taniya Little MD MICROBIOLOGY - [facility]AL [facility] Final Result [facility] [address] [place] [address] * CYTOPATHOLOGY (05/18/2009 0:00 EST) Pathology Report: CYTOPATHOLOGY REPORT ? Reports generated via electronic interface contain original data; ? however they are lacking the format of the original report. ? Caution should be taken when reading/interpreti ng unformatted reports. ? Name: ? LUCIO KENNEY ? Accession #: ? [id number] ? : ? 1960 (Age: 48) ??F ?Collect Date: ? 05/18/2009 ? Location: ? [facility] ? Receive Date: ? 05/19/2009 ? Provider: ?TANIYA GREGORAN MD ? Copy to: ? Specimen/Source: ?Pap Test, Cervix ? / Endocervix ? Blind Sample, ThinPrep Imaging System with manual evaluation ? Last Menstrual Period: ? Other: ? HPVDX - HPV testing requested regardless of diagnosis on current ThinPrep Pap ?? test. ? SPECIMEN ADEQUACY ? Satisfactory for Evaluation ? - transformation zone component present ? GENERAL CATEGORIZATION ? Negative for Intraepithelial Lesion or Malignancy ? Document reviewed and electronically signed by: ? Hi Babb, CT(ASCP) ? Report Date: ??05/22/2009 09:22 ? End of Report ? [facility] 05/18/2009 05/19/2009 us Taniya Little MD PATHOLOGY ORDERABLES Final Re sult [facility] [address] [place] [address] documented in this encounter Visit Diagnoses Not on filedocumented in this encounter Care Teams Donor Recruiter Relationship Specialty Start Date End Date Taniya Little MD [address] [place] [address] [place] [address] PCP - General 02/08/09 12/11/22 documented as of this encounter
--- OUTSIDE RECORDS SUMMARY | 2024-02-13 01:36 | XMS_ITS | Encounter Summary ---
Author Organization [facility] Address [facility] [place] [address] Care Team Providers Care Senior Software Development Manager Name Role Phone Loan Pradhan APRN Primary Care Provider Reason for Visit * Auth/Cert Specialty Diagnoses / Procedures Referred By Carmen t Referred To Contact Diagnoses gerd/reflux (consult) Procedures PRO UPPER GI ENDOSCOPY, DIAGNOSTIC PRO ANESTH, UGI ENDOSCOPY EGD, UPPER GI ENDOSCOPY Referral ID Status Reason Start Date Expiration Date Visits Re quested Visits Authorized [id number] 1 1 Encounter Details Date Type Department Care Team (Latest Contact Info) Description 01/16/2016 10:56 AM EDT - 01/16/2016 1:27 PM EDT Hospital En[place] [id number] Melani Cee MD [facility] [place] [address] Discharge Disposition: Home Social History Tobacco Use [...] Sign Reading Time Taken Comments Blood Pressure 109/69 01/16/2016 12:52 PM EDT Pulse - - Temperature 36.6 ??C (97.9 ??F) 01/16/2016 11:37 AM E DT Respiratory Rate 18 01/16/2016 12:52 PM EDT Oxygen Saturation 100% 01/16/2016 12:52 PM EDT Inhaled Oxygen Concentration - - Weight - - Height - - Body Mass Index - - documented in this encounter Discharge Instructions * Discharge Instructions* Ruth Ann Mejia RN - 01/16/2016 12:53 PM EDT Please call [phone] before 8pm with problems, questions or concerns, after 5pm call the Hospital at [phone] and ask to speak to the Technical Project Manager mechanic general operational test and the rand butting machine operator will contact that person for [...] Care Everywhere. * EGD (UPPER ENDOSCOPY): POST-OP (ROMANIAN) documented in this encounter Medications at Time [...] anesthesia Melani Cee MD Gastroenterology attending Pager [phone] documented in this encounter Plan of Treatment [...] Report (01/16/2016 12:44 PM EDT) Final Diagnosis [id number] ?Location: ; [facility]; A The signing pathologist has (i) examined [...] sing: (T1) ??ejr 01/18/2016 8:[address] [facility] GI Biopsy 01/16/2016 12:4 4 PM EDT 01/16/2016 12:44 PM EDT Melani Cee MD PATHOLOGY/CYTOLOG Y ORDERABLES [facility] [place] [address] * Specimen to Pathology (surgical or derm) (01/16/2016 12:44 PM EDT) AP Specimen 01/16/2016 12:4 4 PM EDT 01/16/2016 12:[address] [facility] - 01/16/2016 12:44 PM EDT Specimen requisition ordered. ??Separate Pathology report to follow Melani Cee MD PATHOLOGY/[place] [address] * UPPER GI ENDOSCOPY (01/16/2016 11:56 AM EDT) UPPER GI ENDOSCOPY [facility] Endoscopy Procedure Date: 01/16/2016 11:56 AM ? Patient Name: Elvia Kenney ? Date of : 1960 ? Age: 55 ? Order #: [id number] ? Instrument Name: [id number] ? Procedure: ? Upper GI endoscopy Indications: ? Suspected gastro-esophageal reflux ? disease, Regurgitation Providers: ? Melani Cee MD, Marcos Ashton ? SELENE Reaves, Mally Melvin MD: ?Marcos Seaman MD Medicines: [...] specimen was done by the physician and medical laboratory technician ? using the patient's name and [...] CRNA) documented in this encounter Care Teams Senior Software Development Manager Relationship Specialty Start Date End Date Loan Pradhan APRN [address] [place] [address] PCP - General Family Medicine 01/16/16 06/25/20 documented as of this encounter
--- OUTSIDE RECORDS SUMMARY | 2024-02-13 01:36 | XMS_ITS | Encounter Summary ---
Author Organization [facility] Address [address] [place] [address] Care Team Providers Care [facility] Name Role Phone Stephanie Kapadia MD Primary Care Provider [phone] Encounter Details Date Type Department Care Team (Late st Contact Info) Description 09/11/2012 Results Only [facility] Laboratory Services - [facility] ([facility]) [address] [place], [place] [id number] Stephanie Kapadia MD [address] [place] [address] [place], [place] [phone] Social History Tobacco Use Types Packs/Day Years [...] Name Priority Date/Time Associated Diagnosis Comments PAP TEST- RESULT ONLY Routine 09/11/2012 0:00 EDT documented in this encounter Results * PAP TEST- RESULT ONLY (09/11/2012 0:00 EDT) Pathology Report: CYTOPATHOLOGY REPORT Reports generated via electronic interface contain original data; however they are lacking the format of the original report. Caution should be taken when reading/interpreti ng unformatted reports. Name: ? JOAN, LUCIO L ? Accession #: ? [id number] : ? 1960 (Age: 51) ??F ?Collect Date: ? 09/11/2012 Location: ? [facility] ? Receive Date: ? 09/15/2012 Provider: ?STEPHANIE KAPADIA MD Copy to: ? Specimen/Source: ?Pap Test, Cervix/Endocervix, ThinPrep Imaging System with manual evaluation Last Menstrual Period: ? 2011 spotting Menstrual/Pregnanc y Status: ? Post Menopausal Other: ? Additional clinical information: spotting during 2010 ? SPECIMEN ADEQUACY ? Satisfactory for Evaluation - transformation zone component present GENERAL CATEGORIZATION ? Negative for Intraepithelial Lesion or Malignancy ? Document reviewed and electronically signed by: ? RACIEL Odell(ASCP) ? Report Date: ??09/22/2012 14:40 End of Report [facility] 09/11/2012 09/15/2012 us Stephanie Kapadia MD PATHOLOGY ORDERABLES Final Re sult [facility] [address] [place] [address] documented in this encounter Visit Diagnoses Not on filedocumented in this encounter Care Teams [facility] Relationship Specialty Start Date End Date Stephanie Kapadia MD [address] [place] [address] [place] [address] PCP - General 11/25/09 9/27/23 documented as of this encounter
--- OUTSIDE RECORDS SUMMARY | 2024-02-13 01:36 | XMS_ITS | Encounter Summary ---
Author Organization [facility] Address [facility] [place] [address] Care Team Providers Care Production Assembly Operator Name Role Phone Loan Pradhan APRN Primary Care Provider [phone] Reason for Visit * Auth/Cert Specialty Diagnoses / Procedures Referred By Carmen t Referred To Contact Diagnoses gerd/reflux (consult) Procedures PRO UPPER GI ENDOSCOPY, DIAGNOSTIC PRO ANESTH, UGI ENDOSCOPY EGD, UPPER GI ENDOSCOPY Referral ID Status Reason Start Date Expiration Date Visits Re quested Visits Authorized [id number] 1 1 Encounter Details Date Type Department Care Team (Late st Contact Info) Description 01/16/2016 12:21 PM EDT Anesthesia [place] [address] James Cook MD [facility] DR ANESTHESIOLOGY [place] [address] Belkis Barrios CRNA [facility] [address] ANESTHESIOLOGY [place] [address] Anesthesia Record Procedure Summary Procedure Name Responsible Anesthesiologist Anesthesia Start Time Anesthesia Stop Time UPPER GASTROINTESTINAL ENDOSCOPY,WITH BIOPSY SINGLE OR MULTIPLE (WRVU 2.39) (Trunk) James Cook MD 01/16/16 1221 01/16/16 1247 Events Date Time Event Comment 01/16/2016 1209 1220 AN Verify 1221 Start 1221 An Start Data 1227 An Induction 1237 Anesthesia Ready 1247 an stop data 1247 Recovery or ICU Handoff Isi ent care was transferred to the destination unit staff after review of the patient's medical history, current anesthetic/surgical status and plan, according to the Provider Handoff Checklist. 1247 Stop Meds Name Total Propofol INF 93 mg lactated ringers infusion 150 mL * Agents Name O2 Air N2O Sevoflurane (et) * Blood No blood administrations on file. Lines, Drains, and Airways Type Details Placement Removal (RETIRED) Peripheral IV Line - Single Lumen 01/16/16; 1221; median vein (underside of arm), left, metacarpal vein (top of hand), right; [id number] catheter system; 22 gauge, 20 gauge; delvin cook MD, gabi loaiza crna; 06/30/17 (Auto removal via utility); 0921 (Auto removal via utility) 01/16/16 1221 by Belkis Barrios CRNA 06/30/17 0921 by [employer], User documented in this encounter Social History Tobacco [...] OR Notes * Anesthesia Postprocedure Evaluation - James Cook MD - 01/16/2016 1:25 PM EDT [facility] Department of Anesthesiology Post-procedure Note Patient: Elvia Kenney Procedure Summary Date Anesthesia Start Anesthesia Stop Room / Location 01/16/16 1221 1247 [facility] 4 / [facility] Procedure Diagnosis Surgeon Responsible Provider UPPER GASTROINTESTINAL ENDOSCOPY,WITH BIOPSY SINGLE OR MULTIPLE (N/A Trunk) (gerd/reflux; (consult)) Melani Cee MD Morley, Benjamin D, MD All Anesthesia Providers: Anesthesiologist: James Cook MD IN FLIGHT CREW MEMBER: Belkis Barrios CRNA Last (1hr) Vitals: BP 109/69 (01/16/16 1252) Temp Pulse Resp 18 (01/16/16 1252) SpO2 100 % (01/16/16 1252) Patient Location: PACU/[facility] Level of Consciousness: Awake and Alert Pain Management: Satisfactory Analgesia PONV: None Cardiovascular Status: At Baseline and Hemodynamically Stable Respiratory Status: At Baseline and Room Air Postoperative Fluid Status: Intravascular EUvolemia Possible Anesthetic Complications: NONE apparent at time of evaluation Final Primary Anesthesia Type: MAC (The anesthetic type performed was the same as planned.) Comments: JAMES COOK MD * Anesthesia Preprocedure Evaluation - James Cook MD - 01/16/2016 11:10 AM EDT Pre-Anesthesia Evaluation for: Elvia Kenney a 55 y.o. female. Procedure(s): EGD, UPPER GI ENDOSCOPY Patient Active Problem List Diagnosis ??? Chronic abdominal pain Past Medical History Diagnosis Date ??? Cerebral palsy ??? Hyperlipidemia Past Surgical History Procedure Laterality Date ??? Spinal fixation surgery with implant Social History Substance Use Topics ??? Smoking status: Never Smoker ??? Smokeless tobacco: Not on file ??? Alcohol use No History Drug Use No No Known Allergies Medications: MAR and/or home medications have been reviewed. Physical Exam: There were no vitals filed for this visit. There is no height or weight on file to calculate BMI. Airway Assessment: Unable to assess Cardiovascular Assessment: Pulmonary Assessment: Dental Assessment: Misc Assessment: Anesthesia Plan: ASA 3 MAC, with a(n) inhalational induction This is a 55 y.o. yo female with bipolar disorder and cerebral palsy who presents with acid reflux,abdominal pain and chronic constipation for EGD under anesthesia. Patient unable to tolerate blood cuff placement, not a candidate for IV induction. We will plan inhalational induction with subsequent propofol MAC Region - Other Informed Consent: Anesthetic plan and risks discussed with healthcare power of bulb inspector and patient. Plan discussed with attending and IN FLIGHT CREW MEMBER. PAT Staff Note documented in this encounter Plan of Treatment [...] Procedure) New Bag 01/16/2016 12:20 PM EDT propofol (DIPRIVAN) infusion CONTINUOUS PRN, Starting on Fri01/16/16 at 1232, Until Fri01/16/16 at 1247, Anesthesia Intra-op, Routine New Bag 01/16/2016 12:32 PM EDT 150 mcg/kg/min 55.8 mL/hr documented in this encounter Care Teams Production Assembly Operator Relationship Specialty Start Date End Date Loan Pradhan APRN [address] [place] [address] PCP - General Family Medicine 01/16/16 06/25/20 documented as of this encounter
--- OUTSIDE RECORDS SUMMARY | 2024-02-13 01:36 | XMS_ITS | Encounter Summary ---
Author Organization [facility] Address [address] [place] [address] Care Team Providers Care Soakers Supervisor Name Role Phone Stephanie Little MD Primary Care Provider [phone] Encounter Details Date Type Department Care Team (Late st Contact Info) Description 08/17/2021 7:30 EDT - 08/17/2021 13:00 EDT Surgery [facility] - [facility] Operating Room [address] [place] [address] Libra Gustafson, DMD [address] [place] [address] INTRAORAL - COMPLETE SERIES (INCLUDING BITEWINGS) [D0210 (CPT??)] Surgery Details Date/Time Status Location OR Service Patient Class Case Cl ass Case Type Trauma Case? 08/17/2021 0730 Posted [facility] OR OR 03 Oral Surgery Hospital Outpatient Surgery H - Elective Panel 1 Procedure LRB Anes Op Region Wound Class Comments INTRAORAL - COMPLETE SERIES (INCLUDING BITEWINGS) N/A General Mouth Class II/ Clean Contaminated DENTAL PROPHYLAXIS, ADULT N/A General Class II/ Clean Contaminated TOPICAL FLUORIDE VARNISH, MOD TO HIGH CARIES RISK N/A General Class II / Clean Contaminated EXTRACTION, TOOTH, ERUPTED, USING FORCEPS OR ELEVATOR N/A General Class II/ Clean Contaminated EXCISION, TOOTH, ERUPTED, WITH MUCOPERIOSTEAL FLAP ELEVATION AND BONE REMOVAL, TOOTH SECTION, OR BOTH N/A General Class II/ Clean Contaminated DENTAL, HOSPITAL CALL N/A General Cla ss II/ Clean Contaminated BAPTIST, TOOTH, POSTERIOR, 2 SURFACES, USING RESIN BASED COMPOSITE N/A General Class II/ Clean Contaminated Surgeon Surgeon Role Service Panel Libra Gustafson, MARQUES Primary Oral Surgery 1 Megha Grande MD Anesthesiology 1 Special Needs Card picked [facility]J documented in this encounter Social History Tobacco [...] Pressure - - Pulse - - Temperature 36.8 ??C (98.3 ??F) 08/17/2021 0739 EDT Respiratory Rate - - Oxygen Saturation - - Inhaled Oxygen Concentration - - Weight 75.3 [...] us at our office. Libra Martin Dental Homicide Investigator [facility] CARE OF MOUTH AFTER EXTRACTION ??? DO [...] will hasten recovery and prevent complications. [facility] Dental Unit [address], [place] [phone] Nursing note: Patient was given Toradol at [...] Disposition Code Departure Means Destination Home-Health Care [facility] documented in this encounter H&P Notes [...] TOOTH SECTION, OR BOTH, DENTAL, HOSPITAL CALL, BAPTIST, TOOTH, POSTERIOR, 2 SURFACES, USING RESIN BASED COMPOSITE, BAPTIST, TOOTH, ANTERIOR, 1 SURFACE, USING RESIN BASED COMPOSITE Operative Note Date: 08/17/2021 Location: [facility] OR Name: Elvia Kenney, : 1960, Tx in OR (Hospital case [facility]) [place] NIKKI, FMX, APRO, SF application, Comp [...] suction, Bite block Anesthesia: GA provided by [facility] anesthesia team Intubated: Nasal airway 8 carp 2% Xylocaine w/1:100k epi via local infiltration, IANB Hygiene Txt: Scaled/deplaqued all 4 quads with HI and USS, Polished, flossed. Prep and removed primary caries, existing rest and recurrent caries Quick stat 15.5% Ferric sulfateMatrix and wedge placed (Sectional, [place]) Etch, G5, Scotchbond [place] , Beautifil Flow A2,Filtek Shade: A2, placed per manufacture instructions Sealant: Pumice, Etch, Scotchbond [place] , Embrace sealant. Finished and Polished Checked [...] Instructions - Faviola Andrew RN - 08/15/2021 1938 EDT Pre-procedure instructions reviewed with care provider. [...] * Brief Op Note - Libra Gustafson, DMD - 08/17/2021 1301 EDT Date: 08/17/2021 Location: [facility] OR Name: Elvia Kenney, : 1960, Tx in OR (Hospital case [facility]) [place] NIKKI, FMX, APRO, SF application, Comp [...] suction, Bite block Anesthesia: GA provided by [facility] anesthesia team Intubated: Nasal airway 8 carp 2% Xylocaine w/1:100k epi via local infiltration, IANB Hygiene Txt: Scaled/deplaqued all 4 quads with HI and USS, Polished, flossed. Prep and removed primary caries, existing rest and recurrent caries Quick stat 15.5% Ferric sulfateMatrix and wedge placed (Sectional, [place]) Etch, G5, Scot[employer]bond [place] , Beautifil Flow A2,Filtek Shade: A2, placed per manufacture instructions Sealant: Pumice, Etch, Scotchbond [place] , Embrace sealant. Finished and Polished Checked [...] ECG REPORT - SCANNED 08/21/2021 8:56 EDT BAPTIST, TOOTH, POSTERIOR, 2 SURFACES, USING RESIN BASED COMPOSITE 08/17/2021 7:20 EDT Dental caries, unspecified Special Needs Card picked J DENTAL, HOSPITAL CALL 08/17/2021 7:20 EDT Dental caries, unspecified Special Needs Card picked [facility] EXCISION, TOOTH, ERUPTED, WITH MUCOPERIOSTEAL FLAP ELEVATION [...] EDT) 08/21/2021 8:56 EDT us Scan 2 Judge Clerk PROCEDURE/MINOR SURGICAL OR DERABLES Final Result documented in this encounter Visit Diagnoses Diagnosis Dental caries, unspecified documented in this encounter Admitting Diagnoses Diagnosis [...] New Bag 08/17/2021 7:28 EDT 25 mL/hr lidocaine-Epinephrine Bit 2 %-1:100,000 injection cartridge PRN, Starting on Fri08/17/21 at 1322, Until Fri08/17/21 at 1358, Routine, Intraprocedure Given 08/17/2021 13:22 EDT 11.05 mL LORazepam (ATIVAN) injection 1 mg 1 mg, intravenous, ONCE PRN, 1 dose, Starting on Fri08/17/21 at 1400, Until Fri08/17/21 at 1844, Anxiety, Routine, Recovery (only) sterile water (bottle) irrigation PRN, Starting on Fri08/17/21 at 1323, Until Fri08/17/21 at 1358, Intraprocedure Given 08/17/2021 13:23 EDT 2,000 mL documented in this encounter Discontinued Medications Medication [...] Intraprocedure 1322 (Given - Provid er: Libra Gustafson, MARQUES) LORazepam (ATIVAN) injection 1 mg 1 mg, [...] % ) injection 2 mg 1 08/17/2021 LORazepam (ATIVAN) injection 1 mg 1 022 Discharge Count Last Ordered Date First Orde red Date DISCHARGE PATIENT 1 08/17/2021 documented in this encounter Care Teams Soakers Supervisor Relationship Specialty Start Date End Date Stephanie Little MD [address] [place] [address] [place] [address] PCP - General 02/08/09 12/11/22 documented as of this encounter
--- OUTSIDE RECORDS SUMMARY | 2024-02-13 01:36 | XMS_ITS | Encounter Summary ---
Author Organization [facility] Address [address] [place] [address] Care Team Providers Care Oracle Engineer Name Role Phone Stephanie Little MD Primary Care Provider [phone] Jeny Levy APRN Primary Care Provider [phone] Encounter Details Date Type Department Care Team (Late st Contact Info) Description 05/17/2020 Lab Requisition [facility] Pathology & Laboratory Medicine - [facility] [address] [place], [place] [id number] Outr Resulting Lab, Provider Social History Tobacco Use Types Packs/Day Years Used Date Smoking Tobacco: Never Assessed Interpersonal Safety Answer Date Record ed Physically [...] RNA BY PCR Routine 05/17/2020 7:50 EST PREALBUMIN Routine 05/17/2020 7:50 EST documented in this encounter Results * PREALBUMIN (05/17/2020 7:50 EST) Prealbumin 38 20 - 40 mg/dL 05/18/2020 9:27 EST [facility] Blood VENOUS BLOOD / Unknown 05/17/2020 7:50 EST 05/17/2020 17:01 EST us Provider Outr Resulting Lab CHEMISTRY & BLOOD GA S ORDERABLES Final Result Performing Organization Address City/[facility] [address]/ZIP Co de Phone Number [facility] [address] [place] [address] * HEPATITIS C AB W REFLEX TO HCV RNA BY PCR (05/17/2020 7:50 EST) Hep C Antibody Negative Negative 05/18/2020 9:49 EST [facility] Blood VENOUS BLOOD / Unknown 05/17/2020 7:50 EST 05/17/2020 17:01 EST us Provider Outr Resulting Lab CHEMISTRY & BLOOD GA S ORDERABLES Final Result Performing Organization Address City/[facility] [address]/[facility] Co de Phone Number [facility] [address] [place] [address] documented in this encounter Visit Diagnoses Not on filedocumented in this encounter Care Teams Oracle Engineer Relationship Specialty Start Date End Date Stephanie Little MD [address] [place] [address] PCP - General 02/08/09 12/11/22 Jeny Levy APRN [address] [place] [address] PCP - General Family Medicine - [facility] Medicine 12/12/22 documented as of this encounter
--- OUTSIDE RECORDS SUMMARY | 2024-02-13 01:36 | XMS_ITS | Encounter Summary ---
Author Organization [facility] Address [address] [place] [address] Care Team Providers Care Print Manager Name Role Phone Stephanie Little MD Primary Care Provider [phone] Jeny Levy APRN Primary Care Provider [phone] Encounter Details Date Type Department Care Team (Late st Contact Info) Description 05/17/2020 Lab Requisition [facility] Pathology & Laboratory Medicine - [facility] [address] [place], [place] [phone] Outr Resulting Lab, Provider Social History Tobacco [...] Procedure Name Priority Date/Time Associated Diagnosis Comments HIV 1/2 ANTIGEN AND ANTIBODY, 4TH GENERATION Routine 05/17/2020 7:50 EST documented in this encounter Results * HIV 1/2 ANTIGEN AND ANTIBODY, 4TH GENERATION (05/17/2020 7:50 EST) HIV 1 and 2 Antibody/p24 Antigen, 4th Generation Negative Negative 05/18/2020 10:10 EST [facility] Comment: If acute HIV-1 infection is suspected in a high risk ??patient, submit plasma specimen for HIV-1 RNA quantitation test. Fourth Generation assay performed on the Siemens Centaur. Blood VENOUS BLOOD / Unknown 05/17/2020 7:50 EST 05/17/2020 17:01 EST us Provider Outr Resulting Lab IMMUNOLOGY AND SEROL OGY ORDERABLES Final Result Performing Organization Address City/State/[facility] Co de Phone Number [facility] [address] [place] [address] documented in this encounter Visit Diagnoses Not on filedocumented in this encounter Care Teams Print Manager Relationship Specialty Start Date End Date Stephanie Little MD [address] [place] [address] PCP - General 02/08/09 12/11/22 Jeny Levy APRN [address] [place] [address] PCP - General Family Medicine - [facility] Medicine 12/12/22 documented as of this encounter
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
--- OUTSIDE RECORDS SUMMARY | 2024-02-13 01:36 | XMS_ITS | Encounter Summary ---
Author Organization [facility] Address [address] [place] [address] Care Team Providers Care Assembly Hand Name Role Phone Stephanie Little MD Primary Care Provider [phone] Jeny Levy APRN Primary Care Provider [phone] Encounter Details Date Type Department Care Team (Late st Contact Info) Description 03/06/2021 Lab Requisition [facility] Pathology & Laboratory Medicine - [address] [phone] Outr Resulting Lab, Provider Social History Tobacco [...] Procedure Name Priority Date/Time Associated Diagnosis Comments ZZCOVID-19 TEST [facility] PCR Today 03/05/2021 15:15 EST COVID-19 TESTING Routine 03/05/2021 15:1 5 EST documented in this encounter Results * COVID-19 TEST [facility] PCR (03/05/2021 15:15 EST) Swab 03/05/2021 15:1 5 EST 03/06/2021 16:24 EST us Provider Outr Resulting Lab MICROBIOLOGY - GENER AL ORDERABLES Final Result [facility] [address] [place] [address] * COVID-19 TESTING (03/05/2021 15:15 EST) COVID-19 rt-PCR Result Negative Negative 03/07/2021 11:31 EST [facility] Comment: This test has not been FDA cleared or approved. This test has been authorized by FDA under an EUA for use by authorized laboratories. This test has been authorized only for detection of nucleic acid from 2019-nCoV, not for any other viruses or pathogens. This test is only authorized for the duration of the declaration that circumstances exist justifying the authorization of emergency use of in vitro diagnostic tests for detection and/or diagnosis of 2019-nCoV under section 564(b)(1) of Act, 21 U.S.C ?? 360bbb-3(b) (1), unless the authorization is terminated or revoked sooner. Negative results do not preclude 2019-nCoV infection and should not be used as the sole basis for treatment or other patient management decisions. Negative results must be combined with clinical observations, patient history, and epidemiological information. Testing was performed using the lucy SARS-CoV-2 assay ([employer] on the Lucy 6800 System Performing Lab Lucy [address] [facility] Lab 03/07/2021 11:31 EST [facility] Swab 03/05/2021 15:1 5 EST 03/06/2021 16:24 EST us Provider Outr Resulting Lab MICROBIOLOGY - GENER AL ORDERABLES Final Result [facility] [address] [place] [address] documented in this encounter Visit Diagnoses Not on filedocumented in this encounter Care Teams Assembly Hand Relationship Specialty Start Date End Date Stephanie Little MD [address] [place] [address] [place] [address] PCP - General 02/08/09 12/11/22 Jeny Levy APRN [address] [place] [address] PCP - General Family Medicine - [facility] Medicine 12/12/22 documented as of this encounter
--- OUTSIDE RECORDS SUMMARY | 2024-02-13 01:36 | XMS_ITS | Encounter Summary ---
Author Organization [facility] Address [facility] [place] [address] Care Team Providers Care Melter Loader Name Role Phone Marcos Seaman MD Primary Care Provider Unava ilable Reason for Visit * Consultation (Routine) - Specialty Diagnoses / Procedures Referred By Carmen zimmerman Referred To Contact Gastroenterology Diagnoses regurgitation, abdominal pain, chronic constipation, cerebral palsy Procedures consult Loan Pradhan, DISTILLATION OPERATOR [address] [place] [address] [facility] [address] [place] [address] Referral ID Status Reason Start Date Expiration Date V isits Requested Visits Authorized [id number] 11/30/2015 11/28/2016 6 6 Encounter Details Date Type Department Care Team (Latest Contact Info) Description 12/15/2015 2:00 PM EDT Office [place] [address] Melani Cee MD [facility] [place] [address] Gastroesophageal reflux disease, esophagitis presence not specified; Constipation, unspecified constipation type Social History Tobacco Use Types Packs/Day Years [...] Sign Reading Time Taken Comments Blood Pressure 136/86 12/15/2015 1:56 PM EDT Pulse 118 12/15/2015 1:56 PM EDT Temperature - - Respiratory Rate - - Oxygen Saturation - - Inhaled Oxygen Concentration - - Weight 61.8 kg (136 lb 4.8 oz) 12/15/2015 1:56 P M EDT Height 144.8 cm (4' 9) 12/15/2015 1:56 PM EDT Body Mass Index 29.5 12/15/2015 1:56 PM EDT documented in this encounter Patient Instructions * Patient Instructions* Melani Cee MD - 12/15/2015 2:00 PM EDT GERD - Continue omeprazole once daily. - Come back for EGD CONSTIPATION - add a fiber supplement (citrucel, nenmefoner) - 25 grams per day. Return for colonoscopy with anesthesia. documented in this encounter Progress Notes * Melani Cee MD - 12/15/2015 2:00 PM EDT Gastroenterology & Hepatology New Patient Consultation Note Ms. Elvia Kenney is a 55 y.o. yo female with bipolar disorder and cerebral palsy with dependent ADLs who presents to the section of Gastroenterology for consultation at the request of MARCOS Martines MD (Inactive) for regurgitation, abdominal pain, chronic constipation. She is here with her guar hudson and customer sales service manager. Patient Active Problem List Diagnosis Code ??? Chronic abdominal pain R10.9, G89.29 HISTORY OF PRESENT ILLNESS Her caregivers describe worsening GERD and CONSTIPATION. 1) GERD - increased GERD after eating with regurgitation of food. Also increased drueling and loud belching. They can't tell if she has epigastric or chest pain. No nausea or vomiting. They are concerned that she may be eating fabric from her bed. Was on famotidine and now on omepraolze 20 mg daily. They haven't noticed much of a difference with these medications. 2) CONSTIPATION - She is incontinent of stool and wears a diaper. She can go a few days without anyBM but then she may have oozing stool most of the day. Stool is soft not formed. She takes Miralax and stool softner daily. WIll take magnesium citrate to stimulate bowels if she hasn't gone in a fewdays. She eats a varied diet. They do not think she is evacuating all her stool. No hematochezia, melena. Recently had a UTI. Had an abdominal xray showing lots of stool. Increasing agitation. REVIEW OF SYSTEMS Notable for the gastrointestinal symptoms as described above. + weight gain (30 lbs since February 2015) ; no red or painful eyes; no oral ulcers, chronic oral lesions, or chronic sore throat. There is no cough, shortness of breath, palpitations, or chest pain. There is no dysuria, urinary incontinence. No chronic joint pains or history of inflammatory arthritis. Left arm blister. The patient denies psychiatric problems. There are no neurologic symptoms or easy bruising or bleeding. PAST MEDICAL HISTORY: Past Medical History Diagnosis Date ??? Cerebral palsy ??? Hyperlipidemia PAST SURGICAL HISTORY: Past Surgical History Procedure Laterality Date ??? Spinal fixation surgery with implant MEDICATIONS: Current Outpatient Prescriptions Medication Sig Dispense Refill ??? OLANZapine (ZYPREXA) 7.5 mg Tablet Take 7.5 mg by mouth nightly. ??? mirtazapine (REMERON HEMANT-TAB) 15 mg Tablet, Rapid Dissolve Bedtime ??? levOCARNitine tartrate (L-CARNITINE, TARTRATE,) 250 mg Capsule Take by mouth 2 times daily. ??? traZODone (DESYREL) 50 mg Tablet take 1/2 tablet by mouth at bedtime 0 ??? omeprazole (PRILOSEC) 20 mg Capsule, Delayed Release(E.C.) take 1 capsule ON AN EMPTY STOMACH by mouth 1 hour before dinner 0 ??? OLANZapine (ZYPREXA) 2.5 mg Tablet Bedtime ??? melatonin 3 mg Tablet Take by mouth as needed. ??? multivitamin Capsule Take 1 capsule by mouth daily. ??? OLANZapine (ZYPREXA) 2.5 mg tablet (Patient taking differently: 5 mg) ??? divalproex (DEPAKOTE) 250 mg EC tablet ??? docusate sodium (COLACE) 100 mg capsule No current facility-administered medications for this visit. ALLERGIES/ADR No Known Allergies SOCIAL HISTORY: Social History Social History Narrative Lives with her home provider, Shannan. Her previous home provider suddenly in front of patientin January 2015. No family involved in her care. Social History Substance Use Topics ??? Smoking status: Not on file ??? Smokeless tobacco: Not on file ??? Alcohol use Not on file FAMILY HISTORY: family history includes Heart Disease in her father. There is no family history of inflammatory bowel disease, celiac disease, or colorectal cancer. There is no history of liver disease. PHYSICAL EXAMINATION: Vitals: 12/15/15 1356 BP: 136/86 Pulse: 118 Wt Readings from Last 3 Encounters: 12/15/15 61.8 kg (136 lb 4.8 oz) Body mass index is 29.5 kg/(m^2). GEN: Pacing around room hunched over, saying nicole camargo, nicole martínez, I want to eat over and over Unable to answer any questions SKIN: No rashes or abnormal lesions. NECK: No adenopathy and no thyromegaly. 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 LUNGS: Clear to auscultation bilaterally. COR: Regular, normal S1 and S2 without murmurs ABD: Normal active bowel sounds. Soft and non-distended. No tenderness to deep palpation in all 4 quadrants. No organomegaly. EXT: No cyanosis, clubbing or edema. PSYCH: No eye contact, unable to interact in any meaningful way ADDITIONAL TESTING: Reviewed available labs, imaging and endoscopy results in [facility] as well as Scan Docs tab IMPRESSION: Ms. Kenney is a 55 yo F with CP, bipolar disorder who I am seeing regarding regurgitation and abnormal BMs. The evaluation is challenging due to lack of history. It is possible she is regurgitating food due to GERD, pocketing food in her mouth or has rumination. Her stools seems soft due to laxativesbut appear to be incompletely evacuated. We discussed the following recommendations that were printed out for the patient: RECOMMENDATIONS: GERD - Continue omeprazole once daily. - EGD with anesthesia CONSTIPATION - fiber supplement (citrucel, nenmefoner) - 25 grams per day to bulk stool and given them more form - continue laxative regimen The patient's team was given my contact information and will call me with concerns or questions Melani Cee MD, MS [employer] Managercaser up Section of Gastroenterology and Hepatology [place] [phone] [email or web address] documented in this encounter Plan of Treatment Not on file documented as of this encounter Visit Diagnoses Diagnosis Gastroesophageal reflux disease, esophagitis presence not specified Constipation, unspecified constipation type documented in this encounter Care Teams Melter Loader Relationship Specialty Start Date End Date Marcos Seaman MD [place], [place] PCP - General 02/06/10 01/15/16 documented as of this encounter
--- OUTSIDE RECORDS SUMMARY | 2024-02-13 01:36 | XMS_ITS | Encounter Summary ---
Author Organization [facility] Address [address] [place] [address] Care Team Providers Care Linderman Operator Name Role Phone Unavailable Primary Care Provider Unavailabl e Encounter Details Date Type Department Care Team (Latest Contact Info) Description 02/12/1999 10:23 EST - 02/12/1999 11:59 EST Hospital Encounter [address] [address] Fredy Solorzano MD [address] [place] [address] Discharge Disposition: Auto Discharge Social History Tobacco [...]
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
[2024-02-13 10:07] LABS: Anion Gap 8.8 mmol/L (3-11); BUN 14 mg/dL (7-18); CO2 28.2 mmol/L (21.0-32.0); CREATININE 0.6 mg/dL (0.55-1.02); Calculated LDL 76 mg/dL (<100); Chloride 106 mmol/L (98-107); Cholesterol 147 mg/dL (<200); Estimated GFR 101.42 (mL/min/1.73m2); Glucose 99 mg/dL (74-106); HDL Cholesterol 39 mg/dL (40-60); Sodium 143 mmol/L (136-145); Triglyceride 160 mg/dL (<150)
[2024-02-13 10:20] LABS: VALPROIC ACID 49.6 ug/mL
== END 2024-02-13 01:34 | disposition home or self-care (01) ==
LOC: LBO 01:33
PROVIDERS: PCP Nurse Practitioner Adult Health; Visit Provider Nurse Practitioner Adult Health
DX: E78.5 Hyperlipidemia, unspecified (principal); Z51.81 Encounter for therapeutic drug level monitoring
CPT/HCPCS: 36415; 80048; 80061; 80164

== ENCOUNTER 2024-04-30 14:35 | Outpatient (REF) | payer MEDICARE, MEDICAID, SELFPAY ==
[2024-05-04 12:55] LABS: Helicobacter pylori Ag, Feces Negative (Negative)
== END 2024-04-30 14:36 | disposition home or self-care (01) ==
LOC: NCHCN 14:35
PROVIDERS: PCP Nurse Practitioner Adult Health; Visit Provider Nurse Practitioner Adult Health
DX: R14.0 Abdominal distension (gaseous) (principal)
CPT/HCPCS: 87338

== ENCOUNTER 2024-05-05 02:27 | Outpatient (CLI) | payer MEDICARE, MEDICAID, SELFPAY ==
[2024-05-05 13:48] LABS: Calculated LDL 60 mg/dL (<100); Cholesterol 131 mg/dL (<200); HDL Cholesterol 46 mg/dL (40-60); Triglyceride 126 mg/dL (<150)
[2024-05-05 14:41] LABS: Anion Gap 7.5 mmol/L (3-11); BUN 15 mg/dL (7-18); CO2 27.5 mmol/L (21.0-32.0); CREATININE 0.5 mg/dL (0.55-1.02); Calcium 9.5 mg/dL (8.5-10.1); Chloride 107 mmol/L (98-107); Estimated GFR 105.98 (mL/min/1.73m2); Folate > 20.0 ng/mL (8.6-20.0); Glucose 122 mg/dL (74-106); Potassium 4.5 mmol/L (3.5-5.1); Sodium 142 mmol/L (136-145); TSH (W/Ref FT4) 1.58 uIU/mL (0.36-3.74); Vitamin B12 1100 pg/mL (193-986)
== END 2024-05-05 02:28 | disposition home or self-care (01) ==
LOC: LBO 02:27
PROVIDERS: PCP Nurse Practitioner Adult Health; Visit Provider Nurse Practitioner Adult Health
DX: E78.5 Hyperlipidemia, unspecified; Z51.81 Encounter for therapeutic drug level monitoring
CPT/HCPCS: 36415; 80048; 80061; 82607; 82746; 84443

== ENCOUNTER 2024-11-05 00:47 | Outpatient (CLI) | payer MEDICARE, MEDICAID, SELFPAY ==
[2024-11-05 10:21] LABS: Abs Immature Grans 0.02 10^3/uL (0.0-0.06); HCT 33.4 % (36.0-46.0); HGB 10.4 g/dL (11.2-15.7); Immature Grans % 0.4 %; MCH 27.6 pg (27.0-33.0); MCHC 31.1 % (32.0-36.0); MCV 89 fL (80-95); MPV 9.3 fL (8.0-11.0); Platelet Count 233 10^3/uL (130-400); RBC 3.77 10^6/uL (3.93-5.22); RDW 13.6 % (11.7-14.6); RDW-SD 44.2 fL; WBC 5.01 10^3/uL (4.4-10.8)
[2024-11-05 11:31] LABS: Sodium 141 mmol/L (136-145); Vitamin B12 957 pg/mL (193-986)
== END 2024-11-05 00:48 | disposition home or self-care (01) ==
LOC: LBO 00:47
PROVIDERS: PCP Nurse Practitioner Adult Health; Visit Provider Psychiatry & Neurology Psychiatry
DX: Z79.899 Other long term (current) drug therapy (principal)
CPT/HCPCS: 36415; 80164; 82607; 84295; 85025